=== PATIENT | female | born 1995 | race Caucasian/White ===

== ENCOUNTER 2022-09-12 09:53 | Outpatient (OUT) | payer OTHER, SELFPAY ==
--- NOTE | 2022-09-12 09:56 | US_ITS ---
[address] [address] Patient Name: MELITON EVANS MRN: [id number] date: 1995 Sex: F Assigned Patient Location: US Current Patient Location: US Accession/Order Number: [id number] Exam Date: 09/12/2022 09:58 Report Date: 09/14/2022 15:27 At the request of: EUGENIA VASQUEZ Procedure: US OB anatomy EXAMINATION: US OB anatomy, US OB cervical length HISTORY: Z34.92 SECOND TRIMESTER COMPARISON: No relevant comparison available. TECHNIQUE: Transabdominal sonographic examination was performed for obstetrical and evaluation. FINDINGS: Number: 1 Heart Rate: 133.0 bpm H.B. /min Amniotic Fluid Volume: Subjectively normal Placental Location: ANTERIOR Cervix Length: 5 cm , closed ANATOMY: Normal Structures -cerebellum, choroid plexus, cisterna magna, lateral cerebral ventricles, orbits, midline falx, hard palate, four-chamber heart, RVOT, LVOT, stomach, kidneys, bladder, umbilical cord insertion into abdomen, three-vessel cord, cervical spine, thoracic spine, lumbar spine, sacral spine, right upper extremity, left upper extremity, right lower extremity, left lower extremity. SUBOPTIMALLY SEEN: None ABNORMALITIES: None BIOMETRY: BPD: 4.8 cm 20 weeks 4 days ; 56% HC: 18.9 cm 21 weeks 2 days; 77% AC: 17.6 cm 22 weeks 4 days; 95% FL: 3.5 cm 21 weeks 0 days; 62% EFW:445.4 grams; >97% FL/AC: 19.8 FL/BPD: 72.3 HC/AC: 1.1 GESTATIONAL AGE: Age by EDC: 20 weeks 3 days LISBET by EDC: 01/27/2023 Age by current US: 21 weeks 3 days LISBET by current US: 01/20/2023 IMPRESSION: 1. Single live intrauterine with growth detailed above. 2. Estimated weight is greater than 97th percentile. Electronically authenticated by: NEHA CANO Date: 09/14/2022 15:27
== END 2022-09-12 09:54 ==
LOC: US 09:53
PROVIDERS: PCP Obstetrics & Gynecology; Visit Provider Obstetrics & Gynecology
DX: Z34.92 Encounter for supervision of normal pregnancy, unspecified, second trimester (principal); Z3A.20 20 weeks gestation of pregnancy
CPT/HCPCS: 76805; 76817

== ENCOUNTER 2022-11-02 08:38 | Outpatient (OUT) | payer OTHER, SELFPAY ==
[2022-11-02 09:51] LABS: Basophils Percent Auto 0.1 % (0.2-2.0); Eosinophils Absolute Auto 0.1 10^3/uL (0.0-0.7); Eosinophils Percent Auto 1.2 % (0.9-7.0); Hematocrit 35.2 % (36.0-48.0); Hemoglobin 11.3 g/dL (12.0-16.0); Immature Granulocytes Abs Auto 0.03 10^3/uL (0.00-0.03); Immature Granulocytes Pct Auto 0.4 % (0.0-0.5); Lymphocytes Absolute Auto 2.6 10^3/uL (1.2-3.8); Lymphocytes Percent Auto 33.9 % (20.5-60.0); Mean Corpuscular HGB Conc 32.1 g/dL (29.9-35.2); Mean Corpuscular Hemoglobin 30.1 pg (26.7-34.0); Mean Corpuscular Volume 93.6 fL (81.0-99.0); Mean Platelet Volume 9.3 fL (9.5-13.5); Monocytes Absolute Auto 0.2 10^3/uL (0.3-0.8); Monocytes Percent Auto 3.2 % (1.7-12.0); Neutrophils Absolute Auto 4.6 10^3/uL (1.4-6.5); Neutrophils Percent Auto 61.2 % (43.0-75.0); Platelet Count 307 10^3/uL (150-450); Red Blood Count 3.76 10^6/uL (4.20-5.40); Red Cell Distribution Width 13.3 % (11.0-15.0); White Blood Count 7.6 10^3/uL (4.0-11.0)
[2022-11-02 10:22] LABS: Glucose 1 Hour 151 mg/dL
== END 2022-11-02 08:39 | disposition home or self-care (01) ==
LOC: LAB 08:40
PROVIDERS: PCP Obstetrics & Gynecology; Visit Provider Obstetrics & Gynecology
DX: Z34.92 Encounter for supervision of normal pregnancy, unspecified, second trimester (principal); Z3A.00 Weeks of gestation of pregnancy not specified
CPT/HCPCS: 36415; 82950; 85025

== ENCOUNTER 2022-11-11 08:04 | Outpatient (OUT) | payer OTHER, SELFPAY ==
[2022-11-11 08:28] LABS: Glucose Fasting 87 mg/dL (74-106)
[2022-11-11 10:13] LABS: Glucose 1 Hour 114 mg/dL
[2022-11-11 10:52] LABS: Glucose 2 Hour 132 mg/dL
[2022-11-11 12:51] LABS: Glucose 3 Hour 123 mg/dL
== END 2022-11-11 08:05 | disposition home or self-care (01) ==
LOC: LAB 08:04
PROVIDERS: PCP Obstetrics & Gynecology; Visit Provider Obstetrics & Gynecology
DX: E74.39 Other disorders of intestinal carbohydrate absorption (principal)
CPT/HCPCS: 36415; 82951; 82952

== ENCOUNTER 2022-11-19 09:30 | Outpatient (OUT) | payer OTHER, SELFPAY ==
[2022-11-19 10:03] VITALS: BP 110/66; PULSE 87
[2022-11-19 11:17] LABS: Bilirubin Urine NEGATIVE (NEGATIVE); Blood Urine TRACE-I (NEGATIVE); Clarity Urine CLEAR (CLEAR); Color Urine YELLOW (YELLOW); Glucose Urine UA NEGATIVE (NEGATIVE); Ketones Urine NEGATIVE (NEGATIVE); Leukocyte Esterase Urine SMALL (NEGATIVE); Nitrite Urine NEGATIVE (NEGATIVE); Protein Urine NEGATIVE (NEG/TRACE); Specific Gravity Urine >=1.030 (1.005-1.025); pH Urine 5.5 (5.0-9.0)
[2022-11-19 11:23] LABS: Urine Microscopic Indicated YES
[2022-11-19 12:09] LABS: Bacteria Urine LARGE #/HPF (NONE SEEN)
[2022-11-19 12:13] LABS: Calcium Oxalate Crystals Urine RARE; Crystals Seen? Seen #/HPF (None Seen); Mucus Urine MODERATE (NONE SEEN); Squamous Epithelial Cell Urine MODERATE #/LPF (NONE/RARE)
[2022-11-19 12:15] LABS: Urine Culture Indicated YES
== END 2022-11-19 11:35 | disposition home or self-care (01) ==
LOC: FBCO 09:37 → FBC 09:37
PROVIDERS: Visit Provider Obstetrics & Gynecology
DX: O26.893 Other specified pregnancy related conditions, third trimester (principal); R10.2 Pelvic and perineal pain; Z3A.30 30 weeks gestation of pregnancy
CPT/HCPCS: 59025; 81001; 87086

== ENCOUNTER 2022-11-26 09:26 | Outpatient (OUT) | payer OTHER, SELFPAY ==
--- NOTE | 2022-11-26 09:29 | US_ITS ---
The [address] [address] Patient Name: MELITON EVANS MRN: [id number] date: 1995 Sex: F Assigned Patient Location: US Current Patient Location: US Accession/Order Number: [id number] Exam Date: 11/26/2022 09:29 Report Date: 11/26/2022 15:23 At the request of: EUGENIA TAYLOR Procedure: US OB growth EXAMINATION: US OB growth HISTORY: LGA COMPARISON: Ultrasound OB anatomy 09/12/2022 FINDINGS: Heart Rate: 131.0 bpm Number: 1.0 Position: CEPHALIC Amniotic Fluid Volume: 20.8 cm Maximum Vertical Pocket: 7.5 cm BIOMETRY: BPD: 8.5 cm cm; 34 weeks 0 days; >97% HC: 30.0 cmcm; 33 weeks 2 days; 73% AC: 30.0 cm cm; 34 weeks 0 days; >97% FL: 6.5 cm cm; 33 weeks 4 days; 91% % EFW: 2269.0 grams; >97% FL/AC: 21.7 FL/BPD: 76.9 HC/AC: 1.0 GESTATIONAL AGE: Age by EDC: 31 weeks 1 days LISBET by EDC: 01/27/2023 Age by US: 33 weeks 5 days LISBET by US: 01/09/2023 US/US OB growth IMPRESSION: 1. Single live intrauterine with growth detailed above. 2. Estimated weight is greater than 97th percentile. Dr. Taylor was notified of these findings by the tack welder at time of imaging. Electronically authenticated by: NEHA CANO Date: 11/26/2022 15:23
== END 2022-11-26 09:27 | disposition home or self-care (01) ==
LOC: US 09:27
PROVIDERS: Visit Provider Obstetrics & Gynecology
DX: O36.63X0 Maternal care for excessive fetal growth, third trimester, not applicable or unspecified (principal); Z3A.31 31 weeks gestation of pregnancy
CPT/HCPCS: 76816

== ENCOUNTER 2022-12-03 13:52 | Observation (INO) | payer OTHER, SELFPAY ==
[2022-12-03 14:23] VITALS: BP 111/56; PULSE 86
== END 2022-12-03 15:00 | disposition home or self-care (01) ==
LOC: FBC 13:54
PROVIDERS: Admitting Provider Obstetrics & Gynecology; Visit Provider Obstetrics & Gynecology
DX: O26.899 Other specified pregnancy related conditions, unspecified trimester (principal); R10.2 Pelvic and perineal pain; Z3A.00 Weeks of gestation of pregnancy not specified
CPT/HCPCS: G0378; G0379

== ENCOUNTER 2022-12-23 15:28 | Observation (INO) | payer OTHER, SELFPAY ==
--- NOTE | 2022-12-23 15:31 | US_ITS ---
[place] [id number] Patient Name: MELITON EVANS MRN: [id number] date: 1995 Sex: F Assigned Patient Location: [facility] Current Patient Location: Accession/Order Number: [id number] Exam Date: 12/23/2022 15:32 Report Date: 12/23/2022 16:16 At the request of: EUGENIA VASQUEZ Procedure: US OB growth PROCEDURE: US OB growth, 12/23/2022 3:32 PM EDT. INDICATIONS: Encounter for third trimester , large for gestational age fetus 4 para 3 COMPARISON: 11/26/2022 FINDINGS: EVALUATION Number of Fetuses : 1 Presentation: Cephalic Heart Rate: 118 bpm. Placenta: Anterior, no previa Placenta cord insertion not evaluated COLLEEN: 21.5 cm, maximum vertical pocket 9 cm GESTATIONAL AGE: Provided gestational age: 35 weeks 0 days Provided LISBET: 01/27/2023 Sonographic gestational age: 37 weeks 3 days +/- 2 weeks 4 days Sonographic LISBET: 01/30/2023 BIOMETRY: BPD: 9.0 cm, 36 weeks 3 days, 87 percentile. HC: 33.8 cm, 30 weeks 5 days, 94 percentile. AC: 34.4 cm, 30 weeks 2 days, greater than 97 percentile. FL: 7.0 cm, 36 weeks 0 days, 68 percentile. Estimated weight 3253 g +/- 488 g. Greater than 97 percentile Growth ratios: CI: 74.9 FL/BPD: 78.0 HC/AC: 0.98 FL/AC: 20.4 FL/HC: 20.7, normal range 20.84-22.64 ANATOMY: Not evaluated MATERNAL FINDINGS: No maternal adnexal abnormality. US/US OB growth IMPRESSION: 1. Living intrauterine , cephalic presentation. 2. Composite sonographic age 37 weeks 3 days +/- 2 weeks 4 days. 3. Estimated weight 3253 g, greater than 97 percentile. 4. Normal amniotic fluid index, 21.5 cm, maximum vertical pocket 9.0 cm. Electronically authenticated by: DAVID DURAN Date: 12/23/2022 16:16
--- NOTE | 2022-12-23 15:31 | US_ITS ---
[address] [address] Patient Name: MELITON EVANS MRN: [id number] date: 1995 Sex: F Assigned Patient Location: [facility] Current Patient Location: [facility] Accession/Order Number: [id number] Exam Date: 12/23/2022 15:32 Report Date: 12/23/2022 17:19 At the request of: EUGENIA VASQUEZ Procedure: US OB BPP w non-stress Ultrasound biophysical profile CLINICAL: Evaluate well-being. Ultrasound age of 37 weeks 3 days and clinical gestational age of 35 weeks 0 days. TECHNIQUE: Dedicated ultrasound imaging of the fetus was performed to include the waiter/waitress cafeteria's evaluation of biophysical profile. FINDINGS: Comparison: None. FETUS: There is a single living intrauterine fetus in vertex presentation. heart rate of 118 beats per minute. AMNIOTIC FLUID: Amniotic fluid index is 21.48 cm, with maximum vertical pocket of 8.98 cm. BIOPHYSICAL PROFILE: motion: 2 out of 2. tone: 2 out of 2. breathin out of 2. Amniotic fluid volume: 2 out of 2. Total score: 8 out of 8. OTHER FINDINGS: None. US/US OB BPP w non-stress IMPRESSION: 1. Single viable fetus in vertex presentation with heart rate of 118 beats per minute. 2. Total biophysical profile score of 8 out of 8. 3. Amniotic fluid index of 21.48 cm, with maximum vertical pocket of 8.9 cm. Electronically authenticated by: JEN ESTRADA Date: 12/23/2022 17:19
[2022-12-23 15:55] VITALS: BP 120/69; PULSE 82
== END 2022-12-23 16:15 | disposition home or self-care (01) ==
LOC: FBC 15:30
PROVIDERS: Admitting Provider Obstetrics & Gynecology; Visit Provider Obstetrics & Gynecology
DX: O26.843 Uterine size-date discrepancy, third trimester (principal); Z3A.35 35 weeks gestation of pregnancy
CPT/HCPCS: 76816; 76818; G0378

== ENCOUNTER 2022-12-25 10:06 | Outpatient (OUT) | payer OTHER, SELFPAY ==
[2022-12-25 10:16] VITALS: BP 117/69; PULSE 88
== END 2022-12-25 10:50 | disposition home or self-care (01) ==
LOC: FBCO 10:07 → FBC 10:07
PROVIDERS: Visit Provider Obstetrics & Gynecology
DX: O36.60X0 Maternal care for excessive fetal growth, unspecified trimester, not applicable or unspecified (principal); Z3A.00 Weeks of gestation of pregnancy not specified
CPT/HCPCS: 59025

== ENCOUNTER 2022-12-29 09:48 | Outpatient (OUT) | payer OTHER, SELFPAY ==
--- NOTE | 2022-12-29 10:04 | US_ITS ---
[address] [address] Patient Name: MELITON EVANS MRN: [id number] date: 1995 Sex: F Assigned Patient Location: US Current Patient Location: Accession/Order Number: [id number] Exam Date: 12/29/2022 10:05 Report Date: 12/29/2022 16:50 At the request of: EUGENIA VASQUEZ Procedure: US OB BPP w non-stress EXAMINATION: US OB BPP w non-stress HISTORY: Excessive growth affecting management of COMPARISON: No relevant comparison available. TECHNIQUE: Ultrasound biophysical profile was performed in the radiology department. FINDINGS: BREATHING MOVEMENTS: 2.0 GROSS BODY MOVEMENTS: 2.0 TONE: 2.0 QUALITATIVE AMNIOTIC FLUID VOLUME: 2.0 PRESENTATION: CEPHALIC HEART RATE: 131.7 bpm H.B./min AMNIOTIC FLUID VOLUME: 14.5 cm cm GESTATIONAL AGE: 35 weeks 6 days CONCLUSION: Total biophysical profile score: 8.0 Electronically authenticated by: BRYAN DE SOUZA Date: 12/29/2022 16:50
[2022-12-29 10:22] VITALS: BP 109/59; PULSE 80
== END 2022-12-29 10:57 | disposition home or self-care (01) ==
LOC: US 09:55 → FBC 10:09
PROVIDERS: Visit Provider Obstetrics & Gynecology
DX: O36.63X0 Maternal care for excessive fetal growth, third trimester, not applicable or unspecified (principal); Z3A.35 35 weeks gestation of pregnancy
CPT/HCPCS: 76818

== ENCOUNTER 2022-12-30 19:42 | Outpatient (REF) | payer OTHER, SELFPAY | END 2022-12-30 19:43 | disposition home or self-care (01) | LOC: LAB 19:42 | PROVIDERS: Visit Provider Obstetrics & Gynecology | DX: Z34.93 Encounter for supervision of normal pregnancy, unspecified, third trimester (principal) | CPT/HCPCS: 87081 ==

== ENCOUNTER 2023-01-01 09:54 | Outpatient (OUT) | payer OTHER, SELFPAY ==
[2023-01-01 10:05] VITALS: BP 102/56; PULSE 72
== END 2023-01-01 10:36 | disposition home or self-care (01) ==
LOC: FBCO 09:56 → FBC 09:57
PROVIDERS: Visit Provider Obstetrics & Gynecology
DX: O36.63X0 Maternal care for excessive fetal growth, third trimester, not applicable or unspecified (principal); Z3A.00 Weeks of gestation of pregnancy not specified
CPT/HCPCS: 59025

== ENCOUNTER 2023-01-04 14:44 | Observation (INO) | payer OTHER, SELFPAY ==
[2023-01-04 15:11] VITALS: BP 108/67; PULSE 90
== END 2023-01-04 16:15 | disposition home or self-care (01) ==
LOC: FBC 14:46
PROVIDERS: Admitting Provider Obstetrics & Gynecology; Visit Provider Obstetrics & Gynecology
DX: O26.893 Other specified pregnancy related conditions, third trimester (principal); O36.63X0 Maternal care for excessive fetal growth, third trimester, not applicable or unspecified; Z3A.36 36 weeks gestation of pregnancy; M79.89 Other specified soft tissue disorders
CPT/HCPCS: 59025; G0378; G0379

== ENCOUNTER 2023-01-05 07:12 | Outpatient (OUT) | payer OTHER, SELFPAY ==
--- NOTE | 2023-01-05 09:59 | US_ITS ---
[address] [address] Patient Name: MELITON EVANS MRN: [id number] date: 1995 Sex: F Assigned Patient Location: US Current Patient Location: LAB Accession/Order Number: [id number] Exam Date: 01/05/2023 10:00 Report Date: 01/05/2023 19:09 At the request of: EUGENIA VASQUEZ Procedure: US OB BPP w non-stress EXAMINATION: US OB BPP w non-stress HISTORY: Excessive growth in third trimester O36.63X0 COMPARISON: No relevant comparison available. TECHNIQUE: Ultrasound biophysical profile was performed in the radiology department. FINDINGS: BREATHING MOVEMENTS: 2.0 GROSS BODY MOVEMENTS: 2.0 TONE: 2.0 QUALITATIVE AMNIOTIC FLUID VOLUME: 2.0 PRESENTATION: CEPHALIC HEART RATE: 139.9 bpm H.B./min AMNIOTIC FLUID VOLUME: 18.8 cm cm GESTATIONAL AGE: 36 weeks 6 days CONCLUSION: Total biophysical profile score: 8.0 Electronically authenticated by: BRYAN DE SOUZA Date: 01/05/2023 19:09
[2023-01-05 10:25] VITALS: BP 123/70; PULSE 83
== END 2023-01-05 11:21 | disposition home or self-care (01) ==
LOC: US 07:12 → FBC 10:01
PROVIDERS: Visit Provider Obstetrics & Gynecology
DX: O36.63X0 Maternal care for excessive fetal growth, third trimester, not applicable or unspecified (principal); Z3A.36 36 weeks gestation of pregnancy
CPT/HCPCS: 76818

== ENCOUNTER 2023-01-06 14:00 | Inpatient (IN) | payer OTHER, SELFPAY ==
[2023-01-06] VITALS (33 sets, daily range): BP systolic 87–126; BP diastolic 44–72; PULSE 58–139; RESP 16; TEMP 36.4
[2023-01-06 15:09] LABS: Hematocrit 30.2 % (36.0-48.0); Hemoglobin 9.7 g/dL (12.0-16.0); Mean Corpuscular HGB Conc 32.1 g/dL (29.9-35.2); Mean Corpuscular Hemoglobin 27.8 pg (26.7-34.0); Mean Corpuscular Volume 86.5 fL (81.0-99.0); Mean Platelet Volume 10.8 fL (9.5-13.5); Platelet Count 243 10^3/uL (150-450); Red Blood Count 3.49 10^6/uL (4.20-5.40); Red Cell Distribution Width 14.4 % (11.0-15.0); White Blood Count 8.7 10^3/uL (4.0-11.0)
[2023-01-06 15:20] LABS: Amphetamine Screen Urine NEGATIVE (NEGATIVE); Barbiturates Screen Urine NEGATIVE (NEGATIVE); Benzodiazepines Screen Urine NEGATIVE (NEGATIVE); Buprenorphine Screen Urine NEGATIVE (NEGATIVE); Cannabinoid Screen Urine NEGATIVE (NEGATIVE); Cocaine Screen Urine NEGATIVE (NEGATIVE); Methadone Screen Urine NEGATIVE (NEGATIVE); Methamphetamines Screen Urine NEGATIVE (NEGATIVE); Opiate Screen Urine NEGATIVE (NEGATIVE); Oxycodone Screen Urine NEGATIVE (NEGATIVE); Phencyclidine Screen Urine NEGATIVE (NEGATIVE); Tricyclic Antidepressant Urine NEGATIVE (NEGATIVE)
[2023-01-06] MEDS: 0.9 % SODIUM CHLORIDE 1,000 ML 125 ML IV ×2 (16:00)
[2023-01-06] MEDS: AMPICILLIN SODIUM 2,000 MG in 0.9 % SODIUM CHLORIDE 100 ML 200 MG IV (16:00)
[2023-01-06] MEDS: OXYTOCIN/0.9 % SODIUM CHLORIDE 10 UNITS/500 ML PLAST..BAG 6 UNIT IV (16:00)
[2023-01-06] MEDS: 0.9 % SODIUM CHLORIDE 1,000 ML 999 ML IV (19:07)
[2023-01-06] MEDS: ROPIVACAINE HCL/PF 400 MG/200 ML PREMIX 6 MG EPIDURAL (19:28)
[2023-01-06] MEDS: FENTANYL CITRATE/PF 100 MCG/2 ML VIAL EPIDURAL ×2 (19:28)
--- NOTE | 2023-01-06 19:42 | W.PC.ACHO ---
Registration Status: ADM IN Primary Language: British Preferred Language: British Active Medications Generic Name Dose Route Start Last Admin Trade Name Freq PRN Reason Stop Dose Admin Carboprost Tromethamine 250 mcg 01/06/23 14:04 Carboprost Tromethamine 250 Mcg/Ml 1 Ml Vial IM 01/08/23 14:05 Q15M PRN Bleeding Diphenhydramine HCl 25 mg 01/06/23 16:38 Diphenhydramine Hcl 50 Mg/Ml (1ml) Vial IV 01/07/23 16:38 Q6H PRN Itching Ephedrine Sulfate 5 mg 01/06/23 16:38 Ephedrine Sulfate 50 Mg/Ml Vial IV 01/07/23 16:38 Q5M PRN Blood Pressure - Low Sodium Chloride 1,000 mls @ 125 mls/hr 01/06/23 14:30 01/06/23 19:07 Sodium Chloride 0.9% 1,000 Ml IV 999 mls/hr .Q8H FRANCI Administration Oxytocin/Sodium Chloride 10 units in 500 mls @ 6 mls/hr 01/06/23 14:15 01/06/23 16:00 Pitocin 10 Unit/500 Ml-Ns IV 2 milliunit/min CONT FRANCI 6 mls/hr Administration Protocol 2 MILLIUNIT/MIN Oxytocin/Sodium Chloride 20 units in 1,000 mls @ 125 mls/hr 01/06/23 14:15 Pitocin 20 Unit/1,000 Ml-Ns IV 01/06/23 22:14 Q8H FRANCI Ampicillin 1,000 mg/ Sodium 50 mls @ 100 mls/hr 01/06/23 20:00 Chloride IV Q4H FRANCI Ropivacaine/Sodium Chloride 400 mg in 200 mls @ 6 mls/hr 01/06/23 16:45 01/06/23 19:28 Naropin 0.2% 400 Mg/200 Ml Bag EPIDURAL 01/07/23 16:38 6 mls/hr Q24H FRANCI Administration Lidocaine 5 ml 01/06/23 14:10 Lidocaine Viscous 2% 15 Ml Solution TOPICAL ONCE PRN Pain Lidocaine 1 ml 01/06/23 14:10 Lidocaine Hcl 1% 200 Mg/20 Ml Mdv INJ ONCE PRN Pain Lidocaine 5 ml 01/06/23 16:38 Lidocaine Hcl 2% Pf 100 Mg/5 Ml Vial INJ 01/07/23 16:38 Q1H PRN Epidural Methylergonovine Maleate 0.2 mg 01/06/23 14:04 Methylergonovine Maleate 0.2 Mg/Ml Ampule IM 01/08/23 14:05 ONCE PRN Uterine Contractility/Contract Methylergonovine Maleate 0.2 mg 01/06/23 14:04 Methylergonovine Maleate 0.2 Mg Tablet PO 01/08/23 14:05 Q4H PRN Uterine Contractility/Contract Misoprostol 600 mcg 01/06/23 14:04 Misoprostol 100 Mcg Tablet PO 01/08/23 14:05 ONCE PRN Uterine Bleeding Misoprostol 800 mcg 01/06/23 14:04 Misoprostol 100 Mcg Tablet SL 01/08/23 14:05 ONCE PRN Uterine Bleeding Misoprostol 1,000 mcg 01/06/23 14:04 Misoprostol 100 Mcg Tablet NH 01/08/23 14:05 ONCE PRN Uterine Bleeding Naloxone HCl 0.4 mg 01/06/23 16:38 Naloxone Hcl 0.4 Mg/Ml Vial IV 01/07/23 16:38 ONCE PRN Epidural Ondansetron HCl 4 mg 01/06/23 14:10 Ondansetron Pf 4 Mg/2 Ml Vial IV Q6H PRN Nausea And Vomiting Ondansetron HCl 4 mg 01/06/23 14:10 Ondansetron 4 Mg Rapdis Tablet SL Q6H PRN Nausea And Vomiting Oxytocin 10 unit 01/06/23 14:04 Oxytocin 10 Unit/Ml Vial IM 01/08/23 14:05 ONCE PRN Hemorrhage Diet Category Date Time Status Regular Consistency Diet Diet 01/06/23 Dinner Active IV Insertion/Site Date of IV Line Insertion [20g 01/06/23 left Forearm] IV Insertion Time [20g left 14:55 Forearm] Neurology Patient orientation (short person,place,time,situation list) Respiratory Oxygen Delivery Method Room Air
[2023-01-06] MEDS: AMPICILLIN SODIUM 1,000 MG in 0.9 % SODIUM CHLORIDE 50 ML 100 MG IV (20:07)
--- NOTE | 2023-01-06 21:16 | PM.OBPRCVD ---
Procedure Intrapartal events: None Induction method: none Delivery augmentation: rupture of membranes and pitocin Delivery monitor: external FHT and external uterine Route of delivery: Episiotomy Description: none Laceration description: periurethral - 1st degree Delivery repair: Vicryl Estimated blood loss (mL): 300 Anesthesia type: Epidural Disposition: PACU Infant Delivery date: 01/06/23 Gender: male presentation: vertex Placental delivery description: Spontaneous cord description: 3 Vessels
[2023-01-06] MEDS: IBUPROFEN 600 MG TABLET PO (21:42)
[2023-01-06] MEDS: LIDOCAINE HCL 1% 200 MG/20 ML MDV INJ (21:44)
[2023-01-06] MEDS: OXYTOCIN/0.9 % SODIUM CHLORIDE 20 UNITS/1,000 ML PLAST..BAG 125 UNIT IV (21:45)
[2023-01-06] MEDS: GLYCERIN/WITCH HAZEL PADS 1 PAD TOPICAL (23:07)
[2023-01-06] MEDS: BENZOCAINE/MENTHOL 85 GRAM SPRAY BOTTLE 1 APPLIC TOPICAL (23:07)
[2023-01-07 04:15] VITALS: RESP 14
[2023-01-07] MEDS: IBUPROFEN 600 MG TABLET PO ×3 (04:18→18:08)
[2023-01-07 04:28] VITALS: TEMP 36.3
[2023-01-07 04:35] VITALS: BP 116/68; PULSE 77
[2023-01-07 05:51] LABS: Basophils Percent Auto 0.2 % (0.2-2.0); Eosinophils Percent Auto 0.3 % (0.9-7.0); Hematocrit 26.1 % (36.0-48.0); Hemoglobin 8.2 g/dL (12.0-16.0); Immature Granulocytes Abs Auto 0.04 10^3/uL (0.00-0.03); Immature Granulocytes Pct Auto 0.3 % (0.0-0.5); Lymphocytes Absolute Auto 3.8 10^3/uL (1.2-3.8); Lymphocytes Percent Auto 31.2 % (20.5-60.0); Mean Corpuscular HGB Conc 31.4 g/dL (29.9-35.2); Mean Corpuscular Hemoglobin 27.7 pg (26.7-34.0); Mean Corpuscular Volume 88.2 fL (81.0-99.0); Mean Platelet Volume 10.5 fL (9.5-13.5); Monocytes Absolute Auto 0.5 10^3/uL (0.3-0.8); Monocytes Percent Auto 4.1 % (1.7-12.0); Neutrophils Absolute Auto 7.8 10^3/uL (1.4-6.5); Neutrophils Percent Auto 63.9 % (43.0-75.0); Platelet Count 209 10^3/uL (150-450); Red Blood Count 2.96 10^6/uL (4.20-5.40); Red Cell Distribution Width 14.6 % (11.0-15.0); White Blood Count 12.2 10^3/uL (4.0-11.0)
--- NOTE | 2023-01-07 07:19 | W.PC.ACHO ---
Registration Status: ADM IN Primary Language: Montserratian Preferred Language: Montserratian report given lloyd MARTINO. Active Medications Generic Name Dose Route Start Last Admin Trade Name Freq PRN Reason Stop Dose Admin Acetaminophen 650 mg 01/06/23 21:18 Acetaminophen 325 Mg Tablet PO Q6H PRN Mild Pain Al Hydroxide/Mg Hydroxide 2,400 mg 01/06/23 21:18 Magnesium Hydroxide 2,400 Mg/10 Ml Oral.Susp PO Q6H PRN Dyspepsia Benzocaine/Menthol 1 applic 01/06/23 21:18 01/06/23 23:07 Benzocaine/Menthol 85 Gram [place] Bottle TOPICAL 1 applic Q2H PRN Administration Pain Carboprost Tromethamine 250 mcg 01/06/23 14:04 Carboprost Tromethamine 250 Mcg/Ml 1 Ml Vial IM 01/08/23 14:05 Q15M PRN Bleeding Diphenhydramine HCl 25 mg 01/06/23 16:38 Diphenhydramine Hcl 50 Mg/Ml (1ml) Vial IV 01/07/23 16:38 Q6H PRN Itching Diphtheria/Pertussis/Tetanus Vacc 0.5 ml 01/08/23 09:00 Adacel Diph,Pertuss(Acell),Tet Vac/Pf 0.5 Ml Adult Syringe IM 01/08/23 09:01 .ONCE ONE Docusate Sodium 100 mg 01/07/23 09:00 Docusate Sodium 100 Mg Capsule PO BID FRANCI Ephedrine Sulfate 5 mg 01/06/23 16:38 Ephedrine Sulfate 50 Mg/Ml Vial IV 01/07/23 16:38 Q5M PRN Blood Pressure - Low Sodium Chloride 1,000 mls @ 125 mls/hr 01/06/23 14:30 01/06/23 19:07 Sodium Chloride 0.9% 1,000 Ml IV 999 mls/hr .Q8H FRANCI Administration Oxytocin/Sodium Chloride 10 units in 500 mls @ 6 mls/hr 01/06/23 14:15 01/06/23 16:00 Pitocin 10 Unit/500 Ml-Ns IV 2 milliunit/min CONT FRANCI 6 mls/hr Administration Protocol 2 MILLIUNIT/MIN Ampicillin 1,000 mg/ Sodium 50 mls @ 100 mls/hr 01/06/23 20:00 01/06/23 20:07 Chloride IV 100 mls/hr Q4H FRANCI Administration Ropivacaine/Sodium Chloride 400 mg in 200 mls @ 6 mls/hr 01/06/23 16:45 01/06/23 19:28 Naropin 0.2% 400 Mg/200 Ml Bag EPIDURAL 01/07/23 16:38 6 mls/hr Q24H FRANCI Administration Ibuprofen 600 mg 01/06/23 21:18 01/07/23 04:18 Ibuprofen 600 Mg Tablet PO 600 mg Q6H PRN Administration Moderate Pain Lidocaine 5 ml 01/06/23 14:10 Lidocaine Viscous 2% 15 Ml Solution TOPICAL ONCE PRN Pain Lidocaine 1 ml 01/06/23 14:10 01/06/23 21:44 Lidocaine Hcl 1% 200 Mg/20 Ml Mdv INJ 1 ml ONCE PRN Administration Pain Lidocaine 5 ml 01/06/23 16:38 Lidocaine Hcl 2% Pf 100 Mg/5 Ml Vial INJ 01/07/23 16:38 Q1H PRN Epidural Measles/Mumps/Rubella Vaccine Live 0.5 ml 01/08/23 09:00 Measles,Mumps,Rubella Vacc/Pf 0.5 Ml Vial SQ 01/08/23 09:01 .ONCE ONE Methylergonovine Maleate 0.2 mg 01/06/23 14:04 Methylergonovine Maleate 0.2 Mg/Ml Ampule IM 01/08/23 14:05 ONCE PRN Uterine Contractility/Contract Methylergonovine Maleate 0.2 mg 01/06/23 14:04 Methylergonovine Maleate 0.2 Mg Tablet PO 01/08/23 14:05 Q4H PRN Uterine Contractility/Contract Misoprostol 600 mcg 01/06/23 14:04 Misoprostol 100 Mcg Tablet PO 01/08/23 14:05 ONCE PRN Uterine Bleeding Misoprostol 800 mcg 01/06/23 14:04 Misoprostol 100 Mcg Tablet SL 01/08/23 14:05 ONCE PRN Uterine Bleeding Misoprostol 1,000 mcg 01/06/23 14:04 Misoprostol 100 Mcg Tablet NC 01/08/23 14:05 ONCE PRN Uterine Bleeding Naloxone HCl 0.4 mg 01/06/23 16:38 Naloxone Hcl 0.4 Mg/Ml Vial IV 01/07/23 16:38 ONCE PRN Epidural Ondansetron HCl 4 mg 01/06/23 14:10 Ondansetron Pf 4 Mg/2 Ml Vial IV Q6H PRN Nausea And Vomiting Ondansetron HCl 4 mg 01/06/23 14:10 Ondansetron 4 Mg Rapdis Tablet SL Q6H PRN Nausea And Vomiting Oxytocin 10 unit 01/06/23 14:04 Oxytocin 10 Unit/Ml Vial IM 01/08/23 14:05 ONCE PRN Hemorrhage Senna 17.2 mg 01/06/23 20:00 Sennosides 8.6 Mg Tablet PO QHS PRN Constipation Simethicone 80 mg 01/06/23 21:18 Simethicone 80 Mg Tab.Chew PO QID PRN Abdominal Distention Temazepam 15 mg 01/06/23 21:18 Temazepam 15 Mg Capsule PO QHS PRN Sleep Witch Agustina/Glycerin 1 pad 01/06/23 21:18 01/06/23 23:07 Glycerin/Witch Agustina Pads TOPICAL 1 pad Q2H PRN Administration Pain Diet Category Date Time Status Regular Consistency Diet Diet 01/06/23 Dinner Active Regular Consistency Diet Diet 01/07/23 Breakfast Active IV Insertion/Site Date of IV Line Insertion [20g 01/06/23 left Forearm] IV Insertion Time [20g left 14:55 Forearm] Neurology Patient orientation (short person,place,time,situation list) Respiratory Oxygen Delivery Method Room Air Oxygen Delivery Method Room Air Oxygen Delivery Method Room Air Bowels Date of Last Bowel Movement 01/07/23 Date of Last Bowel Movement 01/06/23 Renal Bladder Pattern Continent
[2023-01-07 08:03] VITALS: BP 109/72; PULSE 67; TEMP 36.2
[2023-01-07] MEDS: DOCUSATE SODIUM 100 MG CAPSULE PO (10:12)
--- NOTE | 2023-01-07 13:49 | PM.OBPN ---
OB - PN: Subj Subjective Patient comments: no complaints Exam Constitutional Vital Signs, click to edit/add: Last Vital Signs Temp 97.3 F L 01/07/23 04:28 Pulse 67 01/07/23 08:03 Resp 14 01/07/23 04:15 BP 109/72 01/07/23 08:03 O2 Del Method Room Air 01/07/23 04:15 Documenting provider has reviewed patient's vital signs: yes HENMT Common normals: normocephalic and head/scalp atraumatic Eye Pupil: PERRL and accommodation reflex normal Neck & C-Spine Common normals: full ROM and supple Respiratory Common normals: normal respiratory effort Cardio Common normals: regular rate and regular rhythm GI Common normals: Normal to inspection, nondistended, normoactive bowel sounds present Common normals: no CVA tenderness Extremity Common normals: normal to inspection, full ROM and no calf tenderness Neuro Common normals: oriented x3, CN's II-XII intact bilaterally, moves all extremities, no focal motor deficits and no sensory deficits noted Psych Common normals: mental status grossly normal, thought process normal, cooperative and affect normal Results Labs Labs: Short CBC 01/06/23 01/07/23 Range/Units 14:55 05:43 WBC 8.7 12.2 H (4.0-11.0) 10^3/uL Hgb 9.7 L 8.2 L (12.0-16.0) g/dL Hct 30.2 L 26.1 L (36.0-48.0) % Plt Count 243 209 (150-450) 10^3/uL OB - PN: A/P Plan - Vaginal Delivery day: 1 Plan: routine care Time Spent with Patient Time: Total time spent is greater than 50% in coordination of care (as documented) at patient's floor/unit and/or counseling patient: Total time spent with greater than 50% in coordination of care (as documented) at patient's floor/unit and/or counseling patient: less than 15 minutes
[2023-01-07 16:42] VITALS: RESP 16
[2023-01-07 16:46] VITALS: BP 121/76; PULSE 64; TEMP 36.4
--- NOTE | 2023-01-07 19:12 | W.PC.ACHO ---
Registration Status: ADM IN Primary Language: Singaporean Preferred Language: Singaporean Active Medications Generic Name Dose Route Start Last Admin Trade Name Freq PRN Reason Stop Dose Admin Acetaminophen 650 mg 01/06/23 21:18 Acetaminophen 325 Mg Tablet PO Q6H PRN Mild Pain Al Hydroxide/Mg Hydroxide 2,400 mg 01/06/23 21:18 Magnesium Hydroxide 2,400 Mg/10 Ml Oral.Susp PO Q6H PRN Dyspepsia Benzocaine/Menthol 1 applic 01/06/23 21:18 01/06/23 23:07 Benzocaine/Menthol 85 Gram [place] Bottle TOPICAL 1 applic Q2H PRN Administration Pain Carboprost Tromethamine 250 mcg 01/06/23 14:04 Carboprost Tromethamine 250 Mcg/Ml 1 Ml Vial IM 01/07/23 21:00 Q15M PRN Bleeding Diphtheria/Pertussis/Tetanus Vacc 0.5 ml 01/08/23 09:00 Adacel Diph,Pertuss(Acell),Tet Vac/Pf 0.5 Ml Adult Syringe IM 01/08/23 09:01 .ONCE ONE Docusate Sodium 100 mg 01/07/23 09:00 01/07/23 10:12 Docusate Sodium 100 Mg Capsule PO 100 mg BID FRANCI Administration Sodium Chloride 1,000 mls @ 125 mls/hr 01/06/23 14:30 01/06/23 19:07 Sodium Chloride 0.9% 1,000 Ml IV 999 mls/hr .Q8H FRANCI Administration Ibuprofen 600 mg 01/06/23 21:18 01/07/23 18:08 Ibuprofen 600 Mg Tablet PO 600 mg Q6H PRN Administration Moderate Pain Measles/Mumps/Rubella Vaccine Live 0.5 ml 01/08/23 09:00 Measles,Mumps,Rubella Vacc/Pf 0.5 Ml Vial SQ 01/08/23 09:01 .ONCE ONE Methylergonovine Maleate 0.2 mg 01/06/23 14:04 Methylergonovine Maleate 0.2 Mg/Ml Ampule IM 01/07/23 21:00 ONCE PRN Uterine Contractility/Contract Methylergonovine Maleate 0.2 mg 01/06/23 14:04 Methylergonovine Maleate 0.2 Mg Tablet PO 01/07/23 21:00 Q4H PRN Uterine Contractility/Contract Misoprostol 600 mcg 01/06/23 14:04 Misoprostol 100 Mcg Tablet PO 01/07/23 21:00 ONCE PRN Uterine Bleeding Misoprostol 800 mcg 01/06/23 14:04 Misoprostol 100 Mcg Tablet SL 01/07/23 21:00 ONCE PRN Uterine Bleeding Misoprostol 1,000 mcg 01/06/23 14:04 Misoprostol 100 Mcg Tablet MA 01/07/23 21:00 ONCE PRN Uterine Bleeding Ondansetron HCl 4 mg 01/06/23 14:10 Ondansetron Pf 4 Mg/2 Ml Vial IV Q6H PRN Nausea And Vomiting Ondansetron HCl 4 mg 01/06/23 14:10 Ondansetron 4 Mg Rapdis Tablet SL Q6H PRN Nausea And Vomiting Senna 17.2 mg 01/06/23 20:00 Sennosides 8.6 Mg Tablet PO QHS PRN Constipation Simethicone 80 mg 01/06/23 21:18 Simethicone 80 Mg Tab.Chew PO QID PRN Abdominal Distention Temazepam 15 mg 01/06/23 21:18 Temazepam 15 Mg Capsule PO QHS PRN Sleep Witch Agustina/Glycerin 1 pad 01/06/23 21:18 01/06/23 23:07 Glycerin/Witch Agustina Pads TOPICAL 1 pad Q2H PRN Administration Pain Diet Category Date Time Status Regular Consistency Diet Diet 01/07/23 Breakfast Active Respiratory Oxygen Delivery Method Room Air Oxygen Delivery Method Room Air Bowels Date of Last Bowel Movement 01/07/23 Date of Last Bowel Movement 01/06/23 Renal Bladder Pattern Continent Bladder Pattern Continent
--- NOTE | 2023-01-07 19:57 | W.PC.ACHO ---
Registration Status: ADM IN Primary Language: Chilean Preferred Language: Chilean Report received from Karthik MARTINO. Active Medications Generic Name Dose Route Start Last Admin Trade Name Freq PRN Reason Stop Dose Admin Acetaminophen 650 mg 01/06/23 21:18 Acetaminophen 325 Mg Tablet PO Q6H PRN Mild Pain Al Hydroxide/Mg Hydroxide 2,400 mg 01/06/23 21:18 Magnesium Hydroxide 2,400 Mg/10 Ml Oral.Susp PO Q6H PRN Dyspepsia Benzocaine/Menthol 1 applic 01/06/23 21:18 01/06/23 23:07 Benzocaine/Menthol 85 Gram [place] Bottle TOPICAL 1 applic Q2H PRN Administration Pain Carboprost Tromethamine 250 mcg 01/06/23 14:04 Carboprost Tromethamine 250 Mcg/Ml 1 Ml Vial IM 01/07/23 21:00 Q15M PRN Bleeding Diphtheria/Pertussis/Tetanus Vacc 0.5 ml 01/08/23 09:00 Adacel Diph,Pertuss(Acell),Tet Vac/Pf 0.5 Ml Adult Syringe IM 01/08/23 09:01 .ONCE ONE Docusate Sodium 100 mg 01/07/23 09:00 01/07/23 10:12 Docusate Sodium 100 Mg Capsule PO 100 mg BID FRANCI Administration Sodium Chloride 1,000 mls @ 125 mls/hr 01/06/23 14:30 01/06/23 19:07 Sodium Chloride 0.9% 1,000 Ml IV 999 mls/hr .Q8H FRANCI Administration Ibuprofen 600 mg 01/06/23 21:18 01/07/23 18:08 Ibuprofen 600 Mg Tablet PO 600 mg Q6H PRN Administration Moderate Pain Measles/Mumps/Rubella Vaccine Live 0.5 ml 01/08/23 09:00 Measles,Mumps,Rubella Vacc/Pf 0.5 Ml Vial SQ 01/08/23 09:01 .ONCE ONE Methylergonovine Maleate 0.2 mg 01/06/23 14:04 Methylergonovine Maleate 0.2 Mg/Ml Ampule IM 01/07/23 21:00 ONCE PRN Uterine Contractility/Contract Methylergonovine Maleate 0.2 mg 01/06/23 14:04 Methylergonovine Maleate 0.2 Mg Tablet PO 01/07/23 21:00 Q4H PRN Uterine Contractility/Contract Misoprostol 600 mcg 01/06/23 14:04 Misoprostol 100 Mcg Tablet PO 01/07/23 21:00 ONCE PRN Uterine Bleeding Misoprostol 800 mcg 01/06/23 14:04 Misoprostol 100 Mcg Tablet SL 01/07/23 21:00 ONCE PRN Uterine Bleeding Misoprostol 1,000 mcg 01/06/23 14:04 [address] 01/07/23 21:00 ONCE PRN Uterine Bleeding Ondansetron HCl 4 mg 01/06/23 14:10 Ondansetron Pf 4 Mg/2 Ml Vial IV Q6H PRN Nausea And Vomiting Ondansetron HCl 4 mg 01/06/23 14:10 Ondansetron 4 Mg Rapdis Tablet SL Q6H PRN Nausea And Vomiting Senna 17.2 mg 01/06/23 20:00 Sennosides 8.6 Mg Tablet PO QHS PRN Constipation Simethicone 80 mg 01/06/23 21:18 Simethicone 80 Mg Tab.Chew PO QID PRN Abdominal Distention Temazepam 15 mg 01/06/23 21:18 Temazepam 15 Mg Capsule PO QHS PRN Sleep Witch Agustina/Glycerin 1 pad 01/06/23 21:18 01/06/23 23:07 Glycerin/Witch Agustina Pads TOPICAL 1 pad Q2H PRN Administration Pain Diet Category Date Time Status Regular Consistency Diet Diet 01/07/23 Breakfast Active Respiratory Oxygen Delivery Method Room Air Oxygen Delivery Method Room Air Bowels Date of Last Bowel Movement 01/07/23 Date of Last Bowel Movement 01/06/23 Renal Bladder Pattern Continent Bladder Pattern Continent
[2023-01-08 01:15] VITALS: RESP 14
[2023-01-08] MEDS: IBUPROFEN 600 MG TABLET PO ×2 (01:19→08:24)
[2023-01-08 01:22] VITALS: BP 109/62; PULSE 72; TEMP 36
[2023-01-08 08:19] VITALS: BP 109/51; PULSE 67
[2023-01-08 08:28] VITALS: BP 109/51; PULSE 67; RESP 16; TEMP 36.7
--- NOTE | 2023-01-08 12:46 | PM.OBDS ---
DS: Providers Provider Date of admission: 01/06/23 14:00 Primary care physician: Non-Staff Physician, Admitting clinician: Pipo Taylor Discharging clinician: Cecilia Ardon Anticipated date of discharge: 01/08/23 DS: Diagnosis Discharge Diagnosis (1) Vaginal delivery: Assessment and plan: INSTRUCTIONS GIVEN. FOLLOW UP IN SIX WEEKS FOR POST EXAM. SPORTS BRA ON 26/10 TO PREVENT MILK FROM COMING IN. Plan MEDICAL EXAM NON FOCAL. BOTTLE FEEDING. INSTRUCTIONS GIVEN: NO SEX FOR SIX WEEKS, SPORTS BRA ON 26/10 TO PREVENT MILK FROM COMING IN. WALKING ONLY EXERCISE FOR SIX WEEKS. MAY SHOWER. NO BATHTUB FOR 4 WEEKS. GENERAL RSV AND COVID PRECAUTIONS GIVEN OB - DS: Summary Hospital Course Hospital Course: UNCOMPLICATED Time spent discussing smoking cessation with patient: 3 to 10 minutes Peripartum Data - Vaginal Delivery Laceration description: periurethral - 1st degree Episiotomy Description: midline Complications complications: none Delivery method: spontaneous vaginal delivery Gender: male Discharge plan: home Status at Discharge Functional status at discharge: independent ambulation Overall status at discharge: patient is back to baseline Time Spent with Patient Time attestation: Total time spent providing and/or coordinating discharge services: Time spent: less than 30 minutes Specific discharge activities: STATED ABOVE Exam Constitutional Vital Signs, click to edit/add: Last Vital Signs Temp 98.1 F 01/08/23 08:28 Pulse 67 01/08/23 08:28 Resp 16 01/08/23 08:28 BP 109/51 01/08/23 08:28 O2 Del Method Room Air 01/08/23 08:28 Documenting provider has reviewed patient's vital signs: yes Common normals: no apparent distress HENMT Common normals: normocephalic and head/scalp atraumatic Eye Pupil: PERRL and accommodation reflex normal Neck & C-Spine Common normals: full ROM Respiratory Common normals: normal respiratory effort Cardio Common normals: regular rate and regular rhythm GI Common normals: Normal to inspection, nondistended, normoactive bowel sounds present Common normals: no CVA tenderness Extremity Common normals: normal to inspection, full ROM and no calf tenderness Neuro Common normals: CN's II-XII intact bilaterally, moves all extremities, no focal motor deficits and no sensory deficits noted Psych Common normals: mental status grossly normal, thought process normal, cooperative and affect normal Discharge Plan Discharge Disposition: Home, Self-Care Condition: Good Assessment: CONDITION GOOD S/P VAGINAL DELIVERY WITHOUT COMPLICATION. REQUESTING DISCHARGE. Health Concerns: NONE Plan of Treatment: DISCHARGE HOME Forms: Portal Instructions Discharge location: HOME
== END 2023-01-08 13:45 | disposition home or self-care (01) | DRG 560 ==
PROVIDERS: Admitting Provider Obstetrics & Gynecology; Visit Provider Obstetrics & Gynecology
DX: O36.63X0 Maternal care for excessive fetal growth, third trimester, not applicable or unspecified (principal); O99.344 Other mental disorders complicating childbirth; F32.A Depression, unspecified; F41.9 Anxiety disorder, unspecified; O71.82 Other specified trauma to perineum and vulva; Z37.0 Single live birth; Z3A.37 37 weeks gestation of pregnancy; Z83.3 Family history of diabetes mellitus; Z82.0 Family history of epilepsy and other diseases of the nervous system
CPT/HCPCS: 36415; 59025; 59050; 59410; 76818; 80307; 85025; 85027; 86850; 86900; 86901; 96365; 96375; 96376; G0378; G0379

== ENCOUNTER 2023-04-14 20:33 | Outpatient (REF) | payer OTHER, SELFPAY ==
[2023-04-19 12:11] LABS: Age Gdln ACOG Testing Note (.); IGP, rfx Aptima HPV ASCU Note (.)
== END 2023-04-14 20:34 | disposition home or self-care (01) ==
LOC: LAB 20:33
PROVIDERS: Visit Provider Obstetrics & Gynecology
DX: Z01.419 Encounter for gynecological examination (general) (routine) without abnormal findings (principal)
CPT/HCPCS: G0145

== ENCOUNTER 2023-04-30 10:01 | Outpatient (OUT) | payer OTHER, SELFPAY ==
--- OUTSIDE RECORDS SUMMARY | 2023-04-30 10:05 | XMS_ITS | CCD ---
Author Name Unknown Address [address] [place] [address] Organization [facility] Care Team Providers Care Stuffer Name Role Phone NO FAMILY, PHYSICIAN Primary Care Provider Unava ilable BAKARI Mortensen Emergency Provider [phone] Eugenia Taylor Attending Provider MD Odilon Daniels Attending Provider Linda Mortensen Admitting Unavailable Linda Mortensen Attending Unavailable NO FAMILY, PHYSICIAN Primary Care Unavailable Eugenia Taylor Attending Unavailable NO FAMILY, PHYSICIAN Primary Care Unavailable Eugenia Taylor Admitting Unavailable NO FAMILY, PHYSICIAN Primary Care Unavailable Odilon Daniels Admitting Unavailable Odilon Daniels Attending Unavailable PEDRO ., DR BELLO Attending Unavailable MISC, DR LAWS Primary Care Unavailable [place], DR BRYAN Hutton Consulting Unavailable PEDRO ., DR BELLO Admitting Unavailable PEDRO ., DR BELLO Consulting Unavailable PEDRO ., DR BELLO Attending Unavailable PEDRO ., DR BELLO Admitting Unavailable MISC, DR LAWS Primary Care Unavailable PEDRO ., DR BELLO Consulting Unavailable PEDRO ., DR BELLO Attending Unavailable PEDRO ., DR BELLO Admitting Unavailable MISC, DR LAWS Primary Care Unavailable PEDRO ., DR BELLO Consulting Unavailable Provider, None Primary Care Unavailable Geovanny Mac Admitting Unavaila Geovanny Travis Attending Unavaila ble EUGENIA TAYLOR Attending Unavailable EUGENIA TAYLOR Attending Unavailable Allergies Allergy Classification Reported Allergen(s) Allergy Type Date of Onset Reaction(s) Facility (1 source) No Known Medication Allergies; Translations: [No Known Medication Allergies] Propensity to adverse reactions to drug (disorder) [facility] Repository Medications Current Medications Medication Drug Class(es) Dates Sig (Normalized) Sig (Original) nitrofurantoin, macrocrystals 25 mg / nitrofurantoin, monohydrate 75 mg oral capsule (3 sources) Nitrofuran Antibacterial Start: 06-26-2022 take 1 capsule by mouth twice daily at mealtime Nitrofurantoin Monohyd/M-Cryst (Macrobid) 100 mg capsule Active 100 MG PO Twice daily 14 7 June 26, 2022 12:00am must administer with a meal/food ondansetron 4 mg oral tablet (3 sources) Serotonin-3 Receptor Antagonist Start: 06-26-2022 take 4 mg by mouth once daily Ondansetron Hcl Active 4 MG PO Daily June 26, 2022 12:00am Problems Active Problems Problem Classification Problem Date Documented Da te Episodic/Chronic Conditions associated with dizziness or vertigo (1 source) Dizziness and giddiness; Translations: [Dizziness and giddiness] Onset: 06-26-2022 Episodic Menstrual disorders (5 sources) Irregular menstruation, unspecified; Translations: [Irregular menstruation, unspecified] Onset: 06-04-2022 Chronic Other complications of (3 sources) Vomiting of ; Translations: [Vomiting of , unspecified] 06-26-2022 Episodic Other complications of (3 sources) Urinary tract infection in ; Translations: [Unspecified infection of urinary tract in , unspecified trimester] 06-26-2022 Episodic Other and delivery including normal (5 sources) Encounter for supervision of other normal , first trimester; Translations: [Encounter for supervision of normal , unspecified, first trimester] Onset: 06-09-2022 Episodic Syncope (3 sources) Vasovagal symptom; Translations: [Syncope and collapse] 06-26-2022 Episodic Unclassified (1 source) Contact with and (suspected) exposure to COVID-19; Translations: [Contact with and (suspected) exposure to COVID-19] Onset: 07-03-2022 Past or Other Problems Problem Classification Problem Date Documented Da te Episodic/Chronic Residual codes; unclassified (1 source) Less than 8 weeks gestation of ; Translations: [< 8 WEEKS GESTATION ] Onset: 06-09-2022 Episodic Results Test Name Value Interpretation Reference Range Facility Coding Summaryon 03-05-2023 Coding Summary HTMLBase 64 KwxkpjgaXYk9gBp+PGhl YWQ+KV0LTKDnF79qgTCx eA5yJ4GKOTyDIokqXVXD XIkAMbShngPpMN0uiHYo ZXJu IC8+KH0tVQMqPworqTOj d6G0dYO4L14pdm1wBHqh xXW5OVLbTtWydfusa9qa wWo3SBflYhkeJyGu TMJhyA84DUK1qT69Ff88 qEEibNEkg3uzlEj0FzZv QLOgNRA4hEqmMMtxf6Jq DRSrP42muCAta6H7 IGNvbGxhcHNlOyBlbXB0 aV0bHMcrhnwbx9zcldsj Pqh6bx42zURvm2T3nVJ6 W7GiwtX9FBUlySUc AuexiYXXxE6vxbhuu8mk spdgQyHlZDHuIMl7BSp0 AFXmxFrpEaBiKA69MXE4 XVKprkViO0NdHXZv mTzuKnV8v5H7Hd5QW0CD QplxM9OPJJEKHHtvwHN+ YQ97sf06P7UqCrmeZek5 XBPcISR1mCA8gQ2n QJEiHXwwu6A9jBI7P2Rn pqLprv7zg8qyNWTsWRrn N65egAGmx4H7VBRmnGO6 KOOawEdkQbUdtS74 Oyc+OWEqlYlzw1BlJvqk f6hoe9pwjAj1MwdkKFKt jnPkvRgnGUU3f8DiXy7i YQUdjCP9rXM0oB6f CuZcBlO8TTfkS135KeKp lZQzNfguO89iD6ErjUM+ VVVnFfl8VHJqcWllMD8q R5CnJRTyallfjISw wKckMF2iUSOfcebtBMHi zS6wYEDeP6d1TmNyOzP6 UUliH1LsQMBxtwsxCu83 zM0nEpIbMlW8UXcn O7PbkuT5PZOuhJBfKCfo JGO9R17tp5S7VMNtSOBx IGX2sOW0zW1uuBmgmhlz bGVmdDsgdmVydGlj UExtWRbsW737NGCynSfg PkNvZGluZyBEYXRlOiAg MTIvMDEvMjAyMzwvdGQ+ DNVnZQJ5rMweDVNp lKQcCVtsNp8gyOcgzBrv RH8zDTRzasvvTCLfqY2g UMKrhUGkgZqdTK4zNRVt ywgmf698NbZwENL5 RZGwjNPgB1AbkX1aCfCi SCZnZZUrD5YqiALwMLdz D791MVplNxC8ULInueWm S9BfPAFvrMkhAyM5 a4K9Bt2Ie6JtxlupJ6Sx fXEcRwHkTwbaJYr3U2Ud PjwvdHI+ZC17NBPtOB14 NOd4REA3wHzmLAfu BITeR9GijM0cPcBfOKDd ZGRkOyc+PHRhYmxlIHdp ZHRoPScxMDAlJyBzdHls XI3sZs0cOEGfHFHp pKvsnDEfAbUsh4rsNOIv WTyzKD1myUqbC1HdqAT1 SRWtp6h6Jn94G71qQ4Vl dXA+RKZgyUS4iOF4 mM4lVwOrYnO3YTbkC218 OuAjrJDkMupqf3xsw7fx iKb1WsR4ZMMyckRprGzo MCU3s4IqWn55L90e IHdpZHRoPSIxNSUiIHZh nKhdbo6zcI4fOj0+PGNv fUM7cML1dN2rBhMzZfW3 FSwfY488XiLrgJWk Erhsn7bka3opnIv3RfXz ROCdhtYfyVwmUIV3j5Sx Qy57C3UyzTmme3DkGaf8 gy68zKVxp4N7wUS1 I5MoUMCqhptxvOSdrStu IX1jVMTqpvzsOBZcaU0l FAZzS6w1OjLfHmA8ZNij O5KjutM8NHDssWZv ZGIdaNPHnN3ydyslu8ms raopOlNeOORkWJe8XPa7 FEOexHeiSeFiXIG4WqV5 QNX7lKVfvI4tkYhf iqrsoA0cDat+ALZ4tUOu tXGNHP4dRowvwGQ+PHRk GOS9uBcjRGzqYRLyiI2e IDXkP6m8TnJpDgB6 FGreS8VnuhR9BAQyxKMj NXOzpHSHtO8ttkxab7mr ioknJwNnOQFjUBb5IWi7 LWFsaWduOiBsZWZ0 UpX3BYU5eJWibB6pcHxj srfzqP2tPja+QmlydGgg WLN7VXc0S9UgBls9OCQn tLicTA1uuYCiEPhw Iw9srOrqvVfgKJ6fFISn bshuk578OfFsf5wnEMCm rOHdETyaEPA4X40ez4J0 VJOtHCOiNYP5eZX3 nU0zlFlwzjqsiERxpYpe iwNlcMreAUfoOMmqE108 FMPukOayVwZrMAp7J3Tt Qmu1GNZylBagPO5n eELtOAurAp6wxMohdZxo RZ7mCWIjrlffp364RtGd x4heOSEkvDQtUYzgUDO0 O65ck7W8QDEyRZJb ITQ0oKV7sR5pvQnnwazf bGVmdDsgdmVydGljYWwt HPuhX004IGQygTucCqIf tJs0M7IoKop8VOWg oIllKD7qwWSdILwdBj0z wSvhjIgqDT8bAVHcgjhv m870FlTkv0tjEAQxqXOw VDjfCBT7A00pu8T3 DWOcWPGsLHW9lSM6tY2t bGlnbjogbGVmdDsgdmVy xPdfZGxdHLauP149QOFs cDsnPlBhdGllbnQg CTitMDk8F7TcYkfvrJJ+ AC04JMWkXE02oLBjrBUm d3qwqOh9RoLfHKDrYOR4 cJqvBQyos9UxYOAy P16ajJSlp2I2JHZamBhn rOVvZlLqeCW5kP7dBXne cgnac6alobnlLvdrk6yo zw54zS80U20cHLxx ZHRoPSIzMCUiIHZhbGln af6bnW1hFu9+PGNvbCB3 uSX1lL9dNMRbBiG1OJhr R516NdSgcJAkZkvj x0myv5vqyRw2DgN2YDMu kjWyqMdkINV6k4UeCf11 E92wIOezNWHjSUIxVQFc QFTgzTicql2ldE2g Ii8+INQldXC6iDD4cG5c NoPiZtF1LIqjD416BdRr jIXhSrcgB19yZ6EveMR+ VEArRoy0MJIwyLqr CU5cePRzYLjzQu6dXKB7 TpDvFeRfQWsuO9BsXSQq cubgfmpaeBC2ITQzPCJv dJ14Zz3mjGzsGXTq pTSDhW1yvmwsn9iakgzr BsAkQNOrJJp2XLr3UMLd nVphSaZrPFG1YoB9WWI4 gDJmcV9ygOkgmkuk lE1aN4JgAPMdbfboVt27 uO9eCfQjBoG3BIreYbu+ LNBPFN7SKJJIAO8AJdHG FOFGSF4TMJ03NA40 tOUpo0F9ySB3R5RtLOVo vviordmajJT9JPKnNXKl lS37oQQkMVjwFx6aj4F2 h051XTGgYEUmvS51 Gs5fbYwwYKFzjNNLmF6i gzpkz4jxkkbjHzTnZKBg XBx7OBn5DKNdtDjnAlAz VDF1OzE5ZVV4vRWo dF5hkQfpnwtfoV8pUvj+ PZZqURTqFYv8WkwuhCA+ WEJlZUA7yRjjOMntFNFx bP3yECOfR4x0IbDg IrF1LXzvN2GgXYZxgbfz Kj99fJ2bYvCnRkZ0KDlp Z8LqywN9LDBfpBSbGHlt BPH2X54zk0H9WBJn DJZtVNG3rYT7mW4zuZal bjogbGVmdDsgdmVydGlj YSuaTTwsL295RGZhsJaf WjH7VEpxMJReKQ18 JJ66qUQdf4S4fOK0D2Bj PQGfolsccmkvoRC5KIPo MKRyuG72yZLwDTfcBs5h u5R9h585YISrVQJv dQ67Uo7dtItvBIAlgTWI yP0hmluqq4dgodywCfQg PSWzCBm1ZKp7NINbvRep KqOlLUZ5OrE3HJT7 jHUfhS1pzVftswwcoA6j Oyc+ZtMWGBfDFA82JE75 wTEze2G9uOG2D4YgKIAo qsgpvdhopIO2XIWe WXMklC95cIKfVCoyBs7s r2O5r317XKIfXHIenD12 Wt0xuJhvYBDcnJULlJ5k ebwou0rnytgpOiCs THKdKNa0NBk7TRUwqQho PrGgHCY3LhK3NKV7aTEk zA0osFeybjaerP7xPjt+ C8P2M5LuPzvqnRW+ EG03TNCsXQ50mQIohNKh j6hvwLg9BuAsDIWwCSF2 vPynKNrzu0XiOBCtV43i hZHax8Z3KKSjbYax oAGdCtDtjYZ0wG5oFFji byhnn6mialqgHzsrs0du rx18iN39Z13lSEwnVHZo PSIzMCUiIHZhbGln yj7ehD9hYa5+PGNvbCB3 lNS6rN7gJmAmEaM6BUgf F659IbOheCSkJzfpd8gx o6anaLl8UvLeLOWg vxAmlAwrHCX1f1TtOq10 Y16fXVdyLJNwEZIcNDFj FZOxcQenuf3qvA8eCx6+ QS7qn2ihtg51aB70 dHI+PHMcVXQ5gRqpKLum YLExoZ6sECcvDgS3KRAj ZtBjjS52vKZnARekZj6h pYxyfPkbSN9tWUPl hkwxd000KrTdn4gaSAGg eXFgEVlmOJT3M08bp7M5 DGMoLSCpZXX3gVD5qK4o bGlnbjogbGVmdDsg hvOfzJccTJlzJFbeV439 JSJshMlrYoTzyNRjA1yw ejOZCR2uOjvatER+PHRk VGC2oVmyTExpVDFj nY5xTXNyK9i9PmBvLdH0 FAkmL8QwoyN3IIRdwOEa JVYojQSLdW7yoaiic6lu cjogIzAwMDAwMDt0 PWh1OMUovDuzFuOeOHL1 TqH6JFF0tLYzvC6cmHoc lnuevG6jBtk+RklOOjwv dGQ+YMCtYDT4yJss GZleIGArxW0zBUJaB3r0 UeFxZqE2PQykR1TlmvU4 QDOzgCZbDQSmaYKLoO1w gwctd8ojztfuZzCa JYQiLBn9PXj7DXJibXol FjByAKP9DqW8CVU5yGRl sM1akXreihbbnY4rQww+ TVJOOjwvdGQ+PHRk AUB4gTbsTDdaIVIkbX6v IPFtI0k7OaQqEiP5ZNgb F0LozlF5NNKwgDEnXGTt mRXLyK1snbqnm4xf lfztRnCaSEEhCDd5WDc5 SSQnyEdmSySjPZJ0LrN6 YNS8hWSfyO5yzOorcxws iY4wBjf+FBT5UYJ0 TU25IP06W1OvEjqfeUWt bGU+PHRhYmxlIHdpZHRo UFlkQHDfCmEsxGduRE4t Rw1sYOZyNNPcjNaa cHN (more content not included)... Normal [facility] ED Clinical Summaryon 2022 ED Clinical Summary [facility] ? Urgent Care [address] [id number] Clinical Summary PERSON INFORMATION Name: MELITON CABRERA Age: 27 Years Sex: FEMALE : 1995 MRN: Acct#: Visit Reason: UC - Eye Pain; RIGHT EYE IRRITATION Arrival: 03/01/2023 13:29:41 Discharge: 03/01/2023 13:51:00 LOS: 000 00:22 Check In: 03/01/2023 13:29:41 Checkout: 03/01/2023 13:51:00 Address: [address] [place] [id number] PCP: Provider, None PROVIDER INFORMATION Provider Role Assigned Unassigned Harpreet Gray DOUGH BRAKER Nurse 03/01/2023 13:32:52 Geovanny Mac ED PA 03/01/2023 13:33:08 VITALS INFORMATION Vital Sign Triage Latest Temperature Tympanic Temperature Temporal Artery Pulse Rate O2 Sat 98 % 98 % Respiratory Rate Blood Pressure /85 mmHg /85 mmHg MEDICAL INFORMATION Medications Given: Allergy Information: No Known Medication Allergies PHYSICIAN DOCUMENTATION DISCHARGE INFORMATION: Discharge Disposition: Home Discharge Location: Home PATIENT EDUCATION INFORMATION Instructions: Bacterial Conjunctivitis, Adult Follow-Up: With: Address: When: Follow up with specialist Within 3 to 5 days Comments: Diagnosis is right eye conjunctivitis, this is an eye infection that can be either viral or bacterial cause. We are starting you on antibiotic eyedrops. As discussed it is imperative to have good hand hygiene. Make sure you wash your hands often, wash them before and after using eyedrops, as it can be contagious as we discussed. Treat both eyes. Do not wear your contact lenses until after the infection has resolved. As discussed I would discard current contact lens case and current lenses. Follow-up with your own primary care provider in the next 3 to 5 days for reevaluation, return to the emergency department or urgent care for worsening symptoms or concerns, eye pain, blurry vision, loss of vision, any questions may return anytime. DIAGNOSIS: 1:Conjunctivitis of right eye Patient Understands: Yes - Patient/family/careg silvinoer verbalizes understanding of instructions given Comment: Normal [facility] ED Patient Summaryon 023 ED Patient Summary [facility] ? Urgent Care [address] [id number] PATIENT DISCHARGE INSTRUCTIONS Patient Information Name: MELITON CABRERA Age: 27 Years Date of : 1995 Reason For Visit: UC - Eye Pain; RIGHT EYE IRRITATION Arrival Time: 03/01/2023 13:29:41 Primary Care Physician: Provider, None Attending Physician: Geovanny Mac Comment: Patient Education With: Address: When: Follow up with specialist Within 3 to 5 days Comments: Diagnosis is right eye conjunctivitis, this is an eye infection that can be either viral or bacterial cause. We are starting you on antibiotic eyedrops. As discussed it is imperative to have good hand hygiene. Make sure you wash your hands often, wash them before and after using eyedrops, as it can be contagious as we discussed. Treat both eyes. Do not wear your contact lenses until after the infection has resolved. As discussed I would discard current contact lens case and current lenses. Follow-up with your own primary care provider in the next 3 to 5 days for reevaluation, return to the emergency department or urgent care for worsening symptoms or concerns, eye pain, blurry vision, loss of vision, any questions may return anytime. Bacterial Conjunctivitis, Adult Bacterial conjunctivitis is an infection of the clear membrane that covers the white part of the eye and the inner surface of the eyelid (conjunctiva). When the blood vessels in the conjunctiva become inflamed, the eye becomes red or pink. The eye often feels irritated or itchy. Bacterial conjunctivitis spreads easily from person to person (is contagious). It also spreads easily from one eye to the other eye. What are the causes? This condition is caused by bacteria. You may get the infection if you come into close contact with: ? A person who is infected with the bacteria. ? Items that are contaminated with the bacteria, such as a face towel, contact lens solution, or eye makeup. What increases the risk? You are more likely to develop this condition if: ? You are exposed to other people who have the infection. ? You wear contact lenses. ? You have a sinus infection. ? You have had a recent eye injury or surgery. ? You have a weak body defense system (immune system). ? You have a medical condition that causes dry eyes. What are the signs or symptoms? Symptoms of this condition include: ? Thick, yellowish discharge from the eye. This may turn into a crust on the eyelid overnight and cause your eyelids to stick together. ? Tearing or watery eyes. ? Itchy eyes. ? Burning feeling in your eyes. ? Eye redness. ? Swollen eyelids. ? Blurred vision. How is this diagnosed? This condition is diagnosed based on your symptoms and medical history. Your health care provider may also take a sample of discharge from your eye to find the cause of your infection. How is this treated? This condition may be treated with: ? Antibiotic eye drops or ointment to clear the infection more quickly and prevent the spread of infection to others. ? Antibiotic medicines taken by mouth (orally) to treat infections that do not respond to drops or ointments or that last longer than 10 days. ? Cool, wet cloths (cool compresses) placed on the eyes. ? Artificial tears applied 2?6 times a day. Follow these instructions at home: Medicines ? Take or apply your antibiotic medicine as told by your health care provider. Do not stop using the antibiotic, even if your condition improves, unless directed by your health care provider. ? Take or apply iwyd-pil-flkyyqm and prescription medicines only as told by your health care provider. ? Be very careful to avoid touching the edge of your eyelid with the eye-drop bottle or the ointment tube when you apply medicines to the affected eye. This will keep you from spreading the infection to your other eye or to other people. Managing discomfort ? Gently wipe away any drainage from your eye with a warm, wet washcloth or a cotton ball. ? Apply a clean, cool compress to your eye for 10?20 minutes, 3?4 times a day. General instructions ? Do not wear contact lenses until the inflammation is gone and your health care provider says it is safe to wear them again. Ask your health care provider how to sterilize or replace your contact lenses before you use them again. Wear glasses until you can resume wearing contact lenses. ? Avoid wearing eye makeup until the inflammation is gone. Throw away any old eye cosmetics that may be contaminated. ? Change or wash your pillowcase every day. ? Do not share towels or washcloths. This may spread the infection. ? Wash your hands often with soap and water for at least 20 seconds and especially before touching your face or eyes. Use paper towels to dry your hands. ? Avoid touching or rubbing your eyes. (more content not included)... Normal [facility] Urgent Care [address] 023 Urgent Care Record [facility] ? Urgent Care [address] [place] [address] PATIENT DISCHARGE INSTRUCTIONS Patient Information Name: MELITON CABRERA Age: 27 Years Date of : 1995 Reason For Visit: UC - Eye Pain; RIGHT EYE IRRITATION Arrival Time: 03/01/2023 13:29:41 Primary Care Physician: Provider, None Attending Physician: Geovanny Mac Comment: Visit Diagnosis: Diagnoses This Visit Conjunctivitis of right eye (H10.9) UC - Eye Pain ([id number]) If you received any narcotics, sedation, or any other medication that causes drowsiness for the next 24 hours, unless otherwise directed: ? Do not drive a car. ? Do not operate machinery such as power tools, lawn mowers, drills, sewing machines, or stoves ? Avoid alcoholic beverages and drugs for allergies, nerves, or sleep ? Do not make important personal or business decisions or sign any legal documents With: Address: When: Follow up with specialist Within 3 to 5 days Comments: Diagnosis is right eye conjunctivitis, this is an eye infection that can be either viral or bacterial cause. We are starting you on antibiotic eyedrops. As discussed it is imperative to have good hand hygiene. Make sure you wash your hands often, wash them before and after using eyedrops, as it can be contagious as we discussed. Treat both eyes. Do not wear your contact lenses until after the infection has resolved. As discussed I would discard current contact lens case and current lenses. Follow-up with your own primary care provider in the next 3 to 5 days for reevaluation, return to the emergency department or urgent care for worsening symptoms or concerns, eye pain, blurry vision, loss of vision, any questions may return anytime. Medication Information: The exam and treatment you received today in the [facility] were for an urgent problem and are not intended as complete care. It is important for you to follow up with a doctor, nurse practitioner, or physician?s assistant research scientist for ongoing care. If your symptoms become worse or you do not improve as expected and you are unable to reach your usual health care provider, you should return to the Emergency Department, we are available 24 hours a day. For those patients who have received Radiology results, the interpretation of your X-ray as given to you by our Urgent Care physician is only a preliminary report. The Radiologist will review your films and if there is a change in the diagnosis you will be notified by phone. Please make sure you have provided a working phone number so we can reach you if necessary. In the event that you had a lab culture while you were a patient in the Urgent Care, you will be notified by phone if there is a need to change your antibiotic. Please make sure you have provided a working phone number so we can reach you if necessary. [facility] Urgent [facility] [place] has provided you with a complete list of medications post discharge. Please inform your primary products inspectors/provider of your visit and for further instruction on these medications. Any specific questions regarding your chronic medications and dosages should be discussed with your primary care physician(s) and/or pharmacist. New Medications [id number], [address] [place], [place] [id number], [phone] ofloxacin ophthalmic (ofloxacin 0.3% ophthalmic solution) 2 Drops Ophthalmic (the eye) 4 times a day for 7 Days. Refills: 0. Visit Information Allergies: Substance Reaction Symptoms Type Comments No Known Medication Allergies Drug Vital Signs: Vitals and Measurements this Visit (last charted value for your 03/01/2023 visit) Vital Signs This Visit Peripheral Pulse Rate: 74 bpm Respiratory Rate: 18 br/min Systolic Blood Pressure: 132 mmHg Diastolic Blood Pressure: 85 mmHg SpO2: 98 % Oxygen Therapy: Room air Measurements This Visit Height/Length Measured: 160.02 cm Weight Measured: 91.17 kg Weight Dosin.170 kg Body Mass Index: 35.6 kg/m2 Problems List: Problem Onset Comments No Problems found Patient Education Bacterial Conjunctivitis, Adult Bacterial conjunctivitis is an infection of the clear membrane that covers the white part of the eye and the inner surface of the eyelid (conjunctiva). When the blood vessels in the conjunctiva become inflamed, the eye becomes red or pink. The eye often feels irritated or itchy. Bacterial conjunctivitis spreads easily from person to person (is contagious). It also spreads easily from one eye to the other eye. What are the causes? This condition is caused by bacteria. You may get the infection if you come into close contact with: ? A person who is infected with the bacteria. ? Items that are contaminated with the bacteria, such as a face towel, contact lens solution, or eye makeup. What increases the risk? You are more likely to develop this condition if: ? You (more content not included)... Normal [facility] BOX TEST SENT OUTon 07-05-19 23 SENT TO REF LAB 07/04/2022 Normal [facility] Comment on above: Performed By: #### B OX #### [facility] [address] [place] [address] Dr. Reyes Chamorro COVID-19 Antigenon 3 COVID-19 Antigen Healthcare Worker?: N Reference Range: Negative Negative results, from patients with symptom onset beyond five days, should be treated as presumptive and confirmation with a molecular assay, if necessary, for patient management, may be performed. Negative results do not rule out COVID-19 and should not be used as the sole basis for treatment or patient management decisions, including infection control decisions. Negative results should be considered in the context of a patient's recent exposures, history and the presence of clinical signs and symptoms consistent with COVID-19. The Ronny SARS Antigen RONALD does not differentiate between SARS-CoV and SARS-CoV-2. This test was developed and its performance characteristic determined by [facility] and validated at [facility]. This test has not been FDA cleared or approved. This test has been authorized by FDA under an Emergency Use Authorization (EUA). This test has been validated in accordance with the FDA's Guidance Document (Policy for Diagnostics Testing in Laboratories Certified to Perform High Complexity Testing under CLIA prior to Emergency Use Authorization for Coronavirus Disease-2019 during the Public Health Emergency) issued on July 06, 2019. This test is only authorized for the duration of time the declaration that circumstances exist justifying the authorization of the emergency use of in vitro diagnostic tests for detection of SARS-CoV-2 virus and/or diagnosis of COVID-19 infection under section 564(b)(1) of the Act, 21 U.S.C. 360bbb-3(b)(1), unless the authorization is terminated or revoked sooner. SARS-CoV+SARS-CoV-2 (COVID-19) Ag [Presence] in Respiratory specimen by Rapid immunoassay Negative for SARS Antigen by RONALD PERFORMED BY: [place] [address] PATHOLOGIST SPICE MILLER ANGIE RILEY M.D. Normal [facility] Comment on above: Performed By: #### S SCHUYLER, COVID-19 RONNY #### [address] COVID-19 SOFIAOrdered By: David Daniels on 07-03-2022 SARS-CoV+SARS-CoV-2 (COVID-19) Ag IA.rapid Ql (Resp) Negative Negative [facility] Comment on above: This is a duplicate Ronny SARS Antigen (RONALD) result to be used for statistical tracking purpose only. No Panel InformationOrdered By: Odilon Daniels on 07-03-2022 SARS Antigen (LFIA) [facility] Ronny Ag Negativeon 07-04-19 23 Ronny Ag Negative Negative Normal Negative [facility] Comment on above: Result Comment: This is a duplicate Ronny SARS Antigen (RONALD) result to be used for statistical tracking purpose only. PERFORMED BY: [place] [address] PATHOLOGIST SPICE MILLER ANGIE RILEY M.D. Performed By: #### S OFIANEG, COVID-19 RONNY #### [facility] [address] [place] [address] A1C with Estimated Average G cheyennen 07-02-2022 Glucose [Mass/Vol] 111 mg/dL Normal [facility] Comment on above: Result Comment: PERF ORMED BY: [place] [address] PATHOLOGIST SPICE MILLER ANGIE RILEY M.D. Performed By: #### R UBELLA IGG, HBSAG, HCV RX PCR, RPR W RFX #### [facility] , #### TSH3, CBC, A1C WTH eA #### [address] HbA1c (Bld) [Mass fraction] 5.5 % Normal 4.3-5.6 [facility] Comment on above: Result Comment: Incr eased risk for diabetes: 5.7 - 6.4 diabetes: >6.4 glycemic control for adults with diabetes: <7.0 Performed By: #### R UBELLA IGG, HBSAG, HCV RX PCR, RPR W RFX #### [facility] , #### TSH3, CBC, A1C WTH eA #### [address] ABO/RH Typeon 07-02-2022 ABO and Rh group Nom (Bld) Blood group O Rh(D) positive Normal [facility] Comment on above: Result Comment: PERF ORMED BY: [place] [address] PATHOLOGIST SPICE MILLER ANGIE RILEY M.D. Basophils Auto (Bld) [#/Vol] Ordered By: Eugenia Taylor on 07-02-2022 Basophils (Bld) [#/Vol] 0.0 10*3/uL 0.0-0.2 [facility] Basophils/100 WBC Auto (Bld) Ordered By: Eugenia Taylor on 07-02-2022 Basophils/100 WBC (Bld) 0.4 % . [facility] Complete Blood Count Auto Di ffon 07-02-2022 Basophils (Bld) [#/Vol] 0.0 10*3/uL Normal 0.0-0.2 [facility] Comment on above: Result Comment: PERF ORMED BY: [place] [address] PATHOLOGIST SPICE MILLER ANGIE RILEY M.D. Performed By: #### R UBELLA IGG, HBSAG, HCV RX PCR, RPR W RFX #### [facility] , #### TSH3, CBC, A1C WT eA #### [facility] [address] [place] [address] Basophils/100 WBC (Bld) 0.4 % Normal . [facility] Comment on above: Performed By: #### R UBELLA IGG, HBSAG, HCV RX PCR, RPR W RFX #### [facility] , #### TSH3, CBC, A1C WTH eA #### [facility] [address] [place] [address] [place] Eosinophils (Bld) [#/Vol] 0.2 10*3/uL Normal 0.0-0.45 [facility] Comment on above: Performed By: #### R UBELLA IGG, HBSAG, HCV RX PCR, RPR W RFX #### [facility] , #### TSH3, CBC, A1C WTH eA #### [facility] [address] [place] [address] [place] Eosinophils/100 WBC (Bld) 2.6 % Normal . [facility] Comment on above: Performed By: #### R UBELLA IGG, HBSAG, HCV RX PCR, RPR W RFX #### [facility] , #### TSH3, CBC, A1C WTH eA #### [address] Erythrocyte distribution width (RBC) [Ratio] 14.6 % Normal 11.9-15.3 [facility] Comment on above: Performed By: #### R UBELLA IGG, HBSAG, HCV RX PCR, RPR W RFX #### [facility] , #### TSH3, CBC, A1C WTH eA #### [facility] [address] Hematocrit (Bld) [Volume fraction] 38.0 % Normal 34.0-46.4 [facility] Comment on above: Performed By: #### R UBELLA IGG, HBSAG, HCV RX PCR, RPR W RFX #### [facility] , #### TSH3, CBC, A1C WTH eA #### [address] Hemoglobin (Bld) [Mass/Vol] 12.4 g/dL Normal 11.8-15.4 [facility] Comment on above: Performed By: #### R UBELLA IGG, HBSAG, HCV RX PCR, RPR W RFX #### [facility] , #### TSH3, CBC, A1C WTH eA #### [place] [address] [place] Lymphocytes (Bld) [#/Vol] 2.8 10*3/uL Normal 1.00-4.8 [facility] Comment on above: Performed By: #### R UBELLA IGG, HBSAG, HCV RX PCR, RPR W RFX #### [facility] , #### TSH3, CBC, A1C WTH eA #### [place] [address] [place] Lymphocytes/100 WBC (Bld) 30.7 % Normal . [facility] Comment on above: Performed By: #### R UBELLA IGG, HBSAG, HCV RX PCR, RPR W RFX #### [facility] , #### TSH3, CBC, A1C WTH eA #### [place] [address] [place] MCH (RBC) [Entitic mass] 30.0 pg Normal 24.7-34.3 [facility] Comment on above: Performed By: #### R UBELLA IGG, HBSAG, HCV RX PCR, RPR W RFX #### [facility] , #### TSH3, CBC, A1C WTH eA #### [address] MCV (RBC) [Entitic vol] 91.9 fL Normal 80-100 [facility] Comment on above: Performed By: #### R UBELLA IGG, HBSAG, HCV RX PCR, RPR W RFX #### [facility] , #### TSH3, CBC, A1C WTH eA #### [facility] [address] [place] [address] Mean Corpuscular HGB Conc 32.7 g/dL Normal 32.0-35.0 [facility] Comment on above: Performed By: #### R UBELLA IGG, HBSAG, HCV RX PCR, RPR W RFX #### [facility] , #### TSH3, CBC, A1C WTH eA #### [address] Monocytes (Bld) [#/Vol] 0.5 10*3/uL Normal 0.0-0.8 [facility] Comment on above: Performed By: #### R UBELLA IGG, HBSAG, HCV RX PCR, RPR W RFX #### [facility] , #### TSH3, CBC, A1C WTH eA #### [facility] [address] [place] [address] [place] Monocytes/100 WBC (Bld) 5.2 % Normal . [facility] Comment on above: Performed By: #### R UBELLA IGG, HBSAG, HCV RX PCR, RPR W RFX #### [facility] , #### TSH3, CBC, A1C WTH eA #### [place] [address] [place] Neutrophils (Bld) [#/Vol] 5.6 10*3/uL Normal 1.8-7.7 [facility] Comment on above: Performed By: #### R UBELLA IGG, HBSAG, HCV RX PCR, RPR W RFX #### [facility] , #### TSH3, CBC, A1C WTH eA #### [address] Neutrophils/100 WBC (Bld) 61.1 % Normal . [facility] Comment on above: Performed By: #### R UBELLA IGG, HBSAG, HCV RX PCR, RPR W RFX #### [facility] , #### TSH3, CBC, A1C WTH eA #### [facility] [address] [place] [address] [place] NRBC% 0.2 /100{WBC} Normal 0-0.5 [facility] Comment on above: Performed By: #### R UBELLA IGG, HBSAG, HCV RX PCR, RPR W RFX #### [facility] , #### TSH3, CBC, A1C WTH eA #### [address] Platelet mean volume (Bld) [Entitic vol] 7.5 fL Normal 6.3-10.7 [facility] Comment on above: Performed By: #### R UBELLA IGG, HBSAG, HCV RX PCR, RPR W RFX #### [facility] , #### TSH3, CBC, A1C WTH eA #### [place] [address] [place] Platelets (Bld) [#/Vol] 322 10*3/uL Normal 150-450 [facility] Comment on above: Performed By: #### R UBELLA IGG, HBSAG, HCV RX PCR, RPR W RFX #### [facility] , #### TSH3, CBC, A1C WTH eA #### [place] [address] [place] RBC (Bld) [#/Vol] 4.13 10*6/uL Normal 3.60-5.00 [facility] Comment on above: Performed By: #### R UBELLA IGG, HBSAG, HCV RX PCR, RPR W RFX #### [facility] , #### TSH3, CBC, A1C WTH eA #### [facility] [address] WBC (Bld) [#/Vol] 9.1 10*3/uL Normal 3.8-11.[address] [facility] Comment on above: Performed By: #### R UBELLA IGG, HBSAG, HCV RX PCR, RPR W RFX #### [facility] , #### TSH3, CBC, A1C WTH eA #### [facility] [address] Eosinophils Auto (Bld) [#/Vo l]Ordered By: Eugenia Taylor on 07-02-2022 Eosinophils (Bld) [#/Vol] 0.2 10*3/uL 0.0-0.45 [facility] Eosinophils/100 WBC Auto (Bl d)Ordered By: Eugenia Taylor on 07-02-2022 Eosinophils/100 WBC (Bld) 2.6 % . [facility] Erythrocyte distribution wid th Auto (RBC) [Ratio]Ordered By: Eugenia Taylor on 07-02-2022 Erythrocyte distribution width (RBC) [Ratio] 14.6 % 11.9-15.3 [facility] Glucose mean value [Mass/vol ume] in Blood Estimated from glycated hemoglobinOrdered By: Eugenia Taylor on 07-02-2022 Average glucose Estimated from glycated hemoglobin (Bld) [Mass/Vol] 111 mg/dL [facility] Hematocrit Auto (Bld) [Volum e fraction]Ordered By: Eugenia Taylor on 07-02-2022 Hematocrit (Bld) [Volume fraction] 38.0 % 34.0-46.4 [facility] Hemoglobin A1c percentageOrd ered By: Eugenia Taylor on 07-02-2022 HbA1c (Bld) [Mass fraction] 5.5 % 4.3-5.6 [facility] Comment on above: Increased risk for d iabetes: 5.7 - 6.4diabetes: >6.4glycemic control for adults with diabetes: <7.0 Hemoglobin [Mass/volume] in BloodOrdered By: Eugenia Taylor on 07-02-2022 Hemoglobin (Bld) [Mass/Vol] 12.4 g/dL 11.8-15.4 [facility] Hep C Ab wRfx to Qnt PCRon 0 07-02-2022 Hepatitis C Virus Antibody Non-Reactive Normal Non Reactive [facility] Comment on above: Performed By: #### R UBELLA IGG, HBSAG, HCV RX PCR, RPR W RFX #### [facility] , #### TSH3, CBC, A1C WTH eA #### [address] Interpretation Hepatitis C Normal . [facility] Comment on above: Result Comment: Not infected with HCV unless early or acute infection is suspected (which may be delayed in an immunocompromised individual), or other evidence exists to indicate HCV infection. Performed By: #### R UBELLA IGG, HBSAG, HCV RX PCR, RPR W RFX #### [facility] , #### TSH3, CBC, A1C WTH eA #### [facility] [address] [place] [address] Hepatitis B Surface Antigeno n 07-02-2022 HBsAg Screen Negative Normal Negative [facility] Comment on above: Result Comment: Perf ormed at: - [facility] [address] [id number] Administrative Coordinator: Devan Otoole PhD, Phone: [phone] PERFORMED BY: [place] [address] PATHOLOGIST SPICE MILLER ANGIE RILEY M.D. Performed By: #### R UBELLA IGG, HBSAG, HCV RX PCR, RPR W RFX #### [facility] , #### TSH3, CBC, A1C WTH eA #### [address] Hepatitis B virus surface Ag [Presence] in Serum or Plasma by ImmunoassayOrdered By: Eugenia Taylor on 07-02-2022 HBV surface Ag IA Ql Negative Negative [facility] Comment on above: Performed at: - [address] [id number] Director: Devan Otoole PhD, Phone: [phone] Hepatitis C virus IgG Ab [Pr esence] in Serum or Plasma by ImmunoassayOrdered By: Eugenia Taylor on 07-02-2022 HCV IgG IA Ql Non-Reactive Non Reactive [facility] Leukocytes [#/volume] correc jessica for nucleated erythrocytes in Blood by Automated counOrdered By: Eugenia Taylor on 07-02-2022 WBC corrected for nucl RBC Auto (Bld) [#/Vol] 9.1 10*3/uL 3.8-11.6 [facility] Lymphocytes Auto (Bld) [#/Vo l]Ordered By: Eugenia Taylor on 07-02-2022 Lymphocytes (Bld) [#/Vol] 2.8 10*3/uL 1.00-4.8 [facility] Lymphocytes/100 WBC Auto (Bl d)Ordered By: Eugenia Taylor on 07-02-2022 Lymphocytes/100 WBC (Bld) 30.7 % . [facility] MCH Auto (RBC) [Entitic mass ]Ordered By: Eugenia Taylor on 07-02-2022 MCH (RBC) [Entitic mass] 30.0 pg 24.7-34.3 [facility] MCHC Auto (RBC) [Mass/Vol]Or dered By: Eugenia Taylor on 07-02-2022 MCHC (RBC) [Mass/Vol] 32.7 g/dL 32.0-35.0 [facility] MCV Auto (RBC) [Entitic vol] Ordered By: Eugenia Taylor on 07-02-2022 MCV (RBC) [Entitic vol] 91.9 fL 80-100 [facility] Monocytes Auto (Bld) [#/Vol] Ordered By: Eugenia Taylor on 07-02-2022 Monocytes (Bld) [#/Vol] 0.5 10*3/uL 0.0-0.8 [facility] Monocytes/100 WBC Auto (Bld) Ordered By: Eugenia Taylor on 07-02-2022 Monocytes/100 WBC (Bld) 5.2 % . [facility] Neutrophils Auto (Bld) [#/Vo l]Ordered By: Eugenia Taylor on 07-02-2022 Neutrophils (Bld) [#/Vol] 5.6 10*3/uL 1.8-7.7 [facility] Neutrophils/100 WBC Auto (Bl d)Ordered By: Eugenia Taylor on 07-02-2022 Neutrophils/100 WBC (Bld) 61.1 % . [facility] No Panel InformationOrdered By: Eugenia Taylor on 07-02-2022 Hepatitis C Interpretation See comment . [facility] Comment on above: Not infected with HC V unless early or acute infection issuspected (which may be delayed in an immunocompromisedindividual), or other evidence exists to indicate HCVinfection. Hepatitis C RNA Quantitative N/A [facility] Rubella IgG Antibody 1.57 index Immune >0.99 [facility] Comment on above: Non-immune <0.90 Equ ivocal 0.90 - 0.99 Immune >0.99Performed at: [facility] [address] [id number] Director: Devan Otoole PhD, Phone: [phone] Nucleated erythrocytes [Pres ence] in Blood by Automated countOrdered By: Eugenia Taylor on 07-02-2022 Nucleated RBC Auto Ql (Bld) 0.2 /100{WBC} 0-0.5 [facility] Platelet mean volume Auto (B ld) [Entitic vol]Ordered By: Eugenia Taylor on 07-02-2022 Platelet mean volume (Bld) [Entitic vol] 7.5 fL 6.3-10.7 [facility] Platelets Auto (Bld) [#/Vol] Ordered By: Eugenia Taylor on 07-02-2022 Platelets (Bld) [#/Vol] 322 10*3/uL 150-450 [facility] RBC Auto (Bld) [#/Vol]Ordere d By: Eugeina Taylor on 07-02-2022 RBC (Bld) [#/Vol] 4.13 10*6/uL 3.60-5.00 [facility] RPR w/rfx to Quant TP Abson 07-02-2022 RPR, Rfx Quant RPR Non-Reactive Normal Non Reactive [facility] Comment on above: Result Comment: Perf ormed at: - [facility] [address] [id number] Administrative Coordinator: Devan Otoole PhD, Phone: [phone] PERFORMED BY: [place] [address] PATHOLOGIST SPICE MILLER ANGIE RILEY M.D. Performed By: #### R UBELLA IGG, HBSAG, HCV RX PCR, RPR W RFX #### [facility] , #### TSH3, CBC, A1C WTH eA #### [facility] [address] [place] [address] Reagin Ab [Presence] in Seru m by RPROrdered By: Eugenia Taylor on 07-02-2022 Reagin Ab RPR Ql (S) Non-Reactive Non Reactive [facility] Comment on above: Performed at: - [facility] [address] [id number] Director: Devan Otoole PhD, Phone: [phone] Rubella IgG Antibodyon 07-02 Rubella IgG Antibody 1.57 Normal Immune >0.99 [facility] Comment on above: Result Comment: Non- immune <0.90 Equivocal 0.90 - 0.99 Immune >0.99 Performed at: [facility] [address] [id number] Administrative Coordinator: Devan Otoole PhD, Phone: [phone] Performed By: #### R UBELLA IGG, HBSAG, HCV RX PCR, RPR W RFX #### [facility] , #### TSH3, CBC, A1C WTH eA #### [facility] [address] [place] [address] [place] Thyroid Stimulating Hormoneo n 07-02-2022 TSH Qn 2.98 m[IU]/L Normal 0.45-5.33 [facility] Comment on above: Result Comment: PERF ORMED BY: [place] [address] PATHOLOGIST SPICE MILLER ANGIE RILEY M.D. Performed By: #### R UBELLA IGG, HBSAG, HCV RX PCR, RPR W RFX #### [facility] , #### TSH3, CBC, A1C WTH eA #### [facility] [address] [place] [address] Thyrotropin [Units/volume] i n Serum or PlasmaOrdered By: Eugenia Taylor on 07-02-2022 TSH Qn 2.98 m[IU]/L 0.45-5.33 [facility] Urine Cultureon 07-02-2022 Bacteria identified Cx Nom (U) No Growth 2 Days PERFORMED BY: [place] [address] PATHOLOGIST SPICE MILLER ANGIE RILEY M.D. Normal [facility] Comment on above: Performed By: #### R UBELLA IGG, HBSAG, HCV RX PCR, RPR W RFX #### [facility] , #### TSH3, CBC, A1C WTH eA #### [facility] [address] [place] [address] WBC Auto (Bld) [#/Vol]Ordere d By: Eugenia Taylor on 07-02-2022 WBC (Bld) [#/Vol] 9.1 10*3/uL 3.8-11.[address] [facility] Alanine aminotransferase [En zymatic activity/volume] in Serum or PlasmaOrdered By: Linda Mortensen on 06-26-2022 ALT [Catalytic activity/Vol] 31 U/L 7-52 [facility] Albumin [Mass/volume] in Ser um or Plasma by Bromocresol green (BCG) dye binding methoOrdered By: Linda Mortensen on 06-26-2022 Albumin BCG dye [Mass/Vol] 3.8 g/dL 3.5-5.7 [facility] Alkaline phosphatase [Enzyma tic activity/volume] in Serum or PlasmaOrdered By: Linda Mortensen on 06-26-2022 ALP [Catalytic activity/Vol] 83 U/L 34-104 [facility] Aspartate aminotransferase [ Enzymatic activity/volume] in Serum or PlasmaOrdered By: Linda Mortensen on 06-26-2022 AST [Catalytic activity/Vol] 15 U/L 13-39 [facility] Automated erythrocytes count in urine sediment (number/area)Ordered By: Linda Mortensen on 06-26-2022 RBC Auto (Urine sed) [#/Area] 1-2 [HPF] 0-4 [facility] Automated leukocytes count i n urine sediment (number/area)Ordered By: Linda Mortensen on 06-26-2022 WBC Auto (Urine sed) [#/Area] 10-19 [HPF] 0-4 [facility] Basophils Auto (Bld) [#/Vol] Ordered By: Linda Mortensen on 06-26-2022 Basophils (Bld) [#/Vol] 0.0 10*3/uL 0.0-0.2 [facility] Basophils/100 WBC Auto (Bld) Ordered By: Linda Mortensen on 06-26-2022 Basophils/100 WBC (Bld) 0.4 % . [facility] Bilirubin Test strip Ql (U)O rdered By: Linda Mortensen on 06-26-2022 Bilirubin Ql (U) Negative Negative [facility] Bilirubin.total [Mass/volume ] in Serum or PlasmaOrdered By: Linda Mortensen on 06-26-2022 Bilirubin [Mass/Vol] 0.4 mg/dL 0.3-1.0 [facility] Calcium [Mass/volume] in Ser um or PlasmaOrdered By: Linda Mortensen on 06-26-2022 Calcium [Mass/Vol] 9.1 mg/dL 8.6-10.[address] [facility] Carbon dioxide, total [Moles /volume] in Serum or PlasmaOrdered By: Linda Mortensen on 06-26-2022 CO2 [Moles/Vol] 25.6 mmol/L 21.0-31.0 [facility] Chloride [Moles/volume] in S roma or PlasmaOrdered By: Linda Mortensen on 06-26-2022 Chloride [Moles/Vol] 104 mmol/L 98-107 [facility] Color Auto (U)Ordered By: Pedro Mortensen on 06-26-2022 Color (U) Yellow Yellow [facility] Complete Blood Count Auto Di ffon 06-26-2022 Basophils (Bld) [#/Vol] 0.0 10*3/uL Normal 0.0-0.2 [facility] Comment on above: Result Comment: PERF ORMED BY: [place] [address] PATHOLOGIST SPICE MILLER ANGIE RILEY M.D. Performed By: #### R UBELLA IGG, HBSAG, HCV RX PCR, RPR W RFX #### [facility] , #### TSH3, CBC, A1C [facility] eA #### [facility] [address] [place] [address] [place] Basophils/100 WBC (Bld) 0.4 % Normal . [facility] Comment on above: Performed By: #### R UBELLA IGG, HBSAG, HCV RX PCR, RPR W RFX #### [facility] , #### TSH3, CBC, A1C WTH eA #### [facility] [address] [place] [address] [place] Eosinophils (Bld) [#/Vol] 0.1 10*3/uL Normal 0.0-0.45 [facility] Comment on above: Performed By: #### R UBELLA IGG, HBSAG, HCV RX PCR, RPR W RFX #### [facility] , #### TSH3, CBC, A1C WTH eA #### [facility] [address] [place] [address] [place] Eosinophils/100 WBC (Bld) 1.2 % Normal . [facility] Comment on above: Performed By: #### R UBELLA IGG, HBSAG, HCV RX PCR, RPR W RFX #### [facility] , #### TSH3, CBC, A1C WTH eA #### [address] Erythrocyte distribution width (RBC) [Ratio] 14.9 % Normal 11.9-15.3 [facility] Comment on above: Performed By: #### R UBELLA IGG, HBSAG, HCV RX PCR, RPR W RFX #### [facility] , #### TSH3, CBC, A1C WTH eA #### [address] Hematocrit (Bld) [Volume fraction] 38.3 % Normal 34.0-46.4 [facility] Comment on above: Performed By: #### R UBELLA IGG, HBSAG, HCV RX PCR, RPR W RFX #### [facility] , #### TSH3, CBC, A1C WTH eA #### [address] Hemoglobin (Bld) [Mass/Vol] 12.6 g/dL Normal 11.8-15.4 [facility] Comment on above: Performed By: #### R UBELLA IGG, HBSAG, HCV RX PCR, RPR W RFX #### [facility] , #### TSH3, CBC, A1C WTH eA #### [address] Lymphocytes (Bld) [#/Vol] 3.0 10*3/uL Normal 1.00-4.8 [facility] Comment on above: Performed By: #### R UBELLA IGG, HBSAG, HCV RX PCR, RPR W RFX #### [facility] , #### TSH3, CBC, A1C WTH eA #### [address] Lymphocytes/100 WBC (Bld) 34.2 % Normal . [facility] Comment on above: Performed By: #### R UBELLA IGG, HBSAG, HCV RX PCR, RPR W RFX #### [facility] , #### TSH3, CBC, A1C WTH eA #### [facility] [address] [place] [address] MCH (RBC) [Entitic mass] 30.1 pg Normal 24.7-34.3 [facility] Comment on above: Performed By: #### R UBELLA IGG, HBSAG, HCV RX PCR, RPR W RFX #### [facility] , #### TSH3, CBC, A1C WTH eA #### [address] MCV (RBC) [Entitic vol] 91.5 fL Normal 80-100 [facility] Comment on above: Performed By: #### R UBELLA IGG, HBSAG, HCV RX PCR, RPR W RFX #### [facility] , #### TSH3, CBC, A1C WTH eA #### [address] Mean Corpuscular HGB Conc 32.9 g/dL Normal 32.0-35.0 [facility] Comment on above: Performed By: #### R UBELLA IGG, HBSAG, HCV RX PCR, RPR W RFX #### [facility] , #### TSH3, CBC, A1C WTH eA #### [address] Monocytes (Bld) [#/Vol] 0.5 10*3/uL Normal 0.0-0.8 [facility] Comment on above: Performed By: #### R UBELLA IGG, HBSAG, HCV RX PCR, RPR W RFX #### [facility] , #### TSH3, CBC, A1C WTH eA #### [address] Monocytes/100 WBC (Bld) 19.04 % Normal 0.00-20.00 [facility] Comment on above: Performed By: #### R UBELLA IGG, HBSAG, HCV RX PCR, RPR W RFX #### [facility] , #### TSH3, CBC, A1C WTH eA #### [facility] [address] [place] [address] [place] Monocytes/100 WBC (Bld) 5.7 % Normal . [facility] Comment on above: Performed By: #### R UBELLA IGG, HBSAG, HCV RX PCR, RPR W RFX #### [facility] , #### TSH3, CBC, A1C WTH eA #### [facility] [address] [place] [address] Neutrophils (Bld) [#/Vol] 5.1 10*3/uL Normal 1.8-7.7 [facility] Comment on above: Performed By: #### R UBELLA IGG, HBSAG, HCV RX PCR, RPR W RFX #### [facility] , #### TSH3, CBC, A1C WTH eA #### [facility] [address] [place] [address] [place] Neutrophils/100 WBC (Bld) 58.5 % Normal . [facility] Comment on above: Performed By: #### R UBELLA IGG, HBSAG, HCV RX PCR, RPR W RFX #### [facility] , #### TSH3, CBC, A1C WTH eA #### [facility] [address] [place] [address] [place] NRBC% 0.1 /100{WBC} Normal 0-0.5 [facility] Comment on above: Performed By: #### R UBELLA IGG, HBSAG, HCV RX PCR, RPR W RFX #### [facility] , #### TSH3, CBC, A1C WTH eA #### [facility] [address] [place] [address] Platelet mean volume (Bld) [Entitic vol] 7.6 fL Normal 6.3-10.7 [facility] Comment on above: Performed By: #### R UBELLA IGG, HBSAG, HCV RX PCR, RPR W RFX #### [facility] , #### TSH3, CBC, A1C WTH eA #### [facility] [address] [place] [address] Platelets (Bld) [#/Vol] 332 10*3/uL Normal 150-450 [facility] Comment on above: Performed By: #### R UBELLA IGG, HBSAG, HCV RX PCR, RPR W RFX #### [facility] , #### TSH3, CBC, A1C WTH eA #### [address] RBC (Bld) [#/Vol] 4.19 10*6/uL Normal 3.60-5.00 [facility] Comment on above: Performed By: #### R UBELLA IGG, HBSAG, HCV RX PCR, RPR W RFX #### [facility] , #### TSH3, CBC, A1C WTH eA #### [address] WBC (Bld) [#/Vol] 8.8 10*3/uL Normal 3.8-11.[address] [facility] Comment on above: Performed By: #### R UBELLA IGG, HBSAG, HCV RX PCR, RPR W RFX #### [facility] , #### TSH3, CBC, A1C WTH eA #### [address] Comprehensive Metabolic Pane vivien 06-26-2022 Albumin [Mass/Vol] 3.8 g/dL Normal 3.5-5.[address] [facility] Comment on above: Performed By: #### R UBELLA IGG, HBSAG, HCV RX PCR, RPR W RFX #### [facility] , #### TSH3, CBC, A1C WTH eA #### [address] Albumin/Globulin [Mass ratio] 1.1 {ratio} Normal [facility] Comment on above: Performed By: #### R UBELLA IGG, HBSAG, HCV RX PCR, RPR W RFX #### [facility] , #### TSH3, CBC, A1C WTH eA #### [facility] [address] [place] [address] ALP [Catalytic activity/Vol] 83 U/L Normal 34-104 [facility] Comment on above: Performed By: #### R UBELLA IGG, HBSAG, HCV RX PCR, RPR W RFX #### [facility] , #### TSH3, CBC, A1C WT eA #### [facility] [address] [place] [address] ALT [Catalytic activity/Vol] 31 U/L Normal 7-52 [facility] Comment on above: Performed By: #### R UBELLA IGG, HBSAG, HCV RX PCR, RPR W RFX #### [facility] , #### TSH3, CBC, A1C WT eA #### [address] Anion gap [Moles/Vol] 10.4 mmol/L Normal 6.0-15.0 [facility] Comment on above: Performed By: #### R UBELLA IGG, HBSAG, HCV RX PCR, RPR W RFX #### [facility] , #### TSH3, CBC, A1C WT eA #### [place] [address] [place] AST [Catalytic activity/Vol] 15 U/L Normal 13-39 [facility] Comment on above: Performed By: #### R UBELLA IGG, HBSAG, HCV RX PCR, RPR W RFX #### [facility] , #### TSH3, CBC, A1C WTH eA #### [place] [address] [place] Bilirubin [Mass/Vol] 0.4 mg/dL Normal 0.3-1.0 [facility] Comment on above: Performed By: #### R UBELLA IGG, HBSAG, HCV RX PCR, RPR W RFX #### [facility] , #### TSH3, CBC, A1C WTH eA #### [facility] [address] Calcium [Mass/Vol] 9.1 mg/dL Normal 8.6-10.[address] [facility] Comment on above: Performed By: #### R UBELLA IGG, HBSAG, HCV RX PCR, RPR W RFX #### [facility] , #### TSH3, CBC, A1C [facility] eA #### [facility] [address] [place] [address] Chloride [Moles/Vol] 104 mmol/L Normal 98-107 [facility] Comment on above: Performed By: #### R UBELLA IGG, HBSAG, HCV RX PCR, RPR W RFX #### [facility] , #### TSH3, CBC, A1C WT eA #### [facility] [address] [place] [address] CO2 [Moles/Vol] 25.6 mmol/L Normal 21.0-31.0 [facility] Comment on above: Performed By: #### R UBELLA IGG, HBSAG, HCV RX PCR, RPR W RFX #### [facility] , #### TSH3, CBC, A1C [facility] eA #### [facility] [address] Creatinine [Mass/Vol] 0.61 mg/dL Normal 0.60-1.20 [facility] Comment on above: Performed By: #### R UBELLA IGG, HBSAG, HCV RX PCR, RPR W RFX #### [facility] , #### TSH3, CBC, A1C WT eA #### [facility] [address] [place] [address] [place] Creatinine Clr Calc Pharmacy 160.48 Normal [facility] Comment on above: Result Comment: PERF ORMED BY: [place] [address] PATHOLOGIST SPICE MILLER ANGIE RILEY M.D. Performed By: #### R UBELLA IGG, HBSAG, HCV RX PCR, RPR W RFX #### [facility] , #### TSH3, CBC, A1C WTH eA #### [place] [address] [place] GFR/1.73 sq M.predicted MDRD (S/P/Bld) [Vol rate/Area] mL/min/{1.73_m2} Normal [facility] Comment on above: Performed By: #### R UBELLA IGG, HBSAG, HCV RX PCR, RPR W RFX #### [facility] , #### TSH3, CBC, A1C WTH eA #### [place] [address] [place] Globulin (S) [Mass/Vol] 3.5 g/dL Normal [facility] Comment on above: Performed By: #### R UBELLA IGG, HBSAG, HCV RX PCR, RPR W RFX #### [facility] , #### TSH3, CBC, A1C WTH eA #### [address] Glucose [Mass/Vol] 81 mg/dL Normal 74-[address] [facility] Comment on above: Result Comment: [facility] Glucose Reference Range is dependent on time and content of last meal. Glucose of more than 200 mg/dL in a nonstressed, ambulatory subject supports the diagnosis of Diabetes Mellitus. ADA recommended reference range Performed By: #### R UBELLA IGG, HBSAG, HCV RX PCR, RPR W RFX #### [facility] , #### TSH3, CBC, A1C WTH eA #### [address] Potassium [Moles/Vol] 4.0 mmol/L Normal 3.5-5.1 [facility] Comment on above: Performed By: #### R UBELLA IGG, HBSAG, HCV RX PCR, RPR W RFX #### [facility] , #### TSH3, CBC, A1C WTH eA #### [facility] [address] Protein [Mass/Vol] 7.3 g/dL Normal 6.4-8.[address] [facility] Comment on above: Performed By: #### R UBELLA IGG, HBSAG, HCV RX PCR, RPR W RFX #### [facility] , #### TSH3, CBC, A1C WT eA #### [facility] [address] [place] [address] Sodium [Moles/Vol] 136 mmol/L Normal 136-[address] [facility] Comment on above: Performed By: #### R UBELLA IGG, HBSAG, HCV RX PCR, RPR W RFX #### [facility] , #### TSH3, CBC, A1C WTH eA #### [facility] [address] [place] [address] [place] Urea nitrogen [Mass/Vol] 6 mg/dL Low 7-25 [facility] Comment on above: Performed By: #### R UBELLA IGG, HBSAG, HCV RX PCR, RPR W RFX #### [facility] , #### TSH3, CBC, A1C [facility] eA #### [facility] [address] [place] [address] Creatinine [Mass/volume] in Serum or PlasmaOrdered By: Linda Mortensen on 06-26-2022 Creatinine [Mass/Vol] 0.61 mg/dL 0.60-1.20 [facility] Dipstick and Microscopicon 0 06-26-2022 Appearance (U) Clear Normal Clear [facility] Comment on above: Order Comment: Name Collection Type:: Clean-Voided Midstream Performed By: #### A DDONUAPLUS, CUU, UHCG #### [address] Bacteria,Urine Rare High None Seen [facility] Comment on above: Order Comment: Name Collection Type:: Clean-Voided Midstream Performed By: #### A DDONUAPLUS, CUU, UHCG #### [facility] [address] [place] [address] [place] Bilirubin,Urine Negative Normal Negative [facility] Comment on above: Order Comment: Name Collection Type:: Clean-Voided Midstream Performed By: #### A DDONUAPLUS, CUU, UHCG #### [facility] [address] [place] [address] [place] Color (U) Yellow Normal Yellow [facility] Comment on above: Order Comment: Name Collection Type:: Clean-Voided Midstream Performed By: #### A DDONUAPLUS, CUU, UHCG #### [facility] [address] [place] [address] Glucose Ql (U) Normal Normal Normal [facility] Comment on above: Order Comment: Name Collection Type:: Clean-Voided Midstream Performed By: #### A DDONUAPLUS, CUU, UHCG #### [facility] [address] [place] [address] [place] Hyaline Casts,Urine 0-8 Normal 0-8 [facility] Comment on above: Order Comment: Name Collection Type:: Clean-Voided Midstream Performed By: #### A DDONUAPLUS, CUU, UHCG #### [facility] [address] [place] [address] [place] Ketones Ql (U) Trace High Negative [facility] Comment on above: Order Comment: Name Collection Type:: Clean-Voided Midstream Performed By: #### A DDONUAPLUS, CUU, UHCG #### [facility] [address] [place] [address] [place] Leukocyte esterase Test strip Ql (U) 3+ High Negative [facility] Comment on above: Order Comment: Name Collection Type:: Clean-Voided Midstream Performed By: #### A DDONUAPLUS, CUU, UHCG #### [facility] [address] [place] [address] [place] Nitrite,Urine Negative Normal Negative [facility] Comment on above: Order Comment: Name Collection Type:: Clean-Voided Midstream Performed By: #### A DDONUAPLUS, CUU, UHCG #### [address] Occult Blood,Urine Negative Normal Negative [facility] Comment on above: Order Comment: Name Collection Type:: Clean-Voided Midstream Performed By: #### A DDONUAPLUS, CUU, UHCG #### [address] pH (U) 6.0 [pH] Normal 5.0-9.0 [facility] Comment on above: Order Comment: Name Collection Type:: Clean-Voided Midstream Performed By: #### A DDONUAPLUS, CUU, UHCG #### [address] Protein,Urine Negative Normal Negative [facility] Comment on above: Order Comment: Name Collection Type:: Clean-Voided Midstream Performed By: #### A DDONUAPLUS, CUU, UHCG #### [address] RBC,Urine 1-2 Normal 0-4 [facility] Comment on above: Order Comment: Name Collection Type:: Clean-Voided Midstream Performed By: #### A DDONUAPLUS, CUU, UHCG #### [address] Specificy Telephone,Urine 1.025 Normal 1.001-1.030 [facility] Comment on above: Order Comment: Name Collection Type:: Clean-Voided Midstream Performed By: #### A DDONUAPLUS, CUU, UHCG #### [address] Squamous Epithelial Cell,Urine 5-9 High 0-2 [facility] Comment on above: Order Comment: Name Collection Type:: Clean-Voided Midstream Performed By: #### A DDONUAPLUS, CUU, UHCG #### [facility] [address] Urobilinogen,Urine Normal Normal Normal [facility] Comment on above: Order Comment: Name Collection Type:: Clean-Voided Midstream Performed By: #### A DDONUAPLUS, CUU, UHCG #### [facility] [address] WBC,Urine 10-19 High 0-4 [facility] Comment on above: Order Comment: Name Collection Type:: Clean-Voided Midstream Performed By: #### A DDONUAPLUS, CUU, UHCG #### [facility] [address] Yeast,Urine Rare Critically abnormal None Seen [facility] Comment on above: Order Comment: Name Collection Type:: Clean-Voided Midstream Performed By: #### A DDONUAPLUS, CUU, UHCG #### [facility] [address] [place] [address] ECG 12 lead ECGon 06-26-2022 ECG 12 lead ECG [facility] [place] [address] Electrocardiograph Report Signed Patient: Meliton Cabrera MR#: [id number] : 1995 Acct:[id number] Age/Sex: 27 / F ADM Date: 06/26/22 Loc: ER Room: Type: [facility] ER Attending Dr: Ordering Provider: Linda Mortensen APRN Date of Service: 06/26/22 ECG/ECG 12 lead ECG: Dizziness Copies to: Test Reason : Blood Pressure : 116/072 mmHG Vent. Rate : 090 BPM Atrial Rate : 090 BPM P-R Int : 154 ms QRS Dur : 090 ms QT Int : 376 ms P-R-T Axes : 063 066 037 degrees QTc Int : 459 ms Normal sinus rhythm Confirmed by Eugene Boggs DO ([id number]) on 06/26/2022 5:16:19 PM Referred By: Electronically Signed By:Eugene Boggs DO Transcribed By: MUS Signed By Eugene Boggs DO [id number] Normal [facility] Eosinophils Auto (Bld) [#/Vo l]Ordered By: Linda Mortensen on 06-26-2022 Eosinophils (Bld) [#/Vol] 0.1 10*3/uL 0.0-0.45 [facility] Eosinophils/100 WBC Auto (Bl d)Ordered By: Linda Mortensen on 06-26-2022 Eosinophils/100 WBC (Bld) 1.2 % . [facility] Erythrocyte distribution wid th Auto (RBC) [Ratio]Ordered By: Linda [facility] Erythrocyte distribution width (RBC) [Ratio] 14.9 % 11.9-15.3 [facility] Globulin Calc (S) [Mass/Vol] Ordered By: Linda [facility] on 06-26-2022 Globulin (S) [Mass/Vol] 3.5 g/dL [facility] Glucose [Mass/volume] in Ser um or PlasmaOrdered By: Linda Mortensen on 06-26-2022 Glucose [Mass/Vol] 81 mg/dL 74-[address] [facility] Comment on above: ADA recommended refe rence rangeRandom Glucose Reference Range is dependent on time and content of last meal. Glucose of more than 200 mg/dL in a nonstressed, ambulatory subject supports the diagnosis of Diabetes Mellitus. HCG ( test) IA.rapi d Ql (U)Ordered By: Linda Mortensne on 06-26-2022 HCG ( test) Ql (U) Positive [facility] HCG,Urineon 06-26-2022 Beta HCG ( test) Ql (U) Positive High [facility] Comment on above: Order Comment: Name Collection Type:: Clean-Voided Midstream Result Comment: PERF ORMED BY: [facility] [address] [facility] [place] [address] PATHOLOGIST SPICE MILLER ANGIE RILEY M.D. Performed By: #### R UBELLA IGG, HBSAG, HCV RX PCR, RPR W RFX #### [facility] , #### TSH3, CBC, A1C WTH eA #### [facility] [address] [place] [id number] [facility] Hematocrit Auto (Bld) [Volum e fraction]Ordered By: Linda Mortensen on 06-26-2022 Hematocrit (Bld) [Volume fraction] 38.3 % 34.0-46.4 [facility] Hemoglobin [Mass/volume] in BloodOrdered By: Linda Mortensen on 06-26-2022 Hemoglobin (Bld) [Mass/Vol] 12.6 g/dL 11.8-15.4 [facility] Ketones Auto test strip (U) [Mass/Vol]Ordered By: Linda Mortensen on 06-26-2022 Ketones (U) [Mass/Vol] Trace Negative Fi [facility] - Chemistry and C hemistry - challengeOrdered By: Linda Mortensen on 06-26-2022 GFR/1.73 sq M.predicted MDRD (S/P/Bld) [Vol rate/Area] mL/min/{1.73_m2} [facility] Laboratory - UrinalysisOrder ed By: Linda Mortensne on 06-26-2022 Hyaline casts LM Ql (Urine sed) 0-8 [LPF] 0-8 [facility] Leukocytes [#/volume] correc jessica for nucleated erythrocytes in Blood by Automated counOrdered By: Linda Mortensen on 06-26-2022 WBC corrected for nucl RBC Auto (Bld) [#/Vol] 8.8 10*3/uL 3.8-11.6 [facility] Lymphocytes Auto (Bld) [#/Vo l]Ordered By: Linda Mortensen on 06-26-2022 Lymphocytes (Bld) [#/Vol] 3.0 10*3/uL 1.00-4.8 [facility] Lymphocytes/100 WBC Auto (Bl d)Ordered By: Linda Mortensen on 06-26-2022 Lymphocytes/100 WBC (Bld) 34.2 % . [facility] MCH Auto (RBC) [Entitic mass ]Ordered By: Linda Mortensen on 06-26-2022 MCH (RBC) [Entitic mass] 30.1 pg 24.7-34.3 [facility] MCHC Auto (RBC) [Mass/Vol]Or dered By: Linda Mortensen on 06-26-2022 MCHC (RBC) [Mass/Vol] 32.9 g/dL 32.0-35.0 [facility] MCV Auto (RBC) [Entitic vol] Ordered By: Linda Mortensen on 06-26-2022 MCV (RBC) [Entitic vol] 91.5 fL 80-100 [facility] Monocyte distribution width [Entitic volume] in Blood by AutomatedOrdered By: Lnida Mortensen on 06-26-2022 Monocyte distribution width Auto (Bld) [Entitic vol] 19.04 % 0.00-20.00 [facility] Monocytes Auto (Bld) [#/Vol] Ordered By: Linda Mortensen on 06-26-2022 Monocytes (Bld) [#/Vol] 0.5 10*3/uL 0.0-0.8 [facility] Monocytes/100 WBC Auto (Bld) Ordered By: Linda Mortensen on 06-26-2022 Monocytes/100 WBC (Bld) 5.7 % . [facility] Neutrophils Auto (Bld) [#/Vo l]Ordered By: Linda Mortensen on 06-26-2022 Neutrophils (Bld) [#/Vol] 5.1 10*3/uL 1.8-7.7 [facility] Neutrophils/100 WBC Auto (Bl d)Ordered By: Linda Mortensen on 06-26-2022 Neutrophils/100 WBC (Bld) 58.5 % . [facility] Nitrite Test strip Ql (U)Ord ered By: Linda Mortensen on 06-26-2022 Nitrite Ql (U) Negative Negative [facility] No Panel InformationOrdered By: Linda Mortensen on 06-26-2022 Pharmacy Creatinine Clearance (Chem 160.48 [facility] Nucleated erythrocytes [Pres ence] in Blood by Automated countOrdered By: Linda Mortensen on 06-26-2022 Nucleated RBC Auto Ql (Bld) 0.1 /100{WBC} 0-0.5 [facility] Platelet mean volume Auto (B ld) [Entitic vol]Ordered By: Linda Mortensen on 06-26-2022 Platelet mean volume (Bld) [Entitic vol] 7.6 fL 6.3-10.7 [facility] Platelets Auto (Bld) [#/Vol] Ordered By: Linda Mortensen on 06-26-2022 Platelets (Bld) [#/Vol] 332 10*3/uL 150-450 [facility] Potassium [Moles/volume] in Serum or PlasmaOrdered By: Linda Mortensen on 06-26-2022 Potassium [Moles/Vol] 4.0 mmol/L 3.5-5.1 [facility] Protein Auto test strip (U) [Mass/Vol]Ordered By: Linda Mortensen on 06-26-2022 Protein (U) [Mass/Vol] Negative Negative Fi [facility] Protein [Mass/volume] in Ser um or PlasmaOrdered By: Linda Mortensen on 06-26-2022 Protein [Mass/Vol] 7.3 g/dL 6.4-8.[address] [facility] RBC Auto (Bld) [#/Vol]Ordere d By: Linda Mortensen on 06-26-2022 RBC (Bld) [#/Vol] 4.19 10*6/uL 3.60-5.00 [facility] Serum or plasma albumin/glob ulin mass ratioOrdered By: Linda Mortensen on 06-26-2022 Albumin/Globulin [Mass ratio] 1.1 {ratio} [facility] Serum or plasma anion gap de terminationOrdered By: Linda Mortensen on 06-26-2022 Anion gap [Moles/Vol] 10.4 mmol/L 6.0-15.0 [facility] Sodium [Moles/volume] in Ser um or PlasmaOrdered By: Linda Mortensen on 06-26-2022 Sodium [Moles/Vol] 136 mmol/L 136-[address] [facility] Specific gravity Auto test s trip (U) [Rel density]Ordered By: Linda Mortensen on 06-26-2022 Specific gravity (U) [Rel density] 1.025 1.001-1.030 [facility] Squamous epithelial cells de tection in urine sediment by light microscopyOrdered By: Linda Mortensen on 06-26-2022 Epithelial cells.squamous LM Ql (Urine sed) 5-9 [HPF] 0-2 [facility] Troponin I High Sensitivityo n 06-26-2022 Troponin I High Sensitivity < 2.3 Normal 0.0-15.0 [facility] Comment on above: Result Comment: PERF ORMED BY: [place] [address] PATHOLOGIST SPICE MILLER ANGIE RILEY M.D. Performed By: #### R UBELLA IGG, HBSAG, HCV RX PCR, RPR W RFX #### [facility] , #### TSH3, CBC, A1C WT eA #### [facility] [address] [place] [address] Troponin I.cardiac [Mass/vol ume] in Serum or Plasma by Detection limit <= 0.01 ng/Ordered By: Linda Mortensen on 06-26-2022 Troponin I.cardiac DL <= 0.01 ng/mL [Mass/Vol] < 2.3 pg/mL 0.0-15.0 [facility] Urea nitrogen [Mass/volume] in Serum or PlasmaOrdered By: Linda Mortensen on 06-26-2022 Urea nitrogen [Mass/Vol] 6 mg/dL 7-25 [facility] Urine Cultureon 06-26-2022 Bacteria identified Cx Nom (U) 50,000 colonies/ml mixed bacterial skin contaminants 2 Days PERFORMED BY: [place] [address] PATHOLOGIST SPICE MILLER ANGIE RILEY M.D. Normal [facility] Comment on above: Performed By: #### R UBELLA IGG, HBSAG, HCV RX PCR, RPR W RFX #### [facility] , #### TSH3, CBC, A1C WTH eA #### [facility] [address] [place] [address] Urine bacteria detection by automated methodOrdered By: Linda Mortensen on 06-26-2022 Bacteria Auto Ql (U) Rare None Seen [facility] Urine clarity by refractomet ry automatedOrdered By: Linda Mortensen on 06-26-2022 Clarity Refractometry automated (U) Clear Clear [facility] Urine culture routineOrdered By: Linda Mortensen on 06-26-2022 Bacteria identified Cx Nom (U) 2 Days [facility] Urine glucose measurement by automated test strip (mass/volume)Ordered By: Linda Mortensen on 06-26-2022 Glucose Auto test strip (U) [Mass/Vol] Normal mg/dL Normal [facility] Urine hemoglobin detection b y automated test stripOrdered By: Linda Mortensen on 06-26-2022 Hemoglobin Auto test strip Ql (U) Negative Negative [facility] Urine leukocyte esterase det ection by automated test stripOrdered By: Linda Mortensen on 06-26-2022 Leukocyte esterase Auto test strip Ql (U) 3+ Negative [facility] Urobilinogen Auto test strip (U) [Mass/Vol]Ordered By: Linda Mortensen on 06-26-2022 Urobilinogen (U) [Mass/Vol] Normal mg/dL Normal [facility] WBC Auto (Bld) [#/Vol]Ordere d By: Linda Mortensen on 06-26-2022 WBC (Bld) [#/Vol] 8.8 10*3/uL 3.8-11.[address] [facility] Yeast detection in urine sed iment by light microscopyOrdered By: Linda Mortensen on 06-26-2022 Yeast LM Ql (Urine sed) Rare [HPF] None Seen [facility] pH Auto test strip (U)Ordere d By: Linda Mortensen on 06-26-2022 pH (U) 6.0 [pH] 5.0-9.0 [facility] US PREG TVon 06-08-2022 US PREG TV EXAMINATION: US PREG TV HISTORY: Missed period COMPARISON: No relevant comparison available. FINDINGS: Transvaginal images Ornelas intrauterine gestation Gestational sac: 1.57 cm, 5 weeks 6 days CRL: 0.47 cm, 6 weeks 1 day Yolk sac: 0.15 cm Heart rate: 160 bpm The ovaries are normal in appearance Cervix: Closed, 3.6 cm Clinical age: 8 weeks 1 day Clinical LISBET: 01/13/2023 Ultrasound age: 6 weeks 1 day Ultrasound LISBET: 01/27/2023 IMPRESSION: Viable ornelas intrauterine gestation measuring 6 weeks 1 day Electronically authenticated by: BRYAN DE SOUZA Date: 2022-06-08 15:07 Normal [facility] Vital Signs Date Time Vital Sign Value Performing Clinician Chase carmona 06-26-2022 13:30-0400 Diastolic blood pressure 71 mm[Hg] PHYSICIAN NO [facility] 06-26-2022 13:30-0400 Heart rate 80 /min PHYSICIAN NO [facility] 06-26-2022 13:30-0400 Respiratory rate 18 /min PHYSICIAN NO [facility] 06-26-2022 13:30-0400 SaO2% (BldA) [Mass fraction] 99 % PHYSICIAN NO [facility] 06-26-2022 13:30-0400 Systolic blood pressure 112 mm[Hg] PHYSICIAN NO [facility] 06-26-2022 11:13-0400 Body height 162.56 cm PHYSICIAN NO [facility] 06-26-2022 11:13-0400 Body temperature 98.7 [degF] PHYSICIAN NO [facility] 06-26-2022 11:13-0400 Body weight 99.79 kg PHYSICIAN NO [facility] Encounters Encounter Date Encounter Type Care Provider Facility Start: 04-14-2023 End: 04-14-2023 ambulatory EUGENIA TAYLOR Not Available Start: 03-08-2023 End: 03-08-2023 ambulatory EUGENIA TAYLOR Not Available Start: 03-01-2023 End: 03-01-2023 ambulatory None Provider Facility:[facility] Start: 09-02-2022 End: 09-02-[address] EUGENIA TAYLOR . Facility: Start: 07-04-2022 End: 07-05-[address] EUGENIA TAYLOR . Facility: Start: 07-03-2022 End: 07-03-2022 ambulatory PHYSICIAN NO [facility] Facility:[facility] Start: 07-03-2022 End: 07-03-2022 ambulatory PHYSICIAN NO [facility] Work Phone: Start: 07-03-2022 End: 07-03-2022 Patient encounter procedure PHYSICIAN NO [facility] Start: 07-02-2022 End: 07-02-2022 ambulatory Eugenia Taylor Facility:[facility] Start: 07-02-2022 End: 07-02-2022 ambulatory PHYSICIAN NO [facility] Work Phone: Start: 07-02-2022 End: 07-02-2022 Patient encounter procedure PHYSICIAN NO [facility] [place] Work Phone: Start: 06-26-2022 End: 06-26-2022 Emergency department patient visit Linda Mortensen Facility:[facility] Start: 06-26-2022 End: 06-26-2022 Emergency department patient visit PHYSICIAN NO [facility] Work Phone: Start: 06-04-2022 End: 06-05-[address] EUGENIA TAYLOR . Facility: Procedures Date Procedure Procedure Detail Performing Clinician Start: 07-03-2022 SARS Antigen (LFIA) RAMAKRISHNA BONILLA NO FAMILY Start: 07-02-2022 Antibody screen Jessica Mortensen Comment on above: Result Comment: PERF ORMED BY: [facility] [address] [place] [address] PATHOLOGIST SPICE MILLER ANGIE RILEY M.D. Start: 06-26-2022 Urine culture PHYSICIAN NO FAMILY Plan of Treatment Date Care Activity Detail Author Start: 07-02-2022 Bacteria identified in Urine by Culture Urine Culture [facility] Start: 07-02-2022 Urine culture Urine Culture [facility] Start: 07-02-2022 Rubella IgG measurement [facility] Start: 07-02-2022 [facility] Start: 06-26-2022 Bacteria identified in Urine by Culture [facility] Patient Education Urinary Tract Infections in [facility] Work Phone: Patient referral [facility] Work Phone: Payers Date Payer Category Payer Self-pay 1995 Unknown [id number] 2.16.84 [id number] 1995 Unknown [id number] 2.16.84 [id number] 1996 Unknown [id number] 2.16.84 [id number] 1996 Unknown [id number] 2.16.8 [id number] 1996 Unknown [id number] 2.16.84 [id number] 1996 Unknown [id number] 1958 Medicaid [id number] Medicaid [place] [employer] [id number] Unknown [id number] 2.16.8 [id number] Unknown [id number] 2.16.8 [id number] Unknown [id number] Social History Date Type Detail Facility Start: 06-26-2022 Tobacco smoking stat [facility] Never smoked tobacco (finding) [facility] Start: 1995 Sex Assigned At Female F [facility] Clinical Note 03-01-2023 Note Date & Type Note Facility 03-01-2023 Note Patient Education Ma terials Follows:Disease Bacterial Conjunctivitis, Adult Bacterial conjunctivitis is an infection of the clear membrane that covers the white part of the eye and the inner surface of the eyelid (conjunctiva). When the blood vessels in the conjunctiva become inflamed, the eye becomes red or pink. The eye often feels irritated or itchy. Bacterial conjunctivitis spreads easily from person to person (is contagious). It also spreads easily from one eye to the other eye. What are the causes? This condition is caused by bacteria. You may get the infection if you come into close contact with: ? A person who is infected with the bacteria. ? Items that are contaminated with the bacteria, such as a face towel, contact lens solution, or eye makeup. What increases the risk? You are more likely to develop this condition if: ? You are exposed to other people who have the infection. ? You wear contact lenses. ? You have a sinus infection. ? You have had a recent eye injury or surgery. ? You have a weak body defense system (immune system). ? You have a medical condition that causes dry eyes. What are the signs or symptoms? Symptoms of this condition include: ? Thick, yellowish discharge from the eye. This may turn into a crust on the eyelid overnight and cause your eyelids to stick together. ? Tearing or watery eyes. ? Itchy eyes. ? Burning feeling in your eyes. ? Eye redness. ? Swollen eyelids. ? Blurred vision. How is this diagnosed? This condition is diagnosed based on your symptoms and medical history. Your health care provider may also take a sample of discharge from your eye to find the cause of your infection. How is this treated? This condition may be treated with: ? Antibiotic eye drops or ointment to clear the infection more quickly and prevent the spread of infection to others. ? Antibiotic medicines taken by mouth (orally) to treat infections that do not respond to drops or ointments or that last longer than 10 days. ? Cool, wet cloths (cool compresses) placed on the eyes. ? Artificial tears applied 2?6 times a day. Follow these instructions at home: Medicines ? Take or apply your antibiotic medicine as told by your health care provider. Do not stop using the antibiotic, even if your condition improves, unless directed by your health care provider. ? Take or apply [id number] and prescription medicines only as told by your health care provider. ? Be very careful to avoid touching the edge of your eyelid with the eye-drop bottle or the ointment tube when you apply medicines to the affected eye. This will keep you from spreading the infection to your other eye or to other people. Managing discomfort ? Gently wipe away any drainage from your eye with a warm, wet washcloth or a cotton ball. ? Apply a clean, cool compress to your eye for 10?20 minutes, 3?4 times a day. General instructions ? Do not wear contact lenses until the inflammation is gone and your health care provider says it is safe to wear them again. Ask your health care provider how to sterilize or replace your contact lenses before you use them again. Wear glasses until you can resume wearing contact lenses. ? Avoid wearing eye makeup until the inflammation is gone. Throw away any old eye cosmetics that may be contaminated. ? Change or wash your pillowcase every day. ? Do not share towels or washcloths. This may spread the infection. ? Wash your hands often with soap and water for at least 20 seconds and especially before touching your face or eyes. Use paper towels to dry your hands. ? Avoid touching or rubbing your eyes. ? Do not drive or use heavy machinery if your vision is blurred. Contact a health care provider if: ? You have a fever. ? Your symptoms do not get better after 10 days. Get help right away if: ? You have a fever and your symptoms suddenly get worse. ? You have severe pain when you move your eye. ? You have facial pain, redness, or swelling. ? You have a sudden loss of vision. Summary ? Bacterial conjunctivitis is an infection of the clear membrane that covers the white part of the eye and the inner surface of the eyelid (conjunctiva). ? Bacterial conjunctivitis spreads easily from eye to eye and from person to person (is contagious). ? Wash your hands often with soap and water for at least 20 seconds and especially before touching your face or eyes. Use paper towels to dry your hands. ? Take or apply your antibiotic medicine as told by your health care provider. Do not stop using the antibiotic even if your condition improves. ? Contact a health care provider if you have a fever or if your symptoms do not get better after 10 days. Get help right away if you have a sudden loss of vision. This information is not intended to replace advice given to you by your health care provider. Make sure you discuss any questions (more content not included)... [facility] Evaluation note Note Date & Type Note Facility Evaluation note No assessment information availa [facility] Work Phone: Hospital Discharge instructions Note Date & Type Note Facility Hospital Discharge instructions Additional Instructions Take your Zofran at home for nausea for nausea vomiting Push fluids Follow-up with your HR PAYROLL COORDINATOR call today for appointment Return here if you develop any abdominal pain, vaginal bleeding, chest pain, shortness of breath, dizziness or any other concerns [facility] Work Phone: Chief Complaint and Reason for Visit Chief Complaint Lightheaded,dizzy Chief Complaint Lightheaded,dizzy n92.6 Chief Complaint Lightheaded,dizzy n92.6 z115.9 symptoms Advance Directives No Advanced Directives Records Found Advance Directive Response Recorded Date/ Time Advance Directives No June 09 5:57pm Summary Purpose Family History No Family History Records FoundNo Family History Records FoundNo Family History Records FoundNo Family History Records Found Additional Source Comments Care Teams (unrecognized sec tion and content) Team Status: Active Member Role Status Dates PHYSICIAN NO FAMILY Primary Care Provider Active Team Status: Inactive Member Role Status Dates PHYSICIAN NO FAMILY Primary Care Provider Active Linda Mortensen APRN Emergency Provider Active Team Status: Inactive Member Role Status Dates PHYSICIAN NO FAMILY Primary Care Provider Active Eugenia Taylor Attending Provider Active Team Status: Inactive Member Role Status Dates PHYSICIAN NO FAMILY Primary Care Provider Active Odilon Daniels MD Attending Provider Active Goals (unrecognized section and content) Goals may be documented in a n alternate sectionGoals may be documented in an alternate sectionGoals may be documented in an alternate section INFORMATION SOURCE (unrecogn ized section and content) DATE CREATED AUTHOR 07/14/2022 [facility] DATE CREATED AUTHOR AUTHOR'S ORGANIZ ATION 09/11/2022 [facility] DATE CREATED AUTHOR AUTHOR'S ORGANIZ ATION 03/08/2023 [facility] DATE CREATED AUTHOR AUTHOR'S ORGANIZ ATION 04/16/2023 [facility] EPIC FOR RECORDS PERTAINING TO PATIENTS WHO ARE OR HAVE BEEN ENROLLED IN A CHEMICAL DEPENDENCY/SUBSTANCEABUSE PROGRAM, SOME INFORMATION MAY BE OMITTED. This clinical summary was aggregated from multiple sources. Caution should be exercised in using it in the provision of clinical care. This summary normalizes information from multiple sources, and as a consequence, information in this document may materially change the coding, format and clinical context of patient data. In addition, data may be omitted in some cases. CLINICAL DECISIONS SHOULD BE BASED ON THE PRIMARY CLINICAL RECORDS. [facility] [employer] [facility]. provides no warranty or guarantee of the accuracy or completeness of information in this document.
== END 2023-04-30 10:02 | disposition home or self-care (01) ==
LOC: PST 10:02
PROVIDERS: Visit Provider Obstetrics & Gynecology
DX: Z01.818 Encounter for other preprocedural examination (principal); Z30.2 Encounter for sterilization

== ENCOUNTER 2023-05-14 06:19 | Day surgery (SDC) | payer OTHER, SELFPAY ==
[2023-04-30 10:16] VITALS: BP 117/67; PULSE 75; RESP 20; TEMP 36.3; O2SAT 98; BMI 36.3
[2023-05-14] VITALS (8 sets, daily range): BP systolic 95–124; BP diastolic 56–75; PULSE 55–89; RESP 12–16; TEMP 36–36.3; O2SAT 96–99; BMI 36.7
--- OUTSIDE RECORDS SUMMARY | 2023-05-14 06:25 | XMS_ITS | CCD ---
Author Name Unknown Address [address] [place] [address] Organization [facility] Care Team Providers Care Mcat Tutor Name Role Phone NO FAMILY, PHYSICIAN Primary Care Provider Unava ilable BAKARI Mortensen Emergency Provider Eugenia Taylor Attending Provider [phone] MD Odilon Daniels Attending Provider [phone] Linda Mortensen Admitting Unavailable Linda Mortensen Attending Unavailable NO FAMILY, PHYSICIAN Primary Care Unavailable Eugenia Taylor Attending Unavailable NO FAMILY, PHYSICIAN Primary Care Unavailable Eugenia Taylor Admitting Unavailable NO FAMILY, PHYSICIAN Primary Care Unavailable Odilon Daniels Admitting Unavailable Odilon Daniels Attending Unavailable PEDRO ., DR BELLO Attending Unavailable MISC, DR LAWS Primary Care Unavailable [place], DR BRYAN [employer] Unavailable PEDOR ., DR BELLO Admitting Unavailable PEDRO ., [...] Propensity to adverse reactions to drug (disorder) [facility] Repository Medications Current Medications Medication Drug [...] Coding Summaryon 03-05-2023 Coding Summary HTMLBase 64 XrrqwubaTHz4dMn+PGhl YWQ+GG9QJJOwY46jqAHu rW8rA1DYVIbSEfpwSJXX WAfUFhYtnjGxIH3shSYf ZXJu IC8+PV4wKSAyEczkpQEp l2U0gDV2D37ugo4sMCdn sIT0ZBOxFsYnffaca2sa gNz8UAehNdupTuLx MFSiwO76CFW6qS57Ib01 vEFafUWwc7pjrBe3KuBc YWSoLII8iTgcXEatn2Wi SIKyV77ifNMjx4B5 IGNvbGxhcHNlOyBlbXB0 qD2hCQbhtbcoe9qhmlql Ffa9lj38gRAut3Z1aFH1 G6FnpyL9KGZqbTXo CpmpzWBWgC3ihjmea5tx vehaCfOoCKWqDRp8LRv9 FQBuyHjeCvMuPZ27FBN4 CXYcbqNwG2PmAIDi qRfqJmH3h7E7Ch0ZD2TZ XpehW6SSOYUTGFpddOX+ EO54ei70B9JaLkpmEgi5 DFRhTHA8gQW3kZ7h IIHiYTczk1R5gVF6Q9Ps bsYosm9mr7gsIRSpNFnt U37dwSUwc4U0LRBnqRS8 SCImvSjhJtLkoI65 Oyc+CIVdvScxc4FsZkyj j5tcf1ylaXz6EvroCPGc hnOokOktLEE9c5UyOk1z XSYcsYT0wNZ1dE3n ChCiCsR2ICijC888BdCb sLWeKcqrW89xX7RprWM+ YVUuNfb9LZRwdGlzIV4t I6AzBWRmuasuiKEu kUhoUS7dRHErsxwqKXKt hP4jEBExF8r9NtHqGzN9 JDvnR8KcYWSucineOn19 tG4wAgPcSuT0ZKzq R7PfxhU6UBKojEZhURez HZY9A21fu2I8DQIuTATk GJO0rNN8dH1meFsbscbn bGVmdDsgdmVydGlj ZNlwBHfxU036GDJocVrr PkNvZGluZyBEYXRlOiAg MTIvMDEvMjAyMzwvdGQ+ FAOaVDG0nOmfTUXe oTJzRLyfTo2grWundCfu BF2lZQJoiolwTWAfsZ4o MXWeuLRhiMgnHZ6aJJRw wyazy914FyYqWPM4 VCUejKWlO2PfhS3zIvRg GOAkMDSvS9XbtUFnBEfq U469PFrjNvX6FXCidaQv P8YpELApnXsvZdS3 m1X6Bz4Dp9CgxutdC7Ex eJBwGjCoBlqgIJa3U1Lc PjwvdHI+BE90YWKoVV69 BJl4INM1tPnwARzf YGIsY9XuzJ9qBjUdQJLw ZGRkOyc+PHRhYmxlIHdp ZHRoPScxMDAlJyBzdHls PO2yWg2zIIQlDTVw pBohbITbYjPku7mbGWSi YLwtYX1blVbuN8HktRI5 XURnk3u0Ji68M24pY0Id dXA+FPRvdFM4yUE1 fI5kIeOtIkT4TBudQ109 LpKviJRoYvnoi0dlt8jl nFw9IqT7PYUrkmQitKxa PRI2g8RaGm10H15c IHdpZHRoPSIxNSUiIHZh uJmzxo7qkM7bSv7+PGNv tHA4dYU8dL2hYwOvDzJ0 WWlnJ283TuYxzWQy Zgstm5wqh1daiGr1GnCv UMTmbmKmyMvkBSA0w0Mg Ur90J0RwiYesu1VtDlm0 tf57pUWmh8F7rIS0 N6DtXQJloufpaTQpcYgm KL0uWQFiedbdBRPuoK2b NDEvL6h3IbAiRaZ1SPwz V8PjseE1NICrmNNn QLMunFWPcF6oksguz9fn omkuEfOqFXXvDRn4OWw3 NFRxaYatPdAfWFP8FmE7 YHH7pFTyxR9toXsk erwesJ3fBju+SHX3dSXz mVCNMS7kAvpmmGX+PHRk MSG8zFhtWQukZWVaxK0k OCTsF7y8JdDvUwR2 SDhiD8RuvgX2PWUxzRRl WJGwqMAGnE3ljrmhu4go scowCkBdSZPeHFy8LUd3 LWFsaWduOiBsZWZ0 AjF7DFM5iAExqU2uuBeg ltzdoM9iSbu+QmlydGgg LUG7JWj4F5EdEvb1IJCm uEeaEB8ypJLsKDao Zk0kgTkeuSbaMS0fOHOg glxcl141XrYiy3mkOJPr kVJcAEaaKTL3S91hv5F1 ICGuTBUbVXU1wMM6 iS0hmLhrpplflGCiiZmk hvAhlLiuHEaaQEzfM956 QXOdhEwlYhTpZNp0O8Nz Tvs4NZSbmKojWZ3v fREnRSqvYf3ziDetzYhz TG6kXTQswvdgl369UrQe q0jrHWHxyEYnPZpxBNG2 C70bs3G7IYWyUQIf JMS2gMN9jR3waKtfytvk bGVmdDsgdmVydGljYWwt IHoyT680QKDboMtdOcFc jLc2Q2ZpYze8HGGk aAooBV6sfRJoZJpdRw9x gHchtKwaPW8cQBNkajcm g825RtRlo2kmBISvxVTi TZmyVJY9H61or1T3 YPAlFBBtNJZ1uSQ2fA5k bGlnbjogbGVmdDsgdmVy iCftFSifIQzhG984KVGz cDsnPlBhdGllbnQg EDebPJv6B7FiPeygmNC+ VP74CIOtFY85iTLtcTCu w7mllVk8FuJcLRVjNQY9 bWihIJwij8YvTZHv F79lzSAih9Q3EVJusUqd kFFtOjKwiBF2bN5sIPmr sdavv3uyzyqiMtffa9iq yn08gH11Z48dBBjs ZHRoPSIzMCUiIHZhbGln xa4cjD9kXi1+PGNvbCB3 kHU9yU3vEHVtMlE6GNen W028JmEjnRSuIpoz y9cpc8nsxLj2IaS4XDUk imSblRwnEGM1c4NbIi16 V05cFNfkEGJaWXCeBDNp QKDwfHkrno2ajX2z Ii8+WAQvsVM9hDA5bC1j ZvKmOhC9EHqbV473QwVp yURnQqwcP82lE9EyjQY+ TCYlIwz2LTOyyArg OD8iaKAzZKqqDp3fQLF6 IqMrOtKlSYkqI5GfLKFw kseswcypyGF9GXGyTNJb rA36Kz8pgSdgHYCo iQPHhG5iwyame4crrtha YiVmESQzHLv7APx2AIZl iGgiZrXnSVA4OqT9TWO2 kBTgrU9dwNtjoggj iR7gG1OuWQSsbsnmNo05 rL6jGnIxWmS8QUfyXfj+ VRIQNY7XLCTOGD0SHxXG EZVPGP1PYO83LN57 wPEky0D9qID0N0KfTKJx bepfppcxkAI2BMKfNKZr eM05xERwFEaxSj8yv7X2 t099JVYcWUKfpH37 Vv2trPteLSGrfLWGlO7v vytdt1btisfwKjRsSOYe QWx5WMd8YWBfxThmSaPa PLV8HuF1DIS0tIQr oG8auCmbzwjgaO9mLgh+ AELtKNVbCKq8YhvbgCN+ VUJiUNB8mKjyEJymAPSk eZ1pHTCeF6s8HpIw LmN8CYrbT0ZxPBCdrjpc Fn30kC4yVkQcXhW7SVxi Q5DequC2JBAmuUJoOYwh IED1N34xd9X2OQRs DRHiBEA1tQE6oE8hqZqy bjogbGVmdDsgdmVydGlj JRswWZtdF519YOPdnOjs GhN7DBzcGLHwIM02 KC27fYRhk6B5rUL2P4Tl HVPdafsogfxjlHR9IKBc NPZqhI58uAQhVUgoKa8j g2A0h892KHIkIKZf pO30Zj2svFcdTDPjsSPU eB5hpkoqs4lspdztZgNr KLQhSLk3FFr5BWQnlKkp HrOeECN2PlG6GMM9 wQNxdK3hpScnarqwzS6n Oyc+UkRODAzYQJ92NA35 cUSeo7V7rRR1D0IlZOJx voitfmqjtCY8FGNh ISPyuZ20gGZqFPukSn9p a8S7e194BRGsXELdfH84 Ea0rhIfcTEXmzPEKpK9m uadth7zmobqgYsGq TSVsNGi0UHn0KZNvyAjg IvDpZKN3KsY6FGV8yTCi fC6ozVoecdnaxP7vZma+ Y8J0P9FiIqjcqGT+ MH81PPRrWN74zGXdbKHw g6ebmBt6NbWaOLKhXZE1 lMwvBDwef3KyITXyM52c gBWrz3A4YYKqqRuw yZDmYlAxhPW5yA3iROby opgpj4zvdqutRwkms6sc bu87jF79I97aQAueREZi PSIzMCUiIHZhbGln jz8ztJ4rDf7+PGNvbCB3 qLW7sX4fZkCqIrP7APts A647HpOoyEJaDqmut0pv h0zuqNl6JeTzCWRc oeXjtHcjOOY0h1OaNf38 E22nSDqfIQHlNWMsIQQg JUHgdVemdr7pyJ7aSe2+ DS8cx6qpse84kO66 dHI+LGKuJTP8uBntSFmi ZZJiaW8oRPxhKoU8GEPd WoLqcG58uUGnXLbdLx3w fYgmsKmtVI7hJBEr cfjvd743TjApk1ddVZPl aNBkHQuwDVH6N22gi6A6 RVJrNBPvCPG4pKW8mK2h bGlnbjogbGVmdDsg vnLftLlnXNqmVTedA742 RQCxvQfmPyEfdXXzN1dh dqCYBV3mSqjlkCM+PHRk JUR1uXwhXVjwRIPn nD2iSBKhE4a2DhPnEyW9 AQigC8XzauF4JOPjcLKh XDKazVAPfF4mpsbpr0tf cjogIzAwMDAwMDt0 QLy3KGUalOdfRuHlCQI7 VaM3OZU5gKRqoO3dtIue ecrjtL9bKjs+RklOOjwv dGQ+JSZxPDC9fRpf JDkoSFCuvK9wAONmT2o6 QoEvYsS2MJvwL3CondK9 SPJypCHsDWYsbFUEmH3v enjzg0uotnrvRyXv AUWbRQb7LAr1ZQAtzCjg ZiNhOSP2DhH4NBG1iALk fM3pkEhtgzpqnM4vVzd+ TVJOOjwvdGQ+PHRk OUX9yZesZDmsONNfgL6n WAXqA5t1JoOsFiX6ICwj Q7IxnvT7VAEpfVXxGXLn jAMXcF2ezepvc5ul grfpBnDyCRRnDPh6OMa3 ANUtkCnlFcSeONJ6DvT4 PCH9yTGfdI8xjWzpbcww bA5jBrk+ZOZ1OZM3 LT99KA86B6YeSlgpfWGc bGU+PHRhYmxlIHdpZHRo PQysPWFnTmFnfPamPS1e Id8fONXdFPHwnSac cHN (more content not included)... Normal [facility] ED Clinical Summaryon 2022 ED Clinical Summary [facility] ? Urgent Care [address] [id number] Clinical Summary PERSON INFORMATION Name: MELITON CABRERA Age: 27 Years Sex: FEMALE : 1995 MRN: Acct#: Visit Reason: UC - Eye Pain; RIGHT EYE IRRITATION Arrival: 03/01/2023 13:29:41 Discharge: 03/01/2023 13:51:00 LOS: 000 00:22 Check In: 03/01/2023 13:29:41 Checkout: 03/01/2023 13:51:00 Address: [address] [place] [id number] PCP: Provider, None PROVIDER INFORMATION Provider Role Assigned Unassigned Harpreet Gray MARKETING REPRESENTATIVE Nurse 03/01/2023 13:32:52 Geovanny Mac ED PA [...] verbalizes understanding of instructions given Comment: Normal [facility] ED Patient Summaryon 023 ED Patient Summary [facility] ? Urgent Care [address] [id number] PATIENT DISCHARGE INSTRUCTIONS Patient Information Name: MELITON [...] health care provider. ? Take or apply pnbg-utg-htbfgfg and prescription medicines only as told by [...] your eyes. (more content not included)... Normal [facility] Urgent Care [address] 023 Urgent Care Record [facility] ? Urgent Care [address] [place] [address] PATIENT DISCHARGE INSTRUCTIONS Patient Information Name: MELITON CABRERA Age: 27 Years Date of : 1995 Reason For Visit: UC - Eye Pain; RIGHT EYE IRRITATION Arrival Time: 03/01/2023 13:29:41 Primary Care Physician: Provider, None Attending Physician: Geovanny Mac Comment: Visit Diagnosis: Diagnoses This Visit Conjunctivitis of right eye (H10.9) UC - Eye Pain ([id number]) If you received any narcotics, sedation, or [...] and treatment you received today in the [facility] were for an urgent problem and are not intended as complete care. It is important for you to follow up with a doctor, nurse practitioner, or physician?s academic assistant for ongoing care. If your symptoms become [...] so we can reach you if necessary. [facility] Urgent [facility] has provided you with a complete list of medications post discharge. Please inform your team primary care physician/provider of your visit and for further instruction on these medications. Any specific questions regarding your chronic medications and dosages should be discussed with your primary care physician(s) and/or pharmacist. New Medications [id number], [address], [place] [id number], [phone] ofloxacin ophthalmic (ofloxacin 0.3% ophthalmic solution) 2 [...] ? You (more content not included)... Normal [facility] BOX TEST SENT OUTon 07-05-19 23 SENT TO REF LAB 07/04/2022 Normal [facility] Comment on above: Performed By: #### B OX #### [facility] [address] [place] [address] Dr. Reyes Chamorro COVID-19 Antigenon 3 COVID-19 [...] developed and its performance characteristic determined by [employer] and validated at [facility]. This test has not been FDA [...] for SARS Antigen by RONALD PERFORMED BY: [place] [address] PATHOLOGIST [employer] ANGIE RILEY M.D. Normal [facility] Comment on above: Performed By: #### S SCHUYLER, COVID-19 RONNY #### [address] COVID-19 SOFIAOrdered By: David Daniels on 07-03-2022 SARS-CoV+SARS-CoV-2 (COVID-19) Ag IA.rapid Ql (Resp) Negative Negative [facility] Comment on above: This is a duplicate Ronny SARS Antigen (RONALD) result to be used for statistical tracking purpose only. No Panel InformationOrdered By: Odilon Daniels on 07-03-2022 SARS Antigen (LFIA) [facility] Ronny Ag Negativeon 07-04-19 23 Ronny Ag Negative Negative Normal Negative [facility] Comment on above: Result Comment: This is a duplicate Ronny SARS Antigen (RONALD) result to be used for statistical tracking purpose only. PERFORMED BY: [place] [address] PATHOLOGIST [employer] ANGIE RILEY M.D. Performed By: #### S OFIANEG, COVID-19 RONNY #### [facility] [address] [place] [address] A1C with Estimated Average G cheyennen 07-02-2022 Glucose [Mass/Vol] 111 mg/dL Normal [facility] Comment on above: Result Comment: PERF ORMED BY: [place] [address] PATHOLOGIST [employer] ANGIE RILEY M.D. Performed By: #### R UBELLA IGG, HBSAG, HCV RX PCR, RPR W RFX #### [facility] , #### TSH3, CBC, A1C WTH eA #### [address] HbA1c (Bld) [Mass fraction] 5.5 % Normal 4.3-5.6 [facility] Comment on above: Result Comment: Incr eased risk for diabetes: 5.7 - 6.4 diabetes: >6.4 glycemic control for adults with diabetes: <7.0 Performed By: #### R UBELLA IGG, HBSAG, HCV RX PCR, RPR W RFX #### [facility] , #### TSH3, CBC, A1C WTH eA #### [address] ABO/RH Typeon 07-02-2022 ABO and Rh group Nom (Bld) Blood group O Rh(D) positive Normal [facility] Comment on above: Result Comment: PERF ORMED BY: [place] [address] PATHOLOGIST [employer] ANGIE RILEY M.D. Basophils Auto (Bld) [#/Vol] Ordered By: Eugenia Taylor on 07-02-2022 Basophils (Bld) [#/Vol] 0.0 10*3/uL 0.0-0.2 [facility] Basophils/100 WBC Auto (Bld) Ordered By: Eugenia Taylor on 07-02-2022 Basophils/100 WBC (Bld) 0.4 % . [facility] Complete Blood Count Auto Di ffon 07-02-2022 Basophils (Bld) [#/Vol] 0.0 10*3/uL Normal 0.0-0.2 [facility] Comment on above: Result Comment: PERF ORMED BY: [place] [address] PATHOLOGIST [employer] ANGIE RILEY M.D. Performed By: #### R UBELLA IGG, HBSAG, HCV RX PCR, RPR W RFX #### [facility] , #### TSH3, CBC, A1C WT eA #### [facility] [address] [place] [address] Basophils/100 WBC (Bld) 0.4 % Normal . [facility] Comment on above: Performed By: #### R UBELLA IGG, HBSAG, HCV RX PCR, RPR W RFX #### [facility] , #### TSH3, CBC, A1C WTH eA #### [facility] [address] [place] [address] [place] Eosinophils (Bld) [#/Vol] 0.2 10*3/uL Normal 0.0-0.45 [facility] Comment on above: Performed By: #### R UBELLA IGG, HBSAG, HCV RX PCR, RPR W RFX #### [facility] , #### TSH3, CBC, A1C WTH eA #### [facility] [address] [place] [address] [place] Eosinophils/100 WBC (Bld) 2.6 % Normal . [facility] Comment on above: Performed By: #### R UBELLA IGG, HBSAG, HCV RX PCR, RPR W RFX #### [facility] , #### TSH3, CBC, A1C WTH eA #### [address] Erythrocyte distribution width (RBC) [Ratio] 14.6 % Normal 11.9-15.3 [facility] Comment on above: Performed By: #### R UBELLA IGG, HBSAG, HCV RX PCR, RPR W RFX #### [facility] , #### TSH3, CBC, A1C WTH eA #### [facility] [address] Hematocrit (Bld) [Volume fraction] 38.0 % Normal 34.0-46.4 [facility] Comment on above: Performed By: #### R UBELLA IGG, HBSAG, HCV RX PCR, RPR W RFX #### [facility] , #### TSH3, CBC, A1C WTH eA #### [address] Hemoglobin (Bld) [Mass/Vol] 12.4 g/dL Normal 11.8-15.4 [facility] Comment on above: Performed By: #### R UBELLA IGG, HBSAG, HCV RX PCR, RPR W RFX #### [facility] , #### TSH3, CBC, A1C WTH eA #### [place] [address] [place] Lymphocytes (Bld) [#/Vol] 2.8 10*3/uL Normal 1.00-4.8 [facility] Comment on above: Performed By: #### R UBELLA IGG, HBSAG, HCV RX PCR, RPR W RFX #### [facility] , #### TSH3, CBC, A1C WTH eA #### [place] [address] [place] Lymphocytes/100 WBC (Bld) 30.7 % Normal . [facility] Comment on above: Performed By: #### R UBELLA IGG, HBSAG, HCV RX PCR, RPR W RFX #### [facility] , #### TSH3, CBC, A1C WTH eA #### [place] [address] [place] MCH (RBC) [Entitic mass] 30.0 pg Normal 24.7-34.3 [facility] Comment on above: Performed By: #### R UBELLA IGG, HBSAG, HCV RX PCR, RPR W RFX #### [facility] , #### TSH3, CBC, A1C WTH eA #### [address] MCV (RBC) [Entitic vol] 91.9 fL Normal 80-100 F [facility] Comment on above: Performed By: #### R UBELLA IGG, HBSAG, HCV RX PCR, RPR W RFX #### [facility] , #### TSH3, CBC, A1C WTH eA #### [facility] [address] [place] [address] Mean Corpuscular HGB Conc 32.7 g/dL Normal 32.0-35.0 [facility] Comment on above: Performed By: #### R UBELLA IGG, HBSAG, HCV RX PCR, RPR W RFX #### [facility] , #### TSH3, CBC, A1C WTH eA #### [address] Monocytes (Bld) [#/Vol] 0.5 10*3/uL Normal 0.0-0.8 [facility] Comment on above: Performed By: #### R UBELLA IGG, HBSAG, HCV RX PCR, RPR W RFX #### [facility] , #### TSH3, CBC, A1C WTH eA #### [facility] [address] [place] [address] [place] Monocytes/100 WBC (Bld) 5.2 % Normal . [facility] Comment on above: Performed By: #### R UBELLA IGG, HBSAG, HCV RX PCR, RPR W RFX #### [facility] , #### TSH3, CBC, A1C WTH eA #### [place] [address] [place] Neutrophils (Bld) [#/Vol] 5.6 10*3/uL Normal 1.8-7.7 [facility] Comment on above: Performed By: #### R UBELLA IGG, HBSAG, HCV RX PCR, RPR W RFX #### [facility] , #### TSH3, CBC, A1C WTH eA #### [address] Neutrophils/100 WBC (Bld) 61.1 % Normal . [facility] Comment on above: Performed By: #### R UBELLA IGG, HBSAG, HCV RX PCR, RPR W RFX #### [facility] , #### TSH3, CBC, A1C WTH eA #### [facility] [address] [place] [address] [place] NRBC% 0.2 /100{WBC} Normal 0-0.5 [facility] Comment on above: Performed By: #### R UBELLA IGG, HBSAG, HCV RX PCR, RPR W RFX #### [facility] , #### TSH3, CBC, A1C WTH eA #### [address] Platelet mean volume (Bld) [Entitic vol] 7.5 fL Normal 6.3-10.7 [facility] Comment on above: Performed By: #### R UBELLA IGG, HBSAG, HCV RX PCR, RPR W RFX #### [facility] , #### TSH3, CBC, A1C WTH eA #### [place] [address] [place] Platelets (Bld) [#/Vol] 322 10*3/uL Normal 150-450 [facility] Comment on above: Performed By: #### R UBELLA IGG, HBSAG, HCV RX PCR, RPR W RFX #### [facility] , #### TSH3, CBC, A1C WTH eA #### [place] [address] [place] RBC (Bld) [#/Vol] 4.13 10*6/uL Normal 3.60-5.00 [facility] Comment on above: Performed By: #### R UBELLA IGG, HBSAG, HCV RX PCR, RPR W RFX #### [facility] , #### TSH3, CBC, A1C WTH eA #### [facility] [address] WBC (Bld) [#/Vol] 9.1 10*3/uL Normal 3.8-11.6 [facility] Comment on above: Performed By: #### R UBELLA IGG, HBSAG, HCV RX PCR, RPR W RFX #### [facility] , #### TSH3, CBC, A1C WTH eA #### [facility] [address] Eosinophils Auto (Bld) [#/Vo l]Ordered By: Eugenia Taylor on 07-02-2022 Eosinophils (Bld) [#/Vol] 0.2 10*3/uL 0.0-0.45 [facility] Eosinophils/100 WBC Auto (Bl d)Ordered By: Eugenia Taylor on 07-02-2022 Eosinophils/100 WBC (Bld) 2.6 % . [facility] Erythrocyte distribution wid th Auto (RBC) [Ratio]Ordered By: Eugenia Taylor on 07-02-2022 Erythrocyte distribution width (RBC) [Ratio] 14.6 % 11.9-15.3 [facility] Glucose mean value [Mass/vol ume] in Blood Estimated from glycated hemoglobinOrdered By: Eugenia Taylor on 07-02-2022 Average glucose Estimated from glycated hemoglobin (Bld) [Mass/Vol] 111 mg/dL [facility] Hematocrit Auto (Bld) [Volum e fraction]Ordered By: Eugenia Taylor on 07-02-2022 Hematocrit (Bld) [Volume fraction] 38.0 % 34.0-46.4 [facility] Hemoglobin A1c percentageOrd ered By: Eugenia Taylor on 07-02-2022 HbA1c (Bld) [Mass fraction] 5.5 % 4.3-5.6 [facility] Comment on above: Increased risk for d iabetes: 5.7 - 6.4diabetes: >6.4glycemic control for adults with diabetes: <7.0 Hemoglobin [Mass/volume] in BloodOrdered By: Eugenia Taylor on 07-02-2022 Hemoglobin (Bld) [Mass/Vol] 12.4 g/dL 11.8-15.4 [facility] Hep C Ab wRfx to Qnt PCRon 0 07-02-2022 Hepatitis C Virus Antibody Non-Reactive Normal Non Reactive [facility] Comment on above: Performed By: #### R UBELLA IGG, HBSAG, HCV RX PCR, RPR W RFX #### [facility] , #### TSH3, CBC, A1C WTH eA #### [address] Interpretation Hepatitis C Normal . [facility] Comment on above: Result Comment: Not infected with HCV unless early or acute infection is suspected (which may be delayed in an immunocompromised individual), or other evidence exists to indicate HCV infection. Performed By: #### R UBELLA IGG, HBSAG, HCV RX PCR, RPR W RFX #### [facility] , #### TSH3, CBC, A1C WTH eA #### [facility] [address] [place] [address] Hepatitis B Surface Antigeno n 07-02-2022 HBsAg Screen Negative Normal Negative [facility] Comment on above: Result Comment: Perf ormed at: - [facility] [address] [id number] Professor Of Rhetoric: Devan Otoole PhD, Phone: [phone] PERFORMED BY: [place] [address] PATHOLOGIST [employer] D[employer] ANIGE RILEY M.D. Performed By: #### R UBELLA IGG, HBSAG, HCV RX PCR, RPR W RFX #### [facility] , #### TSH3, CBC, A1C WTH eA #### [address] Hepatitis B virus surface Ag [Presence] in Serum or Plasma by ImmunoassayOrdered By: Eugenia Taylor on 07-02-2022 HBV surface Ag IA Ql Negative Negative [facility] Comment on above: Performed at: - [address] [id number] Director: Devan Otoole PhD, Phone: [phone] Hepatitis C virus IgG Ab [Pr esence] in Serum or Plasma by ImmunoassayOrdered By: Eugenia Taylor on 07-02-2022 HCV IgG IA Ql Non-Reactive Non Reactive [facility] Leukocytes [#/volume] correc jessica for nucleated erythrocytes in Blood by Automated counOrdered By: Eugenia Taylor on 07-02-2022 WBC corrected for nucl RBC Auto (Bld) [#/Vol] 9.1 10*3/uL 3.8-11.6 [facility] Lymphocytes Auto (Bld) [#/Vo l]Ordered By: Eugenia Taylor on 07-02-2022 Lymphocytes (Bld) [#/Vol] 2.8 10*3/uL 1.00-4.8 [facility] Lymphocytes/100 WBC Auto (Bl d)Ordered By: Eugenia Taylor on 07-02-2022 Lymphocytes/100 WBC (Bld) 30.7 % . [facility] MCH Auto (RBC) [Entitic mass ]Ordered By: Eugenia Taylor on 07-02-2022 MCH (RBC) [Entitic mass] 30.0 pg 24.7-34.3 [facility] MCHC Auto (RBC) [Mass/Vol]Or dered By: Eugenia Taylor on 07-02-2022 MCHC (RBC) [Mass/Vol] 32.7 g/dL 32.0-35.0 [facility] MCV Auto (RBC) [Entitic vol] Ordered By: Eugenia Taylor on 07-02-2022 MCV (RBC) [Entitic vol] 91.9 fL 80-100 F [facility] Monocytes Auto (Bld) [#/Vol] Ordered By: Eugenia Taylor on 07-02-2022 Monocytes (Bld) [#/Vol] 0.5 10*3/uL 0.0-0.8 [facility] Monocytes/100 WBC Auto (Bld) Ordered By: Eugenia Taylor on 07-02-2022 Monocytes/100 WBC (Bld) 5.2 % . [facility] Neutrophils Auto (Bld) [#/Vo l]Ordered By: Eugenia Taylor on 07-02-2022 Neutrophils (Bld) [#/Vol] 5.6 10*3/uL 1.8-7.7 [facility] Neutrophils/100 WBC Auto (Bl d)Ordered By: Eugenia Taylor on 07-02-2022 Neutrophils/100 WBC (Bld) 61.1 % . [facility] No Panel InformationOrdered By: Eugenia Taylor on 07-02-2022 Hepatitis C Interpretation See comment . [facility] Comment on above: Not infected with HC V unless early or acute infection issuspected (which may be delayed in an immunocompromisedindividual), or other evidence exists to indicate HCVinfection. Hepatitis C RNA Quantitative N/A [facility] Rubella IgG Antibody 1.57 index Immune >0.99 [facility] Comment on above: Non-immune <0.90 Equ ivocal 0.90 - 0.99 Immune >0.99Performed at: [employer] [address] [id number] Director: Devan Otoole PhD, Phone: [phone] Nucleated erythrocytes [Pres ence] in Blood by Automated countOrdered By: Eugenia Taylor on 07-02-2022 Nucleated RBC Auto Ql (Bld) 0.2 /100{WBC} 0-0.5 [facility] Platelet mean volume Auto (B ld) [Entitic vol]Ordered By: Eugenia Taylor on 07-02-2022 Platelet mean volume (Bld) [Entitic vol] 7.5 fL 6.3-10.7 [facility] Platelets Auto (Bld) [#/Vol] Ordered By: Eugenia Taylor on 07-02-2022 Platelets (Bld) [#/Vol] 322 10*3/uL 150-450 [facility] RBC Auto (Bld) [#/Vol]Ordere d By: Eugenia Taylor on 07-02-2022 RBC (Bld) [#/Vol] 4.13 10*6/uL 3.60-5.00 [facility] RPR w/rfx to Quant TP Abson 07-02-2022 RPR, Rfx Quant RPR Non-Reactive Normal Non Reactive [facility] Comment on above: Result Comment: Perf ormed at: - [facility] [address] [id number] Professor Of Rhetoric: Devan Otoole PhD, Phone: [phone] PERFORMED BY: [place] [address] PATHOLOGIST [employer] AGNIE RILEY M.D. Performed By: #### R UBELLA IGG, HBSAG, HCV RX PCR, RPR W RFX #### [facility] , #### TSH3, CBC, A1C WTH eA #### [facility] [address] [place] [address] Reagin Ab [Presence] in Seru m by RPROrdered By: Eugenia Taylor on 07-02-2022 Reagin Ab RPR Ql (S) Non-Reactive Non Reactive [facility] Comment on above: Performed at: - [facility] [address] [id number] Director: Devan Otoole PhD, Phone: [phone] Rubella IgG Antibodyon 07-02 Rubella IgG Antibody 1.57 Normal Immune >0.99 [facility] Comment on above: Result Comment: Non- immune <0.90 Equivocal 0.90 - 0.99 Immune >0.99 Performed at: [employer] - [facility] [address] [id number] Professor Of Rhetoric: Devan Otoole PhD, Phone: [phone] Performed By: #### R UBELLA IGG, HBSAG, HCV RX PCR, RPR W RFX #### [facility] , #### TSH3, CBC, A1C WTH eA #### [facility] [address] [place] [address] [place] Thyroid Stimulating Hormoneo n 07-02-2022 TSH Qn 2.98 m[IU]/L Normal 0.45-5.33 [facility] Comment on above: Result Comment: PERF ORMED BY: [place] [address] PATHOLOGIST ARTIFICIAL FLOWERS DYER ANGIE RILEY M.D. Performed By: #### R UBELLA IGG, HBSAG, HCV RX PCR, RPR W RFX #### [facility] , #### TSH3, CBC, A1C WTH eA #### [facility] [address] [place] [address] Thyrotropin [Units/volume] i n Serum or PlasmaOrdered By: Eugenia Taylor on 07-02-2022 TSH Qn 2.98 m[IU]/L 0.45-5.33 [facility] Urine Cultureon 07-02-2022 Bacteria identified Cx Nom (U) No Growth 2 Days PERFORMED BY: [place] [address] PATHOLOGIST ARTIFICIAL FLOWERS DYER ANGIE RILEY M.D. Normal [facility] Comment on above: Performed By: #### R UBELLA IGG, HBSAG, HCV RX PCR, RPR W RFX #### [facility] , #### TSH3, CBC, A1C WTH eA #### [facility] [address] [place] [address] WBC Auto (Bld) [#/Vol]Ordere d By: Eugenia Taylor on 07-02-2022 WBC (Bld) [#/Vol] 9.1 10*3/uL 3.8-11.6 [facility] Alanine aminotransferase [En zymatic activity/volume] in Serum or PlasmaOrdered By: Linda Mortensen on 06-26-2022 ALT [Catalytic activity/Vol] 31 U/L 7-52 [facility] Albumin [Mass/volume] in Ser um or Plasma by Bromocresol green (BCG) dye binding methoOrdered By: Linda Mortensen on 06-26-2022 Albumin BCG dye [Mass/Vol] 3.8 g/dL 3.5-5.7 [facility] Alkaline phosphatase [Enzyma tic activity/volume] in Serum or PlasmaOrdered By: Linda Mortensen on 06-26-2022 ALP [Catalytic activity/Vol] 83 U/L 34-104 [facility] Aspartate aminotransferase [ Enzymatic activity/volume] in Serum or PlasmaOrdered By: Linda Mortensen on 06-26-2022 AST [Catalytic activity/Vol] 15 U/L 13-39 [facility] Automated erythrocytes count in urine sediment (number/area)Ordered By: Linda Mortensen on 06-26-2022 RBC Auto (Urine sed) [#/Area] 1-2 [HPF] 0-4 [facility] Automated leukocytes count i n urine sediment (number/area)Ordered By: Linda Mortensen on 06-26-2022 WBC Auto (Urine sed) [#/Area] 10-19 [HPF] 0-4 [facility] Basophils Auto (Bld) [#/Vol] Ordered By: Linda Mortensen on 06-26-2022 Basophils (Bld) [#/Vol] 0.0 10*3/uL 0.0-0.2 [facility] Basophils/100 WBC Auto (Bld) Ordered By: Linda Mortensen on 06-26-2022 Basophils/100 WBC (Bld) 0.4 % . [facility] Bilirubin Test strip Ql (U)O rdered By: Linda Mortensen on 06-26-2022 Bilirubin Ql (U) Negative Negative [facility] Bilirubin.total [Mass/volume ] in Serum or PlasmaOrdered By: Linda Mortensen on 06-26-2022 Bilirubin [Mass/Vol] 0.4 mg/dL 0.3-1.0 [facility] Calcium [Mass/volume] in Ser um or PlasmaOrdered By: Linda Mortensen on 06-26-2022 Calcium [Mass/Vol] 9.1 mg/dL 8.6-10.3 [facility] Carbon dioxide, total [Moles /volume] in Serum or PlasmaOrdered By: Linda Mortensen on 06-26-2022 CO2 [Moles/Vol] 25.6 mmol/L 21.0-31.0 [facility] Chloride [Moles/volume] in S roma or PlasmaOrdered By: Linda Mortensen on 06-26-2022 Chloride [Moles/Vol] 104 mmol/L 98-107 [facility] Color Auto (U)Ordered By: Pedro Mortensen on 06-26-2022 Color (U) Yellow Yellow [facility] Complete Blood Count Auto Di ffon 06-26-2022 Basophils (Bld) [#/Vol] 0.0 10*3/uL Normal 0.0-0.2 [facility] Comment on above: Result Comment: PERF ORMED BY: [place] [address] PATHOLOGIST ARTIFICIAL FLOWERS DYER ANGIE RILEY M.D. Performed By: #### R UBELLA IGG, HBSAG, HCV RX PCR, RPR W RFX #### [facility] , #### TSH3, CBC, A1C [facility] eA #### [facility] [address] [place] [address] [place] Basophils/100 WBC (Bld) 0.4 % Normal . [facility] Comment on above: Performed By: #### R UBELLA IGG, HBSAG, HCV RX PCR, RPR W RFX #### [facility] , #### TSH3, CBC, A1C WTH eA #### [facility] [address] [place] [address] [place] Eosinophils (Bld) [#/Vol] 0.1 10*3/uL Normal 0.0-0.45 [facility] Comment on above: Performed By: #### R UBELLA IGG, HBSAG, HCV RX PCR, RPR W RFX #### [facility] , #### TSH3, CBC, A1C WTH eA #### [facility] [address] [place] [address] [place] Eosinophils/100 WBC (Bld) 1.2 % Normal . [facility] Comment on above: Performed By: #### R UBELLA IGG, HBSAG, HCV RX PCR, RPR W RFX #### [facility] , #### TSH3, CBC, A1C WTH eA #### [address] Erythrocyte distribution width (RBC) [Ratio] 14.9 % Normal 11.9-15.3 [facility] Comment on above: Performed By: #### R UBELLA IGG, HBSAG, HCV RX PCR, RPR W RFX #### [facility] , #### TSH3, CBC, A1C WTH eA #### [address] Hematocrit (Bld) [Volume fraction] 38.3 % Normal 34.0-46.4 [facility] Comment on above: Performed By: #### R UBELLA IGG, HBSAG, HCV RX PCR, RPR W RFX #### [facility] , #### TSH3, CBC, A1C WTH eA #### [address] Hemoglobin (Bld) [Mass/Vol] 12.6 g/dL Normal 11.8-15.4 [facility] Comment on above: Performed By: #### R UBELLA IGG, HBSAG, HCV RX PCR, RPR W RFX #### [facility] , #### TSH3, CBC, A1C WTH eA #### [address] Lymphocytes (Bld) [#/Vol] 3.0 10*3/uL Normal 1.00-4.8 [facility] Comment on above: Performed By: #### R UBELLA IGG, HBSAG, HCV RX PCR, RPR W RFX #### [facility] , #### TSH3, CBC, A1C WTH eA #### [address] Lymphocytes/100 WBC (Bld) 34.2 % Normal . [facility] Comment on above: Performed By: #### R UBELLA IGG, HBSAG, HCV RX PCR, RPR W RFX #### [facility] , #### TSH3, CBC, A1C WTH eA #### [facility] [address] [place] [address] MCH (RBC) [Entitic mass] 30.1 pg Normal 24.7-34.3 [facility] Comment on above: Performed By: #### R UBELLA IGG, HBSAG, HCV RX PCR, RPR W RFX #### [facility] , #### TSH3, CBC, A1C WTH eA #### [address] MCV (RBC) [Entitic vol] 91.5 fL Normal 80-100 [facility] Comment on above: Performed By: #### R UBELLA IGG, HBSAG, HCV RX PCR, RPR W RFX #### [facility] , #### TSH3, CBC, A1C WTH eA #### [address] Mean Corpuscular HGB Conc 32.9 g/dL Normal 32.0-35.0 [facility] Comment on above: Performed By: #### R UBELLA IGG, HBSAG, HCV RX PCR, RPR W RFX #### [facility] , #### TSH3, CBC, A1C WTH eA #### [address] Monocytes (Bld) [#/Vol] 0.5 10*3/uL Normal 0.0-0.8 [facility] Comment on above: Performed By: #### R UBELLA IGG, HBSAG, HCV RX PCR, RPR W RFX #### [facility] , #### TSH3, CBC, A1C WTH eA #### [address] Monocytes/100 WBC (Bld) 19.04 % Normal 0.00-20.00 [facility] Comment on above: Performed By: #### R UBELLA IGG, HBSAG, HCV RX PCR, RPR W RFX #### [facility] , #### TSH3, CBC, A1C WTH eA #### [facility] [address] [place] [address] [place] Monocytes/100 WBC (Bld) 5.7 % Normal . [facility] Comment on above: Performed By: #### R UBELLA IGG, HBSAG, HCV RX PCR, RPR W RFX #### [facility] , #### TSH3, CBC, A1C WTH eA #### [facility] [address] [place] [address] Neutrophils (Bld) [#/Vol] 5.1 10*3/uL Normal 1.8-7.7 [facility] Comment on above: Performed By: #### R UBELLA IGG, HBSAG, HCV RX PCR, RPR W RFX #### [facility] , #### TSH3, CBC, A1C WTH eA #### [facility] [address] [place] [address] [place] Neutrophils/100 WBC (Bld) 58.5 % Normal . [facility] Comment on above: Performed By: #### R UBELLA IGG, HBSAG, HCV RX PCR, RPR W RFX #### [facility] , #### TSH3, CBC, A1C WTH eA #### [facility] [address] [place] [address] [place] NRBC% 0.1 /100{WBC} Normal 0-0.5 [facility] Comment on above: Performed By: #### R UBELLA IGG, HBSAG, HCV RX PCR, RPR W RFX #### [facility] , #### TSH3, CBC, A1C WTH eA #### [facility] [address] [place] [address] Platelet mean volume (Bld) [Entitic vol] 7.6 fL Normal 6.3-10.7 [facility] Comment on above: Performed By: #### R UBELLA IGG, HBSAG, HCV RX PCR, RPR W RFX #### [facility] , #### TSH3, CBC, A1C WTH eA #### [facility] [address] [place] [address] Platelets (Bld) [#/Vol] 332 10*3/uL Normal 150-450 [facility] Comment on above: Performed By: #### R UBELLA IGG, HBSAG, HCV RX PCR, RPR W RFX #### [facility] , #### TSH3, CBC, A1C WTH eA #### [address] RBC (Bld) [#/Vol] 4.19 10*6/uL Normal 3.60-5.00 [facility] Comment on above: Performed By: #### R UBELLA IGG, HBSAG, HCV RX PCR, RPR W RFX #### [facility] , #### TSH3, CBC, A1C WTH eA #### [address] WBC (Bld) [#/Vol] 8.8 10*3/uL Normal 3.8-11.6 [facility] Comment on above: Performed By: #### R UBELLA IGG, HBSAG, HCV RX PCR, RPR W RFX #### [facility] , #### TSH3, CBC, A1C WTH eA #### [address] Comprehensive Metabolic Pane vivien 06-26-2022 Albumin [Mass/Vol] 3.8 g/dL Normal 3.5-5.7 [facility] Comment on above: Performed By: #### R UBELLA IGG, HBSAG, HCV RX PCR, RPR W RFX #### [facility] , #### TSH3, CBC, A1C WTH eA #### [address] Albumin/Globulin [Mass ratio] 1.1 {ratio} Normal [facility] Comment on above: Performed By: #### R UBELLA IGG, HBSAG, HCV RX PCR, RPR W RFX #### [facility] , #### TSH3, CBC, A1C WTH eA #### [facility] [address] [place] [address] ALP [Catalytic activity/Vol] 83 U/L Normal 34-104 [facility] Comment on above: Performed By: #### R UBELLA IGG, HBSAG, HCV RX PCR, RPR W RFX #### [facility] , #### TSH3, CBC, A1C WT eA #### [facility] [address] [place] [address] ALT [Catalytic activity/Vol] 31 U/L Normal 7-52 [facility] Comment on above: Performed By: #### R UBELLA IGG, HBSAG, HCV RX PCR, RPR W RFX #### [facility] , #### TSH3, CBC, A1C WT eA #### [address] Anion gap [Moles/Vol] 10.4 mmol/L Normal 6.0-15.0 [facility] Comment on above: Performed By: #### R UBELLA IGG, HBSAG, HCV RX PCR, RPR W RFX #### [facility] , #### TSH3, CBC, A1C WT eA #### [place] [address] [place] AST [Catalytic activity/Vol] 15 U/L Normal 13-39 [facility] Comment on above: Performed By: #### R UBELLA IGG, HBSAG, HCV RX PCR, RPR W RFX #### [facility] , #### TSH3, CBC, A1C WTH eA #### [place] [address] [place] Bilirubin [Mass/Vol] 0.4 mg/dL Normal 0.3-1.0 [facility] Comment on above: Performed By: #### R UBELLA IGG, HBSAG, HCV RX PCR, RPR W RFX #### [facility] , #### TSH3, CBC, A1C WTH eA #### [facility] [address] Calcium [Mass/Vol] 9.1 mg/dL Normal 8.6-10.3 [facility] Comment on above: Performed By: #### R UBELLA IGG, HBSAG, HCV RX PCR, RPR W RFX #### [facility] , #### TSH3, CBC, A1C [facility] eA #### [facility] [address] [place] [address] Chloride [Moles/Vol] 104 mmol/L Normal 98-107 [facility] Comment on above: Performed By: #### R UBELLA IGG, HBSAG, HCV RX PCR, RPR W RFX #### [facility] , #### TSH3, CBC, A1C WT eA #### [facility] [address] [place] [address] CO2 [Moles/Vol] 25.6 mmol/L Normal 21.0-31.0 [facility] Comment on above: Performed By: #### R UBELLA IGG, HBSAG, HCV RX PCR, RPR W RFX #### [facility] , #### TSH3, CBC, A1C [facility] eA #### [facility] [address] Creatinine [Mass/Vol] 0.61 mg/dL Normal 0.60-1.20 [facility] Comment on above: Performed By: #### R UBELLA IGG, HBSAG, HCV RX PCR, RPR W RFX #### [facility] , #### TSH3, CBC, A1C WT eA #### [facility] [address] [place] [address] [place] Creatinine Clr Calc Pharmacy 160.48 Normal [facility] Comment on above: Result Comment: PERF ORMED BY: [place] [address] PATHOLOGIST ARTIFICIAL FLOWERS DYER ANGIE RILEY M.D. Performed By: #### R UBELLA IGG, HBSAG, HCV RX PCR, RPR W RFX #### [facility] , #### TSH3, CBC, A1C WTH eA #### [place] [address] [place] GFR/1.73 sq M.predicted MDRD (S/P/Bld) [Vol rate/Area] mL/min/{1.73_m2} Normal [facility] Comment on above: Performed By: #### R UBELLA IGG, HBSAG, HCV RX PCR, RPR W RFX #### [facility] , #### TSH3, CBC, A1C WTH eA #### [place] [address] [place] Globulin (S) [Mass/Vol] 3.5 g/dL Normal [facility] Comment on above: Performed By: #### R UBELLA IGG, HBSAG, HCV RX PCR, RPR W RFX #### [facility] , #### TSH3, CBC, A1C WTH eA #### [address] Glucose [Mass/Vol] 81 mg/dL Normal 74-109 [facility] Comment on above: Result Comment: [facility] Glucose Reference Range is dependent on time and content of last meal. Glucose of more than 200 mg/dL in a nonstressed, ambulatory subject supports the diagnosis of Diabetes Mellitus. ADA recommended reference range Performed By: #### R UBELLA IGG, HBSAG, HCV RX PCR, RPR W RFX #### [facility] , #### TSH3, CBC, A1C WTH eA #### [address] Potassium [Moles/Vol] 4.0 mmol/L Normal 3.5-5.1 [facility] Comment on above: Performed By: #### R UBELLA IGG, HBSAG, HCV RX PCR, RPR W RFX #### [facility] , #### TSH3, CBC, A1C WTH eA #### [facility] [address] Protein [Mass/Vol] 7.3 g/dL Normal 6.4-8.9 [facility] Comment on above: Performed By: #### R UBELLA IGG, HBSAG, HCV RX PCR, RPR W RFX #### [facility] , #### TSH3, CBC, A1C WT eA #### [facility] [address] [place] [address] Sodium [Moles/Vol] 136 mmol/L Normal 136-145 [facility] Comment on above: Performed By: #### R UBELLA IGG, HBSAG, HCV RX PCR, RPR W RFX #### [facility] , #### TSH3, CBC, A1C WTH eA #### [facility] [address] [place] [address] [place] Urea nitrogen [Mass/Vol] 6 mg/dL Low 7-25 [facility] Comment on above: Performed By: #### R UBELLA IGG, HBSAG, HCV RX PCR, RPR W RFX #### [facility] , #### TSH3, CBC, A1C [facility] eA #### [facility] [address] [place] [address] Creatinine [Mass/volume] in Serum or PlasmaOrdered By: Linda Mortensen on 06-26-2022 Creatinine [Mass/Vol] 0.61 mg/dL 0.60-1.20 [facility] Dipstick and Microscopicon 0 06-26-2022 Appearance (U) Clear Normal Clear [facility] Comment on above: Order Comment: Name Collection Type:: Clean-Voided Midstream Performed By: #### A DDONUAPLUS, CUU, UHCG #### [address] Bacteria,Urine Rare High None Seen [facility] Comment on above: Order Comment: Name Collection Type:: Clean-Voided Midstream Performed By: #### A DDONUAPLUS, CUU, UHCG #### [facility] [address] [place] [address] [place] Bilirubin,Urine Negative Normal Negative [facility] Comment on above: Order Comment: Name Collection Type:: Clean-Voided Midstream Performed By: #### A DDONUAPLUS, CUU, UHCG #### [facility] [address] [place] [address] [place] Color (U) Yellow Normal Yellow [facility] Comment on above: Order Comment: Name Collection Type:: Clean-Voided Midstream Performed By: #### A DDONUAPLUS, CUU, UHCG #### [facility] [address] [place] [address] Glucose Ql (U) Normal Normal Normal [facility] Comment on above: Order Comment: Name Collection Type:: Clean-Voided Midstream Performed By: #### A DDONUAPLUS, CUU, UHCG #### [facility] [address] [place] [address] [place] Hyaline Casts,Urine 0-8 Normal 0-8 [facility] Comment on above: Order Comment: Name Collection Type:: Clean-Voided Midstream Performed By: #### A DDONUAPLUS, CUU, UHCG #### [facility] [address] [place] [address] [place] Ketones Ql (U) Trace High Negative [facility] Comment on above: Order Comment: Name Collection Type:: Clean-Voided Midstream Performed By: #### A DDONUAPLUS, CUU, UHCG #### [facility] [address] [place] [address] [place] Leukocyte esterase Test strip Ql (U) 3+ High Negative [facility] Comment on above: Order Comment: Name Collection Type:: Clean-Voided Midstream Performed By: #### A DDONUAPLUS, CUU, UHCG #### [facility] [address] [place] [address] [place] Nitrite,Urine Negative Normal Negative [facility] Comment on above: Order Comment: Name Collection Type:: Clean-Voided Midstream Performed By: #### A DDONUAPLUS, CUU, UHCG #### [address] Occult Blood,Urine Negative Normal Negative [facility] Comment on above: Order Comment: Name Collection Type:: Clean-Voided Midstream Performed By: #### A DDONUAPLUS, CUU, UHCG #### [address] pH (U) 6.0 [pH] Normal 5.0-9.0 [facility] Comment on above: Order Comment: Name Collection Type:: Clean-Voided Midstream Performed By: #### A DDONUAPLUS, CUU, UHCG #### [address] Protein,Urine Negative Normal Negative [facility] Comment on above: Order Comment: Name Collection Type:: Clean-Voided Midstream Performed By: #### A DDONUAPLUS, CUU, UHCG #### [address] RBC,Urine 1-2 Normal 0-4 [facility] Comment on above: Order Comment: Name Collection Type:: Clean-Voided Midstream Performed By: #### A DDONUAPLUS, CUU, UHCG #### [address] Specificy [place],Urine 1.025 Normal 1.001-1.030 [facility] Comment on above: Order Comment: Name Collection Type:: Clean-Voided Midstream Performed By: #### A DDONUAPLUS, CUU, UHCG #### [address] Squamous Epithelial Cell,Urine 5-9 High 0-2 [facility] Comment on above: Order Comment: Name Collection Type:: Clean-Voided Midstream Performed By: #### A DDONUAPLUS, CUU, UHCG #### [facility] [address] Urobilinogen,Urine Normal Normal Normal [facility] Comment on above: Order Comment: Name Collection Type:: Clean-Voided Midstream Performed By: #### A DDONUAPLUS, CUU, UHCG #### [facility] [address] WBC,Urine 10-19 High 0-4 [facility] Comment on above: Order Comment: Name Collection Type:: Clean-Voided Midstream Performed By: #### A DDONUAPLUS, CUU, UHCG #### [facility] [address] Yeast,Urine Rare Critically abnormal None Seen [facility] Comment on above: Order Comment: Name Collection Type:: Clean-Voided Midstream Performed By: #### A DDONUAPLUS, CUU, UHCG #### [facility] [address] [place] [address] ECG 12 lead ECGon 06-26-2022 ECG 12 lead ECG [facility] [place] [place] [address] Electrocardiograph Report Signed Patient: Meliton Cabrera MR#: [id number] : 1995 Acct:[id number] Age/Sex: 27 / F ADM Date: 06/26/22 Loc: ER Room: Type: [facility] ER Attending Dr: Ordering Provider: Linda Mortensen [...] sinus rhythm Confirmed by Eugene Boggs DO ([id number]) on 06/26/2022 5:16:19 PM Referred By: Electronically Signed By:Eugene Boggs DO Transcribed By: MUS Signed By Eugene Boggs DO [id number] Normal [facility] Eosinophils Auto (Bld) [#/Vo l]Ordered By: Linda Mortensen on 06-26-2022 Eosinophils (Bld) [#/Vol] 0.1 10*3/uL 0.0-0.45 [facility] Eosinophils/100 WBC Auto (Bl d)Ordered By: Linda Mortensen on 06-26-2022 Eosinophils/100 WBC (Bld) 1.2 % . [facility] Erythrocyte distribution wid th Auto (RBC) [Ratio]Ordered By: Linda [facility] on 06-26-2022 Erythrocyte distribution width (RBC) [Ratio] 14.9 % 11.9-15.3 [facility] Globulin Calc (S) [Mass/Vol] Ordered By: [facility] Globulin (S) [Mass/Vol] 3.5 g/dL F [facility] Glucose [Mass/volume] in Ser um or PlasmaOrdered By: Linda Mortensen on 06-26-2022 Glucose [Mass/Vol] 81 mg/dL 74-109 [facility] Comment on above: ADA recommended refe rence rangeRandom Glucose Reference Range is dependent on time and content of last meal. Glucose of more than 200 mg/dL in a nonstressed, ambulatory subject supports the diagnosis of Diabetes Mellitus. HCG ( test) IA.rapi d Ql (U)Ordered By: Linda Mortensen on 06-26-2022 HCG ( test) Ql (U) Positive [facility] HCG,Urineon 06-26-2022 Beta HCG ( test) Ql (U) Positive High [facility] Comment on above: Order Comment: Name Collection Type:: Clean-Voided Midstream Result Comment: PERF ORMED BY: [facility] [address] [facility] [place] [address] PATHOLOGIST ARTIFICIAL FLOWERS DYER ANGIE RILEY M.D. Performed By: #### R UBELLA IGG, HBSAG, HCV RX PCR, RPR W RFX #### [facility] , #### TSH3, CBC, A1C WTH eA #### [facility] [address] [place] [id number] [facility] Hematocrit Auto (Bld) [Volum e fraction]Ordered By: Linda Mortensen on 06-26-2022 Hematocrit (Bld) [Volume fraction] 38.3 % 34.0-46.4 [facility] Hemoglobin [Mass/volume] in BloodOrdered By: Linda Mortensen on 06-26-2022 Hemoglobin (Bld) [Mass/Vol] 12.6 g/dL 11.8-15.4 [facility] Ketones Auto test strip (U) [Mass/Vol]Ordered By: Linda Mortensen on 06-26-2022 Ketones (U) [Mass/Vol] Trace Negative Fi [facility] Laboratory - Chemistry and C hemistry - challengeOrdered By: Linda Mortensen on 06-26-2022 GFR/1.73 sq M.predicted MDRD (S/P/Bld) [Vol rate/Area] mL/min/{1.73_m2} [facility] Laboratory - UrinalysisOrder ed By: Linda Mortensen on 06-26-2022 Hyaline casts LM Ql (Urine sed) 0-8 [LPF] 0-8 [facility] Leukocytes [#/volume] correc jessica for nucleated erythrocytes in Blood by Automated counOrdered By: Linda Mortensen on 06-26-2022 WBC corrected for nucl RBC Auto (Bld) [#/Vol] 8.8 10*3/uL 3.8-11.6 [facility] Lymphocytes Auto (Bld) [#/Vo l]Ordered By: Linda Mortensen on 06-26-2022 Lymphocytes (Bld) [#/Vol] 3.0 10*3/uL 1.00-4.8 [facility] Lymphocytes/100 WBC Auto (Bl d)Ordered By: Linda Mortensen on 06-26-2022 Lymphocytes/100 WBC (Bld) 34.2 % . [facility] MCH Auto (RBC) [Entitic mass ]Ordered By: Linda Mortensen on 06-26-2022 MCH (RBC) [Entitic mass] 30.1 pg 24.7-34.3 [facility] MCHC Auto (RBC) [Mass/Vol]Or dered By: Linda Mortensen on 06-26-2022 MCHC (RBC) [Mass/Vol] 32.9 g/dL 32.0-35.0 [facility] MCV Auto (RBC) [Entitic vol] Ordered By: Linda Mortensen on 06-26-2022 MCV (RBC) [Entitic vol] 91.5 fL 80-100 F [facility] Monocyte distribution width [Entitic volume] in Blood by AutomatedOrdered By: Linda Mortensne on 06-26-2022 Monocyte distribution width Auto (Bld) [Entitic vol] 19.04 % 0.00-20.00 [facility] Monocytes Auto (Bld) [#/Vol] Ordered By: Linda Mortensen on 06-26-2022 Monocytes (Bld) [#/Vol] 0.5 10*3/uL 0.0-0.8 [facility] Monocytes/100 WBC Auto (Bld) Ordered By: Linda Mortensen on 06-26-2022 Monocytes/100 WBC (Bld) 5.7 % . [facility] Neutrophils Auto (Bld) [#/Vo l]Ordered By: Linda Mortensen on 06-26-2022 Neutrophils (Bld) [#/Vol] 5.1 10*3/uL 1.8-7.7 [facility] Neutrophils/100 WBC Auto (Bl d)Ordered By: Linda Mortensen on 06-26-2022 Neutrophils/100 WBC (Bld) 58.5 % . [facility] Nitrite Test strip Ql (U)Ord ered By: Linda Mortensen on 06-26-2022 Nitrite Ql (U) Negative Negative [facility] No Panel InformationOrdered By: Linda Mortensen on 06-26-2022 Pharmacy Creatinine Clearance (Chem 160.48 [facility] Nucleated erythrocytes [Pres ence] in Blood by Automated countOrdered By: Linda Mortensen on 06-26-2022 Nucleated RBC Auto Ql (Bld) 0.1 /100{WBC} 0-0.5 [facility] Platelet mean volume Auto (B ld) [Entitic vol]Ordered By: Linda Mortensen on 06-26-2022 Platelet mean volume (Bld) [Entitic vol] 7.6 fL 6.3-10.7 [facility] Platelets Auto (Bld) [#/Vol] Ordered By: Linda Mortensen on 06-26-2022 Platelets (Bld) [#/Vol] 332 10*3/uL 150-450 [facility] Potassium [Moles/volume] in Serum or PlasmaOrdered By: Linda Mortensen on 06-26-2022 Potassium [Moles/Vol] 4.0 mmol/L 3.5-5.1 [facility] Protein Auto test strip (U) [Mass/Vol]Ordered By: Linda Mortensen on 06-26-2022 Protein (U) [Mass/Vol] Negative Negative Fi [facility] Protein [Mass/volume] in Ser um or PlasmaOrdered By: Linda Mortensen on 06-26-2022 Protein [Mass/Vol] 7.3 g/dL 6.4-8.9 [facility] RBC Auto (Bld) [#/Vol]Ordere d By: Linda Mortensen on 06-26-2022 RBC (Bld) [#/Vol] 4.19 10*6/uL 3.60-5.00 [facility] Serum or plasma albumin/glob ulin mass ratioOrdered By: Linda Mortensen on 06-26-2022 Albumin/Globulin [Mass ratio] 1.1 {ratio} [facility] Serum or plasma anion gap de terminationOrdered By: Linda Mortensen on 06-26-2022 Anion gap [Moles/Vol] 10.4 mmol/L 6.0-15.0 [facility] Sodium [Moles/volume] in Ser um or PlasmaOrdered By: Linda Mortensen on 06-26-2022 Sodium [Moles/Vol] 136 mmol/L 136-145 [facility] Specific gravity Auto test s trip (U) [Rel density]Ordered By: Linda Mortensen on 06-26-2022 Specific gravity (U) [Rel density] 1.025 1.001-1.030 [facility] Squamous epithelial cells de tection in urine sediment by light microscopyOrdered By: Linda Mortensen on 06-26-2022 Epithelial cells.squamous LM Ql (Urine sed) 5-9 [HPF] 0-2 [facility] Troponin I High Sensitivityo n 06-26-2022 Troponin I High Sensitivity < 2.3 Normal 0.0-15.0 [facility] Comment on above: Result Comment: PERF ORMED BY: [place] [address] PATHOLOGIST [employer] DYER ANGIE RILEY M.D. Performed By: #### R UBELLA IGG, HBSAG, HCV RX PCR, RPR W RFX #### [facility] , #### TSH3, CBC, A1C WT eA #### [facility] [address] [place] [address] Troponin I.cardiac [Mass/vol ume] in Serum or Plasma by Detection limit <= 0.01 ng/Ordered By: Linda Mortensen on 06-26-2022 Troponin I.cardiac DL <= 0.01 ng/mL [Mass/Vol] < 2.3 pg/mL 0.0-15.0 [facility] Urea nitrogen [Mass/volume] in Serum or PlasmaOrdered By: iLnda Mortensen on 06-26-2022 Urea nitrogen [Mass/Vol] 6 mg/dL 7-25 [facility] Urine Cultureon 06-26-2022 Bacteria identified Cx Nom (U) 50,000 colonies/ml mixed bacterial skin contaminants 2 Days PERFORMED BY: [place] [address] PATHOLOGIST [employer] D[employer] ANIGE RILEY M.D. Normal [facility] Comment on above: Performed By: #### R UBELLA IGG, HBSAG, HCV RX PCR, RPR W RFX #### [facility] , #### TSH3, CBC, A1C WTH eA #### [facility] [address] [place] [address] Urine bacteria detection by automated methodOrdered By: Linda Mortensen on 06-26-2022 Bacteria Auto Ql (U) Rare None Seen [facility] Urine clarity by refractomet ry automatedOrdered By: Linda Mortensen on 06-26-2022 Clarity Refractometry automated (U) Clear Clear [facility] Urine culture routineOrdered By: Linda Mortensen on 06-26-2022 Bacteria identified Cx Nom (U) 2 Days [facility] Urine glucose measurement by automated test strip (mass/volume)Ordered By: Linda Mortensen on 06-26-2022 Glucose Auto test strip (U) [Mass/Vol] Normal mg/dL Normal [facility] Urine hemoglobin detection b y automated test stripOrdered By: Linda Mortensen on 06-26-2022 Hemoglobin Auto test strip Ql (U) Negative Negative [facility] Urine leukocyte esterase det ection by automated test stripOrdered By: Linda Mortensen on 06-26-2022 Leukocyte esterase Auto test strip Ql (U) 3+ Negative [facility] Urobilinogen Auto test strip (U) [Mass/Vol]Ordered By: Linda Mortensen on 06-26-2022 Urobilinogen (U) [Mass/Vol] Normal mg/dL Normal [facility] WBC Auto (Bld) [#/Vol]Ordere d By: Linda Mortensen on 06-26-2022 WBC (Bld) [#/Vol] 8.8 10*3/uL 3.8-11.6 [facility] Yeast detection in urine sed iment by light microscopyOrdered By: Linda Mortensen on 06-26-2022 Yeast LM Ql (Urine sed) Rare [HPF] None Seen F [facility] pH Auto test strip (U)Ordere d By: Linda Mortensen on 06-26-2022 pH (U) 6.0 [pH] 5.0-9.0 [facility] US PREG TVon 06-08-2022 US PREG [...] BRYAN DE SOUZA Date: 2022-06-08 15:07 Normal [facility] Vital Signs Date Time Vital Sign Value Performing Clinician Chase carmona 06-26-2022 13:30-0400 Diastolic blood pressure 71 mm[Hg] PHYSICIAN NO [facility] 06-26-2022 13:30-0400 Heart rate 80 /min PHYSICIAN NO [facility] 06-26-2022 13:30-0400 Respiratory rate 18 /min PHYSICIAN NO [facility] 06-26-2022 13:30-0400 SaO2% (BldA) [Mass fraction] 99 % PHYSICIAN NO [facility] 06-26-2022 13:30-0400 Systolic blood pressure 112 mm[Hg] PHYSICIAN NO [facility] 06-26-2022 11:13-0400 Body height 162.56 cm PHYSICIAN NO [facility] 06-26-2022 11:13-0400 Body temperature 98.7 [degF] PHYSICIAN NO [facility] 06-26-2022 11:13-0400 Body weight 99.79 kg PHYSICIAN NO [facility] Encounters Encounter Date Encounter Type Care Provider Facility Start: 04-14-2023 End: 04-14-2023 ambulatory EUGENIA TAYLOR Not Available Start: 03-08-2023 End: 03-08-2023 ambulatory EUGENIA TAYLOR Not Available Start: 03-01-2023 End: 03-01-2023 ambulatory None Provider Facility:[facility] Start: 09-02-2022 End: 09-02-[address] EUGENIA TAYLOR . Facility: Start: 07-04-2022 End: 07-05-[address] EUGENIA TAYLOR . Facility: Start: 07-03-2022 End: 07-03-2022 ambulatory PHYSICIAN NO [facility] Facility:[facility] Start: 07-03-2022 End: 07-03-2022 ambulatory PHYSICIAN NO [facility] Work Phone: Start: 07-03-2022 End: 07-03-2022 Patient encounter procedure PHYSICIAN NO [facility] Start: 07-02-2022 End: 07-02-2022 ambulatory Eugenia Taylor Facility:[facility] Start: 07-02-2022 End: 07-02-2022 ambulatory PHYSICIAN NO [facility] Work Phone: Start: 07-02-2022 End: 07-02-2022 Patient encounter procedure PHYSICIAN NO [facility] [place] Work Phone: Start: 06-26-2022 End: 06-26-2022 Emergency department patient visit Linda Mortensen Facility:[facility] Start: 06-26-2022 End: 06-26-2022 Emergency department patient visit PHYSICIAN NO [facility] Work Phone: Start: 06-04-2022 End: 06-05-[address] EUGENIA TAYLOR . Facility: Procedures Date Procedure Procedure Detail Performing Clinician Start: 07-03-2022 SARS Antigen (LFIA) RAMAKRISHNA BONILLA NO FAMILY Start: 07-02-2022 Antibody screen Jessica Mortensen Comment on above: Result Comment: PERF ORMED BY: [facility] [address] [place] [address] PATHOLOGIST [employer] ANGIE RILEY M.D. Start: 06-26-2022 Urine culture PHYSICIAN NO FAMILY Plan of Treatment Date Care Activity Detail Author Start: 07-02-2022 Bacteria identified in Urine by Culture Urine Culture [facility] Start: 07-02-2022 Urine culture Urine Culture [facility] Start: 07-02-2022 Rubella IgG measurement [facility] Start: 07-02-2022 [facility] Start: 06-26-2022 Bacteria identified in Urine by Culture [facility] Patient Education Urinary Tract Infections in [facility] Work Phone: Patient referral [facility] Work Phone: Payers Date Payer Category Payer Self-pay 1996 Unknown [id number] [id number] [id number] 1996 Unknown [id number] 2.16.84 [id number] 1996 Unknown [id number] 2.16.84 [id number] 1996 Unknown [id number] 2.16.8 [id number] 1996 Unknown [id number] 2.16.84 [id number] 1996 Unknown [id number] 1959 Medicaid [id number] Medicaid [place] Ad[employer] [id number] Unknown [id number] 2.16.8 [id number] Unknown [id number] 2.16.8 [id number] Unknown [id number] 2.16.8 [id number] Social History Date Type Detail Facility Start: 06-26-2022 Tobacco smoking stat [facility] Never smoked tobacco (finding) [facility] Start: 1995 Sex Assigned At Female F [facility] Clinical Note 03-01-2023 Note Date & Type [...] health care provider. ? Take or apply [id number] and prescription medicines only as told by [...] discuss any questions (more content not included)... [facility] Evaluation note Note Date & Type Note Facility Evaluation note No assessment information availa [facility] Work Phone: Hospital Discharge instructions Note Date & Type Note Facility Hospital Discharge instructions Additional Instructions Take your Zofran at home for nausea for nausea vomiting Push fluids Follow-up with your OPEN SHANK COVERER call today for appointment Return here if you develop any abdominal pain, vaginal bleeding, chest pain, shortness of breath, dizziness or any other concerns [facility] Work Phone: Chief Complaint and [...] section and content) DATE CREATED AUTHOR 07/14/2022 [facility] DATE CREATED AUTHOR AUTHOR'S ORGANIZ ATION 09/11/2022 [facility] DATE CREATED AUTHOR AUTHOR'S ORGANIZ ATION 03/08/2023 [facility] DATE CREATED AUTHOR AUTHOR'S ORGANIZ ATION 04/16/2023 [facility] EPIC FOR RECORDS PERTAINING [...] BE BASED ON THE PRIMARY CLINICAL RECORDS. [facility]. provides no warranty or guarantee of the accuracy or completeness of information in this document.
[2023-05-14 06:28] LABS: Basophils Absolute Auto 0.1 10^3/uL (0.0-0.1); Basophils Percent Auto 0.5 % (0.2-2.0); Eosinophils Absolute Auto 0.2 10^3/uL (0.0-0.7); Eosinophils Percent Auto 2.4 % (0.9-7.0); Hematocrit 36.7 % (36.0-48.0); Hemoglobin 11.2 g/dL (12.0-16.0); Immature Granulocytes Abs Auto 0.02 10^3/uL (0.00-0.03); Immature Granulocytes Pct Auto 0.2 % (0.0-0.5); Lymphocytes Absolute Auto 4.4 10^3/uL (1.2-3.8); Lymphocytes Percent Auto 43.9 % (20.5-60.0); Mean Corpuscular HGB Conc 30.5 g/dL (29.9-35.2); Mean Corpuscular Hemoglobin 26.1 pg (26.7-34.0); Mean Corpuscular Volume 85.5 fL (81.0-99.0); Monocytes Absolute Auto 0.5 10^3/uL (0.3-0.8); Monocytes Percent Auto 4.5 % (1.7-12.0); Neutrophils Absolute Auto 4.9 10^3/uL (1.4-6.5); Neutrophils Percent Auto 48.5 % (43.0-75.0); Platelet Count 359 10^3/uL (150-450); Red Blood Count 4.29 10^6/uL (4.20-5.40); Red Cell Distribution Width 14.1 % (11.0-15.0); White Blood Count 10.1 10^3/uL (4.0-11.0)
[2023-05-14] MEDS: LACTATED RINGER'S SOLUTION 1,000 ML 50 ML IV (06:50)
[2023-05-14 07:12] LABS: HCG Quantitative <1 mIU/mL
--- NOTE | 2023-05-14 08:53 | PM.ONB ---
Brief Operative Note Date of procedure: 05/14/23 Pre-op diagnosis: multiparity, desires permanent sterilization, lt ovarian cyst Post-op diagnosis: same as pre-op Procedure: NAME OF PROCEDURE: robotic assisted bilateral laparoscopic salpingectomy, lt ovarian cystectomy PROCEDURE: The patient was taken back to the Operating Room where she was given general anesthesia without difficulty. She was then prepped and draped in the normal sterile fashion after being placed in a dorsal lithotomy position. A wet sponge stick was placed into the patient's vagina. Attention was then turned to the patient's abdomen, where a scalpel was used to make a small infraumbilical incision. The S retractors were then used to dissect the underlying layers until the fascia could be seen. The fascia was then grasped with Conner clamps and tented up. A knife was then used to make a small incision to the fascia. The muscle was identified, at that time two sutures of #0 Vicryl on a GI needle was then used and placed through the fascia. the peritoneum was then identified and entered bluntly. The 10-4 Ana was then placed into the patient's abdomen. This was confirmed with direct visualization of the bowel, using the laparoscope. The patient's abdomen was then insufflated using approximately 4 liters of CO2 gas. Survey of the patient's abdomen demonstrated ovaries were normal in appearance as well as both tubes and uterus. A second and third rt and lt lateral robotic ports which were 8 mm in size, was then placed after the skin incision was made under direct visualization . the robotic arms were engaged. The patient's tube on the patient's right side was identified and tented up using a grasper, the ligasure apparatus was then used to come across the mesosalpingx from the fimbriated end to the insertion site at the uterus, the tube was then amputated and removed in its entirety. This was done on the contralateral side. The tubes were the removed from the patients abdomen. Excellent hemostasis was noted. The lateral ports were then moved under direct visualization with excellent hemostasis. All instruments were removed from the patient's abdomen. The fascia was closed using the #0 Vicryl on GI needle. The skin was closed using 4-0 Vicryl subcuticularly. All instruments were removed from the patient's vagina as well. The patient was taken out of the dorsal lithotomy position and placed in the supine position and taken to recovery in stable condition. Sponge, lap and needle counts were correct x2. please note lt ovarian cystectomy performed using ligasure Anesthesia: DIGNA Surgeon: Pipo Taylor Logging Operations Inspector: Jessica Lux Estimated blood loss (mL): 5 Pathology: other (tubes, lt cyst wall) Condition: stable Disposition: PACU Urinary Catheter Management Urinary Catheter Management Urethral: Cath placed during this visit: no
--- NOTE | 2023-05-14 09:40 | PC.NURSE ---
Peripad applied; heat pack applied to abdomen over clothing
[2023-05-14] MEDS: LACTATED RINGER'S SOLUTION 1,000 ML 150 ML IV (10:02)
[2023-05-14] MEDS: PROMETHAZINE HCL 25 MG TABLET PO (10:28)
== END 2023-05-14 10:40 | disposition home or self-care (01) ==
PROVIDERS: Visit Provider Obstetrics & Gynecology
PROC: (CPT 840; principal; 2023-05-14 07:30)
DX: Z30.2 Encounter for sterilization (principal); N83.292 Other ovarian cyst, left side; Z90.49 Acquired absence of other specified parts of digestive tract; F32.A Depression, unspecified; F41.9 Anxiety disorder, unspecified; Z79.899 Other long term (current) drug therapy
CPT/HCPCS: 58661; 58662; 36415; 84702; 85025; 88302; 88305; J1094; J1170; J2704

== ENCOUNTER 2025-01-22 20:16 | Outpatient (REF) | payer OTHER, SELFPAY ==
--- OUTSIDE RECORDS SUMMARY | 2025-01-22 20:19 | XMS_ITS | CCD ---
Author Organization [facility] Care Team Providers Care Healthcare Representative Name Role Phone NO FAMILY, PHYSICIAN Primary Care Provider Unava ilable BAKARI Mortensen Emergency Provider Pipo Taylor Attending Provider MD Odilon Daniels Attending Provider CLAUDIA ., DR BELLO Attending Unavailable MISC, DR LAWS Primary Care Unavailable DEMING, DR BRYAN Hutton Consulting Unavailable CLAUDIA ., DR BELLO Admitting Unavailable CLAUDIA ., DR BLELO Consulting Unavailable CLAUDIA ., DR BELLO Attending Unavailable CLAUDIA ., DR BELLO Admitting Unavailable MISC, DR LAWS Primary Care Unavailable CLAUDIA ., DR BELLO Consulting Unavailable CLAUDIA ., DR BELLO Attending Unavailable CLAUDIA ., DR BELLO Admitting Unavailable MISC, DR LAWS Primary Care Unavailable CLAUDIA ., DR BELLO Consulting Unavailable Provider, None Primary Care Unavailable Geovanny Mac Admitting Unavaila ble Geovanny Mac Attending Unavaila ble Unavailable Primary Care Provider Unavailabl e Pipo Taylor Attending Unavailable Pipo Taylor Admitting Unavailable NO FAMILY, PHYSICIAN Primary Care Unavailable Odilon Daniels Admitting Unavailable Odilon Daniels Attending Unavailable NO FAMILY, PHYSICIAN Primary Care Unavailable Pipo Taylor Admitting Unavailable Pipo Taylor Attending Unavailable Linda Mortensen Admitting Unavailable Linda Mortensen Attending Unavailable NO FAMILY, PHYSICIAN Primary Care Unavailable PIPO TAYLOR Attending Unavailable JOHNNY BETANCOURT Attending Unavailable PIPO TAYLOR Attending Unavailable PIPO TAYLOR Attending Unavailable NO PCP, NO PCP Primary Care Unavailable NO PCP, NO PCP Primary Care Unavailable CHERELLE MILLAN Attending Unavailable Elzbieta Bronson Primary Care Provider ELZBIETA VANESSA Attending Unavailable ELZBIETA VANESSA Primary Care Unavailable ELZBIETA VANESSA Attending Unavailable ELZBIETA VANESSA Referring Unavailable ELZBIETA VANESSA Primary Care Unavailable Karrie DENNY Attending Unavailable NONE, XXXX Primary Care Physician Unavailab Cathy Romero Attending Unavailable Allergies Allergy Classification Reported Allergen(s) Allergy Type Date of Onset Reaction(s) Facility (2 sources) No Known Medication Allergies; Translations: [No Known Medication Allergies] Propensity to adverse reactions to drug (disorder) [facility] Repository Medications Current Medications Medication Drug Class(es) Dates Sig (Normalized) Sig (Original) amoxicillin 875 mg / clavulanate 125 mg oral tablet (1 source) Penicillin-class Antibacterial Start: 09-14-2024 End: 09-21-2024 Augmentin 875 mg-125 mg Tab 1 tab(s), Oral, q12hr for 7 day(s), 14 tab(s), Refill(s) 0, [id number], 161, cm, 09/14/24 12:15:00 EDT, Height/Length Dosing, 101.3, kg, 09/14/24 12:15:00 EDT, Weight Dosing Start Date: 09/14/24 Stop Date: 09/21/24 Status: Ordered Quantity: 14.0 Unit: tab(s) Repeat number: 1 benzocaine 15 mg / menthol 2.6 mg oral lozenge (1 source) Standardized Chemical Allergen Start: 05-10-2024 benzocaine-mentho L (CEPACOL SORE THROAT, CARMINE-MEN,) 15-2.6 mg lozenge Dissolve 1 lozenge in the mouth every 2 (two) hours as needed (sore throat). 16 lozenge 1 05/10/2024 Active Start: 05-10-2024 benzocaine-men thoL (CEPACOL SORE THROAT, CARMINE-MEN,) 15-2.6 mg lozenge Dissolve 1 lozenge in the mouth every 2 (two) hours as needed (sore throat). 16 lozenge 1 05/10/2024 Active citalopram 20 mg oral tablet (1 source) Serotonin Reuptake Inhibitor Start: 03-15-2023 End: 06-13-2023 take 1 tablet by mouth in the morning citalopram (CeleXA) 20 MG tablet Indications: Anxiety, generalized (CMS/HCC) Take 1 tablet (20 mg) by mouth in the morning. 90 tablet 0 03/15/2023 06/13/2023 Active FLUoxetine 40 mg oral capsule (1 source) Serotonin Reuptake Inhibitor Start: 05-01-2022 take 1 capsule by mouth in the morning FLUoxetine (PROzac) 40 MG capsule Take 40 mg by mouth in the morning. 0 05/01/2022 Active fluticasone propionate 0.05 mg/actuat metered dose nasal spray (1 source) Corticosteroid Start: 05-10-2024 take 1 spray(s) nasal route in the morning fluticasone propionate (FLONASE) 50 mcg/actuation nasal spray Administer 1 spray into each nostril in the morning. 16 mL 2 05/10/2024 Active Start: 05-10-2024 take 1 spray(s) nasa l route in the morning fluticasone propionate (FLONASE) 50 mcg/actuation nasal spray Administer 1 spray into each nostril in the morning. 16 mL 2 05/10/2024 Active hydrOXYzine hydrochloride 25 mg oral tablet (1 source) Antihistamine take 1 tablet by mouth every twenty-four hours as needed for anxiety hydrOXYzine HCl (Atarax) 25 MG tablet Take 25 mg by mouth Daily as needed for anxiety 0 Active ibuprofen 800 mg oral tablet (2 sources) Nonsteroidal Anti-inflammatory Drug Start: take 1 tablet by mouth every six hours as needed for pain ibuprofen (MOTRIN) 800 mg tablet Take 1 tablet (800 mg total) by mouth every 6 (six) hours as needed for pain. 30 tablet 08/30/2023 Active magnesium oxide 400 mg oral tablet (2 sources) Start: take 1 tablet by mouth in the morning magnesium oxide (MAGOX) 400 mg tablet Take 1 tablet (400 mg total) by mouth in the morning. 30 tablet 2 01/31/2024 Active nitrofurantoin, macrocrystals 25 mg / nitrofurantoin, monohydrate 75 mg oral capsule (3 sources) Nitrofuran Antibacterial Start: take 1 capsule by mouth twice daily at mealtime Nitrofurantoin Monohyd/M-Cryst (Macrobid) 100 mg capsule Active 100 MG PO Twice daily 14 7 June 26, 2022 12:00am must administer with a meal/food ondansetron 4 mg oral tablet (5 sources) Serotonin-3 Receptor Antagonist Start: 023 take 4 mg by mouth once daily Ondansetron Hcl Active 4 MG PO Daily June 26, 2022 12:00am take 1 tablet by trace every eight hours as needed for nausea and vomiting ondansetron ODT (ZOFRAN ODT) 4 mg disintegrating tablet Dissolve 1 tablet (4 mg total) on tongue every 8 (eight) hours as needed for nausea or vomiting. Active oseltamivir 75 mg oral capsule (1 source) Neuraminidase Inhibitor Start: 05-10-2024 take 1 capsule by mouth in the morning, then take 1 capsule by mouth at bedtime oseltamivir (TAMIFLU) 75 mg capsule Take 1 capsule (75 mg total) by mouth in the morning and 1 capsule (75 mg total) before bedtime. 10 capsule 05/10/2024 Active Start: 05-10-2024 take 1 capsule by mo [facility] in the morning, then take 1 capsule by mouth at bedtime oseltamivir (TAMIFLU) 75 mg capsule Take 1 capsule (75 mg total) by mouth in the morning and 1 capsule (75 mg total) before bedtime. 10 capsule 05/10/2024 Active PNV no.153/FA/om3/dha/epa/fi sh ( GUMMIES ORAL) (2 sources) PNV no.153/FA/om3/dha/epa/fish ( GUMMIES ORAL) Take by mouth. Active prazosin 1 mg oral capsule (1 source) alpha-Adrener gic Cami Sta rt: 3 take 1 capsule by mouth at bedtime prazosin (Minipress) 1 MG capsule Take 1 mg by mouth at bedtime. 0 05/02/2022 Active sertraline 25 mg oral tablet (2 sources) Serotonin Reuptake Inhibitor Sta rt: 4 take 1 tablet by mouth in the morning sertraline (ZOLOFT) 25 mg tablet Take 1 tablet (25 mg total) by mouth in the morning. 30 tablet 2 01/31/2024 Active Problems Active Problems Problem Classification Problem Date Documented Da te Episodic/Chronic Acute bronchitis (1 source) Acute bronchitis, unspecified; Translations: [Acute bronchitis, unspecified] Onset: 10-04-2023 Episodic Anxiety disorders (3 sources) Mixed anxiety and depressive disorder; Translations: [Other specified anxiety disorders] Onset: 11-04-2022 11-04-2022 Chronic Bacterial infection; unspecified site (1 source) Bacterial infectious disease; Translations: [Other specified bacterial agents as the cause of diseases classified elsewhere] Onset: 09-14-2024 Episodic Disorders of teeth and jaw (4 sources) Other specified disorders of teeth and supporting structures; Translations: [Dental caries, unspecified] Onset: 08-30-2023 Episodic Fever of unknown origin (3 sources) Fever; Translations: [Fever, unspecified] Onset: 10-04-2023 05-10-2024 Episodic Headache; including migraine (5 sources) Migraine; Translations: [Migraine, unspecified, not intractable, without status migrainosus] Onset: 11-04-2022 11-04-2022 Chronic Menstrual disorders (5 sources) Irregular menstruation, unspecified; Translations: [IRREGULAR MENSTRUATION UNSPECIFIED] Onset: 06-04-2022 Chronic Other complications of (3 [...] , unspecified, first trimester] Onset: 06-09-2022 Episodic Other upper respiratory infections (2 sources) Chronic sinusitis; Translations: [Chronic sinusitis, unspecified] Onset: 09-14-2024 Chronic Syncope (3 sources) Vasovagal symptom; Translations: [Syncope and collapse] 06-26-2022 Episodic Unclassified (2 sources) OB Reminders Onset: 10-14-2022 10-14-2022 Unclassified (1 source) Contact with and (suspected) exposure to COVID-19; Translations: [Contact with and (suspected) exposure to COVID-19] Onset: 07-03-2022 Unclassified (1 source) Generalized Body Aches Onset: 10-04-2023 Unclassified (1 source) Wellness Onset: 05-10-2024 Unclassified (1 source) Establish Care Onset: 01-31-2024 Past or Other Problems Problem Classification Problem Date Documented Da te Episodic/Chronic Administrative/social admission (1 source) First encounter by subject; Translations: [Persons encountering health services in other specified circumstances] 02-01-2024 Episodic Conditions associated with dizziness or vertigo (1 source) Dizziness and giddiness; Translations: [Dizziness and giddiness] Onset: 06-26-2022 Episodic Mood disorders (2 sources) Mood disorders Onset: 01-31-2024 Resolved: 05-10-2024 05-10-2024 Residual codes; unclassified (1 source) Less than 8 weeks gestation of ; Translations: [< 8 WEEKS GESTATION ] Onset: 06-09-2022 Episodic Results Test Name Value Interpretation Reference Range Facility Ambulatory Visit Summaryon 0 09-14-2024 Ambulatory Visit Summary Ambulatory Visit Summary KYLIE CABRERA :1995 Visit Date:09/14/2024 Ambulatory Visit Instructions Your Diagnosis Bacterial sinusitis Other specified bacterial agents as the cause of diseases classified elsewhere Your Care Team Attending Physician - Fernando JO, Cathy Valdez Primary Care Physician - NONE, XXXX This Is Your Medications List amoxicillin-clavulan ate (Augmentin 875 mg-125 mg Tab) Discharge Vitals Temperature (Oral) 36.5 ???C Heart Rate (Peripheral) 81 Respiratory Rate 18 Blood Pressure 128/80 Height 161 cm Height 63 in Weight 101.3 kg Weight 223.328 lb BMI 39.08 What to do next You Need to Schedule the Following Appointments Follow Up with Darshana Jaramillo When: Where: Follow Up with NONE, XXXX When: Medications What How Much When Instructions New amoxicillin-clavulan ate (Augmentin 875 mg-125 mg Tab) 1 Tablets By Mouth Every 12 hours Duration: 7 Days Pickup at [id number] [address], [place] [id number] [phone] Allergies No Known Medication Allergies Problems Ongoing - Any problem that you are currently receiving treatment for. Bacterial sinusitis Patient Survey You may receive a survey via text or e-mail asking about your office visit. Please share your experience with us by completing your survey. We appreciate your feedback and thank you for choosing us for your care. Education Materials Sinus Infection, Adult A sinus infection, also called sinusitis, is inflammation of your sinuses. Sinuses are hollow spaces in the bones around your face. Your sinuses are located: ??? Around your eyes. ??? In the middle of your forehead. ??? Behind your nose. ??? In your cheekbones. Mucus normally drains out of your sinuses. When your nasal tissues become inflamed or swollen, mucus can become trapped or blocked. This allows bacteria, viruses, and fungi to grow, which leads to infection. Most infections of the sinuses are caused by a virus. A sinus infection can develop quickly. It can last for up to 4 weeks (acute) or for more than 12 weeks (chronic). A sinus infection often develops after a cold. What are the causes? This condition is caused by anything that creates swelling in the sinuses or stops mucus from draining. This includes: ??? Allergies. ??? Asthma. ??? Infection from bacteria or viruses. ??? Deformities or blockages in your nose or sinuses. ??? Abnormal growths in the nose (nasal polyps). ??? Pollutants, such as chemicals or irritants in the air. ??? Infection from fungi. This is rare. What increases the risk? You are more likely to develop this condition if you: ??? Have a weak body defense system (immune system). ??? Do a lot of swimming or diving. ??? Overuse nasal sprays. ??? Smoke. What are the signs or symptoms? The main symptoms of this condition are pain and a feeling of pressure around the affected sinuses. Other symptoms include: ??? Stuffy nose or congestion that makes it difficult to breathe through your nose. ??? Thick yellow or greenish drainage from your nose. ??? Tenderness, swelling, and warmth over the affected sinuses. ??? A cough that may get worse at night. ??? Decreased sense of smell and taste. ??? Extra mucus that collects in the throat or the back of the nose (postnasal drip) causing a sore throat or bad breath. ??? Tiredness (fatigue). ??? Fever. How is this diagnosed? This condition is diagnosed based on: ??? Your symptoms. ??? Your medical history. ??? A physical exam. ??? Tests to find out if your condition is acute or chronic. This may include: ? Checking your nose for nasal polyps. ? Viewing your sinuses using a device that has a light (endoscope). ? Testing for allergies or bacteria. ? Imaging tests, such as an MRI or CT scan. In rare cases, a bone biopsy may be done to rule out more serious types of fungal sinus disease. How is this treated? Treatment for a sinus infection depends on the cause and whether your condition is chronic or acute. ??? If caused by a virus, your symptoms should go away on their own within 10 days. You may be given medicines to relieve symptoms. They include: ? Medicines that shrink swollen nasal passages (decongestants). ? A spray that eases inflammation of the nostrils (topical intranasal corticosteroids). ? Rinses that help get rid of thick mucus in your nose (nasal saline washes). ? Medicines that treat allergies (antihistamines). ? Ibdg-qri-dapizfz pain relievers. ??? If caused by bacteria, your health care provider may recommend waiting to see if your symptoms improve. Most bacterial infections will get better without antibiotic medicine. You may be given antibiotics if you have: ? A severe infection. ? (more content not included)... Normal [facility] Office/[facility]ini [facility] Noteon 09-14-2024 Family Medicine Office/Clinic Note Family Medicine Office/Clinic Note Chief Complaint Sinus pressure s/s HPI Staff 29 year old female presents with yellow/green mucous, sore throat and a cough that started about a month ago. Pt denies any fevers. History of Present Illness -I have reviewed and discussed the HPI (staff) with the patient today. -Information was verified and is correct. -Additional information provided if needed. 29 year old with no major past medical history is here today with about 1 month hx of sinus pressure and nasal congestion. She started out taking some mild OTC allergy medication, then the past week she has noticed worsening facial pressure and increased green nasal drainage. denies fevers. denies SOB or cough. Review of Systems PHQ Score Initial Depression Screen Score: 0 SCORE Physical Exam Vitals & Measurements T: 36.5 ???C(Oral) HR: 81(Peripheral) RR: 18 BP: 128/80 SpO2: 97% HT: 63 in HT: 161 cm WT: 223.328 lb WT: 101.3 kg BMI: 39.08 General: alert, no acute distress, well appearing, _pleasant, young female in room 1 Skin: warm, dry, intact Head: no trauma, normocephalic Neck: Trachea midline, no adenopathy, no tenderness Eye: normal conjunctiva, sclera clear, _PERRLA ENMT: TM's clear on the left with some bulging on the right with slight opacity , no erythema, oral mucosa moist, no pharyngeal erythema or exudate, normal dentition, + maxilla sinus pressure to palpation with mild erythema of the nasal septum and edema Cardiovascular: regular rate and rhythm, normal peripheral perfusion, no edema Respiratory: Lungs CTA, respirations non labored Chest wall: no deformity, non tender Neurological: oriented x 4, LOC appropriate for age, CN II-XII intact, motor strength equal & normal bilaterally, sensation equal & normal bilaterally, speech normal Psychiatric: cooperative? , affect appropriate for age? , normal? judgement, normal? psychiatric thoughts. Assessment/Plan Due to continued and worsening sinus symptoms over 1 month will treat with Augmentin 875 mg BID x 7 days, encouraged nasal saline irrigation and OTC Sudafed. Patient was on her lunch break from work, she did not require a note for work. OTC Tylenol or Motrin for fever or pain 1. Bacterial sinusitis (J32.9: Chronic sinusitis, unspecified) Other specified bacterial agents as the cause of diseases classified elsewhere (B96.89: Other specified bacterial agents as the cause of diseases classified elsewhere) Orders: amoxicillin-clavulan ate, 1 tab(s), Oral, q12hr for 7 day(s), 14 tab(s), Refill(s) 0, [id number], 161, cm, 09/14/24 12:15:00 EDT, Height/Length Dosing, 101.3, kg, 09/14/24 12:15:00 EDT, Weight Dosing Total time spent preparing the chart, conducting of the encounter with the patient and family and time spent documenting, reviewing, and ordering tests was 20 minutes. Portions of this record may have been created with voice recognition artificial intelligence software, specifically [employer], [employer] and or [employer]. Substitutions may have occurred due to the inherent limitations of voice recognition and artificial intelligence software. Follow-up With When Contact Information Zeus STERN, Darshana Simons Additional Instructions: NONE, XXXX Additional Instructions: Patient Education Sinus Infection, Adult How to Perform a Sinus Rinse Problem List/Past Medical History Ongoing Bacterial sinusitis Historical No qualifying data Medications Augmentin 875 mg-125 mg Tab, 1 tab(s), Oral, q12hr Allergies No Known Medication Allergies Social History Tobacco Never (less than 100 in lifetime) Tobacco Use:. Never Smokeless Tobacco Use:., 09/14/2024 Immunizations Vaccine Date Status varicella virus vaccine 01/31/2024 Recorded influenza virus vaccine, inactivated 01/31/2024 Recorded influenza virus vaccine, inactivated 05/27/2022 Recorded SARSCoV2 mRNA(tozinamer-heriberto- sucros) vac 06/30/2021 Recorded SARSCoV2 mRNA(tozinamer-heriberto- sucros) vac 06/10/2021 Recorded diphtheria/pertussis , acel/tetanus adult 05/16/2019 Recorded measles/mumps/rubell a virus vaccine 11/16/2001 Recorded poliovirus vaccine, inactivated 05/25/2001 Recorded DTaP, unspecified formulation 05/25/2001 Recorded Hib, unspecified formulation 06/20/1997 Recorded DTaP, unspecified formulation 06/20/1997 Recorded varicella virus vaccine 05/16/1997 Recorded measles/mumps/rubell a virus vaccine 05/16/1997 Recorded hepatitis B pediatric vaccine 1996 Recorded Hib, unspecified formulation 1996 Recorded DTaP, unspecified formulation 1996 Recorded hepatitis B pediatric vaccine 1996 Recorded Hib, unspecified formulation 1996 Recorded DTaP, unspecified formulation 1996 Recorded Hib, unspecified formulation 1996 Recorded DTaP, unspecified formulation 1996 Recorded hepatitis B pediatric vaccine 1996 Recorded Hib, unspecified formulation 1996 Recorded DTaP, (more content not included)... Normal [facility] Comment on above: Result Comment: Elec tronically Signed By: Fernando JO, Cathy Valdez\.br\Date and Time Signed: 09/14/24 12:46 EDT Quantiferon-TB Plus (Client Incubated)on 08-29-2024 Gamma interferon background IA Qn (Bld) 0.12 International_Unit/m L Invalid Interpretation Code [facility] Comment on above: Performed By: #### 1 [id number] #### [facility] [address] [place] [address] M. tuberculosis stim IFN-g by CD4+ CD8+ T-cells corrected for background Qn (Bld) 0.13 International_Unit/m L Invalid Interpretation Code [facility] Comment on above: Performed By: #### 1 [id number] #### [facility] [address] [place] [address] M. tuberculosis stim IFN-g by CD4+ T-cells corrected for background Qn (Bld) 0.12 International_Unit/m L Invalid Interpretation Code [facility] Comment on above: Performed By: #### 1 [id number] #### [facility] [address] [place] [address] M. tuberculosis stim IFN-g Ql (Bld) [Interp] Negative Invalid Interpretation Code Negative [facility] Comment on above: Result Comment: No r esponse to M tuberculosis antigens detected. Infection with M tuberculosis is unlikely, but high risk individuals should be considered for additional testing (ATS/IDSA/CDC Clinical Practice Guidelines, 2017). The reference range is an Antigen minus Nil result of <0.35 IU/mL. The specimen received for QuantiFERON testing was incubated by the ordering institution. Specific procedures outlined in our Directory of Services and in the package insert for the QuantiFERON Gold (In Tube) test must be followed to enable for proper stimulation of cells for the production of interferon gamma. Chemiluminescence immunoassay methodology Performed at: [facility] [id number] PhD Sydnie Hartman Performed By: #### 1 [id number] #### [facility] [address] [place] [address] Mitogen stimulated gamma interferon corrected for background Qn (Bld) >10.00 Invalid Interpretation Code [facility] Comment on above: Performed By: #### 1 [id number] #### [facility] [address] [place] [address] Service comment (Unsp spec) [Interp] Comment Invalid Interpretation Code [facility] Comment on above: Result Comment: Henry tiFERON-TB Gold Plus is a qualitative indirect test for M tuberculosis infection (including disease) and is intended for use in conjunction with risk assessment, radiography, and other medical and diagnostic evaluations. The QuantiFERON-TB Gold Plus result is determined by subtracting the Nil value from either TB antigen (Ag) value. The Mitogen tube serves as a control for the test. Performed By: #### 1 [id number] #### [facility] [address] [place] [address] Hep Bs Abon 08-26-2024 HBV surface Ab Ql (S) Non-Reactive Invalid Interpretation Code [facility] Comment on above: Result Comment: Non Reactive: Not immune to HBV infection. Equivocal: Unable to determine if anti-HBs is present at levels consistent with immunity. Reactive: Anti-HBs concentration detected at greater than 10 mIU/mL. Individual is considered to be immune to infection with HBV. Performed at: [facility] [id number] PhD Sydnie Hartman Performed By: #### 2 [id number] #### [facility] [address] [place] [address] Measles/Mumps/Rubella Immuni tyon 08-26-2024 MeV IgG IA Qn (S) 58.2 A unit/mL Invalid Interpretation Code Immune >16.4 [facility] Comment on above: Result Comment: Nega tive <13.5 Equivocal 13.5 - 16.4 Positive >16.4 Presence of antibodies to Rubeola is presumptive evidence of immunity except when acute infection is suspected. Performed By: #### 3 [id number] #### [facility] [address] [place] [address] MuV IgG IA Qn (S) <9.0 Low Immune >10.9 [facility] Comment on above: Result Comment: Nega tive <9.0 Equivocal 9.0 - 10.9 Positive >10.9 A positive result generally indicates past exposure to Mumps virus or previous vaccination. Performed at: [facility] [address] [place] [address] [id number] PhD Sydnie Hartman Performed By: #### 3 [id number] #### [facility] [address] [place] [address] Rubella virus IgG Qn (S) 1.64 [IU]/mL Invalid Interpretation Code Immune >0.99 [facility] Comment on above: Result Comment: Non- immune <0.90 Equivocal 0.90 - 0.99 Immune >0.99 Performed By: #### 3 [id number] #### [facility] [address] [place] [address] Varic IgGon 08-26-2024 VZV IgG IA Ql (S) Reactive Invalid Interpretation Code Non Reactive [facility] Comment on above: Result Comment: Pl ease note reference interval change A Reactive result is considered evidence of immunity to VZV. Reactive indicates that VZV IgG was detected consistent with previous infection and/or vaccination. A Non Reactive result indicates that VZV IgG was not detected suggesting that immunity has not been acquired. Performed at: [facility] [address] [place] [address] [id number] [phone] PhD Sydnie Hartman Performed By: #### 1 [id number] #### [facility] [address] [place] [address] POCT Xpert, Xpress CoV-2, FL U, RSV Plus (Cepheid)on 05-10-2024 External Poct Influenza A Cepheid Positive Abnormal Negative [facility] External Poct Influenza B Cepheid Negative Negative [facility] External Poct Rsv Cepheid Negative Negative [facility] Interpretation and review of laboratory results Abnormal [facility] SARS-CoV-2 (COVID-19) RNA DONNA+probe Ql (Unsp spec) Negative Negative [facility] HCG ( test) Ql (U)o n 10-04-2023 Beta HCG ( test) Ql (U) Negative Normal NEG [facility] Comment on above: Performed By: #### 2 [id number] #### [facility] ([id number]) [address] [place] [address] RAPID STREP SCR NURSINGon S. pyogenes Ag EIA Ql (Throat) Negative Normal NEG [facility] Comment on above: Performed By: #### 6 [id number] #### [facility] ([id number]) [address] [place] [address] SARS/FLU A+B/RSV by NAAT/Mol ecularon 10-04-2023 SARS/FLU A+B/RSV by NAAT/Molecular FLU A PCR Negative (qualifier value) FLU B PCR Negative (qualifier value) RSV by PCR Negative (qualifier value) SARS CoV 2 Not detected (qualifier value) NOTE The Xpert Xpress SARS-CoV-2/Flu/RSV Plus test is a rapid, multiplexed real-time RT-PCR test intended for the simultaneous qualitative detection and differentiation of SARS-CoV-2, influenza A, influenza B and respiratory syncytial virus (RSV) viral RNA from individuals suspected of respiratory viral infection consistent with COVID-19 by their healthcare provider. This test has not been validated in asymptomatic patients. The Xpert Xpress SARS-CoV-2 test is intended for use by qualified and trained operators who are performing tests using either [employer] DX or [employer] Infinity systems and is limited to laboratories that meet the CLIA requirements to perform high and moderate complexity tests. The Xpert Xpress SARS-CoV-2/Flu/RSV Plus is only for use under the Food and Drug Administration's Emergency Use Authorization. Results are for the simultaneous detection and differentiation of SARS-CoV-2, influenza A, influenza B and RSV nucleic acids in clinical specimens. SARS-CoV-2, influenza A, influenza B and RSV RNA identified by this test are generally detectable in upper respiratory samples during the acute phase of infection. Positive results are indicative of the presence of the identified virus, but do not rule out bacterial infection or co-infection with other pathogens not detected by this test. Clinical correlation with patient history and other diagnostic information is necessary to determine patient infection status. The agent detected may not be the definite cause of disease. Negative results do not preclude SARS-CoV-2, influenza A, influenza B and RSV infection and should not be used as the sole basis for treatment or other patient management decisions. Negative results must be combined with clinical observations, patient history and epidemiological information. An Invalid result may occur with specimen-associated inhibition unable to be resolved with specimen repeat. Fact Sheet for Healthcare Providers: https://www.fda.gov/ media/324226/downloa d Fact Sheet for Patients: https://www.fda.gov/ media/363520/downloa d Normal [facility] Comment on above: Performed By: #### C OVFLR #### [facility] ([id number]) [address] [place] [address] URN MACROSCOPIC NURon 2023 BILIRUBIN NAE Small Abnormal NEG [facility] Comment on above: Performed By: #### N UM #### [facility] ([id number]) [address] [place] [address] BLOOD/HGB NAE Trace Abnormal NEG [facility] Comment on above: Performed By: #### N UM #### [facility] ([id number]) [address] [place] [address] GLUCOSE NAE Negative Normal NEG [facility] Comment on above: Performed By: #### N UM #### [facility] ([id number]) [address] [place] [address] KETONES NAE Negative Normal NEG [facility] Comment on above: Performed By: #### N UM #### [facility] ([id number]) [address] [place] [address] LEUKOCYTE ESTERASE NAE Trace Abnormal NEG Pr [facility] Comment on above: Performed By: #### N UM #### [facility] ([id number]) [address] [place] [address] NITRITE NAE Negative Normal NEG [facility] Comment on above: Performed By: #### N UM #### [facility] ([id number]) [address] [place] [address] PH NAE 5.5 Normal 5.0-8.5 [facility] Comment on above: Performed By: #### N UM #### [facility] ([id number]) [address] [place] [address] PROTEIN NAE 30 mg/dL Abnormal NEG [facility] Comment on above: Performed By: #### N UM #### [facility] ([id number]) [address] [place] [address] SPECIFIC GRAVITY NAE >=1.030 Normal 1.003-1.035 [facility] Comment on above: Performed By: #### N UM #### [facility] ([id number]) [address] [place] [address]774 UROBILINOGEN NAE 0.2 eu/dL Normal <1.1 [facility] Comment on above: Performed By: #### N UM #### [facility] ([id number]) [address] [place] [address] ALL CBC WITH AUTO DIFFon BASOPHILS ABSOLUTE AUTO 0.1 N [facility] Basophils/100 WBC (Bld) 0.5 % 0.2 - 2.0 % [facility] Eosinophils/100 WBC (Bld) 2.4 % 0.9 - 7.0 % [facility] Erythrocyte distribution width (RBC) [Ratio] 14.1 % 11.0 - 15.0 % [facility] Hematocrit (Bld) [Volume fraction] 36.7 % 36.0 - 48.0 % [facility] Hemoglobin (Bld) [Mass/Vol] 11.2 g/dL Low 12.0 - 16.0 g/dL [facility] IMMATURE GRANULOCYTES ABS AUTO 0.02 [facility] Immature granulocytes/100 WBC (Bld) 0.2 % 0.0 - 0.5 % [facility] Interpretation and review of laboratory results Abnormal [facility] LYMPHOCYTES ABSOLUTE AUTO 4.4 High [facility] Lymphocytes/100 WBC (Bld) 43.9 % 20.5 - 60.0 % [facility] MCH (RBC) [Entitic mass] 26.1 pg Low 26.7 - 34.0 pg [facility] MCHC (RBC) [Mass/Vol] 30.5 g/dL 29.9 - 35.2 g/dL [facility] MCV (RBC) [Entitic vol] 85.5 fL 81.0 - 99.0 fL [facility] MONOCYTES ABSOLUTE AUTO 0.[address] [facility] Monocytes/100 WBC (Bld) 4.5 % 1.7 - 12.0 % [facility] NEUTROPHILS ABSOLUTE AUTO 4.9 [facility] Neutrophils/100 WBC (Bld) 48.5 % 43.0 - 75.0 % [facility] Platelet mean volume (Bld) [Entitic vol] 9.0 fL Low 9.5 - 13.5 fL [facility] TBH EO # 0.2 [facility]H PLT 359 [facility] TB RBC 4.29 [facility] TB WBC 10.1 [facility] CLINISYNC [facility] Segundo 05-14-2023 L Specimen: [id number] Received: 05/14/23 Status: SOU Re Num: [id number] Spec Type: Surgical Subm Dr: Pipo Taylor Tissues: A Fallopian Tube - Sterilization (KIMBERLEY FT) B Soft Tissue/Surgical Margin-Other than Tumor,Mass,Lip or Latasha (LT OVARIAN CYS Procedures: HE/3, Gross/Micro L4, Gross/Micro L2 Age/ Patient Sex Location Account Attending Physician Kylie Cabrera 28/F LABELL [id number] Pipo Taylor SPEC NUM: [id number] RECD: 05/14/23 STATUS: [facility] NUM: [id number] SHERLY: 05/14/[address]: Pipo Taylor ENTERED: 05/14/23 [facility] DR: Rosa,Lab SPEC TYPE: Surgical DEPT: JOANNA ACEVEDO ORDERED: HE/3, Gross/Micro L4, Gross/Micro L2 ORDERED: HE/3, Gross/Micro L4, Gross/Micro L2 Pathological Diagnosis A. Bilateral Fallopian Tubes, Resection: No Significant Pathologic Abnormality. B. Left ovarian cyst, resection: Fragments of Luteal cyst. Clinical Information Request for sterilization Gross Description A. Received in formalin labeled with the patient's name, date of and bilateral fallopian tubes are two amezquita-pink fimbriated fallopian tubes measuring 7.5 x 0.8 x 0.7 cm (inked blue) and 8.5 x 0.7 x 0.7 cm. Each has a patent lumen on cut section. Research Study Assistant sections are submitted in two cassettes labeled A1-A2. B. Received in formalin labeled with the patient's name, date of and left ovarian cyst wall are two amezquita-guerrero membranous tissues measuring 1.0 x 0.5 x 0.4 cm and 1.5 x 0.5 x 0.5 cm. Entirely submitted in one cassette labeled B1. Specimen: [id number] Received: 05/14/23 Status: REJI Prado Num: [id number] Spec Type: Surgical Subm Dr: Pipo Taylor Tissues: A Fallopian Tube - Sterilization (KIMBERLEY FT) B Soft Tissue/Surgical Margin-Other than Tumor,Mass,Lip or Latasha (LT OVARIAN CYS Procedures: HE/3, Gross/Micro L4, Gross/Micro L2 Patient: Sheng Cabreracontreras Valdez [id number] (Continued) Specimen: [id number] Received: 05/14/23 (Continued) Signed (signature on file) Shannon Mahajan MD 05/17/23 2307 Specimen: [id number] Received: 05/14/23 Status: REJI Prado Num: [id number] Spec Type: Surgical Subm Dr: Pipo Taylor Tissues: A Fallopian Tube - Sterilization (KIMBERLEY FT) B Soft Tissue/Surgical Margin-Other than Tumor,Mass,Lip or Latasha (LT OVARIAN CYS Procedures: HE/3, Gross/Micro L4, Gross/Micro L2 Patient: Kylie Cabrera [id number] (Continued) Specimen: [id number] Received: 05/14/23 (Continued) CPT Codes 18599, 42165 Specimen: [id number] Received: 05/14/23 Status: REJI Prado Num: [id number] Spec Type: Surgical Subm Dr: Pipo Taylor Tissues: A Fallopian Tube - Sterilization (KIMBERLEY FT) B Soft Tissue/Surgical Margin-Other than Tumor,Mass,Lip or Latasha (LT OVARIAN CYS Procedures: HE/3, Gross/Micro L4, Gross/Micro L2 Patient: Kylie Cabrera [id number] (Continued) Signed (signature on file) Shannon Mahajan MD 05/17/23 [id number] [facility] Coding Summaryon 03-05-2023 Coding Summary HTMLBase 64 SopjqxdyURi4xOo+PGhl YWQ+OB7JTNWfZ60ncOLi wM4dH3BHPHsWUkmcPAYF HDwWWrIzneAiLK3bqXJl ZXJu IC8+XW1iOHIlNnvnpLGs u8B4mVZ2G56ata4xORql vIA6BITwOfIqnvrhq2ey mPj8XRjcPshiNaTm GHAcsD77WII7vE86Gr33 lJVvjASzf1dvhHv8YeFl APKnDDK1xArsACden5Ps OGQsY53yjXGoo9W6 IGNvbGxhcHNlOyBlbXB0 yX0jVLtpcxkfe1zaypxf Xmv3ya57mKApc4B8dFK8 W7BozhP9MJTntLKi VjvagNOEoD6edekga3tv wjilJiHfUIKrHWe0KEx2 SLNpmPzfUjZlTR73IGD3 OVChoeCgG4XsBRBm lNioXvG2o1H1Gs0TQ0RG TcboB9TTFKECGCsqlOH+ WR18nn26N2EaTexpFde6 GPGuQAB3sWP6xI6s WHPsYDiki3G9fFN1W7Md ysPray6ve0mgCBBcFZcl C30peVAlv0X9OYWkkTX6 OLJmhJiuUbUrpG03 Oyc+FWDmnPaco2PoDvok n9vio9mquLm1KxevMAVu fwAupRimKOZ1r4LdUn8z UNFntQS8tJF7iI9d QgDnDqV7DQuiY172LxUs nWSrRjnxS03mM0WlwRU+ YMIkXzr5CFAloYnvAR7l F0TmIRBwunqztFSd mTiuUH4aRATvkoqgONCn aN6mGPPxU9v3WfJdPxS9 ZInqO0UxVXBcbuwwIj19 rW3uYtDaRhB9INvp W2GndkM3KFHinUDsXGck VMV6L04kt9D5ZMJwKQPb KRF8sFS9mV9kuLepqwau bGVmdDsgdmVydGlj GAcbBVvfT163VMXvrGcv PkNvZGluZyBEYXRlOiAg MTIvMDEvMjAyMzwvdGQ+ XESyQNI9sDdhPBDw aQLfAHycLr9njHllwKxs SU5xQBBooebyQVLliY1h RPVcyOWpwQgmAX3kUHBi zuzsd886BsOxYJF0 JEEugEGsS7IkrN4hHvYz GGWyJQZjG7DdyWTdYInc V318LAboLiO6PUHvbpWu I1MoDDRywFmjEbD6 t4V7Kz3Pj1TdnbdlG2Qt xOUjJfHyWqzaCKx8C6Ii PjwvdHI+XV86OYWfNV59 VXs7DZJ0aPavNJhx XLClK4PamN8dQeIpVHJf ZGRkOyc+PHRhYmxlIHdp ZHRoPScxMDAlJyBzdHls BJ6zRj1nLTCcZFQi pYgdmYSaNkTio4hoUKQt NNqcTX2auSviW3SreTU3 XSQbx1v2Mk35S66iB8Tw dXA+MHPxsPO4wTH5 wN0cTaDnQsV5TBqjS039 ZiYjwWPjRalup7wgp5qf lWx0VeK4RIMxqkWbhDfz LUW6p2FxFs64D24f IHdpZHRoPSIxNSUiIHZh tUipsz9pgD2aCz6+PGNv eVU3aSW5xX4bWxEkJwR9 ZBsxQ452RuEauQFs Wnpfs8jhp6obyYh7FyHg GLSgxfVpmGprVVG3v0Kd Qj17P4RxhAgcw2QkQca0 yo87nXTbr3H2eEP8 T7AlCDLcuacaoNFyhGwp WS1uPFJqqcacSBOotB6a NLLwE3p8JoJsRdE2FZbz Z1DljyP6PGQcvKCs KWTixUNAjV6hguzwy7qg rszpLwEwDJTuFFt0HDq5 HQVfdJtyMpUmIWN7DsF1 CLS0bQMrdY8mdCvc mndjeA0vXsx+XAH8jFFa kACSKU6qVbonkVQ+PHRk KBV5uEasKKytNZRuaS1m AWAfP2m1AgAoObM3 KUaoK9DeisD2TFBhyVXy MGYznTTTlP2vtgwfr8hf flkxFvBxIBQdGLq5EVc1 LWFsaWduOiBsZWZ0 BvZ2SOR0yJAdaH1ixLse pdhcjU0aUiv+QmlydGgg UOL5ROj1A0WeTjf8WAIi rQwbZE1viMZqHYwm Hp4pgPfgqKckCG9hQKLk mksic782WhXgi7fdQADi gKAlVBypWNU4B28fy6G6 SWDkWWIhFEQ4uYV4 vY2zoXelfcishFMipPkd smLnvYuaDTumGOeqE238 KZLozJrdQiItVQl0E7Ls All6UOGvcUbjQA5x dOFpRHelAb3ubGjqyPwi QP9eKWLeozfla022DnZd g6nnXNPhnKLoAXnrDBM8 W20ts1J9EYZlKKEn ZFT6vNQ4qF5yuRuqdxev bGVmdDsgdmVydGljYWwt NThaC682XPMhbKrxQrFg tPf7Q6LcQxf5VTDv gLaxNV4jdCWrYCebJe7l aHattWqtWB5eLXYgugwu d670ChMjn8oiXMZbaWIh VSljGOJ2B49hx6R6 VLBqIHWlMVC5qNI4dO7d bGlnbjogbGVmdDsgdmVy bNehZRwnMYwnE968FYXy cDsnPlBhdGllbnQg AIosHTc4J9FvThthgOB+ QW18TRVwKH61dIRmwINf z4vgyXs3RdZrSGYwBRX8 cPbbVUjzx8GwTRHb E81uzSFcw6U3CRUafZuf gBPiDfPcqZU6sW2zQFkm cvzyr1fisctqIyavv0qf vm94oC14E06rJTxl ZHRoPSIzMCUiIHZhbGln dw9pdB0nJm7+PGNvbCB3 yOP4tH3xSPYcZbJ9OZbz R914XvSshNPpRnyw e8kpz0rkmDx4UvY7ANCa glNnmVltFGO0q5MmLq54 A76oOPpjDDTeWBYeMITl BTZkvUmaos8gpA6v Ii8+HKFgqTT3wIV3eW8d AdVeAeZ3AJeaB840RhEb qIQvFhfbJ46wS8YlwIU+ KJLgShr4NBXzjDsu WV2oxXSjEYtvUq0rTGV9 EhDgPeAiKZixV7DxHQNy lianznuvfQJ3SEJtIFDk tV49Qh4nyYvoPCEp sHMWfI9lhzpfc3zvzbsj QwLmTZGmNGj8KZm8WKYk hRboFyHgJHQ7JnB9KFL5 mFGemY5jrMctvhzv rD6tW0YdWEBvzyccUm97 hQ8uTxEaNbW0KYorIkw+ SRWLOZ4DTRPABR8GSlRW OWJXDE5IKM00JA71 jNHbp1X6fOW3Q4CsKUKo qqyiycperTY8EIKuWWAq dD46gXFgCIcmTr8zx6C1 s033BPQcPMSrsA69 Rh8aoMhlSWRimBIDzB7s sfafu8ckpqzlCqDfEXXl VDk1FKd1CVVrvTkaRrZh QOF1QbJ0BHH1iJJz sQ9ngQibvxandE8rXep+ KQXoFKNlLZx7AnpatYE+ PLFcSJM4rRgoLZkzFIUn fH6lINUkA4o7CrZs PtE1RLgrH4JrCSSfzpab Zi36lH7qDyGtXlJ4QPwz A6AnlyW5GOUdoVWuQAjn HKS1X44un2E4JTGw PKSsCZI7dEW7lX6dcMeu bjogbGVmdDsgdmVydGlj CYgfLCjdH788TQLjwHbh OoW5NVniTDPpER94 FW30eXZbp5K1pXX2Y7Fi TTXqnvjcfhlmzOD3JADu HHRrgH98mLQzLRdqIz7n f6R7f812ORVlJCTy hT45Aw6toUdnMMHibZIG jC6kjvojj9ywualeAeZm KXLvGIj0DSz7KAHwoKbt FqKfOCG9YwK5MVT0 yBTvmO2gpDahnrdsbA3k Oyc+YsZEDYkXVA76TZ74 qJHxh5K4mOY7P2InBBYr pursfvsjwDM6KJQf KSDxeO49lXYgEKbuEl0g t7K0c766YVDhZFRvzF46 Rz1ngAjlMUCffXOYsC0o msxre9guarhlPcRa UGOqSXv5QZv0FBZztAgj OiQeBHW6RvD4LKL4bZGh kG2stTohspjwuR5fRac+ L5I6D1StOngebPR+ AC49UOJiKY90iIXchYWp y7qpzJo5TbYgHLJcKLT4 lRgoUCxuy3MpFOHgC29x eDFvx6K3JWLyuRqj bMOeTpUmqYA3cW2hTOsn hrmco3ujnjnrQsdkq6tb fw98jX85H61bUXsdJEQf PSIzMCUiIHZhbGln om9yxU6hTv4+PGNvbCB3 sTN3uF7lCxEbDcK7JHcr P700OfHbwSMnVvedg8er c4vuwBv2ToXuTWQh wnZnpCmpXNP3d5JrKw01 W90wDQejCNAiFJDnPENq GIUdrDntct5aoN8uPh4+ HV0ib4iuwl66yC93 dHI+QKUxDXT8iVexUWxd QPFvyE6zQGsgHhZ0OBAf ViVhaO47qVSvSCecNl4z rLzsyRasXD5iKYSt wvepf059ApWis0hhEYWu qKImYMvvYXR8V47hq6X6 QATcIZFnLKY5gBV0lZ0i bGlnbjogbGVmdDsg urJgfLubNXpuYYelR779 KWDmvExcPrWogBVoH9ak psYFQM1kNspsxGS+PHRk TEG6oMbtIDiaGNBm dH8cVEPjT1o6SmThJsJ8 GKryK7WjnwH6OOLgiDQm WDTsuYFLtX2kxqdcb1bo cjogIzAwMDAwMDt0 BUy8EHSsoTrbUlIsGKT8 OsI1NXA3mLGwnH2qxVbk jkrqhD0jFdj+RklOOjwv dGQ+MVXsXJY0zWpg QQbkPNZmeZ3jHVKeG8r9 WkRtRsL4NEvbM3QoemK8 GUQbhGVtRXWgyPDIhO4h nsrsh1husdsrFrDm WESrLXz9JVn0JBKusMcw QzDyNWL1MyM1VBC3jGDj sA7sdSddmoitsT4eKew+ TVJOOjwvdGQ+PHRk YTR4mAleTFfwNGJxpC0k KONkH9a4BiEoCbW3LRaz K0BnnwC4RKOsvWGeAZUc gNJDdK7omssvj1dh bcdhAiIzJXEmZWo2ABj1 SXVpyRpmBdDfIRV9FmI3 HET8kRSujG3iwWrukuwh dS3uIlw+LHP9KXW1 QC32UL70Y4RbTriuhJFp bGU+PHRhYmxlIHdpZHRo YXkeAPDkQjZlxUtgCQ4g Hs9nFGCsBRLabEnc cHN (more content not included)... Normal [facility] ED Clinical Summaryon 2022 ED Clinical Summary [facility] ? Urgent Care [address] [place] [address] Clinical Summary PERSON INFORMATION Name: KYLIE CABRERA Age: 27 Years Sex: FEMALE : 1995 MRN: Acct#: Visit Reason: UC - Eye Pain; RIGHT EYE IRRITATION Arrival: 03/01/2023 13:29:41 Discharge: 03/01/2023 13:51:00 LOS: 000 00:22 Check In: 03/01/2023 13:29:41 Checkout: 03/01/2023 13:51:00 Address: [address] [place] [address] PCP: Provider, None PROVIDER INFORMATION Provider Role Assigned Unassigned Harpreet Gray TIRE INSTALLER Nurse 03/01/2023 13:32:52 Geovanny Mac ED 03/01/2023 13:33:08 VITALS INFORMATION Vital Sign Triage [...] right eye Patient Understands: Yes - Patient/family/careg iver verbalizes understanding of instructions given Comment: Normal [facility] ED Patient Summaryon 023 ED Patient Summary [facility] ? Urgent Care [address] [place] [address] PATIENT DISCHARGE INSTRUCTIONS Patient Information Name: KYLIE CABRERA Age: 27 Years Date of : [...] health care provider. ? Take or apply fyjl-ofn-ztkakwa and prescription medicines only as told by [...] your eyes. (more content not included)... Normal [facility] Urgent Care [place] 023 Urgent Care Record [facility] ? Urgent Care [address] [place] [address] PATIENT DISCHARGE INSTRUCTIONS Patient Information Name: KYLIE CABRERA Age: 27 Years Date of : 1995 Reason For Visit: UC - Eye Pain; RIGHT EYE IRRITATION Arrival Time: 03/01/2023 13:29:41 Primary Care Physician: Provider, None Attending Physician: Geovanny Mac Comment: Visit Diagnosis: Diagnoses This Visit Conjunctivitis of right eye (H10.9) UC - Eye Pain ([id number]) If you received any narcotics, sedation, or [...] and treatment you received today in the [facility] were for an urgent problem and are not intended as complete care. It is important for you to follow up with a doctor, nurse practitioner, or physician?s registered dental assistant rda for ongoing care. If your symptoms become [...] so we can reach you if necessary. [facility] Urgent [facility] has provided you with a complete list of medications post discharge. Please inform your primary education professor/provider of your visit and for further instruction on these medications. Any specific questions regarding your chronic medications and dosages should be discussed with your primary care physician(s) and/or pharmacist. New Medications [id number], [address], [place] [id number], [phone] ofloxacin ophthalmic (ofloxacin 0.3% ophthalmic solution) 2 [...] ? You (more content not included)... Normal [facility] BOX TEST SENT OUTon 07-05-19 23 SENT TO REF LAB 07/04/2022 Normal [facility] Comment on above: Performed By: #### B OX #### [facility] [address] [place] [address] Dr. Reyes Chamorro COVID-19 Antigenon 3 COVID-19 [...] developed and its performance characteristic determined by [employer] and validated at [facility]. This test has not been FDA [...] for SARS Antigen by RONALD PERFORMED BY: [place] [address] PATHOLOGIST MAIL SORTER AND DELIVERY ANGIE RILEY M.D. Normal [facility] Comment on above: Performed By: #### S OFSUNDEEP, COVID-19 RONNY #### [address] COVID-19 SOFIAOrdered By: David Daniels on 07-03-2022 SARS-CoV+SARS-CoV-2 (COVID-19) Ag IA.rapid Ql (Resp) Negative Negative [facility] Comment on above: This is a duplicate Ronny SARS Antigen (RONALD) result to be used for statistical tracking purpose only. No Panel InformationOrdered By: Odilon Daniels on 07-03-2022 SARS Antigen (LFIA) [facility] Ronny Ag Negativeon 07-04-19 23 Ronny Ag Negative Negative Normal Negative [facility] Comment on above: Result Comment: This is a duplicate Ronny SARS Antigen (RONALD) result to be used for statistical tracking purpose only. PERFORMED BY: [place] [address] PATHOLOGIST MAIL SORTER AND DELIVERY ANGIE RILEY M.D. Performed By: #### S SCHUYLER COVID-19 RONNY #### [facility] [address] [place] [address] A1C with Estimated Average G luon 07-02-2022 Glucose [Mass/Vol] 111 mg/dL Normal [facility] Comment on above: Result Comment: PERF ORMED BY: [place] [address] PATHOLOGIST MAIL [employer]TER [employer] DELIVERY ANGIE RILEY M.D. Performed By: #### S SCHUYLER COVID- RONNY #### [address] HbA1c (Bld) [Mass fraction] 5.5 % Normal 4.3-5.6 [facility] Comment on above: Result Comment: Incr eased risk for diabetes: 5.7 - 6.4 diabetes: >6.4 glycemic control for adults with diabetes: <7.0 Performed By: #### S SCHUYLER COVID-19 RONNY #### [facility] [address] [place] [address] ABO/RH Typeon 07-02-2022 ABO and Rh group Nom (Bld) Blood group O Rh(D) positive Normal [facility] Comment on above: Result Comment: PERF ORMED BY: [place] [address] PATHOLOGIST [employer]IV[employer] ANGIE RILEY M.D. Basophils Auto (Bld) [#/Vol] Ordered By: Pipo Taylor on 07-02-2022 Basophils (Bld) [#/Vol] 0.0 10*3/uL 0.0-0.2 [facility] Basophils/100 WBC Auto (Bld) Ordered By: Pipo Taylor on 07-02-2022 Basophils/100 WBC (Bld) 0.4 % . F [facility] Complete Blood Count Auto Di ffon 07-02-2022 Basophils (Bld) [#/Vol] 0.0 10*3/uL Normal 0.0-0.2 [facility] Comment on above: Result Comment: PERF ORMED BY: [place] [address] PATHOLOGIST [employer] ANGIE RILEY M.D. Performed By: #### S OFSUNDEEP COVID-19 RONNY #### [facility] [address] [place] [address] Basophils/100 WBC (Bld) 0.4 % Normal . [facility] Comment on above: Performed By: #### S OFSUNDEEP COVID-19 RONNY #### [facility] [address] [place] [address] Eosinophils (Bld) [#/Vol] 0.2 10*3/uL Normal 0.0-0.45 [facility] Comment on above: Performed By: #### S OFSUNDEEP COVID-19 RONNY #### [facility] [address] [place] [address] Eosinophils/100 WBC (Bld) 2.6 % Normal . [facility] Comment on above: Performed By: #### S OFSUNDEEP COVID-19 RONNY #### [facility] [address] [place] [address] Erythrocyte distribution width (RBC) [Ratio] 14.6 % Normal 11.9-15.3 [facility] Comment on above: Performed By: #### S OFSUNDEEP COVID-19 RONNY #### [facility] [address] [place] [address] Hematocrit (Bld) [Volume fraction] 38.0 % Normal 34.0-46.4 [facility] Comment on above: Performed By: #### S OFDINESH URBANOID-19 RONNY #### [facility] [address] [place] [address] Hemoglobin (Bld) [Mass/Vol] 12.4 g/dL Normal 11.8-15.4 [facility] Comment on above: Performed By: #### S OFIANEG, COVID-19 RONNY #### [address] Lymphocytes (Bld) [#/Vol] 2.8 10*3/uL Normal 1.00-4.8 [facility] Comment on above: Performed By: #### S OFSUNDEEP COVID-19 RONNY #### [address] Lymphocytes/100 WBC (Bld) 30.7 % Normal . [facility] Comment on above: Performed By: #### S OFSUNDEEP COVID-19 RONNY #### [address] MCH (RBC) [Entitic mass] 30.0 pg Normal 24.7-34.3 [facility] Comment on above: Performed By: #### S OFSUNDEEP COVID-19 RONNY #### [address] MCV (RBC) [Entitic vol] 91.9 fL Normal 80-100 F [facility] Comment on above: Performed By: #### S OFSUNDEEP COVID-19 RONNY #### [address] Mean Corpuscular HGB Conc 32.7 g/dL Normal 32.0-35.0 [facility] Comment on above: Performed By: #### S OFSUNDEEP COVID-19 RONNY #### [address] Monocytes (Bld) [#/Vol] 0.5 10*3/uL Normal 0.0-0.8 [facility] Comment on above: Performed By: #### S OFSUNDEEP COVID-19 RONNY #### [address] Monocytes/100 WBC (Bld) 5.2 % Normal . [facility] Comment on above: Performed By: #### S OFSUNDEEP COVID-19 RONNY #### [address] [address] [place] Neutrophils (Bld) [#/Vol] 5.6 10*3/uL Normal 1.8-7.7 [facility] Comment on above: Performed By: #### S SCHUYLER COVID-19 RONNY #### [facility] [address] Neutrophils/100 WBC (Bld) 61.1 % Normal . [facility] Comment on above: Performed By: #### S SCHUYLER COVID-19 RONNY #### [facility] [address] [place] [address] NRBC% 0.2 /100{WBC} Normal 0-0.5 [facility] Comment on above: Performed By: #### S SCHUYLER COVID-19 RONNY #### [address] Platelet mean volume (Bld) [Entitic vol] 7.5 fL Normal 6.3-10.7 [facility] Comment on above: Performed By: #### S SCHUYLER COVID-19 RONNY #### [facility] [address] [place] [address] [place] Platelets (Bld) [#/Vol] 322 10*3/uL Normal 150-450 [facility] Comment on above: Performed By: #### S SCHUYLER COVID-19 RONNY #### [facility] [address] [place] [address] [place] RBC (Bld) [#/Vol] 4.13 10*6/uL Normal 3.60-5.00 [facility] Comment on above: Performed By: #### S OFSUNDEEP COVID-19 RONNY #### [facility] [address] [place] [address] [place] WBC (Bld) [#/Vol] 9.1 10*3/uL Normal 3.8-11.6 [facility] Comment on above: Performed By: #### S OFSUNDEEP COVID-19 RONNY #### [facility] [address] [place] [address] [place] Eosinophils Auto (Bld) [#/Vo l]Ordered By: Pipo Taylor on 07-02-2022 Eosinophils (Bld) [#/Vol] 0.2 10*3/uL 0.0-0.45 [facility] Eosinophils/100 WBC Auto (Bl d)Ordered By: Pipo Taylor on 07-02-2022 Eosinophils/100 WBC (Bld) 2.6 % . [facility] Erythrocyte distribution wid th Auto (RBC) [Ratio]Ordered By: Pipo Taylor on 07-02-2022 Erythrocyte distribution width (RBC) [Ratio] 14.6 % 11.9-15.3 [facility] Glucose mean value [Mass/vol ume] in Blood Estimated from glycated hemoglobinOrdered By: Pipo Taylor on 07-02-2022 Average glucose Estimated from glycated hemoglobin (Bld) [Mass/Vol] 111 mg/dL [facility] Hematocrit Auto (Bld) [Volum e fraction]Ordered By: Pipo Taylor on 07-02-2022 Hematocrit (Bld) [Volume fraction] 38.0 % 34.0-46.4 [facility] Hemoglobin A1c percentageOrd ered By: Pipo Taylor on 07-02-2022 HbA1c (Bld) [Mass fraction] 5.5 % 4.3-5.6 [facility] Comment on above: Increased risk for d iabetes: 5.7 - 6.4diabetes: >6.4glycemic control for adults with diabetes: <7.0 Hemoglobin [Mass/volume] in BloodOrdered By: Pipo Taylor on 07-02-2022 Hemoglobin (Bld) [Mass/Vol] 12.4 g/dL 11.8-15.4 [facility] Hep C Ab wRfx to Qnt PCRon 0 07-02-2022 Hepatitis C Virus Antibody Non-Reactive Normal Non Reactive [facility] Comment on above: Performed By: #### S CLAIR PAYAN-19 RONNY #### [facility] [address] Interpretation Hepatitis C Normal . [facility] Comment on above: Result Comment: Not infected with HCV unless early or acute infection is suspected (which may be delayed in an immunocompromised individual), or other evidence exists to indicate HCV infection. Performed By: #### S SCHUYLER COVID-19 RONNY #### [facility] [address] [place] [address] Hepatitis B Surface Antigeno n 07-02-2022 HBsAg Screen Negative Normal Negative [facility] Comment on above: Result Comment: Perf ormed at: CB - [facility] [place] [address] Hearing Screen Coordinator: Devan Otoole PhD, Phone: [phone] PERFORMED BY: [place] [address] PATHOLOGIST [employer]IL [employer] DELIVERY ANGIE RILEY M.D. Performed By: #### S SCHUYLER COVID-19 RONNY #### [facility] [address] [place] [address] Hepatitis B virus surface Ag [Presence] in Serum or Plasma by ImmunoassayOrdered By: Pipo Taylor on 07-02-2022 HBV surface Ag IA Ql Negative Negative [facility] Comment on above: Performed at: CB - [facility] [place] [id number] Director: Devan Otoole PhD, Phone: [phone] Hepatitis C virus IgG Ab [Pr esence] in Serum or Plasma by ImmunoassayOrdered By: Pipo Taylor on 07-02-2022 HCV IgG IA Ql Non-Reactive Non Reactive [facility] Leukocytes [#/volume] correc jessica for nucleated erythrocytes in Blood by Automated counOrdered By: Pipo Taylor on 07-02-2022 WBC corrected for nucl RBC Auto (Bld) [#/Vol] 9.1 10*3/uL 3.8-11.6 [facility] Lymphocytes Auto (Bld) [#/Vo l]Ordered By: Pipo Taylor on 07-02-2022 Lymphocytes (Bld) [#/Vol] 2.8 10*3/uL 1.00-4.8 [facility] Lymphocytes/100 WBC Auto (Bl d)Ordered By: Pipo Taylor on 07-02-2022 Lymphocytes/100 WBC (Bld) 30.7 % . [facility] MCH Auto (RBC) [Entitic mass ]Ordered By: Pipo Taylor on 07-02-2022 MCH (RBC) [Entitic mass] 30.0 pg 24.7-34.3 [facility] MCHC Auto (RBC) [Mass/Vol]Or dered By: Pipo Taylor on 07-02-2022 MCHC (RBC) [Mass/Vol] 32.7 g/dL 32.0-35.0 [facility] MCV Auto (RBC) [Entitic vol] Ordered By: Pipo Taylor on 07-02-2022 MCV (RBC) [Entitic vol] 91.9 fL 80-100 [facility] Monocytes Auto (Bld) [#/Vol] Ordered By: Pipo Taylor on 07-02-2022 Monocytes (Bld) [#/Vol] 0.5 10*3/uL 0.0-0.8 [facility] Monocytes/100 WBC Auto (Bld) Ordered By: Pipo Taylor on 07-02-2022 Monocytes/100 WBC (Bld) 5.2 % . [facility] Neutrophils Auto (Bld) [#/Vo l]Ordered By: Pipo Taylor on 07-02-2022 Neutrophils (Bld) [#/Vol] 5.6 10*3/uL 1.8-7.7 [facility] Neutrophils/100 WBC Auto (Bl d)Ordered By: Pipo Taylor on 07-02-2022 Neutrophils/100 WBC (Bld) 61.1 % . [facility] No Panel InformationOrdered By: Pipo Taylor on 07-02-2022 Hepatitis C Interpretation See comment . [facility] Comment on above: Not infected with HC V unless early or acute infection issuspected (which may be delayed in an immunocompromisedindividual), or other evidence exists to indicate HCVinfection. Hepatitis C RNA Quantitative N/A [facility] Rubella IgG Antibody 1.57 index Immune >0.99 [facility] Comment on above: Non-immune <0.90 Equ ivocal 0.90 - 0.99 Immune >0.99Performed at: [facility] [address] [id number] Director: Devan Otoole PhD, Phone: [phone] Nucleated erythrocytes [Pres ence] in Blood by Automated countOrdered By: Pipo Taylor on 07-02-2022 Nucleated RBC Auto Ql (Bld) 0.2 /100{WBC} 0-0.5 [facility] Platelet mean volume Auto (B ld) [Entitic vol]Ordered By: Pipo Taylor on 07-02-2022 Platelet mean volume (Bld) [Entitic vol] 7.5 fL 6.3-10.7 [facility] Platelets Auto (Bld) [#/Vol] Ordered By: Pipo Taylor on 07-02-2022 Platelets (Bld) [#/Vol] 322 10*3/uL 150-450 [facility] RBC Auto (Bld) [#/Vol]Ordere d By: Pipo Taylor on 07-02-2022 RBC (Bld) [#/Vol] 4.13 10*6/uL 3.60-5.00 [facility] RPR w/rfx to Quant TP Abson 07-02-2022 RPR, Rfx Quant RPR Non-Reactive Normal Non Reactive [facility] Comment on above: Result Comment: Perf ormed at: CB - [facility] [place] [id number] Hearing Screen Coordinator: Devan Otoole PhD, Phone: [phone] PERFORMED BY: [place] [address] PATHOLOGIST [employer] DELIVERY ANGIE RILEY M.D. Performed By: #### S OFSUNDEEP, COVID-19 RONNY #### [address] Reagin Ab [Presence] in Seru m by RPROrdered By: Pipo Taylor on 07-02-2022 Reagin Ab RPR Ql (S) Non-Reactive Non Reactive [facility] Comment on above: Performed at: CB - [facility] [address] [id number] Director: Devan Otoole PhD, Phone: [phone] Rubella IgG Antibodyon 07-02 Rubella IgG Antibody 1.57 Normal Immune >0.99 [facility] Comment on above: Result Comment: Non- immune <0.90 Equivocal 0.90 - 0.99 Immune >0.99 Performed at: [facility] [id number] Hearing Screen Coordinator: Devan Otoole PhD, Phone: [phone] Performed By: #### S SCHUYLER COVID- RONNY #### [address] Thyroid Stimulating Hormoneo n 07-02-2022 TSH Qn 2.98 m[IU]/L Normal 0.45-5.33 [facility] Comment on above: Result Comment: PERF ORMED BY: [place] [address] PATHOLOGIST [employer] DELIVERY ANGIE RILEY M.D. Performed By: #### S SCHUYLER COVID- RONNY #### [address] Thyrotropin [Units/volume] i n Serum or PlasmaOrdered By: Pipo Taylor on 07-02-2022 TSH Qn 2.98 m[IU]/L 0.45-5.33 [facility] Urine Cultureon 07-02-2022 Bacteria identified Cx Nom (U) No Growth 2 Days PERFORMED BY: [place] [address] PATHOLOGIST [employer] DELIVERY ANGIE RILEY M.D. Normal [facility] Comment on above: Performed By: #### S SCHUYLER COVID-19 RONNY #### [facility] [address] [place] [address] [place] WBC Auto (Bld) [#/Vol]Ordere d By: Pipo Taylor on 07-02-2022 WBC (Bld) [#/Vol] 9.1 10*3/uL 3.8-11.6 [facility] Alanine aminotransferase [En zymatic activity/volume] in Serum or PlasmaOrdered By: Linda Mortensen on 06-26-2022 ALT [Catalytic activity/Vol] 31 U/L 7-52 [facility] Albumin [Mass/volume] in Ser um or Plasma by Bromocresol green (BCG) dye binding methoOrdered By: Linda Mortensen on 06-26-2022 Albumin BCG dye [Mass/Vol] 3.8 g/dL 3.5-5.7 [facility] Alkaline phosphatase [Enzyma tic activity/volume] in Serum or PlasmaOrdered By: Linda Mortensen on 06-26-2022 ALP [Catalytic activity/Vol] 83 U/L 34-104 [facility] Aspartate aminotransferase [ Enzymatic activity/volume] in Serum or PlasmaOrdered By: Linda Mortensen on 06-26-2022 AST [Catalytic activity/Vol] 15 U/L 13-39 [facility] Automated erythrocytes count in urine sediment (number/area)Ordered By: Linda Mortensen on 06-26-2022 RBC Auto (Urine sed) [#/Area] 1-2 [HPF] 0-4 [facility] Automated leukocytes count i n urine sediment (number/area)Ordered By: Linda Mortensen on 06-26-2022 WBC Auto (Urine sed) [#/Area] 10-19 [HPF] 0-4 [facility] Basophils Auto (Bld) [#/Vol] Ordered By: Linda Mortensen on 06-26-2022 Basophils (Bld) [#/Vol] 0.0 10*3/uL 0.0-0.2 [facility] Basophils/100 WBC Auto (Bld) Ordered By: Linda Mortensen on 06-26-2022 Basophils/100 WBC (Bld) 0.4 % . [facility] Bilirubin Test strip Ql (U)O rdered By: Linda Mortensen on 06-26-2022 Bilirubin Ql (U) Negative Negative [facility] Bilirubin.total [Mass/volume ] in Serum or PlasmaOrdered By: Linda Mortensen on 06-26-2022 Bilirubin [Mass/Vol] 0.4 mg/dL 0.3-1.0 [facility] Calcium [Mass/volume] in Ser um or PlasmaOrdered By: Linda Mortensen on 06-26-2022 Calcium [Mass/Vol] 9.1 mg/dL 8.6-10.3 [facility] Carbon dioxide, total [Moles /volume] in Serum or PlasmaOrdered By: Linda Mortensen on 06-26-2022 CO2 [Moles/Vol] 25.6 mmol/L 21.0-31.0 [facility] Chloride [Moles/volume] in S roma or PlasmaOrdered By: Linda Mortensen on 06-26-2022 Chloride [Moles/Vol] 104 mmol/L 98-107 [facility] Color Auto (U)Ordered By: Pedro Mortensen on 06-26-2022 Color (U) Yellow Yellow [facility] Complete Blood Count Auto Di ffon 06-26-2022 Basophils (Bld) [#/Vol] 0.0 10*3/uL Normal 0.0-0.2 [facility] Comment on above: Result Comment: PERF ORMED BY: [place] [address] PATHOLOGIST [employer] DELIV[employer] ANGIE RILEY M.D. Performed By: #### C MP, CBC, HS TROP #### [facility] [address] [place] [address] Basophils/100 WBC (Bld) 0.4 % Normal . [facility] Comment on above: Performed By: #### C MP, CBC, HS TROP #### [facility] [address] [place] [address] [place] Eosinophils (Bld) [#/Vol] 0.1 10*3/uL Normal 0.0-0.45 [facility] Comment on above: Performed By: #### C MP, CBC, HS TROP #### [facility] [address] [place] [address] [place] Eosinophils/100 WBC (Bld) 1.2 % Normal . [facility] Comment on above: Performed By: #### C MP, CBC, HS TROP #### [facility] [address] [place] [address] [place] Erythrocyte distribution width (RBC) [Ratio] 14.9 % Normal 11.9-15.3 [facility] Comment on above: Performed By: #### C MP, CBC, HS TROP #### [address] Hematocrit (Bld) [Volume fraction] 38.3 % Normal 34.0-46.4 [facility] Comment on above: Performed By: #### C MP, CBC, HS TROP #### [address] Hemoglobin (Bld) [Mass/Vol] 12.6 g/dL Normal 11.8-15.4 [facility] Comment on above: Performed By: #### C MP, CBC, HS TROP #### [address] Lymphocytes (Bld) [#/Vol] 3.0 10*3/uL Normal 1.00-4.8 [facility] Comment on above: Performed By: #### C MP, CBC, HS TROP #### [address] Lymphocytes/100 WBC (Bld) 34.2 % Normal . [facility] Comment on above: Performed By: #### C MP, CBC, HS TROP #### [address] MCH (RBC) [Entitic mass] 30.1 pg Normal 24.7-34.3 [facility] Comment on above: Performed By: #### C MP, CBC, HS TROP #### [address] MCV (RBC) [Entitic vol] 91.5 fL Normal 80-100 F [facility] Comment on above: Performed By: #### C MP, CBC, HS TROP #### [address] Mean Corpuscular HGB Conc 32.9 g/dL Normal 32.0-35.0 [facility] Comment on above: Performed By: #### C MP, CBC, HS TROP #### [address] [place] [address] [place] Monocytes (Bld) [#/Vol] 0.5 10*3/uL Normal 0.0-0.8 [facility] Comment on above: Performed By: #### C MP, CBC, HS TROP #### [facility] [address] [place] [address] [place] Monocytes/100 WBC (Bld) 19.04 % Normal 0.00-20.00 [facility] Comment on above: Performed By: #### C MP, CBC, HS TROP #### [facility] [address] [place] [address] [place] Monocytes/100 WBC (Bld) 5.7 % Normal . [facility] Comment on above: Performed By: #### C MP, CBC, HS TROP #### [facility] [address] [place] [address] [place] Neutrophils (Bld) [#/Vol] 5.1 10*3/uL Normal 1.8-7.7 [facility] Comment on above: Performed By: #### C MP, CBC, HS TROP #### [facility] [address] [place] [address] [place] Neutrophils/100 WBC (Bld) 58.5 % Normal . [facility] Comment on above: Performed By: #### C MP, CBC, HS TROP #### [facility] [address] [place] [address] [place] NRBC% 0.1 /100{WBC} Normal 0-0.5 [facility] Comment on above: Performed By: #### C MP, CBC, HS TROP #### [facility] [address] [place] [address] [place] Platelet mean volume (Bld) [Entitic vol] 7.6 fL Normal 6.3-10.7 [facility] Comment on above: Performed By: #### C MP, CBC, HS TROP #### [facility] [address] [place] [address] [place] Platelets (Bld) [#/Vol] 332 10*3/uL Normal 150-450 [facility] Comment on above: Performed By: #### C MP, CBC, HS TROP #### [facility] [address] RBC (Bld) [#/Vol] 4.19 10*6/uL Normal 3.60-5.00 [facility] Comment on above: Performed By: #### C MP, CBC, HS TROP #### [facility] [address] WBC (Bld) [#/Vol] 8.8 10*3/uL Normal 3.8-11.6 [facility] Comment on above: Performed By: #### C MP, CBC, HS TROP #### [facility] [address] [place] [address] Comprehensive Metabolic Pane segundo 06-26-2022 Albumin [Mass/Vol] 3.8 g/dL Normal 3.5-5.7 [facility] Comment on above: Performed By: #### C MP, CBC, HS TROP #### [address] Albumin/Globulin [Mass ratio] 1.1 {ratio} Normal [facility] Comment on above: Performed By: #### C MP, CBC, HS TROP #### [facility] [address] [place] [address] ALP [Catalytic activity/Vol] 83 U/L Normal 34-104 [facility] Comment on above: Performed By: #### C MP, CBC, HS TROP #### [facility] [address] [place] [address] ALT [Catalytic activity/Vol] 31 U/L Normal 7-52 [facility] Comment on above: Performed By: #### C MP, CBC, HS TROP #### [facility] [address] [place] [address] Anion gap [Moles/Vol] 10.4 mmol/L Normal 6.0-15.0 [facility] Comment on above: Performed By: #### C MP, CBC, HS TROP #### [facility] [address] [place] [address] AST [Catalytic activity/Vol] 15 U/L Normal 13-39 [facility] Comment on above: Performed By: #### C MP, CBC, HS TROP #### [facility] [address] Bilirubin [Mass/Vol] 0.4 mg/dL Normal 0.3-1.0 [facility] Comment on above: Performed By: #### C MP, CBC, HS TROP #### [facility] [address] Calcium [Mass/Vol] 9.1 mg/dL Normal 8.6-10.3 [facility] Comment on above: Performed By: #### C MP, CBC, HS TROP #### [facility] [address] Chloride [Moles/Vol] 104 mmol/L Normal 98-107 [facility] Comment on above: Performed By: #### C MP, CBC, HS TROP #### [facility] [address] CO2 [Moles/Vol] 25.6 mmol/L Normal 21.0-31.0 [facility] Comment on above: Performed By: #### C MP, CBC, HS TROP #### [facility] [address] Creatinine [Mass/Vol] 0.61 mg/dL Normal 0.60-1.20 [facility] Comment on above: Performed By: #### C MP, CBC, HS TROP #### [facility] [address] [place] [address] [place] Creatinine Clr Calc Pharmacy 160.48 Normal [facility] Comment on above: Result Comment: PERF ORMED BY: [place] [address] PATHOLOGIST [employer]IL [employer] DELIVERY ANGIE RILEY M.D. Performed By: #### C MP, CBC, HS TROP #### [address] GFR/1.73 sq M.predicted MDRD (S/P/Bld) [Vol rate/Area] mL/min/{1.73_m2} Normal [facility] Comment on above: Performed By: #### C MP, CBC, HS TROP #### [facility] [address] Globulin (S) [Mass/Vol] 3.5 g/dL Normal [facility] Comment on above: Performed By: #### C MP, CBC, HS TROP #### [facility] [address] Glucose [Mass/Vol] 81 mg/dL Normal 74-109 [facility] Comment on above: Result Comment: [facility] Glucose Reference Range is dependent on time and content of last meal. Glucose of more than 200 mg/dL in a nonstressed, ambulatory subject supports the diagnosis of Diabetes Mellitus. ADA recommended reference range Performed By: #### C MP, CBC, HS TROP #### [facility] [address] Potassium [Moles/Vol] 4.0 mmol/L Normal 3.5-5.1 [facility] Comment on above: Performed By: #### C MP, CBC, HS TROP #### [facility] [address] [place] [address] [place] Protein [Mass/Vol] 7.3 g/dL Normal 6.4-8.9 [facility] Comment on above: Performed By: #### C MP, CBC, HS TROP #### [facility] [address] [place] [address] [place] Sodium [Moles/Vol] 136 mmol/L Normal 136-145 [facility] Comment on above: Performed By: #### C MP, CBC, HS TROP #### [facility] [address] [place] [id number] [place] Urea nitrogen [Mass/Vol] 6 mg/dL Low 7-25 [facility] Comment on above: Performed By: #### C MP, CBC, HS TROP #### [facility] [address] [place] [id number] [place] Creatinine [Mass/volume] in Serum or PlasmaOrdered By: Linda Mortensen on 06-26-2022 Creatinine [Mass/Vol] 0.61 mg/dL 0.60-1.20 [facility] Dipstick and Microscopicon 0 06-26-2022 Appearance (U) Clear Normal Clear [facility] Comment on above: Order Comment: Name Collection Type:: Clean-Voided Midstream Performed By: #### A DDONUAPLUS, CUU, UHCG #### [facility] [address] [place] [address] Bacteria,Urine Rare High None Seen [facility] Comment on above: Order Comment: Name Collection Type:: Clean-Voided Midstream Performed By: #### A DDONUAPLUS, CUU, UHCG #### [facility] [address] [place] [address] [place] Bilirubin,Urine Negative Normal Negative [facility] Comment on above: Order Comment: Name Collection Type:: Clean-Voided Midstream Performed By: #### A DDONUAPLUS, CUU, UHCG #### [facility] [address] [place] [address] [place] Color (U) Yellow Normal Yellow [facility] Comment on above: Order Comment: Name Collection Type:: Clean-Voided Midstream Performed By: #### A DDONUAPLUS, CUU, UHCG #### [facility] [address] [place] [address] Glucose Ql (U) Normal Normal Normal [facility] Comment on above: Order Comment: Name Collection Type:: Clean-Voided Midstream Performed By: #### A DDONUAPLUS, CUU, UHCG #### [facility] [address] [place] [address] [place] Hyaline Casts,Urine 0-8 Normal 0-8 [facility] Comment on above: Order Comment: Name Collection Type:: Clean-Voided Midstream Performed By: #### A DDONUAPLUS, CUU, UHCG #### [facility] [address] [place] [address] [place] Ketones Ql (U) Trace High Negative [facility] Comment on above: Order Comment: Name Collection Type:: Clean-Voided Midstream Performed By: #### A DDONUAPLUS, CUU, UHCG #### [facility] [address] [place] [address] Leukocyte esterase Test strip Ql (U) 3+ High Negative [facility] Comment on above: Order Comment: Name Collection Type:: Clean-Voided Midstream Performed By: #### A DDONUAPLUS, CUU, UHCG #### [facility] [address] [place] [address] Nitrite,Urine Negative Normal Negative [facility] Comment on above: Order Comment: Name Collection Type:: Clean-Voided Midstream Performed By: #### A DDONUAPLUS, CUU, UHCG #### [address] Occult Blood,Urine Negative Normal Negative [facility] Comment on above: Order Comment: Name Collection Type:: Clean-Voided Midstream Performed By: #### A DDONUAPLUS, CUU, UHCG #### [address] pH (U) 6.0 [pH] Normal 5.0-9.0 [facility] Comment on above: Order Comment: Name Collection Type:: Clean-Voided Midstream Performed By: #### A DDONUAPLUS, CUU, UHCG #### [address] Protein,Urine Negative Normal Negative [facility] Comment on above: Order Comment: Name Collection Type:: Clean-Voided Midstream Performed By: #### A DDONUAPLUS, CUU, UHCG #### [facility] [address] [place] [address] [place] RBC,Urine 1-2 Normal 0-4 [facility] Comment on above: Order Comment: Name Collection Type:: Clean-Voided Midstream Performed By: #### A DDONUAPLUS, CUU, UHCG #### [facility] [address] [place] [address] Specificy [place],Urine 1.025 Normal 1.001-1.030 [facility] Comment on above: Order Comment: Name Collection Type:: Clean-Voided Midstream Performed By: #### A DDONUAPLUS, CUU, UHCG #### [facility] [address] [place] [address] Squamous Epithelial Cell,Urine 5-9 High 0-2 [facility] Comment on above: Order Comment: Name Collection Type:: Clean-Voided Midstream Performed By: #### A DDONUAPLUS, CUU, UHCG #### [address] Urobilinogen,Urine Normal Normal Normal [facility] Comment on above: Order Comment: Name Collection Type:: Clean-Voided Midstream Performed By: #### A DDONUAPLUS, CUU, UHCG #### [address] WBC,Urine 10-19 High 0-4 [facility] Comment on above: Order Comment: Name Collection Type:: Clean-Voided Midstream Performed By: #### A DDONUAPLUS, CUU, UHCG #### [address] Yeast,Urine Rare Critically abnormal None Seen [facility] Comment on above: Order Comment: Name Collection Type:: Clean-Voided Midstream Performed By: #### A DDONUAPLUS, CUU, UHCG #### [facility] [address] [place] [address] ECG 12 lead ECGon 06-26-2022 ECG 12 lead ECG [facility] [place] [address] [place] [address] Electrocardiograph Report Signed Patient: Kylie Cabrera MR#: [id number] : 1995 Acct:[id number] Age/Sex: 27 / F ADM Date: 06/26/22 Loc: ER Room: Type: BROADWAY [facility] Att[facility]: Ordering Provider: Linda [...] sinus rhythm Confirmed by Eugene Boggs DO ([id number]) on 06/26/2022 5:16:19 PM Referred By: Electronically Signed By:Eugene Boggs DO Transcribed By: MUS Signed By Eugene Boggs DO [id number] Normal [facility] Eosinophils Auto (Bld) [#/Vo l]Ordered By: Linda Mortensen on 06-26-2022 Eosinophils (Bld) [#/Vol] 0.1 10*3/uL 0.0-0.45 [facility] Eosinophils/100 WBC Auto (Bl d)Ordered By: Linda Mortensen on 06-26-2022 Eosinophils/100 WBC (Bld) 1.2 % . [facility] Erythrocyte distribution wid th Auto (RBC) [Ratio]Ordered By: Linda Mortensen on 06-26-2022 Erythrocyte distribution width (RBC) [Ratio] 14.9 % 11.9-15.3 [facility] Globulin Calc (S) [Mass/Vol] Ordered By: Linda Mortensen on 06-26-2022 Globulin (S) [Mass/Vol] 3.5 g/dL [facility] Glucose [Mass/volume] in Ser um or PlasmaOrdered By: Linda Mortensen on 06-26-2022 Glucose [Mass/Vol] 81 mg/dL 74-109 [facility] Comment on above: ADA recommended refe rence rangeRandom Glucose Reference Range is dependent on time and content of last meal. Glucose of more than 200 mg/dL in a nonstressed, ambulatory subject supports the diagnosis of Diabetes Mellitus. HCG ( test) Arjun lai Ql (U)Ordered By: Linda Mortensen on 06-26-2022 HCG ( test) Ql (U) Positive [facility] HCG,Urineon 06-26-2022 Beta HCG ( test) Ql (U) Positive High [facility] Comment on above: Order Comment: Name Collection Type:: Clean-Voided Midstream Result Comment: PERF ORMED BY: [facility] [address] [place] [address] PATHOLOGIST [employer] ANGIE RILEY M.D. Performed By: #### A AMIRA DIAZ [facility] [place] #### [address] Hematocrit Auto (Bld) [Volum e fraction]Ordered By: Linda Mortensen on 06-26-2022 Hematocrit (Bld) [Volume fraction] 38.3 % 34.0-46.4 [facility] Hemoglobin [Mass/volume] in BloodOrdered By: Linda Mortensen on 06-26-2022 Hemoglobin (Bld) [Mass/Vol] 12.6 g/dL 11.8-15.4 [facility] Ketones Auto test strip (U) [Mass/Vol]Ordered By: Linda Mortensen on 06-26-2022 Ketones (U) [Mass/Vol] Trace Negative [facility] Laboratory - Chemistry and C hemistry - challengeOrdered By: Linda Mortensen on 06-26-2022 GFR/1.73 sq M.predicted MDRD (S/P/Bld) [Vol rate/Area] mL/min/{1.73_m2} [facility] - UrinalysisOrder ed By: Linda Mortensen on 06-26-2022 Hyaline casts LM Ql (Urine sed) 0-8 [LPF] 0-8 [facility] Leukocytes [#/volume] correc jessica for nucleated erythrocytes in Blood by Automated counOrdered By: Linda Mortensen on 06-26-2022 WBC corrected for nucl RBC Auto (Bld) [#/Vol] 8.8 10*3/uL 3.8-11.6 [facility] Lymphocytes Auto (Bld) [#/Vo l]Ordered By: Linda Mortensen on 06-26-2022 Lymphocytes (Bld) [#/Vol] 3.0 10*3/uL 1.00-4.8 [facility] Lymphocytes/100 WBC Auto (Bl d)Ordered By: Linda Mortensen on 06-26-2022 Lymphocytes/100 WBC (Bld) 34.2 % . [facility] MCH Auto (RBC) [Entitic mass ]Ordered By: Linda Mortensen on 06-26-2022 MCH (RBC) [Entitic mass] 30.1 pg 24.7-34.3 [facility] MCHC Auto (RBC) [Mass/Vol]Or dered By: Linda Mortensen on 06-26-2022 MCHC (RBC) [Mass/Vol] 32.9 g/dL 32.0-35.0 [facility] MCV Auto (RBC) [Entitic vol] Ordered By: Linda Mortensen on 06-26-2022 MCV (RBC) [Entitic vol] 91.5 fL 80-100 F [facility] Monocyte distribution width [Entitic volume] in Blood by AutomatedOrdered By: Linda Mortensen on 06-26-2022 Monocyte distribution width Auto (Bld) [Entitic vol] 19.04 % 0.00-20.00 [facility] Monocytes Auto (Bld) [#/Vol] Ordered By: Linda Mortensen on 06-26-2022 Monocytes (Bld) [#/Vol] 0.5 10*3/uL 0.0-0.8 [facility] Monocytes/100 WBC Auto (Bld) Ordered By: Linda Mortensen on 06-26-2022 Monocytes/100 WBC (Bld) 5.7 % . F [facility] Neutrophils Auto (Bld) [#/Vo l]Ordered By: Linda Mortensen on 06-26-2022 Neutrophils (Bld) [#/Vol] 5.1 10*3/uL 1.8-7.7 [facility] Neutrophils/100 WBC Auto (Bl d)Ordered By: Linda Mortensen on 06-26-2022 Neutrophils/100 WBC (Bld) 58.5 % . [facility] Nitrite Test strip Ql (U)Ord ered By: Linda Mortensen on 06-26-2022 Nitrite Ql (U) Negative Negative [facility] No Panel InformationOrdered By: Linda Mortensen on 06-26-2022 Pharmacy Creatinine Clearance (Chem 160.48 [facility] Nucleated erythrocytes [Pres ence] in Blood by Automated countOrdered By: Linda Mortensen on 06-26-2022 Nucleated RBC Auto Ql (Bld) 0.1 /100{WBC} 0-0.5 [facility] Platelet mean volume Auto (B ld) [Entitic vol]Ordered By: Linda Mortensen on 06-26-2022 Platelet mean volume (Bld) [Entitic vol] 7.6 fL 6.3-10.7 [facility] Platelets Auto (Bld) [#/Vol] Ordered By: Linda Mortensen on 06-26-2022 Platelets (Bld) [#/Vol] 332 10*3/uL 150-450 [facility] Potassium [Moles/volume] in Serum or PlasmaOrdered By: Linda Mortensen on 06-26-2022 Potassium [Moles/Vol] 4.0 mmol/L 3.5-5.1 [facility] Protein Auto test strip (U) [Mass/Vol]Ordered By: Linda Mortensen on 06-26-2022 Protein (U) [Mass/Vol] Negative Negative [facility] Protein [Mass/volume] in Ser um or PlasmaOrdered By: Linda Mortensen on 06-26-2022 Protein [Mass/Vol] 7.3 g/dL 6.4-8.9 [facility] RBC Auto (Bld) [#/Vol]Ordere d By: Linda Mortensen on 06-26-2022 RBC (Bld) [#/Vol] 4.19 10*6/uL 3.60-5.00 [facility] Serum or plasma albumin/glob ulin mass ratioOrdered By: Linda Mortensen on 06-26-2022 Albumin/Globulin [Mass ratio] 1.1 {ratio} [facility] Serum or plasma anion gap de terminationOrdered By: Linda Mortensen on 06-26-2022 Anion gap [Moles/Vol] 10.4 mmol/L 6.0-15.0 [facility] Sodium [Moles/volume] in Ser um or PlasmaOrdered By: Linda Mortensen on 06-26-2022 Sodium [Moles/Vol] 136 mmol/L 136-145 [facility] Specific gravity Auto test s trip (U) [Rel density]Ordered By: Linda Mortensen on 06-26-2022 Specific gravity (U) [Rel density] 1.025 1.001-1.030 [facility] Squamous epithelial cells de tection in urine sediment by light microscopyOrdered By: Linda Mortensen on 06-26-2022 Epithelial cells.squamous LM Ql (Urine sed) 5-9 [HPF] 0-2 [facility] Troponin I High Sensitivityo n 06-26-2022 Troponin I High Sensitivity < 2.3 Normal 0.0-15.0 [facility] Comment on above: Result Comment: PERF ORMED BY: [place] [address] PATHOLOGIST [employer] DELIVERY ANGIE RILEY M.D. Performed By: #### C MP, CBC, HS TROP #### [facility] [address] [place], [place] [id number] [facility] Troponin I.cardiac [Mass/vol ume] in Serum or Plasma by Detection limit <= 0.01 ng/Ordered By: Linda Mortensen on 06-26-2022 Troponin I.cardiac DL <= 0.01 ng/mL [Mass/Vol] < 2.3 pg/mL 0.0-15.0 [facility] Urea nitrogen [Mass/volume] in Serum or PlasmaOrdered By: Linda Mortensen on 06-26-2022 Urea nitrogen [Mass/Vol] 6 mg/dL 7-25 [facility] Urine Cultureon 06-26-2022 Bacteria identified Cx Nom (U) 50,000 colonies/ml mixed bacterial skin contaminants 2 Days PERFORMED BY: [place] [address] PATHOLOGIST [employer] DELIVERY ANGIE RILEY M.D. Normal [facility] Comment on above: Performed By: #### A ZAIN DIAZU, LINNG #### [facility] [address] [place], [place] [id number] [facility] Urine bacteria detection by automated methodOrdered By: Linda Mortensen on 06-26-2022 Bacteria Auto Ql (U) Rare None Seen [facility] Urine clarity by refractomet ry automatedOrdered By: Linda Mortensen on 06-26-2022 Clarity Refractometry automated (U) Clear Clear [facility] Urine culture routineOrdered By: Linda Mortensen on 06-26-2022 Bacteria identified Cx Nom (U) 2 Days [facility] Urine glucose measurement by automated test strip (mass/volume)Ordered By: Linda Mortensen on 06-26-2022 Glucose Auto test strip (U) [Mass/Vol] Normal mg/dL Normal [facility] Urine hemoglobin detection b y automated test stripOrdered By: Linda Mortensen on 06-26-2022 Hemoglobin Auto test strip Ql (U) Negative Negative [facility] Urine leukocyte esterase det ection by automated test stripOrdered By: Linda Mortensen on 06-26-2022 Leukocyte esterase Auto test strip Ql (U) 3+ Negative [facility] Urobilinogen Auto test strip (U) [Mass/Vol]Ordered By: Linda Mortensen on 06-26-2022 Urobilinogen (U) [Mass/Vol] Normal mg/dL Normal [facility] WBC Auto (Bld) [#/Vol]Ordere d By: Linda Mortensen on 06-26-2022 WBC (Bld) [#/Vol] 8.8 10*3/uL 3.8-11.6 [facility] Yeast detection in urine sed iment by light microscopyOrdered By: Linda Mortensen on 06-26-2022 Yeast LM Ql (Urine sed) Rare [HPF] None Seen F [facility] pH Auto test strip (U)Ordere d By: Linda Mortensen on 06-26-2022 pH (U) 6.0 [pH] 5.0-9.0 [facility] US PREG TVon 06-08-2022 US PREG [...] BRYAN DE SOUZA Date: 2022-06-08 15:07 Normal [facility] Vital Signs Date Time Vital Sign Value Performing Clinician Chase cramona 05-10-2024 08:58-0500 Body height 162.6 cm Elzbieta Forbesjas [employer] Work Phone: [facility] 05-10-2024 08:58-0500 Body mass index (BMI) [Ratio] 35.5 kg/m2 Elzbieta Vanessa [employer] Work Phone: [facility] 05-10-2024 08:58-0500 Body temperature 100 [degF] Elzbieta Vanessa [employer] Work Phone: [facility] 05-10-2024 08:58-0500 Body weight 93.8 kg Elzbieta Vanessa [employer] Work Phone: [facility] 05-10-2024 08:58-0500 Diastolic blood pressure 76 mm[Hg] Elzbieta Vanessa [employer] Work Phone: [facility] 05-10-2024 08:58-0500 Heart rate 116 /min Elzbieta Forbesjas [employer] Work Phone: [facility] 05-10-2024 08:58-0500 SaO2% (BldA) [Mass fraction] 97 % Elzbieta Vanessa [employer] Work Phone: [facility] 05-10-2024 08:58-0500 Systolic blood pressure 120 mm[Hg] Elzbieta Vanessa [employer] Work Phone: [facility] 01-31-2024 10:07-0400 Body mass index (BMI) [Ratio] 36.01 kg/m2 Elzbieta Vanessa [employer] Work Phone: [facility] 01-31-2024 10:07-0400 Body temperature 97 [degF] Elzbieta Vanessa [employer] Work Phone: [facility] 01-31-2024 10:07-0400 Body weight 95.17 kg Elzbieta Vanessa [employer] Work Phone: [facility] 01-31-2024 10:07-0400 Diastolic blood pressure 64 mm[Hg] Elzbieta Vanessa [employer] Work Phone: [facility] 01-31-2024 10:07-0400 Heart rate 64 /min Elzbieta Vanessa [employer] Work Phone: [facility] 01-31-2024 10:07-0400 SaO2% (BldA) [Mass fraction] 99 % Elzbietagino Vanessa [employer] Work Phone: [facility] 01-31-2024 10:07-0400 Systolic blood pressure 116 mm[Hg] Elzbieta Vanessa [employer] Work Phone: [facility] 06-26-2022 13:30-0400 Diastolic blood pressure 71 mm[Hg] PHYSICIAN NO [facility] 06-26-2022 13:30-0400 Heart rate 80 /min PHYSICIAN NO [facility] 06-26-2022 13:30-0400 Respiratory rate 18 /min PHYSICIAN NO [facility] 06-26-2022 13:30-0400 SaO2% (BldA) [Mass fraction] 99 % PHYSICIAN NO [facility] 06-26-2022 13:30-0400 Systolic blood pressure 112 mm[Hg] PHYSICIAN NO [facility] 06-26-2022 11:13-0400 Body height 162.56 cm PHYSICIAN NO [facility] 06-26-2022 11:13-0400 Body temperature 98.7 [degF] PHYSICIAN NO [facility] 06-26-2022 11:13-0400 Body weight 99.79 kg PHYSICIAN NO [facility] Encounters Encounter Date Encounter Type Care Provider Facility Start: 01-22-2025 End: 01-22-2025 Bamboo flowsheet Pipo Claudia DO Work Phone: [facility] Start: 01-22-2025 End: 01-22-2025 Bamboo flowsheet Pipo Claudia DO Work Phone: [facility] Start: 01-09-2025 End: 01-09-2025 ambulatory Cathy King Facility:[facility] Start: 09-14-2024 End: 09-14-2024 ambulatory Cathy King Facility:[facility] Start: 09-14-2024 End: 09-14-2024 Patient encounter procedure Cathy King [facility] Start: 08-25-2024 End: 08-25-2024 ambulatory Karrie Mock EDUIN Facility:[facility] Start: 05-10-2024 End: 05-10-2024 ambulatory [facility] Start: 05-10-2024 End: 05-10-2024 Office outpatient visit 15 minutes Elzbieta Vanessa [employer] Work Phone: [facility] Comment on above: Fever, unspecified f ever cause (Primary Dx) Start: 01-31-2024 End: 01-31-2024 Office outpatient new 45 minutes Elzbieta Vanessa [employer] Work Phone: [facility] Comment on above: Anxiety and depressi on (Primary Dx); Encounter to establish care; Tension headache Start: 01-31-2024 End: 01-31-2024 ambulatory [facility] Start: 10-04-2023 End: 10-04-2023 Emergency department patient visit NO PCP NO PCP [facility] Start: 08-30-2023 End: 08-30-2023 Emergency department patient visit NO PCP NO PCP [facility] Start: 07-21-2023 End: 07-21-2023 ambulatory PIPO CLAUDIA Not Available Start: 05-31-2023 End: 05-31-2023 ambulatory JOHNNY BETANCOURT Not Available Start: 05-14-2023 Clinisync Result Encounter Pipo Claudia DO Work Phone: [facility] External [facility] Unsolicited Start: 05-14-2023 Clinisync Result Encounter Pipo Claudia DO Work Phone: [facility] External Department Unsolicited Start: 05-14-2023 End: 05-14-2023 ambulatory Pipo Claudia Facility:[facility] Start: 04-14-2023 End: 04-14-2023 ambulatory PIPO CLAUDIA Not Available Start: 03-08-2023 End: 03-08-2023 ambulatory PIPO CLAUDIA Not Available Start: 03-01-2023 End: 03-01-2023 ambulatory None Provider Facility:[facility] Start: 09-02-2022 End: 09-02-[address] PIPO TAYLOR . Facility:[facility] Start: 07-04-2022 End: 07-05-[address] PIPO TAYLOR . Facility:[facility] Start: 07-03-2022 End: 07-03-2022 ambulatory PHYSICIAN NO FAMILY Facility:[facility] Start: 07-03-2022 End: 07-03-[address] [facility] Work Phone: Start: 07-03-2022 End: 07-03-2022 Patient encounter procedure PHYSICIAN NO [facility] Start: 07-02-2022 End: 07-02-2022 ambulatory PHYSICIAN NO FAMILY Facility:[facility] Start: 07-02-2022 End: 07-02-[address] [facility] Work Phone: Start: 07-02-2022 End: 07-02-2022 Patient encounter procedure PHYSICIAN NO [facility] [place] Work Phone: Start: 06-26-2022 End: 06-26-2022 Emergency department patient visit Linda Mortensen Facility:[facility] Start: 06-26-2022 End: 06-26-2022 Emergency department patient visit PHYSICIAN NO FAMILY [facility] Work Phone: Start: 06-04-2022 End: 06-05-[address] PIPO TAYLOR . Facility: Procedures Date Procedure Procedure Detail Performing Clinician Start: 05-10-2024 POCT XPERT, XPRESS C OV-2, FLU, RSV PLUS (CEPHEID) Elzbieta Vanessa [facility] Work Phone: Start: 05-10-2024 Adult depression scr eening assessment Elzbieta Vanessa [facility] Work Phone: Start: 01-31-2024 Adult depression scr eening assessment Elzbietagino Vanessa [facility] Work Phone: Start: 05-14-2023 ALL CBC WITH AUTO DIFF Pipo Taylor DO Work Phone: Start: 04-14-2023 Microscopic observat ion [Identifier] in Cervix by Cyto stain Elzbieta Vanessa [employer] [facility] [facility] Work Phone: Start: 07-03-2022 SARS Antigen (LFIA) RAMAKRISHNA BONILLA NO FAMILY Start: 07-02-2022 Antibody screen Pipo Norma jace Comment on above: Result Comment: PERF ORMED BY: [facility] [address] [place] [address] PATHOLOGIST [employer] DELIVERY ANGIE RILEY M.D. Start: 06-26-2022 Urine culture PHYSICIAN NO FAMILY Plan of Treatment Date Care Activity Detail Author Start: 05-16-2029 DTaP,Tdap and Td Vaccines (7 - Td or Tdap) DTaP,Tdap and Td Vaccines (7 - Td or Tdap) [facility] Start: 04-14-2026 Screening for malign ant neoplasm of cervix Pap Smear [facility] Start: 05-10-2025 Adult BMI Screening Adult BMI Screen ing [facility] Start: 05-10-2025 Depression Screening Depression Scre ening [facility] Start: 05-10-2025 Tobacco Screening Tobacco Screening [facility] Start: 01-30-2025 Adult BMI Screening Adult BMI Screen ing [facility] Start: 01-30-2025 Depression Screening Depression Scre ening [facility] Start: 01-30-2025 Tobacco Screening Tobacco Screening [facility] Start: 01-22-2025 End: 01-22-2025 Patient encounter procedure 01/22/2025 4:00 PM EDT Office Visit MELVA TONG [address] [place] [address] Pipo Taylor, DO [address] [place] [address] Arrived MELVA TONG Comment on above: Arrived Start: 12-04-2024 Influenza vaccination Influenza Vacc ine (#1) [facility] Start: 06-22-2024 End: 06-22-2024 Patient encounter procedure 06/22/2024 8:40 AM EDT Office Visit [facility] [address] [place] [address], [place] [phone] Elzbieta Vanessa [employer] [address] [place] [address] [place] [phone] [facility] [place] Start: 05-10-2024 End: 05-10-2024 Patient encounter procedure 05/10/2024 8:40 AM EST Office Visit [facility] [address] [place] [phone] Elzbieta Vanessa, [employer] [address] [place] [address] [place] [phone] [facility] Start: 04-25-2024 End: 04-25-2024 Patient encounter procedure 04/25/2024 2:00 PM EST Office Visit [facility] [address] [place] [phone] Pipo Taylor, DO [address] [place] [address] [facility] Start: 12-05-2023 COVID-19 Vaccine ( season) COVID-19 Vaccine ( season) [facility] Start: 12-05-2023 Influenza vaccination Influenza Vacc ine [facility] Start: 12-04-2022 Influenza vaccination Influenza Vacc ine (#1) [facility] Start: 07-02-2022 Bacteria identified in Urine by Culture Urine Culture [facility] Start: 07-02-2022 [address] Urine Culture [facility] Start: 07-02-2022 Rubella IgG measurement [facility] Start: 07-02-2022 [facility] Start: 06-26-2022 Bacteria identified in Urine by Culture [facility] Start: 2014 Adult BMI Follow Up Plan Adult BMI Follow Up Plan [facility] Patient Education Urinary Tract Infections in [facility] Work Phone: Patient referral [facility] Work Phone: Immunizations Immunization Date Immunization Notes Care Provider Fa cili 01-09-2025 influenza virus vaccine, unspecified formulation Pipo Taylor DO Work Phone: [facility] 01-31-2024 influenza virus vaccine, unspecified formulation Cathy King [facility] 01-31-2024 varicella virus vaccine Cathy King [facility] 05-27-2022 influenza virus vaccine, unspecified formulation Pipo Claudia DO Work Phone: [facility] 06-30-2021 SARS-CoV-2 mRNA (zbounuulriw-qvdz-jbty ose) vaccine Cathy King [facility] 06-10-2021 SARS-CoV-2 mRNA (rcuzqlxygiv-rnrd-vlok ose) vaccine Cathy King [facility] 05-16-2019 tetanus toxoid, reduced diphtheria toxoid, and acellular pertussis vaccine, adsorbed Elzbieta Vanessa [employer] Work Phone: [facility] 11-16-2001 measles, mumps and rubella virus vaccine Cathy King [facility] 05-25-2001 DTaP, unspecified formulation Cathy King [facility] 05-25-2001 poliovirus vaccine, unspecified formulation Cathy King [facility] 06-20-1997 DTaP, unspecified formulation Cathy King [facility] 06-20-1997 Hib, unspecified formulation Cathy King [facility] 05-16-1997 measles, mumps and rubella virus vaccine Cathy King [facility] 05-16-1997 varicella virus vaccine Cathy King [facility] 1996 DTaP, unspecified formulation Cathy King [facility] 1996 hepatitis B vaccine, pediatric or pediatric/adolescent dosage Cathy King [facility] 1996 Hib, unspecified formulation Cathy King [facility] 1996 DTaP, unspecified formulation Cathy King [facility] 1996 hepatitis B vaccine, pediatric or pediatric/adolescent dosage Cathy King [facility] 1996 Hib, unspecified formulation Cathy Clark [facility] 1996 DTaP, unspecified formulation Cathy Clark [facility] 1996 Hib, unspecified formulation Cathy Clark [facility] 1996 DTaP, unspecified formulation Cathy Clark [facility] 1996 hepatitis B vaccine, pediatric or pediatric/adolescent dosage Cathy Clark [facility] 1996 Hib, unspecified formulation Cathy Clark [facility] 1996 hepatitis B vaccine, pediatric or pediatric/adolescent dosage Cathy King [facility] Payers Date Payer Category Payer Medicaid [id number] 2022 Medicaid (Managed Care) [employer] [id number] 2022 Self-pay 2019 Medicaid [place] [employer] [id number] 1996 Unknown [id number] [id number]. 593 1996 Unknown [id number] 2.16.840.1.449424.3.579.2. 593 1996 Unknown [id number] 2.16.840.1.907094.3.579.2. 593 1996 Unknown [id number] 2.16.840.1.277733.3.579.2. 718 1996 Unknown [id number] 2.16.840.1.320039.3.579.2. 1259 1996 Unknown [id number] 2.16.840.1.420771.3.579.2. 1259 1996 Unknown [id number] 2.16.840.1.635945.3.579.2. 1259 1996 Unknown [id number] 2.16.840.1.854584.3.579.2. 1259 1996 Unknown [id number] 2.16.840.1.977735.3.579.2. 1286 1996 Unknown [id number] 2.16.840.1.265401.3.579.2. 1286 1996 Unknown [id number] 2.16.840.1.490929.3.579.2. 6 1996 Unknown [id number] 2.16.840.1.438583.3.579.2. 1286 1996 Unknown [id number] 2.16.840.1.692853.3.579.2. 727 1959 Medicaid [id number] Medicaid [place] [employer] [id number] Unknown [id number] Unknown [id number] Unknown [id number] Unknown [id number] Social History Date Type Detail Facility Start: 06-26-2022 End: 09-30-2022 Tobacco smoking status NEIS Never smoked tobacco (finding) [facility] Start: 1995 Sex Assigned At Female F [facility] Start: 09-22-2022 End: 09-30-2022 Tobacco use and exposure Smokeless tobacco non-user [facility] Start: 04-14-2023 End: 07-21-2023 Alcohol intake Lifetime non-drinker (finding) [facility] Start: 09-30-2022 End: 07-21-2023 History of Social function [facility] Start: 09-30-2022 End: 07-21-2023 Tobacco use panel [facility] Start: 08-26-2022 Gender identity Identifies as female gender (finding) [facility] Start: 01-31-2024 End: 05-10-2024 Alcoholic beverage intake Ex-drinker (finding) [facility] How hard is it for y ou to pay for the very basics like food, housing, medical care, and heating Not very hard [facility] Start: 06-17-2022 Adolescent depressio n screening assessment 0 [facility] Start: 05-16-2019 Alcohol Comment rarely [facility] Start: 1995 Sex assigned at Not on file [facility] Start: 11-08-2014 End: 01-10-2015 Sex Female (finding) [employer] Sexual Orientation [facility] Goals Date Patient Goal Desired Activity /State Personal health goal Clinical Notes 03-01-2023 to 09-14-2024 Elzbieta VanessaBAKARI[employer] [facility] - 05/10/2024 8:40 AM Ignacio VanessaBAKARI[employer] [facility] - 01/31/2024 10:00 AM EDT Note Date & Type Note Facility 09-14-2024 Hospital Discharg e instructions Patient Education 09/14/2024 12:46:08 Sinus Infection, Adult Sinus Infection, Adult A sinus infection, also called sinusitis, is inflammation of your sinuses. Sinuses are hollow spaces in the bones around your face. Your sinuses are located: Around your eyes. In the middle of your forehead. Behind your nose. In your cheekbones. Mucus normally drains out of your sinuses. When your nasal tissues become inflamed or swollen, mucus can become trapped or blocked. This allows bacteria, viruses, and fungi to grow, which leads to infection. Most infections of the sinuses are caused by a virus. A sinus infection can develop quickly. It can last for up to 4 weeks (acute) or for more than 12 weeks (chronic). A sinus infection often develops after a cold. What are the causes? This condition is caused by anything that creates swelling in the sinuses or stops mucus from draining. This includes: Allergies. Asthma. Infection from bacteria or viruses. Deformities or blockages in your nose or sinuses. Abnormal growths in the nose (nasal polyps). Pollutants, such as chemicals or irritants in the air. Infection from fungi. This is rare. What increases the risk? You are more likely to develop this condition if you: Have a weak body defense system (immune system). Do a lot of swimming or diving. Overuse nasal sprays. Smoke. What are the signs or symptoms? The main symptoms of this condition are pain and a feeling of pressure around the affected sinuses. Other symptoms include: Stuffy nose or congestion that makes it difficult to breathe through your nose. Thick yellow or greenish drainage from your nose. Tenderness, swelling, and warmth over the affected sinuses. A cough that may get worse at night. Decreased sense of smell and taste. Extra mucus that collects in the throat or the back of the nose (postnasal drip) causing a sore throat or bad breath. Tiredness (fatigue). Fever. How is this diagnosed? This condition is diagnosed based on: Your symptoms. Your medical history. A physical exam. Tests to find out if your condition is acute or chronic. This may include: ?Checking your nose for nasal polyps. ?Viewing your sinuses using a device that has a light (endoscope). ?Testing for allergies or bacteria. ?Imaging tests, such as an MRI or CT scan. In rare cases, a bone biopsy may be done to rule out more serious types of fungal sinus disease. How is this treated? Treatment for a sinus infection depends on the cause and whether your condition is chronic or acute. If caused by a virus, your symptoms should go away on their own within 10 days. You may be given medicines to relieve symptoms. They include: ?Medicines that shrink swollen nasal passages (decongestants). ?A spray that eases inflammation of the nostrils (topical intranasal corticosteroids). ?Rinses that help get rid of thick mucus in your nose (nasal saline washes). ?Medicines that treat allergies (antihistamines). ?Hnvk-yqo-oosrtrv pain relievers. If caused by bacteria, your health care provider may recommend waiting to see if your symptoms improve. Most bacterial infections will get better without antibiotic medicine. You may be given antibiotics if you have: ?A severe infection. ?A weak immune system. If caused by narrow nasal passages or nasal polyps, surgery may be needed. Follow these instructions at home: Medicines Take, use, or apply hvzr-ygy-veywhgv and prescription medicines only as told by your health care provider. These may include nasal sprays. If you were prescribed an antibiotic medicine, take it as told by your health care provider. Do not stop taking the antibiotic even if you start to feel better. Hydrate and humidify Drink enough fluid to keep your urine pale yellow. Staying hydrated will help to thin your mucus. Use a cool mist humidifier to keep the humidity level in your home above 50%. Inhale steam for 10 15 minutes, 3 4 times a day, or as told by your health care provider. You can do this in the bathroom while a hot shower is running. Limit your exposure to cool or dry air. Rest Rest as much as possible. Sleep with your head raised (elevated). Make sure you get enough sleep each night. General instructions Apply a warm, moist washcloth to your face 3 4 times a day or as told by your health care provider. This will help with discomfort. Use nasal saline washes as often as told by your health care provider. Wash your hands often with soap and water to reduce your exposure to germs. If soap and water are not available, use hand film processing shift supervisor. Do not smoke. Avoid being around people who are smoking (secondhand smoke). Keep all follow-up visits. This is important. Contact a health care provider if: You have a fever. Your symptoms get worse. Your symptoms do not improve within 10 days. Get help right away if: You have a severe headache. You have persistent vomiting. You have severe pain or swelling around your face or eyes. You have vision problems. You develop confusion. Your neck is stiff. You have trouble breathing. These symptoms may be an emergency. Get help right away. Call 911. Do not wait to see if the symptoms will go away. Do not drive yourself to the hospital. Summary A sinus infection is soreness and inflammation of your sinuses. Sinuses are hollow spaces in the bones around your face. This condition is caused by nasal tissues that become inflamed or swollen. The swelling traps or blocks the flow of mucus. This allows bacteria, viruses, and fungi to grow, which leads to infection. If you were prescribed an antibiotic medicine, take it as told by your health care provider. Do not stop taking the antibiotic even if you start to feel better. Keep all follow-up visits. This is important. This information is not intended to replace advice given to you by your health care provider. Make sure you discuss any questions you have with your health care provider. Document Revised: 02/24/2022 Document Reviewed: 02/24/2022 [employer] Patient Education 2023 [employer]. 09/14/2024 12:46:07 How to Perform a Sinus Rinse How to Perform a Sinus Rinse A sinus rinse is a home treatment that is used to rinse your sinuses with a germ-free (sterile) mixture of salt and water (saline solution). Sinuses are air-filled spaces in your skull that are behind the bones of your face and forehead. They open into your nasal cavity. A sinus rinse can help to clear mucus, dirt, dust, or pollen from your nasal cavity. You may do a sinus rinse when you have a cold, a virus, nasal allergy symptoms, a sinus infection, or stuffiness in your nose or sinuses. What are the risks? A sinus rinse is generally safe and effective. However, there are a few risks, which include: A burning sensation in your sinuses. This may happen if you do not make the saline solution as directed. Be sure to follow all directions when making the saline solution. Nasal irritation. Infection. This may be from unclean supplies or from contaminated water. Infection from contaminated water is rare, but possible. Do not do a sinus rinse if you have had ear or nasal surgery, ear infection, or plugged ears, unless recommended by your health care provider. Supplies needed: Saline solution or powder. Distilled or sterile water to mix with saline powder. ?You may use boiled and cooled tap water. Boil tap water for 5 minutes; cool until it is lukewarm. Use within 24 hours. ?Do not use regular tap water to mix with the saline solution. Neti pot or nasal rinse bottle. These supplies release the saline solution into your nose and through your sinuses. Neti pots and nasal rinse bottles can be purchased at your local pharmacy, a [employer] store, or online. How to perform a sinus rinse 1.Wash your hands with soap and water for at least 20 seconds. If soap and water are not available, use hand film processing shift supervisor. 2.Wash your device according to the directions that came with the product and then dry it. 3.Use the solution that comes with your product or one that is sold separately in stores. Follow the mixing directions on the package to mix with sterile or distilled water. 4.Fill the device with the amount of saline solution noted in the device instructions. 5.Stand by a sink and tilt your head sideways over the sink. 6.Place the spout of the device in your upper nostril (the one closer to the ceiling). 7.Gently pour or squeeze the saline solution into your nasal cavity. The liquid should drain out from the lower nostril if you are not too congested. 8.While rinsing, breathe through your open mouth. 9.Gently blow your nose to clear any mucus and rinse solution. Blowing too hard may cause ear pain. 10.Turn your head in the other direction and repeat in your other nostril. 11.Clean and rinse your device with clean water and then air-dry it. Talk with your health care provider or pharmacist if you have questions about how to do a sinus rinse. Summary A sinus rinse is a home treatment that is used to rinse your sinuses with a sterile mixture of salt and water (saline solution). You may do a sinus rinse when you have a cold, a virus, nasal allergy symptoms, a sinus infection, or stuffiness in your nose or sinuses. A sinus rinse is generally safe and effective. Follow all instructions carefully. This information is not intended to replace advice given to you by your health care provider. Make sure you discuss any questions you have with your health care provider. Document Revised: 09/08/2021 Document Reviewed: 09/08/2021 [employer] Patient Education 2023 [employer]. Follow Up Care 09/14/2024 12:03:16 With:Darshana Jaramillo Address: When: Unknown With:NONE, XXXX Address:Unknown When: Unknown [facility] 09-14-2024 Note Patient Education ENT How to Perform a Sinus Rinse A sinus rinse is a home treatment that is used to rinse your sinuses with a germ-free (sterile) mixture of salt and water (saline solution). Sinuses are air-filled spaces in your skull that are behind the bones of your face and forehead. They open into your nasal cavity. A sinus rinse can help to clear mucus, dirt, dust, or pollen from your nasal cavity. You may do a sinus rinse when you have a cold, a virus, nasal allergy symptoms, a sinus infection, or stuffiness in your nose or sinuses. What are the risks? A sinus rinse is generally safe and effective. However, there are a few risks, which include: ??? A burning sensation in your sinuses. This may happen if you do not make the saline solution as directed. Be sure to follow all directions when making the saline solution. ??? Nasal irritation. ??? Infection. This may be from unclean supplies or from contaminated water. Infection from contaminated water is rare, but possible. Do not do a sinus rinse if you have had ear or nasal surgery, ear infection, or plugged ears, unless recommended by your health care provider. Supplies needed: ??? Saline solution or powder. ??? Distilled or sterile water to mix with saline powder. ? You may use boiled and cooled tap water. Boil tap water for 5 minutes; cool until it is lukewarm. Use within 24 hours. ? Do not use regular tap water to mix with the saline solution. ??? Neti pot or nasal rinse bottle. These supplies release the saline solution into your nose and through your sinuses. Neti pots and nasal rinse bottles can be purchased at your local pharmacy, a health food store, or online. How to perform a sinus rinse 1. Wash your hands with soap and water for at least 20 seconds. If soap and water are not available, use hand film processing shift supervisor. 2. Wash your device according to the directions that came with the product and then dry it. 3. Use the solution that comes with your product or one that is sold separately in stores. Follow the mixing directions on the package to mix with sterile or distilled water. 4. Fill the device with the amount of saline solution noted in the device instructions. 5. Stand by a sink and tilt your head sideways over the sink. 6. Place the spout of the device in your upper nostril (the one closer to the ceiling). 7. Gently pour or squeeze the saline solution into your nasal cavity. The liquid should drain out from the lower nostril if you are not too congested. 8. While rinsing, breathe through your open mouth. 9. Gently blow your nose to clear any mucus and rinse solution. Blowing too hard may cause ear pain. 10. Turn your head in the other direction and repeat in your other nostril. 11. Clean and rinse your device with clean water and then air-dry it. Talk with your health care provider or pharmacist if you have questions about how to do a sinus rinse. Summary ??? A sinus rinse is a home treatment that is used to rinse your sinuses with a sterile mixture of salt and water (saline solution). ??? You may do a sinus rinse when you have a cold, a virus, nasal allergy symptoms, a sinus infection, or stuffiness in your nose or sinuses. ??? A sinus rinse is generally safe and effective. Follow all instructions carefully. This information is not intended to replace advice given to you by your health care provider. Make sure you discuss any questions you have with your health care provider. Document Revised: 09/08/2021 Document Reviewed: 09/08/2021 [employer] Patient Education ? 2023 [employer]. Infectious Disease Sinus Infection, Adult A sinus infection, also called sinusitis, is inflammation of your sinuses. Sinuses are hollow spaces in the bones around your face. Your sinuses are located: ??? Around your eyes. ??? In the middle of your forehead. ??? Behind your nose. ??? In your cheekbones. Mucus normally drains out of your sinuses. When your nasal tissues become inflamed or swollen, mucus can become trapped or blocked. This allows bacteria, viruses, and fungi to grow, which leads to infection. Most infections of the sinuses are caused by a virus. A sinus infection can develop quickly. It can last for up to 4 weeks (acute) or for more than 12 weeks (chronic). A sinus infection often develops after a cold. What are the causes? This condition is caused by anything that creates swelling in the sinuses or stops mucus from draining. This includes: ??? Allergies. ??? Asthma. ??? Infection from bacteria or viruses. ??? Deformities or blockages in your nose or sinuses. ??? Abnormal growths in the nose (nasal polyps). ??? Pollutants, such as chemicals or irritants in the air. ??? Infection from fungi. This is rare. What increases the risk? You are more likely to develop this condition if you: ??? Have a weak body defense system (immune system). ??? Do a lot of swimming or diving. (more content not included)... [facility] 05-10-2024 History of Presen t illness Narrative Subjective Patient ID: Kylie Cabrera is a 28 y.o. female. DAVIDSON Huynh presents to the office for a sick visit. She had wellness scheduled today but we will have to reschedule. Kylie reports that she began Wednesday night with fever, headache, body aches, chills, congestion, facial pressure, sore throat, and fatigue. She reports some chest discomfort with cough but denies shortness of breath. She has been taking pzmc-lae-isxpxpu DayQuil and NyQuil but symptoms persist. She reports that her symptoms have progressively worsened. Everyone at home is sick. The following portions of the patient's history were reviewed and updated as appropriate: allergies, current medications, past family history, past medical history, past social history, past surgical history, problem list, and medication reconciliation was completed including current medication and post discharge medication. Review of Systems Constitutional: Positive for chills, fatigue and fever. HENT: Positive for congestion, postnasal drip, rhinorrhea, sinus pressure and sore throat. Respiratory: Positive for cough. Negative for shortness of breath. Cardiovascular: Positive for chest pain (only with cough). Musculoskeletal: Positive for myalgias. Psychiatric/Behavioral: Negative for self-injury and suicidal ideas. Objective Physical Exam Constitutional: General: She is not in acute distress. Appearance: Normal appearance. She is not ill-appearing. HENT: Head: Normocephalic and atraumatic. Right Ear: Tympanic membrane, ear canal and external ear normal. Left Ear: Tympanic membrane, ear canal and external ear normal. Nose: Congestion and rhinorrhea present. Mouth/Throat: Pharynx: Posterior oropharyngeal erythema present. No oropharyngeal exudate. Eyes: Extraocular Movements: Extraocular movements intact. Conjunctiva/sclera: Conjunctivae normal. Pupils: Pupils are equal, round, and reactive to light. Neck: Vascular: No carotid bruit. Cardiovascular: Rate and Rhythm: Regular rhythm. Tachycardia present. Pulses: Normal pulses. Heart sounds: Normal heart sounds. Pulmonary: Effort: Pulmonary effort is normal. No respiratory distress. Breath sounds: Normal breath sounds. No stridor. No wheezing or rales. Chest: Chest wall: No tenderness. Lymphadenopathy: Cervical: Cervical adenopathy present. Skin: Findings: No erythema or rash. Neurological: General: No focal deficit present. Mental Status: She is alert and oriented to person, place, and time. Psychiatric: Mood and Affect: Mood normal. Behavior: Behavior normal. Assessment/Plan Discussed likely viral etiology. POCT COVID flu RSV ordered. We will call with results. Discussed if COVID or RSV she should continue symptomatic treatment. If it is the flu I can send in Tamiflu. We will reschedule wellness visit. Kylie was seen today for wellness. Diagnoses and all orders for this visit: Fever, unspecified fever cause - POCT Xpert, Xpress CoV-2, FLU, RSV Plus (Cepheid) Other orders - fluticasone propionate (FLONASE) 50 mcg/actuation nasal spray; Administer 1 spray into each nostril in the morning. - benzocaine-menthoL (CEPACOL SORE THROAT, CARMINE-MEN,) 15-2.6 mg lozenge; Dissolve 1 lozenge in the mouth every 2 (two) hours as needed (sore throat). SIXTO Basurto 05/10/24 [id number] documented in this encounter [facility] 01-31-2024 History of Presen t illness Narrative Subjective Patient ID: Kylie Cabrera is a 28 y.o. female. DAVIDSON Espinal presents to the office to establish care. Hx: Wears glasses, up to date on eye exam. Anxiety/depression- was on daily medication in the past, does not recall what it was. She would be agreeable to start medication. Headaches on occasions, since about the age of 21. The ibuprofen does not seem to help. Getting headaches about once weekly. They seem to effect the neck and goes around to the eyes. Forehead, throbbing. Pain gets up to a 10. Does cause her to cry d/t severe pain. Rotates tylenol and ibuprofen, but not effective. Warm compress, hot shower sometimes seems to help.Possible tension headache. Sometimes feels like her neck in tight then the headache will come. Not related to menstrual cycle. Worse the last few years. There is no problem list on file for this patient. Current Outpatient Medications on File Prior to Visit Medication Sig Dispense Refill ibuprofen (MOTRIN) 800 mg tablet Take 1 tablet (800 mg total) by mouth every 6 (six) hours as needed for pain. (Patient not taking: Reported on 10/04/2023) 30 tablet 0 ondansetron ODT (ZOFRAN ODT) 4 mg disintegrating tablet Dissolve 1 tablet (4 mg total) on tongue every 8 (eight) hours as needed for nausea or vomiting. (Patient not taking: Reported on 10/04/2023) PNV no.153/FA/om3/dha/epa/fish ( GUMMIES ORAL) Take by mouth. (Patient not taking: Reported on 10/04/2023) No current facility-administered medications on file prior to visit. Past Surgical History: Procedure Laterality Date CHOLECYSTECTOMY 04/14/2016 Family History Problem Relation Age of Onset Arthritis Mother Depression Mother Diabetes Father Hypertension Father Stroke Paternal Grandfather Alcohol abuse Paternal Grandfather The following portions of the patient's history were reviewed and updated as appropriate: allergies, current medications, past family history, past medical history, past social history, past surgical history, problem list, and medication reconciliation was completed including current medication and post discharge medication. Review of Systems Constitutional: Negative for chills, diaphoresis, fatigue, fever and unexpected weight change. HENT: Negative. Eyes: Negative. Respiratory: Negative for cough, chest tightness, shortness of breath and wheezing. Cardiovascular: Negative for chest pain, palpitations and leg swelling. Gastrointestinal: Negative for abdominal pain, blood in stool, constipation, diarrhea, nausea and vomiting. Endocrine: Negative for polydipsia, polyphagia and polyuria. Genitourinary: Negative for difficulty urinating, frequency, hematuria and urgency. Musculoskeletal: Negative. Negative for arthralgias, gait problem, joint swelling and neck pain. Skin: Negative. Neurological: Positive for headaches. Negative for dizziness, syncope, weakness, light-headedness and numbness. Psychiatric/Behavioral: Negative for self-injury, sleep disturbance and suicidal ideas. The patient is nervous/anxious. Objective Physical Exam Vitals and nursing note reviewed. Constitutional: General: She is not in acute distress. Appearance: Normal appearance. She is well-developed. She is not ill-appearing. HENT: Head: Normocephalic and atraumatic. Right Ear: Tympanic membrane, ear canal and external ear normal. Left Ear: Tympanic membrane, ear canal and external ear normal. Nose: Nose normal. Mouth/Throat: Mouth: Mucous membranes are moist. Pharynx: Oropharynx is clear. Eyes: Extraocular Movements: Extraocular movements intact. Pupils: Pupils are equal, round, and reactive to light. Neck: Vascular: No carotid bruit. Cardiovascular: Rate and Rhythm: Normal rate and regular rhythm. Pulses: Normal pulses. Heart sounds: Normal heart sounds. No murmur heard. Pulmonary: Effort: Pulmonary effort is normal. No respiratory distress. Breath sounds: Normal breath sounds. No wheezing, rhonchi or rales. Chest: Chest wall: No tenderness. Abdominal: General: Bowel sounds are normal. Palpations: Abdomen is soft. Tenderness: There is no abdominal tenderness. Musculoskeletal: General: Normal range of motion. Cervical back: Normal range of motion and neck supple. No rigidity or tenderness. Right lower leg: No edema. Left lower leg: No edema. Lymphadenopathy: Cervical: No cervical adenopathy. Skin: General: Skin is warm and dry. Capillary Refill: Capillary refill takes less than 2 seconds. Findings: No rash. Neurological: General: No focal deficit present. Mental Status: She is alert and oriented to person, place, and time. Motor: No weakness. Psychiatric: Mood and Affect: Mood normal. Behavior: Behavior normal. Assessment/Plan We will start zoloft for anxiety/depression. Possible tension headache. Discussed headache log. Ensure to stay hydrated. Discussed ensure good sleep. We will start magnesium for migraine prevention. She can continue tylenol/ibuprofen PRN for headache. FU 3 months for wellness and we will order labs to further evaluate migraine. Kylie was seen today for establish care. Diagnoses and all orders for this visit: Anxiety and depression Encounter to establish care Tension headache Other orders - sertraline (ZOLOFT) 25 mg tablet; Take 1 tablet (25 mg total) by mouth in the morning. - magnesium oxide (MAGOX) 400 mg tablet; Take 1 tablet (400 mg total) by mouth in the morning. SIXTO Basurto 02/01/24 0927 documented in this encounter [facility] 03-01-2023 Note Patient Education Ma terials Follows:Disease [...] health care provider. ? Take or apply hocq-yen-doculok and prescription medicines only as told by [...] discuss any questions (more content not included)... [facility] Evaluation + Plan note No data available for this section [facility] Care Evaluation note No assessment inform ation available [facility] Work Phone: Evaluation note Diagnosis Fever, unspecified fever cause- Primary documented in this encounter [facility] SystemEvaluation note* Diagnosis Anxiety and depression- Primary Encounter to establish care Tension headache documented in this encounter [facility] instructions Additional Instructions Take your Zofran at home for nausea for nausea vomiting Push fluids Follow-up with your MAIL DISTRIBUTOR call today for appointment Return here if you develop any abdominal pain, vaginal bleeding, chest pain, shortness of breath, dizziness or any other concernsSt. [facility] Work Phone: InstructionsNot on filedocumented in this encounter [facility] SystemInstructionsNot on filedocumented in this encounter [facility] SystemProgress note No data available for this section [facility] Chief Complaint and Reason for Visit Chief Complaint Lightheaded,dizzy Chief Complaint Lightheaded,dizzy n92.6 Chief Complaint Lightheaded,dizzy n92.6 z115.9 symptoms Advance Directives Advance Directive Response Recorded Date/ Time Advance Directives No June 09 5:57pm Summary Purpose Family History No Family History Records FoundNo Family History Records FoundNo Family History Records FoundNo Family History Records FoundNo Family History Records FoundNo Family History Records FoundNo Family History Records FoundNo Family History Records FoundNo Family History Records FoundNo Family History Records Found No data available for this section No Family History Records Found Additional Source Comments Care Teams (unrecognized sec tion and content) Team Status: Active Member Role Status Dates PHYSICIAN NO FAMILY Primary Care Provider Active Team Status: Inactive Member Role Status Dates PHYSICIAN NO FAMILY Primary Care Provider Active Linda Mortensen APRN Emergency Provider Active Team Status: Inactive Member Role Status Dates PHYSICIAN NO FAMILY Primary Care Provider Active Pipo Taylor Attending Provider Active Team Status: Inactive Member Role Status Dates PHYSICIAN NO FAMILY Primary Care Provider Active Odilon Daniels MD Attending Provider Active Healthcare Representative Relationship Specialty Start Date End Date Elzbieta Vanessa APRN-UTILITY WORKER [employer] [address] [place] [address], [place] [phone] PCP - General 01/31/24 Goals (unrecognized section and content) Goals may be documented in a n alternate sectionGoals may be documented in an alternate sectionGoals may be documented in an alternate sectionNot on filedocumented as of this encounterNot on filedocumented as of this encounter No data available for this section INFORMATION SOURCE (unrecogn ized section and content) DATE CREATED AUTHOR 09/11/2022 [facility] DATE CREATED AUTHOR AUTHOR'S ORGANIZ ATION 03/08/2023 [facility] DATE CREATED AUTHOR AUTHOR'S ORGANIZ ATION 05/19/2023 [facility] DATE CREATED AUTHOR AUTHOR'S ORGANIZ ATION 07/22/2023 [facility]IC DATE CREATED AUTHOR AUTHOR'S ORGANIZ ATION 10/05/2023 [facility] DATE CREATED AUTHOR AUTHOR'S ORGANIZ ATION 05/12/2024 [facility] DATE CREATED AUTHOR AUTHOR'S ORGANIZ ATION 08/31/2024 [facility] DATE CREATED AUTHOR AUTHOR'S ORGANIZ ATION 09/01/2024 [facility] DATE CREATED AUTHOR AUTHOR'S ORGANIZ ATION 01/11/2025 [facility] Reason for Visit (unrecogniz ed section and content) Reason Comments Wellness Reason Comments Establish Care FOR RECORDS PERTAINING TO PATIENTS WHO ARE [...] BE BASED ON THE PRIMARY CLINICAL RECORDS. [employer] provides no warranty or guarantee of the accuracy or completeness of information in this document.
== END 2025-01-22 20:17 | disposition home or self-care (01) ==
LOC: LAB 20:16
PROVIDERS: Visit Provider Obstetrics & Gynecology
DX: Z01.419 Encounter for gynecological examination (general) (routine) without abnormal findings (principal)
CPT/HCPCS: 88175

== ENCOUNTER 2025-01-26 15:32 | Outpatient (OUT) | payer OTHER, SELFPAY ==
--- OUTSIDE RECORDS SUMMARY | 2025-01-22 16:00 | XMS_ITS | Encounter Summary ---
Author Organization [facility] Address [address] [place] [address] Care Team Providers Care Air Conditioning Installer Supervisor Name Role Phone Unavailable Primary Care Provider Unavailabl e Reason for Visit * ReasonCommentsGynecologic Exam Encounter Details DateTypeDepartmentCare Team (Latest Contact Info)Pmwuuszzqxv09/20/2025 4:00 PM EDTOffice Visit [facility] [address] [place] [id number] Pipo aTylor, [address] [place] [address] Well woman exam with routine gynecological exam; Irregular periods/menstrual cycles; H/O bilateral salpingectomy; Pelvic pain in female Social History Tobacco UseTypesPacks/DayYears UsedDateSmoking Tobacco: NeverSmokeless Tobacco: NeverAlcohol UseStandard Drinks/WeekCommentsNever0 (1 standard drink = 0.6 oz pure alcohol)CommentsNoSex and Gender InformationValueDate RecordedSex Assigned at YjlleRygvml01/24/2023 9:02 AM EDTLegal ZxbPjrjwr23/15/2023 7:35 PM EDTGender WbcefuovGagegn18/24/2023 9:02 AM EDTSexual OrientationNot on file documented as of this encounter Last Filed Vital Signs Vital SignReadingTime TakenCommentsBlood Ssugnlfu338/7601/22/2025 4:21 PM EDT Pulse--Temperature--Respiratory Rate--Oxygen Saturation--Inhaled Oxygen Concentration--Fsczzd658 kg (238 lb)01/22/2025 4:21 PM XSPHivqgm925.6 cm (5' 4 ) 01/22/2025 4:21 PM EDTBody Mass Index40.8501/22/2025 4:21 PM EDTdocumented in this encounter Progress Notes * Lydia Coburn MA - 01/22/2025 4:00 PM EDT Reason for Appointment: Patient ID: Curtis Cabrera is a 29 y.o. female who presents for Gynecologic Exam Patient presents today for Annual Exam. 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[facility]) 2015 HISTORY PAST MEDICAL HISTORY SOCIAL HISTORY Past Medical History: Diagnosis Date Depression Gallstone pancreatitis ([facility]) 2015 [facility] Social History Tobacco Use Smoking status: Never Smokeless tobacco: Never Substance Use Topics Alcohol use: Never Drug use: Not on file FAMILY HISTORY Family History Problem Relation Name Age of Onset Migraines Mother Diabetes Father Hypertension Father No Known Problems Sister No Known Problems Sister No Known Problems Brother SURGICAL HISTORY Past Surgical History: Procedure Laterality Date CHOLECYSTECTOMY 04/2016 lap jad EGD 2016 ERCP 2016 x2 SALPINGECTOMY Bilateral 05/14/2023 REVIEW OF SYSTEMS Review of Systems: Review of Systems All other systems reviewed and are negative. OBJECTIVE Objective: Physical Exam Constitutional: Appearance: Normal appearance. She is well-developed. Genitourinary: Vulva normal. Cardiovascular: Rate and Rhythm: Normal rate and regular rhythm. Pulmonary: Effort: Pulmonary effort is normal. Breath sounds: Normal breath sounds. Abdominal: General: Bowel sounds are normal. There is no distension. Palpations: Abdomen is soft. Tenderness: There is no abdominal tenderness. There is no guarding or rebound. Musculoskeletal: General: No swelling. Normal range of motion. Right lower leg: No edema. Left lower leg: No edema. Neurological: Mental Status: She is alert and oriented to person, place, and time. Skin: General: Skin is warm and dry. Psychiatric: Mood and Affect: Mood normal. Behavior: Behavior normal. Vitals and nursing note reviewed. Exam conducted with a air value tester present. Vitals: Estimated body mass index is 40.85 kg/m?? as calculated from the following: Height as of this encounter: 5' 4 . Weight as of this encounter: 238 lb. BP: 122/76 Patient's last menstrual period was 11/12/2024 (approximate). Assessment/Plan ICD-10-CM 1. Well woman exam with routine gynecological exam Z01.419 Pap Smear 2. Irregular periods/menstrual cycles N92.6 3. H/O bilateral salpingectomy Z90.79 Annual Exam: Patient presents today for an annual exam. Patient states she is doing well however, having irregular menes since the salpingectomy surgery. Pap was obtained without difficulty. No orders of the defined types were placed in this encounter. Follow Up: Patient is to return in one year for annual unless needed otherwise. Documented by Lydia Coburn MA on behalf of: Pipo Taylor DO documented in this encounter Plan of Treatment DateTypeDepartmentCare Team (Latest Contact Info)Bqojwninrme65/05/2025 2:50 PM ESTOffice Visit MELVA TONG [address] [place] [address] [place] [phone] Pipo Taylor DO [address] [place] [address] 01/24/2026 8:30 AM EDTProcedure Visit MELVA TONG [address] [place] [address] [place] [phone] Pipo Taylor DO [address] [place] [address] NameTypePriorityAssociated DiagnosesOrder SchedulePap SmearPathology and CytologyRoutine Well woman exam with routine gynecological exam Ordered: 01/22/2025US Pelvis w/ TVImagingRoutine Pelvic pain in female Expected: 01/22/2025, Expires: 07/23/2025documented as of this encounter Goals GoalPatient Goal TypeAssociated ProblemsRecent ProgressPatient-Stated?Author Reminders Care PlanOB RemindersNoOpen Scheduling, Backgrounddocumented as of this encounter Visit Diagnoses Diagnosis Well woman exam with routine gynecological exam Routine gynecological examination Irregular periods/menstrual cycles H/O bilateral salpingectomy Pelvic pain in female Unspecified symptom associated with female genital organs documented in this encounter Additional Health Concerns Active ProblemsNoted DateDiagnosed DateOB Pqwuzxxeu09/12/2023 documented as of this encounter
--- NOTE | 2025-01-26 15:36 | US_ITS ---
The [address] [address] Patient Name: MELITON EVANS MRN: [id number] date: 1995 Sex: F Assigned Patient Location: Current Patient Location: Accession/Order Number: [id number] Exam Date: 01/26/2025 16:05 Report Date: 01/27/2025 09:19 At the request of: MARY ELLEN BLUM Procedure: US pelvis w/ transvaginal Pelvic ultrasound transabdominal and transvaginal. HISTORY: Amenorrhea for 2 months. Tubes removed. Uterus anteverted measuring 9.5 x 3.9 x 6.0 cm. No uterine mass. Endometrium has a total combined thickness of 9.7 mm. Right ovary measures 3.7 x 2.2 x 2.4 cm. The left ovary measures 3.1 x 2.2 x 3.6 cm. Color flow of both ovaries. No adnexal mass. No free fluid. US/US pelvis w/ transvaginal IMPRESSION: Anteverted uterus. No uterine mass. 9.7 mm total combined thickness of endometrial complex. Unremarkable ovaries. No adnexal mass or free fluid. Impression dictated by: Isacc Zamora M.D. 01/27/2025 9:19 AM Dictation Location[facility] Electronically authenticated by: [id number] Y Date: 01/27/2025 09:19
--- OUTSIDE RECORDS SUMMARY | 2025-01-26 15:36 | XMS_ITS | Clinical Summary ---
Author Organization [employer] Address [facility] [id number] [address] [place] [address] Care Team Providers Care Maintenance Analyst Name Role Phone Shira Orellana BAKARI-RETORT SETTER Primary Care Provider Allergies No known active allergies Medications MedicationSigDispense QuantityRefillsLast FilledStart DateEnd DateStatus PNV no.153/FA/om3/dha/epa/fish ( GUMMIES ORAL) Take by mouth.Active ondansetron ODT (ZOFRAN ODT) 4 mg disintegrating tablet Dissolve 1 tablet (4 mg total) on tongue every 8 (eight) hours as needed for nausea or vomiting.Active ibuprofen (MOTRIN) 800 mg tablet Take 1 tablet (800 mg total) by mouth every 6 (six) hours as needed for pain. 30 tablet 08/30/2023ctive Additional Information Patient not taking.Reported on 01/31/2024 sertraline (ZOLOFT) 25 mg tablet Take 1 tablet (25 mg total) by mouth in the morning. 30 tablet ctive magnesium oxide (MAGOX) 400 mg tablet Take 1 tablet (400 mg total) by mouth in the morning. 30 tablet ctive fluticasone propionate (FLONASE) 50 mcg/actuation nasal spray Administer 1 spray into each nostril in the morning. 16 mL 5Active benzocaine-menthoL (CEPACOL SORE THROAT, CARMINE-MEN,) 15-2.6 mg lozenge Dissolve 1 lozenge in the mouth every 2 (two) hours as needed (sore throat). 16 lozenge 5Active oseltamivir (TAMIFLU) 75 mg capsule Take 1 capsule (75 mg total) by mouth in the morning and 1 capsule (75 mg total) before bedtime. 10 capsule 5Active Active Problems No known active problems Immunizations ImmunizationAdministration DatesNext GgiNhjk8205/16/2019 Family History Medical HistoryRelationNameCommentsDiabetesFatherHypertensionFatherArthritis MotherCOPDMotherDepressionMotherAlcohol abusePaternal GrandfatherStrokePaternal GrandfatherRelationNameStatusCommentsFatherAliveMaternal GrandfatherDeceased Maternal GrandmotherDeceasedMotherAlivePaternal GrandfatherDeceasedPaternal GrandmotherDeceased Social History Tobacco UseTypesPacks/DayYears UsedDateSmoking Tobacco: NeverSmokeless Tobacco: Never Tobacco Cessation:Counseling Given: Not Answered Alcohol UseStandard Drinks/WeekCommentsNot Currently0 (1 standard drink = 0.6 oz pure alcohol)rarelyOverall Financial Resource Strain (CARDIA)AnswerDate Recorded How hard is it for you to pay for the very basics like food, housing, medical care, and heating?Not very hard01/31/2024HQ-2AnswerDate RecordedTotal Score0 05/10/2024PRAPARE - TransportationAnswerDate RecordedIn the past 12 months, has lack of transportation kept you from medical appointments or from getting medications?No01/31/2024In the past 12 months, has lack of transportation kept you from meetings, work, or from getting things needed for daily living?No 01/31/2024Housing InstabilityAnswerDate RecordedAre you worried or concerned that in the next two months you may not have stable housing that you own, rent or stay in as a part of a household?No01/31/2024hildcareAnswerDate Recorded DbwihnykcWtamrnk49/12/2019EmploymentAnswerDate RecordedEmploymentUnknown 09/14/2018Hunger ScreeningAnswerDate RecordedWithin the past 12 months we worried whether our food would run out before we got money to buy more.Never True05/10/2024Within the past 12 months the food we bought just didn't last and we didn't have money to get more.Never True05/10/2024Purpose - LifeAnswerDate RecordedPurpose and direction in jsqpApjkumd52/11/2021CommentsNoSex and Gender InformationValueDate RecordedSex Assigned at BirthNot on fileLegal Sex Kawjiw2211/08/2014 11:52 AM EDTGender IdentityNot on fileSexual OrientationNot on file Last Filed Vital Signs Vital SignReadingTime TakenCommentsBlood Tsxwuosz980/76005/10/2024 8:58 AM EST Troxo12798/05/2025 8:58 AM JSYVlzkfoegkuq01.8 ??C (100 ??F)05/10/2024 8:58 AM ESTRespiratory Pelv811410/04/2023 3:29 PM EDTOxygen Ygdhblncbu73%05/10/2024 8:58 AM ESTInhaled Oxygen Concentration--Klkqws27.8 kg (206 lb 12.8 oz)05/10/2024 8:58 AM BNPRnllmy405.6 cm (5' 4 )05/10/2024 8:58 AM ESTBody Mass Index35.5 05/10/2024 8:58 AM EST Plan of Treatment DateTypeDepartmentCare Team (Latest Contact Info)Sxdxhzsdwzc39/17/2025 7:40 AM ESTOffice Visit [facility] [address] [place] [phone] Shira Orellana APRN-[facility] [address] [place] [address], [place] [address] Health MaintenanceDue DateLast DoneCommentsAdult BMI Follow Up Plan2014 COVID-19 Vaccine ( season)/, 06/10/2021Influenza Jfdzktl15/, 05/27/2022dult BMI Mxeoqbqbm46 Depression Pyewdrcpc59Tobacco Hrelvhxjb68Pap Smear01/10/701839/10/2024DTaP,Tdap and Td Vaccines (7 - Td or Tdap)05/16/2029 05/16/2019, 05/25/2001, 06/20/1997, Additional history exists Medical Devices Not on file Insurance Care Teams Team MemberRelationshipSpecialtyStart DateEnd Date Shira Orellana APRN-[facility] [address] [place] [phone] PCP - Yifuqwk77/28/24
--- OUTSIDE RECORDS SUMMARY | 2025-01-26 15:36 | XMS_ITS | Encounter Summary ---
Author Organization [facility] Address [address] [place] [address] Care Team Providers Care Skiving Machine Operator Name Role Phone Unavailable Primary Care Provider Unavailabl e Encounter Details DateTypeDepartmentCare Team (Latest Contact Info)Pwekaxududx97/13/2025Travel Social History Tobacco UseTypesPacks/DayYears UsedDateSmoking Tobacco: NeverSmokeless Tobacco: NeverAlcohol UseStandard Drinks/WeekCommentsNever0 (1 standard drink = 0.6 oz pure alcohol)CommentsUnknownSex and Gender InformationValueDate Recorded Sex Assigned at OvonvLvmwom63/24/2023 9:02 AM EDTLegal TcqRzmfom91/15/2023 7:35 PM EDTGender XuaqzhbuSipcbn85/24/2023 9:02 AM EDTSexual OrientationNot on file documented as of this encounter Plan of Treatment DateTypeDepartmentCare Team (Latest Contact Info)Rbmtvfkxtjm18/05/2025 2:50 PM ESTOffice Visit [facility]EL[facility] TONG [address] [place] [address] [place] [address] Pipo Taylor, DO [address] [facility] [address] [place], [place] [address] 01/24/2026 8:30 AM EDTProcedure Visit [facility]ELVA TONG [address] [place] [address] [place] [address] Pipo Taylor, DO [address] [facility] [address] [place], [facility]11 documented as of this encounter Goals GoalPatient Goal TypeAssociated ProblemsRecent ProgressPatient-Stated?Author Reminders Care PlanOB RemindersNoOpen Scheduling, Backgrounddocumented as of this encounter Visit Diagnoses Not on filedocumented in this encounter Additional Health Concerns Active ProblemsNoted DateDiagnosed DateOB Kjxlvynar91/12/2023 documented as of this encounter
--- OUTSIDE RECORDS SUMMARY | 2025-01-26 15:36 | XMS_ITS | Encounter Summary ---
Author Organization [facility] Address [address] [place] [address] Care Team Providers Care Toolmaker Grade Three Name Role Phone Unavailable Primary Care Provider Unavailabl e Encounter Details DateTypeDepartmentCare Team (Latest Contact Info)Zzwfrkxatnu27/20/2025amboo flowsheet [facility]EL[facility] TONG [address] [facility] [place] [place] [address] Pipo Taylor DO [address] [place], [facility]11 Social History Tobacco UseTypesPacks/DayYears UsedDateSmoking Tobacco: NeverSmokeless Tobacco: NeverAlcohol UseStandard Drinks/WeekCommentsNever0 (1 standard drink = 0.6 oz pure alcohol)CommentsNoSex and Gender InformationValueDate RecordedSex Assigned at IacrgUrqhqa27/24/2023 9:02 AM EDTLegal EzoXtzzhm55/15/2023 7:35 PM EDTGender WkehkdfdVykmzv09/24/2023 9:02 AM EDTSexual OrientationNot on file documented as of this encounter Plan of Treatment DateTypeDepartmentCare Team (Latest Contact Info)Ytbgrmcpovh84/05/2025 2:50 PM ESTOffice Visit MELVA TONG [address] [place] [address] Pipo Taylor DO [address] [place], [facility]11 01/24/2026 8:30 AM EDTProcedure Visit [facility] [address] [facility] [place] [phone] Pipo Taylor DO [address] [facility] [place] [address] documented as of this encounter Goals GoalPatient Goal TypeAssociated ProblemsRecent ProgressPatient-Stated?Author Reminders Care PlanOB RemindersNoOpen Scheduling, Backgrounddocumented as of this encounter Visit Diagnoses Not on filedocumented in this encounter Additional Health Concerns Active ProblemsNoted DateDiagnosed DateOB Lgcfsvjkb06/12/2023 documented as of this encounter
--- OUTSIDE RECORDS SUMMARY | 2025-01-26 15:36 | XMS_ITS | Encounter Summary ---
Author Organization [facility] Address [address] [place] [address] Care Team Providers Care Machine Shop Inspector Name Role Phone Unavailable Primary Care Provider Unavailabl e Encounter Details DateTypeDepartmentCare Team (Latest Contact Info)Ukenutlllbi33/20/2025linisync Result Encounter [facility] Department Unsolicited Pipo Taylor DO [address] [place] [place], [facility]11 Social History Tobacco UseTypesPacks/DayYears UsedDateSmoking Tobacco: NeverSmokeless Tobacco: NeverAlcohol UseStandard Drinks/WeekCommentsNever0 (1 standard drink = 0.6 oz pure alcohol)CommentsNoSex and Gender InformationValueDate RecordedSex Assigned at CsynpLwrako51/24/2023 9:02 AM EDTLegal YipUtbzef21/15/2023 7:35 PM EDTGender RktjeifbEsuseh10/24/2023 9:02 AM EDTSexual OrientationNot on file documented as of this encounter Plan of Treatment DateTypeDearkansas methodist medical centerCare Team (Latest Contact Info)Fvoofufqxgs74/05/2025 2:50 PM ESTOffice Visit [facility] [address] [place] [phone] Pipo Taylor DO [address] [place], [place] [phone] 01/24/2026 8:30 AM EDTProcedure Visit [facility] [address] [place] [address] Pipo Taylor, DO [address] [place] [address] documented as of this encounter Goals GoalPatient Goal TypeAssociated ProblemsRecent ProgressPatient-Stated?Author Reminders Care PlanOB RemindersNoOpen Scheduling, Backgrounddocumented as of this encounter Procedures Procedure NamePriorityDate/TimeAssociated DiagnosisCommentsIGP,APTIMA HPV,AGE UZRMGzhkfrn95/20/2025 4:14 PM EDT documented in this encounter Results * IGP,APTIMA HPV,AGE GDLN (01/22/2025 4:14 PM EDT)ComponentValueRef RangeTest MethodAnalysis TimePerformed AtPathologist SignatureAGE GDLN ACOG TESTINGNote. TBHComment: ?? TESTS ? RESULT ??FLAG ??UNITS ?REF RANGE ??LAB ?? Clinician Provided Cytology Information ?? Source.............Cervix;Endocervix ?? No. of containers..01 ThinPrep Vial Age Algo ACOG [place]... ??21-29 ? 01 ?FLAG LEGEND: ?L-Low Normal,H-High Normal,LL-Alert Low,HH-Alert High <-Panic Low,>-Panic High,A-Abnormal,AA-Critical Abnormal Performed at: 01 =G ?[facility] [address] ?? [address] [place] ??[phone] ?? Sabine Abraham MD, IGP, RFX APTIMA HPV ASCUNote.TBHComment: ?? TESTS ? RESULT ??FLAG ??UNITS ?REF RANGE ??LAB DIAGNOSIS: ?02 ?? NEGATIVE FOR INTRAEPITHELIAL LESION OR MALIGNANCY. ?? FUNGAL ORGANISMS MORPHOLOGICALLY CONSISTENT WITH JANET SPECIES ARE ?? PRESENT. Specimen adequacy: ?02 ?? Satisfactory for evaluation. ??Endocervical and/or squamous metaplastic ?? cells (endocervical component) are present. Performed by: ? 02 ?? Bozena Vasques Manager Community Relations (ASCP) . ? 02 Note: ? Note ?02 ?? The Pap smear is a screening test designed to aid in the ?? detection of premalignant and malignant conditions of the ?? uterine cervix. ??It is not a diagnostic procedure and ?? should not be used as the sole means of detecting cervical ?? cancer. ??Both false-positive and false-negative reports do ?? occur. Test Methodology: ? Note ?02 ?? This liquid based ThinPrep(R) pap test was interpreted ?? using the TIDAL PETROLEUM(R) Zilyo(TM) Cervical Algorithm whole ?? slide imaging system. . ? 02 ?? The HPV DNA reflex criteria were not met with this specimen ?? result therefore, no HPV testing was performed. ?FLAG LEGEND: ?L-Low Normal,H-High Normal,LL-Alert Low,HH-Alert High <-Panic Low,>-Panic High,A-Abnormal,AA-Critical Abnormal Performed at: 02 WB ?[facility] ?? [address] [place], [place] ??[phone] ?? Sabine Abraham MD, Performed at: ??=G - [facility] [address] ??[id number] Paraprofessional Education Assistant: Sabine Abraham MD, Phone: ??[phone] Performed at: ??WB - [facility] [address] [place], [place] [id number] Paraprofessional Education Assistant: Sabine Abraham MD, Phone: ??[phone] Specimen (Source)Anatomical Location / LateralityCollection Method / Volume Collection TimeReceived Time01/22/2025 4:14 PM EDT1 8:46 PM EDT Narrative [facility] - 01/26/2025 2:09 PM EDT BRUSH-SPATULA CERVIX ENDOCERVIX Authorizing ProviderResult TypeResult StatusCorey Claudia DOLAB BLOOD ORDERABLES Final ResultPerforming OrganizationAddressCity/State/ZIP CodePhone Number [facility] documented in this encounter Visit Diagnoses Not on filedocumented in this encounter Additional Health Concerns Active ProblemsNoted DateDiagnosed DateOB Frfvxnwyr22/12/2023 documented as of this encounter
--- OUTSIDE RECORDS SUMMARY | 2025-01-26 15:36 | XMS_ITS | CCD ---
Author Organization [facility] Care Team Providers Care Risk Management Internship Name Role Phone NO FAMILY, PHYSICIAN Primary Care Provider Unava ilable BAKARI Mortensen Emergency Provider Pipo Taylor Attending Provider MD Odilon Daniels Attending Provider CLAUDIA ., DR BELLO Attending Unavailable MISC, DR LAWS Primary Care Unavailable [place], DR BRYAN Hutton Consulting Unavailable CLAUDIA ., DR BELLO Admitting Unavailable CLAUDIA ., DR BELLO Consulting Unavailable [...] Unavailable NO FAMILY, PHYSICIAN Primary Care Unavailable NO PCP, NO PCP Primary Care Unavailable NO PCP, NO PCP Primary Care Unavailable CHERELLE MILLAN Attending Unavailable Esteban DOMAIN ARCHITECT-Elzbieta VIEIRA Primary Care Provider ELZBIETA VANESSA Attending Unavailable ELZBIETA VANESSA Primary Care Unavailable ELZBIETA VANESSA Attending Unavailable ELZBIETA VANESSA Referring Unavailable ELZBIETA VANESSA Primary Care Unavailable Karrie DENNY Attending Unavailable NONE, XXXX Primary Care Physician Unavailab Cathy Romero Attending Unavailable PIPO TAYLOR Attending Unavailable Allergies Allergy ClassificationReported Allergen(s)Allergy TypeDate of OnsetReaction(s) Facility (2 sources)No Known Medication Allergies; Translations: [No Known Medication Allergies]Propensity to adverse reactions to drug (disorder)[facility] Repository Medications Current Medications MedicationDrug Class(es)DatesSig (Normalized)Sig (Original)amoxicillin 875 mg / clavulanate 125 mg oral tablet (1 source)Penicillin-class AntibacterialStart: 09-14-2024 End: 01-38-8608Sjmuybfzd 875 mg-125 mg Tab 1 tab(s), Oral, q12hr for 7 day(s), 14 tab(s), Refill(s) 0, [id number], 161, cm, 09/14/24 12:15:00 EDT, Height/Length Dosing, 101.3, kg, 09/14/24 12:15:00EDT, Weight Dosing Start Date: 09/14/24 Stop Date: 09/21/24 Status: Ordered Quantity: 14.0 Unit: tab(s) Repeat number: 1benzocaine 15 mg / menthol 2.6 mg oral lozenge (1 source)Standardized Chemical AllergenStart: 64-93-2324fqdiarivvo-menthoL (CEPACOL SORE THROAT, CARMINE-MEN,) 15-2.6 mg lozenge Dissolve 1 lozenge in the mouth every 2 (two) hours as needed (sore throat). 16 lozenge 1 05/10/2024 ActiveStart: 94-27-2213rgzwsmpnma-menthoL (CEPACOL SORE THROAT, CARMINE-MEN,) 15- 2.6 mg lozenge Dissolve 1 lozenge in the mouth every 2 (two) hours as needed (sore throat). 16 lozenge 1 05/10/2024 Activecitalopram 20 mg oral tablet (1 source)Serotonin Reuptake InhibitorStart: 03-15-2023 End: 25-29-0102blqz 1 tablet by mouth in the morningcitalopram (CeleXA) 20 MG tablet Indications: Anxiety, generalized (CMS/HCC) Take 1 tablet (20 mg) by mouth in the morning. 90 tablet 0 03/15/2023 06/13/2023 ActiveFLUoxetine 40 mg oral capsule (1 source)Serotonin Reuptake InhibitorStart: 96-41-8203aszu 1 capsule by mouth in the morningFLUoxetine (PROzac) 40 MG capsule Take 40 mg by mouth in the morning. 0 05/01/2022 Activefluticasone propionate 0.05 mg/actuat metered dose nasal spray (1 source)CorticosteroidStart: 66-47-4740ylzb 1 spray(s) nasal route in the morningfluticasone propionate (FLONASE) 50 mcg/actuation nasal spray Administer 1 spray into each nostril in the morning. 16 mL 2 05/10/2024 ActiveStart: 02-54-4392owcq 1 spray(s) nasal route in the morningfluticasone propionate (FLONASE) 50 mcg/actuation nasal spray Administer 1 spray into each nostril in the morning. 16 mL 2 05/10/2024 ActivehydrOXYzine hydrochloride 25 mg oral tablet (1 source)Antihistaminetake 1 tablet by mouth every twenty-four hours as needed for anxietyhydrOXYzine HCl (Atarax) 25 MG tablet Take 25 mg by mouth Daily as needed for anxiety 0 Activeibuprofen 800 mg oral tablet (2 sources)Nonsteroidal Anti-inflammatory DrugStart: 46-30-8253wsxd 1 tablet by mouth every six hours as needed for painibuprofen (MOTRIN) 800 mg tablet Take 1 tablet (800 mg total) by mouth every 6 (six) hours as needed for pain. 30 tablet 08/30/2023 Activemagnesium oxide 400 mg oral tablet (2 sources)Start: 48-96-6861lxdm 1 tablet by mouth in the morningmagnesium oxide (MAGOX) 400 mg tablet Take 1 tablet (400 mg total) by mouth in the morning. 30 tablet 2 01/31/2024 Activenitrofurantoin, macrocrystals 25 mg / nitrofurantoin, monohydrate 75 mg oral capsule (3 sources)Nitrofuran AntibacterialStart: 38-55-6114wmst 1 capsule by mouth twice daily at mealtimeNitrofurantoin Monohyd/M-Cryst (Macrobid) 100 mg capsule Active 100 MG PO Twice daily 14 7 June 26, 2022 12:00am must administer with a meal/foodondansetron 4 mg oral tablet (5 sources)Serotonin-3 Receptor AntagonistStart: 92-36-8300hudu 4 mg by mouth once dailyOndansetron Hcl Active 4 MG PO Daily June 26, 2022 12:00amtake 1 tablet by mouth every eight hours as needed for nausea and vomitingondansetron ODT (ZOFRAN ODT) 4 mg disintegrating tablet Dissolve 1 tablet (4 mg total) on tongue every 8 (eight) hours as needed for nausea or vomiting. Activeoseltamivir 75 mg oral capsule (1 source)Neuraminidase InhibitorStart: 64-13-0396ajxg 1 capsule by mouth in the morning, then take 1 capsule by mouth at bedtimeoseltamivir (TAMIFLU) 75 mg capsule Take 1 capsule (75 mg total) by mouth in the morning and 1 capsule (75 mg total) before bedtime. 10 capsule 05/10/2024 ActiveStart: 27-38-1720fwut 1 capsule by mouth in the morning, then take 1 capsule by mouth at bedtime oseltamivir (TAMIFLU) 75 mg capsule Take 1 capsule (75 mg total) by mouth in the morning and 1 capsule (75 mg total) before bedtime. 10 capsule 05/10/2024 Active PNV no.153/FA/om3/dha/epa/fish ( GUMMIES ORAL) (2 sources)PNV no.153/FA/om3/dha/epa/fish ( GUMMIES ORAL) Take by mouth. Activeprazosin 1 mg oral capsule (1 source)alpha-Adrenergic BlockerStart: 34-65-5590vhvw 1 capsule by mouth at bedtimeprazosin (Minipress) 1 MG capsule Take 1 mg by mouth at bedtime. 0 05/02/2022 Activesertraline 25 mg oral tablet (2 sources)Serotonin Reuptake InhibitorStart: 07-22-5650pouq 1 tablet by mouth in the morningsertraline (ZOLOFT) 25 mg tablet Take 1 tablet (25 mg total) by mouth in the morning. 30 tablet 2 01/31/2024 Active Problems Active Problems Problem ClassificationProblemDateDocumented DateEpisodic/ChronicAcute bronchitis (1 source)Acute bronchitis, unspecified; Translations: [Acute bronchitis, unspecified]Onset: 62-45-9065PaztpnbyPshtavu disorders (5 sources)Mixed anxiety and depressive disorder; Translations: [Other specified anxiety disorders]Onset: 361840-46-7513QsyhwcdHybtofuyn infection; unspecified site (1 source)Bacterial infectious disease; Translations: [Other specified bacterial agents as the cause of diseases classified elsewhere]Onset: 08-31-7946Acyqzpul Disorders of teeth and jaw (4 sources)Other specified disorders of teeth and supporting structures; Translations: [Dental caries, unspecified]Onset: 75-71-2394EqhdvzqlLilgb of unknown origin (3 sources)Fever; Translations: [Fever, unspecified]Onset: 057922-29-1320 EpisodicHeadache; including migraine (9 sources)Migraine; Translations: [Migraine, unspecified, not intractable, without status migrainosus]Onset: 755432-09-3309AjkvrrfVmncunxcs disorders (7 sources)Irregular menstruation, unspecified; Translations: [Irregular periods]Onset: 16-83-5664FhvikwrWufzm complications of (3 sources)Vomiting of ; Translations: [Vomiting of , unspecified]08-01-9590WhdbjpqoUvvvn complications of (3 sources)Urinary tract infection in ; Translations: [Unspecified infection of urinary tract in , unspecified trimester]06-26-2022 EpisodicOther female genital disorders (2 sources)Pain in female pelvis; Translations: [Pelvic pain in female] 67-81-1527ZetthslpWjzsd and delivery including normal (5 sources)Encounter for supervision of other normal , first trimester; Translations: [Encounter for supervision of normal , unspecified, first trimester]Onset: 71-23-7453VefqgnqoFdkvt upper respiratory infections (2 sources)Chronic sinusitis; Translations: [Chronic sinusitis, unspecified] Onset: 40-57-0681ZzjmvvwUjkwxdo (3 sources)Vasovagal symptom; Translations: [Syncope and collapse]06-26-2022 EpisodicUnclassified (4 sources)OB RemindersOnset: 925520-18-4307Khqcmjenbmjq (1 source)Contact with and (suspected) exposure to COVID-19; Translations: [Contact with and (suspected) exposure to COVID-19]Onset: 18-59-8027Oaemzleduxft (1 source)Generalized Body AchesOnset: 72-46-3912Djyqjtfawmgr (1 source)WellnessOnset: 87-74-1165Cniikpxhnigc (1 source)Establish CareOnset: 01-31-2024 Past or Other Problems Problem ClassificationProblemDateDocumented DateEpisodic/Chronic Administrative/social admission (1 source)First encounter by subject; Translations: [Persons encountering health services in other specified circumstances]22-58-1627JgutdawlCdavncyjpu associated with dizziness or vertigo (1 source)Dizziness and giddiness; Translations: [Dizziness and giddiness]Onset: 56-36-3907XtwburckRxhp disorders (2 sources)Mood disordersOnset: 01-31-2024 Resolved: 910892-13-6175Jvtoydcj codes; unclassified (1 source)Less than 8 weeks gestation of ; Translations: [< 8 WEEKS GESTATION ]Onset: 29-73-6040Zlouyddc Results Test NameValueInterpretationReference RangeFacilityAmbulatory Visit Summaryon 15-55-7664Dkmcmeqjhe Visit SummaryAmbulatory Visit Summary KYLIE CABRERA :1995 Visit Date:09/14/2024 Ambulatory Visit Instructions Your Diagnosis Bacterial sinusitis Other specified bacterial agents as the cause of diseases classified elsewhere Your Care Team Attending Physician - Cathy Walter Primary Care Physician - NONE, XXXX This Is Your Medications List amoxicillin-clavulanate (Augmentin 875 mg-125 mg Tab) Discharge Vitals [...] Medications What How Much When Instructions New amoxicillin-clavulanate (Augmentin 875 mg-125 mg Tab) 1 Tablets By Mouth Every 12 hours Duration: 7 Days Pickup at [id number] [address], [place] [id number] [phone] Allergies No Known Medication Allergies Problems Ongoing [...] a feeling of pressure around the affected sinuses.Other symptoms include: ??? Stuffy nose or congestion [...] ? Medicines that treat allergies (antihistamines). ? Dkhc-nqn-olegwbs pain relievers. ??? If caused by bacteria, your health care provider may recommend waiting to see if your symptoms improve. Most bacterial infections will get better without antibiotic medicine. You may be given antibiotics if you have: ? A severe infection. ? (more content not included)...[facility] Medicine Office/Clinic Noteon 32-18-2658Qolkvl Medicine Office/Clinic NoteFaboston [facility]ary Medicine Office/Clinic Note Chief Complaint Sinus pressure [...] right with slight opacity , no erythema, oralmucosa moist, no pharyngeal erythema or exudate, normal [...] the cause of diseases classified elsewhere) Orders: amoxicillin-clavulanate, 1 tab(s), Oral, q12hr for 7 day(s), 14 tab(s), Refill(s) [id number], 161, cm, 09/14/24 12:15:00 EDT, Height/Length Dosing, 101.3, kg, 09/14/24 12:15:00 EDT, Weight Dosing Total time spent preparing the chart, conducting of the encounter with the patient and family and time spent documenting, reviewing, and ordering tests was 20 minutes. Portions of this record may have been created with voice recognition artificial intelligence software, specifically [employer], [employer] and or [employer]. Substitutions may have occurred due to the inherent limitations of voice recognition and artificial intelligence software. Follow-up With When Contact Information Darshana Jaramillo Additional Instructions: NONE, XXXX Additional Instructions: Patient [...] influenza virus vaccine, inactivated 05/27/2022 Recorded SARSCoV2 mRNA(yegaoktpu-mftw-dnemki) vac 06/30/2021 Recorded SARSCoV2 mRNA(pbyhormav-tnbl-rzxges) vac 06/10/2021 Recorded diphtheria/pertussis, acel/tetanus adult 05/16/2019 Recorded measles/mumps/rubella virus vaccine 11/16/2001 Recorded poliovirus vaccine, inactivated 05/25/2001 Recorded DTaP, unspecified formulation 05/25/2001 Recorded Hib, unspecified formulation 06/20/1997 Recorded DTaP, unspecified formulation 06/20/1997 Recorded varicella virus vaccine 05/16/1997 Recorded measles/mumps/rubella virus vaccine 05/16/1997 Recorded hepatitis B pediatric vaccine 1996 Recorded Hib, unspecified formulation 1996 Recorded DTaP, unspecified formulation 1996 Recorded hepatitis B pediatric vaccine 1996 Recorded Hib, unspecified formulation 1996 Recorded DTaP, unspecified formulation 1996 Recorded Hib, unspecified formulation 1996 Recorded DTaP, unspecified formulation 1996 Recorded hepatitis B pediatric vaccine 1996 Recorded Hib, unspecified formulation 1996 Recorded DTaP, (more content not included)...NormalRegency Hospital Cleveland EastComment on above:Result Comment: Electronically Signed By: Cathy Walter\Date and Time Signed: 09/14/24 12:46 EDTQuantiferon-TB Plus (Client Incubated)on 31-47-6756Lytej interferon background IA Qn (Bld)0.12 International_Unit/mLInvalid Interpretation [facility] Comment on above:Performed By: #### [id number] #### [facility] [address] [place] [address]. tuberculosis stim IFN-g by CD4+ CD8+ T-cells corrected for background Qn (Bld)0.13 International_Unit/mLInvalid Interpretation [facility] NorthComment on above:Performed By: #### [id number] #### [facility] [address] tuberculosis stim IFN-g by CD4+ T-cells corrected for background Qn (Bld)0.12 International_Unit/mLInvalid Interpretation [facility] NorthComment on above:Performed By: #### [id number] #### [facility] [address] [place] [address]. tuberculosis stim IFN-g Ql (Bld) [Interp]NegativeInvalid Interpretation CodeNegativeRegency Hospital Cleveland EastComment on above:Result Comment: No response to M tuberculosis antigens detected. Infection with [...] interferon gamma. Chemiluminescence immunoassay methodology Performed at: [facility] [address] [place], [place] [id number] PhD Sydnie Jungformed By: #### [id number] #### [facility] [address] [place] [address]Ztgycsc stimulated gamma interferon corrected for background Qn (Bld)>10.00Invalid Interpretation [facility] NorthComment on above:Performed By: #### [id number] #### [facility] [address] [place] [address]15[address]Frqraam comment (Unsp spec) [Interp]CommentInvalid Interpretation [facility]Comment on above:Result Comment: QuantiFERON-TB Gold Plus is a qualitative indirect test for M tuberculosis infection (including disease) and is intended for use in conjunction with risk assessment, radiography, and other medical and diagnostic evaluations. The QuantiFERON-TB Gold Plus result is determined by subtracting the Nil value from either TB antigen (Ag) value. The Mitogen tube serves as a control for the test.Performed By: #### [id number] #### [facility] [address] [place] [address]Yso Bs Abon 29-05-5093RWY surface Ab Ql (S)Non-ReactiveInvalid Interpretation [facility] NorthComment on above:Result Comment: Non Reactive: Not immune to HBV infection. Equivocal: Unable to determine if anti-HBs is present at levels consistent with immunity. Reactive: Anti-HBs concentration detected at greater than 10 mIU/mL. Individual is considered to be immune to infection with HBV. Performed at: [facility] [address], [place] [id number] PhD Sydnie Jungformed By: #### [id number] #### [facility] [address] [place] [address]Saysybl/Mumps/Rubella Immunityon 03-00-6755KfR IgG IA Qn (S) 58.2 A unit/mLInvalid Interpretation CodeImmune >16.4FProtestant Deaconess Hospital Comment on above:Result Comment: Negative <13.5 Equivocal 13.5 - 16.4 Positive >16.4 Presence of antibodies to Rubeola is presumptive evidence of immunity except when acute infection is suspected.Performed By: #### [id number] #### [facility] [address] [place], [place] [address]WnB IgG IA Qn (S)<9.0LowImmune >10.9[facility] Comment on above:Result Comment: Negative <9.0 Equivocal 9.0 - 10.9 Positive >10.9 A positive result generally indicates past exposure to Mumps virus or previous vaccination. Performed at: [address] [id number] PhD Sydnie HartmanPerformed By: #### [id number] #### [facility] [address] [place], [place] [address]Musodeh virus IgG Qn (S)1.64 [IU]/mLInvalid Interpretation Code Immune >0.99[facility] EastComment on above:Result Comment: Non- immune <0.90 Equivocal 0.90 - 0.99 Immune >0.99Performed By: #### [id number] #### [facility] [address] [place], [place] [address]Tcseh IgGon 12-27-9554ITG IgG IA Ql (S)ReactiveInvalid Interpretation CodeNon ReactiveRegency Hospital Cleveland EastComment on above: Result Comment: Please note reference interval change A Reactive result is considered evidence of immunity to VZV. Reactive indicates that VZV IgG was detected consistent with previous infection and/or vaccination. A Non Reactive result indicates that VZV IgG was not detected suggesting that immunity has not been acquired. Performed at: [facility] [id number] PhD Sydnie HartmanPerformed By: #### [id number] #### [place] [address] [place], [place] [address]DEIT Xpert, Xpress CoV-2, FLU, RSV Plus (Cepheid)on 05-10-2024 External Poct Influenza A CepheidPositiveAbnormalNegativeK[facility] External Poct Influenza B CepheidNegativeNegativeKettering Health [facility] SystemExternal Poct Rsv CepheidNegativeNegativeJoint Township District Memorial HospitalInterpretation and review of laboratory resultsAbnoCritical access hospitalARS-CoV-2 (COVID-19) RNA DONNA+probe Ql (Unsp spec)NegativeNegativeProPaoli HospitalHCG ( test) Ql (U)on 39-66-6985Tkfk HCG ( test) Ql (U)NegativeNormalNEGAshtabula County Medical CenterComment on above:Performed By: #### [id number] #### [facility] ([id number]) [address] [place] [address] 71975GNOQW STREP SCR NURSINGon 10-04-2023S. pyogenes Ag EIA Ql (Throat)NegativeNocarolinaeast medical centerNEGAshtabula County Medical CenterComment on above:Performed By: #### [id number] #### [facility] ([id number]) [address] [place] [address]PDNJ/FLU A+B/RSV by NAAT/Molecularon 66-64-1334KFCX/FLU A+B/RSV by NAAT/MolecularFLU A PCR Negative (qualifier value) FLU B [...] operators who are performing tests using either [employer] DX or EndoSphere systems and is limited to laboratories that [...] specimen repeat. Fact Sheet for Healthcare Providers: https://www.fda.gov/media/942141/download Fact Sheet for Patients: https://www.fda.gov/media/508282/downloadNormalProTexas Health Presbyterian Hospital Flower MoundComment on above:Performed By: #### COVFLR #### [facility] ([id number]) [address] [place] [address]TWE MACROSCOPIC Raul 90-73-9857GSJPEUVLD NURSmallAbnormalNEG [facility]cla Medical CenterComment on above:Performed By: #### NUM #### [facility] ([id number]) [address] [place] [address] 04[address]QRMRW/HGB NURTraceAbnormalNEGProTexas Health Presbyterian Hospital Flower MoundComment on above:Performed By: #### NUM #### [facility] ([id number]) [address] [place] [address]NUUMKFA NURNegativeNormalNEGProTexas Health Presbyterian Hospital Flower MoundComment on above:Performed By: #### NUM #### [facility] ([id number]) [address] [place] [address] [place] [address]VQGLGFI NURNegativeNormalNEGProTexas Health Presbyterian Hospital Flower MoundComment on above:Performed By: #### NUM #### [facility] ([id number]) [address] [place] [address] [place] [address]EJFNKPWAQ ESTERASE NURTraceAbnormalNEGAshtabula County Medical CenterComment on above:Performed By: #### NUM #### [facility] ([id number]) [address] [place] [address], [place] [address]KONKZBH NURNegativeNormalNEGAshtabula County Medical CenterComment on above:Performed By: #### NUM #### [facility] ([id number]) [address] [place] [address] [place] [address]AM NUR5.1Iiqqus1.0-8.5PHenry County HospitalComment on above:Performed By: #### NUM #### [facility] ([id number]) [address] [place] [address] [place] [address]LGGIBFS NUR30 mg/dLAbnormalNEGAshtabula County Medical CenterComment on above:Performed By: #### NUM #### [facility] ([id number]) [address] [place] [address], [place] [address]KVXEXHHY GRAVITY NAE>=1.786Tvrdmq3.003-1.035ProTexas Health Presbyterian Hospital Flower MoundComment on above:Performed By: #### NUM #### [facility] ([id number]) [address] [place] [address], [place] [address]MOBTDVFSIIOW NUR0.2 eu/dLNormal<1.1PHenry County Hospital Comment on above:Performed By: #### NUM #### [facility] ([id number]) [address] [place] [address] [place] [address]EPU CBC WITH AUTO DIFFon [id number] ABSOLUTE AUTO0.1 NOM[facility] HealthcareBasophils/100 WBC (Bld)0.5 %0.2 - 2.0 %[facility] Eosinophils/100 WBC (Bld)2.4 %0.9 - 7.0 %[facility] HospitalErythrocyte distribution width (RBC) [Ratio]14.1 %11.0 - 15.0 %[facility] HospitalHematocrit (Bld) [Volume fraction]36.7 %36.0 - 48.0 %[facility] HospitalHemoglobin (Bld) [Mass/Vol]11.2 g/dL Low12.0 - 16.0 g/dLEastern Missouri State HospitalIMMATURE GRANULOCYTES ABS AUTO0.02NOExcelsior Springs Medical CenterImmature granulocytes/100 WBC (Bld)0.2 %0.0 - 0.5 %[facility] Interpretation and review of laboratory resultsAbnormalE[facility] LYMPHOCYTES ABSOLUTE AUTO4.4HighEastern Missouri State HospitalLymphocytes/100 WBC (Bld)43.9 % 20.5 - 60.0 %[facility] HospitalH (RBC) [Entitic mass]26.1 pgLow26.7 - 34.0 pgEastern Missouri State HospitalMCHC (RBC) [Mass/Vol]30.5 g/dL29.9 - 35.2 g/dLEastern Missouri State HospitalMCV (RBC) [Entitic vol]85.5 fL81.0 - 99.0 fLEastern Missouri State HospitalMONOCYTES ABSOLUTE AUTO0.5NOExcelsior Springs Medical CenterMonocytes/100 WBC (Bld)4.5 %1.7 - 12.0 %[facility] HospitalNEUTROPHILS ABSOLUTE AUTO4.9NOExcelsior Springs Medical CenterNeutrophils/100 WBC (Bld)48.5 %43.0 - 75.0 %[facility] HospitalPlatelet mean volume (Bld) [Entitic vol]9.0 fLLow9.5 - 13.5 fLEastern Missouri State HospitalTB EO #0.2NOMS [facility] Medical CenterTB DCO313JMCF [facility] RBC4.29NOMS [facility] WBC10.1NOMS HealthcareCLINISYNCNCedar County Memorial HospitalLon 05-14-2023L Specimen: [id number] Received: 05/14/23 Status: REJI Prado Num: [id number] Spec Type: Surgical Subm Dr: Pipo Taylor Tissues: A Fallopian Tube - Sterilization (KIMBERLEY FT) B Soft Tissue/Surgical Margin-Other than Tumor,Mass,Lip or Latasha (LT OVARIAN CYS Procedures: HE/3, Gross/Micro L4, Gross/Micro L2 Age/ Patient Sex Location Account Attending Physician DeborahKylie L 28/F LABELL [id number] Pipo Taylor SPEC NUM: [id number] RECD: 05/14/23 STATUS: REJI JET NUM: [id number] SHERLY: 05/14/[address]: Pipo Taylor ENTERED: 05/14/[address] [facility] DR: Rosa,Lab SPEC TYPE: Surgical DEPT: JOANNA [...] has a patent lumen on cut section. Recordist sections are submitted in two cassettes labeled A1-A2. B. Received in formalin labeled with the patient's name, date of and left ovarian cyst wall are two amezquita-guerrero membranous tissues measuring 1.0 x 0.5 x 0.4 cm and 1.5 x 0.5 x 0.5 cm. Entirely submitted in one cassette labeled B1. Specimen: [id number] Received: 05/14/23 Status: LARISSAEmili Prado Num: [id number] Spec Type: Surgical Subm Dr: Pipo Taylor Tissues: A Fallopian Tube - Sterilization (KIMBERLEY FT) B Soft Tissue/Surgical Margin-Other than Tumor,Mass,Lip or Latasha (LT OVARIAN CYS Procedures: HE/3, Gross/Micro L4, Gross/Micro L2 Patient: Kylie Cabrera [id number] (Continued) Specimen: [id number] Received: 05/14/23 (Continued) Signed (signature on file) Shannon Mahajan MD 05/17/23 2307 Specimen: [id number] Received: 05/14/23 Status: REJI Prado Num: [id number] Spec Type: Surgical Subm : Pipo Taylor Tissues: A Fallopian Tube - Sterilization (KIMBERLEY FT) B Soft Tissue/Surgical Margin-Other than Tumor,Mass,Lip or Latasha (LT OVARIAN CYS Procedures: HE/3, Gross/Micro L4, Gross/Micro L2 Patient: Kylie Cabrera [id number] (Continued) Specimen: [id number] Received: 05/14/23 (Continued) CPT Codes 82192, 84341 Specimen: [id number] Received: 05/14/23 Status: REJI Prado Num: [id number] Spec Type: Surgical Subm Dr: Pipo Taylor Tissues: A Fallopian Tube - Sterilization (KIMBERLEY FT) B Soft Tissue/Surgical Margin-Other than Tumor,Mass,Lip or Latasha (LT OVARIAN CYS Procedures: HE/3, Gross/Micro L4, Gross/Micro L2 Patient: Kylie Cabrera Courtney [id number] (Continued) Signed (signature on file) Shannon Mahajan MD 05/17/23 2307[facility] HospitalCoding Summaryon 03-05-2023 Coding SummaryHTMLBase 64 UulgeegvIId5bIw+PGhlYWQ+CA9ZGJKuL13ucTJulX5bT3HCFFuUDeueERPEAQmHGxWjheCjAA9vtSRc ZXJu [file] cHN (more content not included)...[facility] Clinical Summaryon [id number] Clinical [facility] ? Urgent Care [address] [place], [place] [id number] Clinical Summary PERSON INFORMATION Name: KYLIE CABRERA Age: 27 Years Sex: FEMALE : 1995 MRN: Acct#: Visit Reason: UC - Eye Pain; RIGHT EYE IRRITATION Arrival: 03/01/2023 13:29:41 Discharge: 03/01/2023 13:51:00 LOS: 000 00:22 Check In: 03/01/2023 13:29:41 Checkout: 03/01/2023 13:51:00 Address: [address] [place] [address] PCP: Provider, None PROVIDER INFORMATION Provider Role Assigned Unassigned Harpreet Gray COLLEGE AND CAREER COUNSELOR Nurse 03/01/2023 13:32:52 Geovanny Mac ED PA [...] before and after using eyedrops, as it canbe contagious as we discussed. Treat both eyes. [...] of right eye Patient Understands: Yes - Patient/family/caregiver verbalizes understanding of instructions given Comment:[facility] Patient Summary [id number] Patient Summary [facility] ? Urgent Care [address] [place], [place] [id number] PATIENT DISCHARGE INSTRUCTIONS Patient Information Name: KYLIE [...] before and after using eyedrops, as it canbe contagious as we discussed. Treat both eyes. [...] health care provider. ? Take or apply fnje-vny-nnvjwci and prescription medicines only as told by your health care provider. ? Be very careful to avoid touching the edge of your eyelid with the eye-drop bottle or the ointment tube when you apply medicines to the affected eye. This will keep you from spreading the infectionto your other eye or to other people. [...] or rubbing your eyes. (more content not included)...Normal [facility] HospitalUrge Care Recordon 95-98-1704Jfjhgn Care [facility] ? Urgent Care [address] [id number] PATIENT DISCHARGE INSTRUCTIONS Patient Information Name: KYLIE CABRERA Age: 27 Years Date of : 1995 [id number] Reason For Visit: UC - Eye Pain; RIGHT EYE IRRITATION Arrival Time: 03/01/2023 13:29:41 Primary Care Physician: Provider, None Attending Physician: Geovanny Mac Comment: Visit Diagnosis: Diagnoses This Visit Conjunctivitis of right eye (H10.9) UC - Eye Pain ([id number]) If you received any narcotics, sedation, or [...] before and after using eyedrops, as it canbe contagious as we discussed. Treat both eyes. [...] and treatment you received today in the [facility] were for an urgent problem and are not intended as complete care. It is important for you to follow up with a doctor, nurse practitioner, or physician?s assistant front end manager for ongoing care. If your symptoms become [...] so we can reach you if necessary. [facility] has provided you with a complete list of medications post discharge. Please inform your pci security consultant/provider of your visit and for further instruction on these medications. Any specific questions regarding your chronic medications and dosages should be discussed with your primary care physician(s) and/or pharmacist. New Medications [id number], [address], [place] [id number], [phone] ofloxacin ophthalmic (ofloxacin 0.3% ophthalmic solution) 2 [...] condition if: ? You (more content not included)...NormalDcgruder HospitalBOX TEST SENT OUTon 41-06-2487NURD TO REF LAB07/04/2022NoSelect [facility] Special[facility] Hospital - Cleveland-FairhillComment on above: Performed By: #### BOX #### [facility] [address] [address] [address] Reyes Pickard-19 Antigenon 85-43-3615GKQPR-19 AntigenHealthcare Worker?: N Reference Range: Negative Negative results, [...] developed and its performance characteristic determined by [facility] and validated at [facility]. This test has not been FDA cleared [...] for SARS Antigen by RONALD PERFORMED BY: [facility] [address] PATHOLOGIST CLERICAL WAREHOUSE WORKER ANGIE RILEY M.D.[facility] Osteopathic HospitalComment on above: Performed By: #### WILLIIANEG, COVID-19 RONNY #### [facility] [address] [place] [address] USACOVID-19 SOFIAOrdered By: Odilon Daniels on 07-03-2022 SARS-CoV+SARS-CoV-2 (COVID-19) Ag IA.rapid Ql (Resp)NegativeNegativeParkview HealthComment on above:This is a duplicate Ronny SARS Antigen (RONALD) result to be used for statistical tracking purpose only.No Panel InformationOrdered By: Odilon Daniels on 86-90-1614QHSN Antigen (LFIA)[facility] Medical Centerofia Ag Negativeon 75-67-2243Zndzs Ag NegativeNegative NormalNegSelect Medical TriHealth Rehabilitation HospitalComment on above:Result Comment: This is a duplicate Ronny SARS Antigen (RONALD) result to be used for statistical tracking purpose only. PERFORMED BY: [place] [address] PATHOLOGIST CLERICAL WAREHOUSE WORKER ANGIE RILEY M.D.Performed By: #### CAMI, COVID-19 RONNY #### [facility] [address] [place] [address] USAA1C with Estimated Average Gluon 88-17-7433Icksoyg [Mass/Vol]111 mg/dLNormalParkview HealthComment on above: Result Comment: PERFORMED BY: [place] [phone] PATHOLOGIST CLERICAL WAREHOUSE WORKER ANGIE RILEY M.D.Performed By: #### SOFIANEG, COVID-19 RONNY #### [facility] [address] [place] [address] HTCGiM1y (Bld) [Mass fraction]5.5 %Normal4.3-5.6FPeoples HospitalComment on above:Result Comment: Increased risk for diabetes: 5.7 - 6.4 diabetes: >6.4 glycemic control for adults with diabetes: <7.0Performed By: #### SOFIANEG, COVID-19 RONNY #### [facility] [address] [place] [address] USAABO/RH Typeon 48-11-2853AMY and Rh group Nom (Bld)Blood group O Rh(D) positiveNormalParkview HealthComment on above: Result Comment: PERFORMED BY: [place] [address] PATHOLOGIST CLERICAL WAREHOUSE WORKER ANGIE RILEY M.D.Basophils Auto (Bld) [#/Vol]Ordered By: Pipo Taylor on 94-05-6909Ostwgcuwq (Bld) [#/Vol]0.0 10*3/uL0.0-0.2FPeoples HospitalBasophils/100 WBC Auto (Bld)Ordered By: Pipo Taylor on 07-02-2022 Basophils/100 WBC (Bld)0.4 %.[facility] HealthComplete Blood Count Auto Diffon 69-44-4117Vazafzerp (Bld) [#/Vol]0.0 10*3/uLNormal0.0-0.2 [facility]view HealthComment on above:Result Comment: PERFORMED BY: [place] [address] PATHOLOGIST CLERICAL WAREHOUSE WORKER ANGIE RILEY M.D.Performed By: #### CAMI, COVID-19 RONNY #### [facility] [address] [place] [address] USABasophils/100 WBC (Bld)0.4 %Normal.[facility] HealthComment on above:Performed By: #### WILLIIANHESHAM, COVID-19 RONNY #### [facility] [address] [place] [address] USAEosinophils (Bld) [#/Vol]0.2 10*3/uLNormal0.0-0.45 [facility] HealthComment on above:Performed By: #### SOFIANEG, COVID-19 RONNY #### [facility] [address] [place] [address] USAEosinophils/100 WBC (Bld)2.6 %Normal.Parkview HealthComment on above:Performed By: #### CAMI COVID-19 RONNY #### [facility] [address] [place] [address] USAErythrocyte distribution width (RBC) [Ratio]14.6 %Normal 11.9-15.3FPeoples HospitalComment on above:Performed By: #### CAMI COVID-19 RONNY #### [facility] [address] [place] [address] USAHematocrit (Bld) [Volume fraction]38.0 %Rizceb00.0-46.4 [facility] HealthComment on above:Performed By: #### CAMI COVID-19 RONNY #### [place] [address] USAHemoglobin (Bld) [Mass/Vol]12.4 g/oZCoygsb83.8-15.4 [facility] HealthComment on above:Performed By: #### CAMI COVID-19 RONNY #### [place] [address] USALymphocytes (Bld) [#/Vol]2.8 10*3/uLNormal1.00-4.8 Parkview HealthComment on above:Performed By: #### CAMI COVID-19 RONNY #### [facility] [address] [place] [address] USALymphocytes/100 WBC (Bld)30.7 %Normal.[facility]view HealthComment on above:Performed By: #### CAMI COVID-19 RONNY #### [facility] [address] [place] [address] USAMCH (RBC) [Entitic mass]30.0 kjFenwql77.7-34.3FPeoples HospitalComment on above:Performed By: #### CAMI, COVID-19 RONNY #### [facility] [address] [place] [address] USAMCV (RBC) [Entitic vol]91.9 hDMpzghq32-030WytwvsehkParkview HealthComment on above:Performed By: #### CAMI COVID-19 RONNY #### [facility] [address] [place] [address] USAMean Corpuscular HGB Conc32.7 g/yZPtikvh29.0-35.0Parkview HealthComment on above:Performed By: #### CAMI COVID-19 RONNY #### [facility] [address] [place] [address] USAMonocytes (Bld) [#/Vol]0.5 10*3/uLNormal0.0-0.8Parkview HealthComment on above:Performed By: #### CAMI COVID-19 RONNY #### [facility] [address] [place] [address] USAMonocytes/100 WBC (Bld)5.2 %Normal.[facility]view HealthComment on above:Performed By: #### CAIM, COVID-19 RONNY #### [facility] [address] [place] [address] USANeutrophils (Bld) [#/Vol]5.6 10*3/uLNormal1.8-7.7FPeoples HospitalComment on above:Performed By: #### CAMI, COVID-19 RONNY #### [facility] [address] [place] [address] USANeutrophils/100 WBC (Bld)61.1 %Normal.[facility]view HealthComment on above:Performed By: #### SOFIANHESHAM, COVID-19 RONNY #### [facility] [address] [place] [address] USANRBC%0.2 /100{WBC}Normal0-0.5FPeoples HospitalComment on above:Performed By: #### SOFIANHESHAM, COVID-19 RONNY #### [facility] [address] [place] [address] USAPlatelet mean volume (Bld) [Entitic vol]7.5 fLNormal 6.3-10.7FPeoples HospitalComment on above:Performed By: #### DINESH ALMANZAID-19 RONNY #### [facility] [address] [place] [address] USAPlatelets (Bld) [#/Vol]322 10*3/wVYblfnf282-076VyenvcrhhParkview HealthComment on above:Performed By: #### DINESH ALMANZAID-19 RONNY #### [facility] [address] [place] [address] USARBC (Bld) [#/Vol]4.13 10*6/uLNormal3.60-5.00[facility] HealthComment on above:Performed By: #### DINESH ALMANZAID-19 RONNY #### [facility] [address] [place] [address] USAWBC (Bld) [#/Vol]9.1 10*3/uLNormal3.8-11.6FPeoples HospitalComment on above:Performed By: #### CAMI COVID-19 RONNY #### [facility] [address] [place] [address] USAEosinophils Auto (Bld) [#/Vol]Ordered By: Pipo Taylor on 52-02-9436Afkifrktgiy (Bld) [#/Vol]0.2 10*3/uL0.0-0.45Parkview HealthEosinophils/100 WBC Auto (Bld)Ordered By: Pipo Taylor on 07-02-2022 Eosinophils/100 WBC (Bld)2.6 %.[facility]view HealthErythrocyte distribution width Auto (RBC) [Ratio]Ordered By: Pipo Taylor on 07-02-2022 Erythrocyte distribution width (RBC) [Ratio]14.6 %11.9-15.3FPeoples HospitalGlucose mean value [Mass/volume] in Blood Estimated from glycated hemoglobinOrdered By: Pipo Taylor on 45-96-0967Kfoqvfs glucose Estimated from glycated hemoglobin (Bld) [Mass/Vol]111 mg/dLParkview Health Hematocrit Auto (Bld) [Volume fraction]Ordered By: Pipo Taylor on 07-02-2022 Hematocrit (Bld) [Volume fraction]38.0 %34.0-46.4FPeoples HospitalHemoglobin A1c percentageOrdered By: Pipo Claudia on 64-79-1307PnL0d (Bld) [Mass fraction]5.5 %4.3-5.6FPeoples HospitalComment on above: Increased risk for diabetes: 5.7 - 6.4diabetes: >6.4glycemic control for adults with diabetes: <7.0Hemoglobin [Mass/volume] in BloodOrdered By: Pipo Taylor on 20-52-3291Kinvsdfkwq (Bld) [Mass/Vol]12.4 g/dL11.8-15.4FPeoples HospitalHep C Ab wRfx to Qnt PCRon 99-66-1432Stzeazzfu C Virus Antibody Non-ReactiveNormalNon ReactiveParkview HealthComment on above: Performed By: #### SOFIANEG, COVID-19 RONNY #### [facility] [address] [place] [address] USAInterpretation Hepatitis CNormal.[facility] HealthComment on above:Result Comment: Not infected with HCV unless early or acute infection is suspected (which may be delayed in an immunocompromised individual), or other evidence exists to indicate HCV infection.Performed By: #### SOFIANEG, COVID-19 RONNY #### [facility] [address] [place] [address] USAHepatitis B Surface Antigenon 00-87-1061NQjSg Screen NegativeNormalNegativeParkview HealthComment on above:Result Comment: Performed at: - [facility] [id number] Building Illuminating Engineer: Devan Otoole PhD, Phone: [phone] PERFORMED BY: [place] [address] PATHOLOGIST CLERICAL WAREHOUSE WORKER ANGIE RILEY M.D.Performed By: #### SOFIANEG, COVID-19 RONNY #### [address] [place] [address] USAHepatitis B virus surface Ag [Presence] in Serum or Plasma by ImmunoassayOrdered By: Pipo Taylor on 43-55-3985ALV surface Ag IA QlNegative NegativeParkview HealthComment on above:Performed at: - [facility] [address] [id number] Director: Devan Otoole PhD, Phone: [phone] C virus IgG Ab [Presence] in Serum or Plasma by ImmunoassayOrdered By: Pipo Taylor on 39-02-3653JKX IgG IA Ql Non-ReactiveNon ReactiveParkview HealthLeukocytes [#/volume] corrected for nucleated erythrocytes in Blood by Automated counOrdered By: Pipo Taylor on 72-52-1105LXT corrected for nucl RBC Auto (Bld) [#/Vol]9.1 10*3/uL 3.8-11.6FPeoples HospitalLymphocytes Auto (Bld) [#/Vol]Ordered By: Pipo Taylor on 60-03-3693Lsvcszbyluq (Bld) [#/Vol]2.8 10*3/uL1.00-4.8 [facility]view HealthLymphocytes/100 WBC Auto (Bld)Ordered By: Pipo Taylor on 37-50-5692Viofgwjdphh/100 WBC (Bld)30.7 %.[facility] CenterH Auto (RBC) [Entitic mass]Ordered By: Pipo Taylor on 98-92-9069ZQF (RBC) [Entitic mass]30.0 pg24.7-34.3FPeoples HospitalMCHC Auto (RBC) [Mass/Vol]Ordered By: Pipo Taylor on 62-42-4321LWMB (RBC) [Mass/Vol]32.7 g/dL32.0-35.0[facility] HealthMCV Auto (RBC) [Entitic vol] Ordered By: Pipo Taylor on 44-73-4219DVD (RBC) [Entitic vol]91.9 jH77-248 [facility] HealthMonocytes Auto (Bld) [#/Vol]Ordered By: Pipo Taylor on 00-13-1534Xtljgwzhk (Bld) [#/Vol]0.5 10*3/uL0.0-0.8Parkview HealthMonocytes/100 WBC Auto (Bld)Ordered By: Pipo Taylor on 07-02-2022 Monocytes/100 WBC (Bld)5.2 %.[facility] HealthNeutrophils Auto (Bld) [#/Vol]Ordered By: Pipo Taylor on 29-88-9651Gtixkxgsiki (Bld) [#/Vol]5.6 10*3/uL1.8-7.7FPeoples HospitalNeutrophils/100 WBC Auto (Bld) Ordered By: Pipo Taylor on 10-52-1484Oenicrearth/100 WBC (Bld)61.1 %.[facility] HealthNo Panel InformationOrdered By: Pipo Taylor on 07-02-2022 Hepatitis C InterpretationSee comment.[facility] HealthComment on above:Not infected with HCV unless early or acute infection issuspected (which may be delayed in an immunocompromisedindividual), or other evidence exists to indicate HCVinfection.Hepatitis C RNA QuantitativeN/[facility] HospitalRubella IgG Antibody1.57 indexImmune >0.99Parkview HealthComment on above:Non-immune <0.90 Equivocal 0.90 - 0.99 Immune >0.99Performed at: [employer] [facility] [id number] Director: Devan Otoole PhD, Phone: [phone] erythrocytes [Presence] in Blood by Automated countOrdered By: Pipo Taylor on 84-31-4431Fratnemll RBC Auto Ql (Bld)0.2 /100{WBC}0-0.5FPeoples HospitalPlatelet mean volume Auto (Bld) [Entitic vol]Ordered By: Pipo Taylor on 79-67-7580Fyasijdv mean volume (Bld) [Entitic vol]7.5 fL6.3-10.7 [facility]view HealthPlatelets Auto (Bld) [#/Vol]Ordered By: Pipo Taylor on 02-19-5751Lebkgjebp (Bld) [#/Vol]322 10*3/mI631-172LoicelmjsParkview HealthRBC Auto (Bld) [#/Vol]Ordered By: Pipo Taylor on 58-71-4246XDA (Bld) [#/Vol]4.13 10*6/uL3.60-5.00Parkview HealthRPR w/rfx to Quant TP Abson 47-93-1526YEH, Rfx Quant RPRNon-ReactiveNormalNon Reactive [facility] HealthComment on above:Result Comment: Performed at: [facility] [address] [address] Building Illuminating Engineer: Devan Otoole PhD, Phone: [phone] PERFORMED BY: [place] [address] PATHOLOGIST CLERICAL WAREHOUSE WORKER ANGIE RILEY M.D.Performed By: #### CAMI COVID-19 RONNY #### [place] [address] USAReagin Ab [Presence] in Serum by RPROrdered By: Pipo Taylor on 47-15-2543Zydpfm Ab RPR Ql (S)Non-ReactiveNon ReactiveParkview HealthComment on above:Performed at: [employer] [id number] Director: Devan Otoole PhD, Phone: [phone] IgG Antibodyon 70-30-5964Xsmoyty IgG Antibody1.57NormalImmune >0.99Parkview HealthComment on above:Result Comment: Non- immune <0.90 Equivocal 0.90 - 0.99 Immune >0.99 Performed at: [facility] [address] [id number] Building Illuminating Engineer: Devan Otoole PhD, Phone: [phone] By: #### CAMI, COVID-19 RONNY #### [place] [address] USAThyroid Stimulating Hormoneon 40-16-9571VVJ Qn2.98 m[IU]/L Normal0.45-5.33Park[facility] HealthComment on above:Result Comment: PERFORMED BY: [place] [address] PATHOLOGIST CLERICAL WAREHOUSE WORKER ANGIE RILEY M.D.Performed By: #### CAMI COVID-19 RONNY #### [facility] [address] [place] [address] USAThyrotropin [Units/volume] in Serum or PlasmaOrdered By: Pipo Taylor on 27-19-4901ORG Qn2.98 m[IU]/L0.45-5.33Parkview HealthUrine Cultureon 18-58-9591Xdoyzpkl identified Cx Nom (U)No Growth 2 Days PERFORMED BY: [place] [address] PATHOLOGIST CLERICAL WAREHOUSE WORKER ANGIE RILEY M.D.[facility] Osteopathic HospitalComment on above: Performed By: #### CAMI, COVID-19 RONNY #### [facility] [address] [place] [address] USAWBC Auto (Bld) [#/Vol]Ordered By: Pipo Taylor on 09-09-6372XSH (Bld) [#/Vol]9.1 10*3/uL3.8-11.6FPeoples Hospital Alanine aminotransferase [Enzymatic activity/volume] in Serum or PlasmaOrdered By: Linda Mortensen on 01-94-0936TNZ [Catalytic activity/Vol]31 U/L7-52Parkview HealthAlbumin [Mass/volume] in Serum or Plasma by Bromocresol green (BCG) dye binding methoOrdered By: Linda Mortensen on 26-39-2940Guazenu BCG dye [Mass/Vol]3.8 g/dL3.5-5.7FPeoples HospitalAlkaline phosphatase [Enzymatic activity/volume] in Serum or PlasmaOrdered By: Linda Mortensen on 67-29-0339QJV [Catalytic activity/Vol]83 U/W93-975ZktfnptsqParkview HealthAspartate aminotransferase [Enzymatic activity/volume] in Serum or PlasmaOrdered By: Linda Mortensen on 32-70-7178OKB [Catalytic activity/Vol]15 U/B89-51KjfnzbjyrParkview HealthAutomated erythrocytes count in urine sediment (number/area)Ordered By: Linda Mortensen on 87-56-9894CWB Auto (Urine sed) [#/Area]1-2 [HPF]0-4FPeoples HospitalAutomated leukocytes count in urine sediment (number/area)Ordered By: Linda Mortensen on 06-26-2022 WBC Auto (Urine sed) [#/Area]10-19 [HPF]0-4FPeoples Hospital Basophils Auto (Bld) [#/Vol]Ordered By: Linda Mortensen on 84-30-0404Qjfnbdghm (Bld) [#/Vol]0.0 10*3/uL0.0-0.2FPeoples HospitalBasophils/100 WBC Auto (Bld)Ordered By: Linda Mortensen on 90-74-4862Nacxujvol/100 WBC (Bld) 0.4 %.[facility]view HealthBilirubin Test strip Ql (U)Ordered By: Linda Mortensen on 41-76-4151Xfmaxgbwr Ql (U)NegativeNegativeParkview HealthBilirubin.total [Mass/volume] in Serum or PlasmaOrdered By: Linda Mortensen on 48-48-5729Xqvhuyjfu [Mass/Vol]0.4 mg/dL0.3-1.0Parkview HealthCalcium [Mass/volume] in Serum or PlasmaOrdered By: Linda Mortensen on 71-09-0088Faptrud [Mass/Vol]9.1 mg/dL8.6-10.3FPeoples HospitalCarbon dioxide, total [Moles/volume] in Serum or Plasma Ordered By: Linda Mortensen on 84-18-5943NU7 [Moles/Vol]25.6 mmol/L21.0-31.0 [facility] HealthChloride [Moles/volume] in Serum or Plasma Ordered By: Linda Mortensen on 74-97-3151Rmfuzace [Moles/Vol]104 mmol/L98-107 [facility] HealthColor Auto (U)Ordered By: Linda Mortensen on 60-43-7618Biqbk (U)YellowYelMagruder HospitalComplete Blood Count Auto Diffon 44-27-8036Qpwcjllqk (Bld) [#/Vol]0.0 10*3/uLNormal0.0-0.2 [facility] HealthComment on above:Result Comment: PERFORMED BY: [place] [address] PATHOLOGIST CLERICAL WAREHOUSE WORKER ANGIE RILEY M.D.Performed By: #### CMP, CBC, HS TROP #### [place] [address] USABasophils/100 WBC (Bld)0.4 %Normal.Parkview HealthComment on above:Performed By: #### CMP, CBC, HS TROP #### [place] [address] USAEosinophils (Bld) [#/Vol]0.1 10*3/uLNormal0.0-0.45 [facility] HealthComment on above:Performed By: #### CMP, CBC, HS TROP #### [place] [address] USAEosinophils/100 WBC (Bld)1.2 %Normal.[facility]view HealthComment on above:Performed By: #### CMP, CBC, HS TROP #### [place] [address] USAErythrocyte distribution width (RBC) [Ratio]14.9 %Normal 11.9-15.3FPeoples HospitalComment on above:Performed By: #### CMP, CBC, HS TROP #### [place] [address] USAHematocrit (Bld) [Volume fraction]38.3 %Gususg15.0-46.4 [facility]view HealthComment on above:Performed By: #### CMP, CBC, HS TROP #### [place] [address] USAHemoglobin (Bld) [Mass/Vol]12.6 g/rGCoxhfm97.8-15.4 [facility] HealthComment on above:Performed By: #### CMP, CBC, HS TROP #### [place] [address] USALymphocytes (Bld) [#/Vol]3.0 10*3/uLNormal1.00-4.8 [facility] HealthComment on above:Performed By: #### CMP, CBC, HS TROP #### [place] [address] USALymphocytes/100 WBC (Bld)34.2 %Normal.[facility]view HealthComment on above:Performed By: #### CMP, CBC, HS TROP #### [place] [address] USAMCH (RBC) [Entitic mass]30.1 emIxgzks25.7-34.3FPeoples HospitalComment on above:Performed By: #### CMP, CBC, HS TROP #### [place] [address] USAMCV (RBC) [Entitic vol]91.5 pOTjvffg58-445VvgkdqagjParkview HealthComment on above:Performed By: #### CMP, CBC, HS TROP #### [place] [address] USAMean Corpuscular HGB Conc32.9 g/fNXzubfk78.0-35.0Parkview HealthComment on above:Performed By: #### CMP, CBC, HS TROP #### [place] [address] USAMonocytes (Bld) [#/Vol]0.5 10*3/uLNormal0.0-0.8Parkview HealthComment on above:Performed By: #### CMP, CBC, HS TROP #### [place] [address] USAMonocytes/100 WBC (Bld)19.04 %Normal0.00-20.00Parkview HealthComment on above:Performed By: #### CMP, CBC, HS TROP #### [facility] [address] [place] [address] USAMonocytes/100 WBC (Bld)5.7 %Normal.Parkview HealthComment on above:Performed By: #### CMP, CBC, HS TROP #### [facility] [address] [place] [address] USANeutrophils (Bld) [#/Vol]5.1 10*3/uLNormal1.8-7.7FPeoples HospitalComment on above:Performed By: #### CMP, CBC, HS TROP #### [place] [address] USANeutrophils/100 WBC (Bld)58.5 %Normal.[facility]view HealthComment on above:Performed By: #### CMP, CBC, HS TROP #### [facility] [address] [place] [address] USANRBC%0.1 /100{WBC}Normal0-0.5FPeoples HospitalComment on above:Performed By: #### CMP, CBC, HS TROP #### [facility] [address] [place] [address] USAPlatelet mean volume (Bld) [Entitic vol]7.6 fLNormal 6.3-10.7FPeoples HospitalComment on above:Performed By: #### CMP, CBC, HS TROP #### [place] [address] USAPlatelets (Bld) [#/Vol]332 10*3/hLDtcpgt403-687JpfdxnbtxParkview HealthComment on above:Performed By: #### CMP, CBC, HS TROP #### [place] [address] USARBC (Bld) [#/Vol]4.19 10*6/uLNormal3.60-5.00Parkview HealthComment on above:Performed By: #### CMP, CBC, HS TROP #### [facility] [address] [place] [address] USAWBC (Bld) [#/Vol]8.8 10*3/uLNormal3.8-11.6FPeoples HospitalComment on above:Performed By: #### CMP, CBC, HS TROP #### [facility] [address] [place] [address] USAComprehensive Metabolic Panelon 95-11-4649Mqyfzev [Mass/Vol]3.8 g/dLNormal3.5-5.7FPeoples HospitalComment on above:Performed By: #### CMP, CBC, HS TROP #### [facility] [address] [place] [address] USAAlbumin/Globulin [Mass ratio]1.1 {ratio}NormalParkview HealthComment on above:Performed By: #### CMP, CBC, HS TROP #### [facility] [address] [place] [address] USAALP [Catalytic activity/Vol]83 U/EGbbqoe10-658DddkdvajdParkview HealthComment on above:Performed By: #### CMP, CBC, HS TROP #### [facility] [address] [place] [address] USAALT [Catalytic activity/Vol]31 U/LNormal7-52Parkview HealthComment on above:Performed By: #### CMP, CBC, HS TROP #### [facility] [address] [place] [address] USAAnion gap [Moles/Vol]10.4 mmol/LNormal6.0-15.0Parkview HealthComment on above:Performed By: #### CMP, CBC, HS TROP #### [facility] [address] [place] [address] USAAST [Catalytic activity/Vol]15 U/HRfkqsx70-80NweseoifiParkview HealthComment on above:Performed By: #### CMP, CBC, HS TROP #### [facility] [address] [place] [address] USABilirubin [Mass/Vol]0.4 mg/dLNormal0.3-1.0Parkview HealthComment on above:Performed By: #### CMP, CBC, HS TROP #### [place] [address] USACalcium [Mass/Vol]9.1 mg/dLNormal8.6-10.3FPeoples HospitalComment on above:Performed By: #### CMP, CBC, HS TROP #### [facility] [address] [place] [address] USAChloride [Moles/Vol]104 mmol/AEaumui83-212SlqudacxrParkview HealthComment on above:Performed By: #### CMP, CBC, HS TROP #### [place] [address] USACO2 [Moles/Vol]25.6 mmol/YSkbpbw37.0-31.0Parkview HealthComment on above:Performed By: #### CMP, CBC, HS TROP #### [place] [address] USACreatinine [Mass/Vol]0.61 mg/dLNormal0.60-1.20Parkview HealthComment on above:Performed By: #### CMP, CBC, HS TROP #### [place] [address] USACreatinine Clr Calc Isjavwtm157.48NoalParkview HealthComment on above:Result Comment: PERFORMED BY: [place] [address] PATHOLOGIST CLERICAL WAREHOUSE WORKER ANGIE RILEY M.D.Performed By: #### CMP, CBC, HS TROP #### [facility] [address] [place] [address] USAGFR/1.73 sq M.predicted MDRD (S/P/Bld) [Vol rate/Area] mL/min/{1.73_m2}NormalParkview HealthComment on above: Performed By: #### CMP, CBC, HS TROP #### [place] [address] USAGlobulin (S) [Mass/Vol]3.5 g/dLNormalParkview HealthComment on above:Performed By: #### CMP, CBC, HS TROP #### [facility] [address] [place] [address] USAGlucose [Mass/Vol]81 mg/gTOujvbx86-129AjxghxzuuParkview HealthComment on above:Result Comment: Random Glucose Reference Range is dependent on time and content of last meal. Glucose of more than 200 mg/dL in a nonstressed, ambulatory subject supports the diagnosis of Diabetes Mellitus. ADA recommended reference rangePerformed By: #### CMP, CBC, HS TROP #### [facility] [address] [place] [address] USAPotassium [Moles/Vol]4.0 mmol/LNormal3.5-5.1FPeoples HospitalComment on above:Performed By: #### CMP, CBC, HS TROP #### [facility] [address] [place] [address] USAProtein [Mass/Vol]7.3 g/dLNormal6.4-8.9Parkview HealthComment on above:Performed By: #### CMP, CBC, HS TROP #### [facility] [address] [place] [address] USASodium [Moles/Vol]136 mmol/HGsjiux191-834OwnpotpeqParkview HealthComment on above:Performed By: #### CMP, CBC, HS TROP #### [facility] [address] [place] [address] USAUrea nitrogen [Mass/Vol]6 mg/dLLow7-25Parkview HealthComment on above:Performed By: #### CMP, CBC, HS TROP #### [facility] [address] [place] [address] USACreatinine [Mass/volume] in Serum or PlasmaOrdered By: Linda Mortensen on 39-21-3843Vkmsptiwbz [Mass/Vol]0.61 mg/dL0.60-1.20Parkview HealthDipstick and Microscopicon 15-14-0436Jijymlnhgu (U)Clear NormalCleKing's Daughters Medical Center OhioComment on above:Order Comment: Name Collection Type:: Clean-Voided MidstreamPerformed By: #### ADDONUAPLUS, CUU, UHCG #### [facility] [address] [place] [address] USABacteria,UrineRareHighNone SeenParkview HealthComment on above:Order Comment: Name Collection Type:: Clean-Voided MidstreamPerformed By: #### ADDONUAPLUS, CUU, UHCG #### [facility] [address] [place] [address] USABilirubin,UrineNegativeNormalNegSelect Medical TriHealth Rehabilitation HospitalComment on above:Order Comment: Name Collection Type:: Clean- Voided MidstreamPerformed By: #### ADDONUAPLUS, CUU, UHCG #### [facility] [address] [place] [address] USAColor (U)YellowNormalYellowParkview HealthComment on above:Order Comment: Name Collection Type:: Clean-Voided MidstreamPerformed By: #### ADDONUAPLUS, CUU, UHCG #### [facility] [address] [place] [address] USAGlucose Ql (U)NormalNormalNormalParkview HealthComment on above:Order Comment: Name Collection Type:: Clean-Voided MidstreamPerformed By: #### ADDONUAPLUS, CUU, UHCG #### [facility] [address] [place] [address] USAHyaline Casts,Avbcq6-9Dlirvk0-0GjaqcpfuvParkview HealthComment on above:Order Comment: Name Collection Type:: Clean-Voided MidstreamPerformed By: #### ADDONUAPLUS, CUU, UHCG #### [facility] [address] [place], [place] [address] USAKetones Ql (U)TraceHighNegSelect Medical TriHealth Rehabilitation HospitalComment on above:Order Comment: Name Collection Type:: Clean-Voided MidstreamPerformed By: #### ADDONUAPLUS, CUU, UHCG #### [facility] [address] [place] [address] USALeukocyte esterase Test strip Ql (U)3+HighNegative Parkview HealthComment on above:Order Comment: Name Collection Type:: Clean-Voided MidstreamPerformed By: #### ADDONUAPLUS, CUU, UHCG #### [place] [address] USANitrite,UrineNegativeNormalNegSelect Medical TriHealth Rehabilitation HospitalComment on above:Order Comment: Name Collection Type:: Clean- Voided MidstreamPerformed By: #### ADDONUAPLUS, CUU, UHCG #### [place] [address] USAOccult Blood,UrineNegativeNormalNegSelect Medical TriHealth Rehabilitation HospitalComment on above:Order Comment: Name Collection Type:: Clean- Voided MidstreamPerformed By: #### ADDONUAPLUS, CUU, UHCG #### [place] [address] USApH (U)6.0 [pH]Normal5.0-9.0Parkview HealthComment on above:Order Comment: Name Collection Type:: Clean-Voided MidstreamPerformed By: #### ADDONUAPLUS, CUU, UHCG #### [place] [address] USAProtein,UrineNegativeNormalNegSelect Medical TriHealth Rehabilitation HospitalComment on above:Order Comment: Name Collection Type:: Clean- Voided MidstreamPerformed By: #### ADDONUAPLUS, CUU, UHCG #### [place] [address] USARBC,Juvtc4-6Nssybj0-0XrhitjargPeoples Hospital Comment on above:Order Comment: Name Collection Type:: Clean-Voided Midstream Performed By: #### ADDONUAPLUS, CUU, UHCG #### [place] [address] USASpecificy Outing,Urine1.893Goqamq1.001-1.030Parkview HealthComment on above:Order Comment: Name Collection Type:: Clean-Voided MidstreamPerformed By: #### ADDONUAPLUS, CUU, UHCG #### [facility] [address] [place], [place] [address] USASquamous Epithelial Cell,Wjyqx2-7Aeuo5-0AgdynhflpPeoples HospitalComment on above:Order Comment: Name Collection Type:: Clean- Voided MidstreamPerformed By: #### ADDONUAPLUS, CUU, UHCG #### [facility] [address] [place] [address] USAUrobilinogen,UrineNormalNormalNormalParkview HealthComment on above:Order Comment: Name Collection Type:: Clean- Voided MidstreamPerformed By: #### ADDONUAPLUS, CUU, UHCG #### [facility] [address] [place] [address] USAWBC,Kbmzi31-55Cmbd2-5Jsh[address] [place] [address] Comment on above:Order Comment: Name Collection Type:: Clean-Voided Midstream Performed By: #### ADDONUAPLUS, CUU, UHCG #### [facility] [address] [place], [place] [address] USAYeast,UrineRareCritically abnormalNone SeenParkview HealthComment on above:Order Comment: Name Collection Type:: Clean-Voided MidstreamPerformed By: #### ADDONUAPLUS, CUU, UHCG #### [facility] [address] [place], [place] [address] USAECG 12 lead ECGon 78-22-8545FPW [address] [facility] [place] [address] [place] [address] Electrocardiograph Report Signed Patient: Kylie Cabrera MR#: [id number] : 1995 Acct:[id number] Age/Sex: 27 / F ADM Date: 06/26/22 Loc: ER Room: Type: [facility] ER Attending Dr: Ordering Provider: Linda Mortensen [...] sinus rhythm Confirmed by Eugene Boggs DO ([id number]) on 06/26/2022 5:16:19 PM Referred By: Electronically Signed By:Eugene Boggs DO Transcribed By: MUS Signed By Eugene Boggs DO [id number] HealthEosinophils Auto (Bld) [#/Vol] Ordered By: Linda Mortensen on 76-05-0288Bpropdkihzf (Bld) [#/Vol]0.1 10*3/uL 0.0-0.45Parkview HealthEosinophils/100 WBC Auto (Bld)Ordered By: Linda Mortensen on 80-76-7620Qujjorwkhun/100 WBC (Bld)1.2 %.Parkview HealthErythrocyte distribution width Auto (RBC) [Ratio]Ordered By: Linda Mortensen on 23-41-4400Dcalccuiqfs distribution width (RBC) [Ratio] 14.9 %11.9-15.3FPeoples HospitalGlobulin Calc (S) [Mass/Vol] Ordered By: Linda Mortensen on 31-91-2094Bnjnxbqa (S) [Mass/Vol]3.5 g/dL Parkview HealthGlucose [Mass/volume] in Serum or PlasmaOrdered By: Linda Mortensen on 96-31-9838Inajgsn [Mass/Vol]81 mg/lQ85-370JvesmqnleParkview HealthComment on above:ADA recommended reference rangeRandom Glucose Reference Range is dependent on time and content of last meal. Glucose of more than 200 mg/dL in a nonstressed, ambulatory subject supports the diagnosisof Diabetes Mellitus.HCG ( test) [place].rapid Ql (U)Ordered By: Linda Mortensen on 73-56-5016JDJ ( test) Ql (U)PositiveParkview HealthHCG,Urineon 75-44-1058Zdha HCG ( test) Ql (U) PositiveHighParkview HealthComment on above:Order Comment: Name Collection Type:: Clean-Voided MidstreamResult Comment: PERFORMED BY: [facility] [address] [place] [address] PATHOLOGIST CLERICAL WAREHOUSE WORKER ANGIE RILEY M.D.Performed By: #### AMIRA NICOLE, CG #### [facility] [address] [place] [address] USAHematocrit Auto (Bld) [Volume fraction]Ordered By: Linda Mortensen on 20-75-5731Uwgjkjgxvl (Bld) [Volume fraction]38.3 %34.0-46.4 Parkview HealthHemoglobin [Mass/volume] in BloodOrdered By: Linda Mortensen on 57-27-5972Dqdbzlckgn (Bld) [Mass/Vol]12.6 g/dL11.8-15.4 Parkview HealthKetones Auto test strip (U) [Mass/Vol]Ordered By: Linda Mortensen on 02-25-4445Kkwdlis (U) [Mass/Vol]TraceNegativeParkview HealthLaboratory - Chemistry and Chemistry - challengeOrdered By: Linda Mortensen on 88-18-3162UON/1.73 sq M.predicted MDRD (S/P/Bld) [Vol rate/Area]mL/min/{1.73_m2}Parkview HealthLaboratory - UrinalysisOrdered By: Linda Mortensen on 57-22-2606Fovntwn casts LM Ql (Urine sed)0-8 [LPF]0-8Parkview HealthLeukocytes [#/volume] corrected for nucleated erythrocytes in Blood by Automated counOrdered By: Linda Mortensen on 23-98-9161RIA corrected for nucl RBC Auto (Bld) [#/Vol]8.8 10*3/uL 3.8-11.6FPeoples HospitalLymphocytes Auto (Bld) [#/Vol]Ordered By: Linda Mortensen on 74-09-7485Sxrpiuqrihe (Bld) [#/Vol]3.0 10*3/uL1.00-4.8 Parkview HealthLymphocytes/100 WBC Auto (Bld)Ordered By: Linda Mortensen on 93-45-7157Egnuvqrbfxr/100 WBC (Bld)34.2 %.[facility] CenterH Auto (RBC) [Entitic mass]Ordered By: Linda Mortensen on 56-24-8900WWK (RBC) [Entitic mass]30.1 pg24.7-34.3FPeoples HospitalMCHC Auto (RBC) [Mass/Vol]Ordered By: Linda Mortensen on 55-01-1066ADTN (RBC) [Mass/Vol]32.9 g/dL32.0-35.0Parkview HealthMCV Auto (RBC) [Entitic vol]Ordered By: Linda Mortensen on 00-73-3263TKU (RBC) [Entitic vol]91.5 sS49-377DqvttojzqParkview HealthMonocyte distribution width [Entitic volume] in Blood by AutomatedOrdered By: Linda Mortensen on 06-26-2022 Monocyte distribution width Auto (Bld) [Entitic vol]19.04 %0.00-20.00Parkview HealthMonocytes Auto (Bld) [#/Vol]Ordered By: Linda Mortensen on 50-27-6439Uxpaoqfkp (Bld) [#/Vol]0.5 10*3/uL0.0-0.8Parkview HealthMonocytes/100 WBC Auto (Bld)Ordered By: Linad Mortensen on 06-26-2022 Monocytes/100 WBC (Bld)5.7 %.Parkview HealthNeutrophils Auto (Bld) [#/Vol]Ordered By: Linda Mortensen on 18-38-8868Jbwoaqslvcf (Bld) [#/Vol] 5.1 10*3/uL1.8-7.7FPeoples HospitalNeutrophils/100 WBC Auto (Bld)Ordered By: Linda Mortensen on 59-85-8994Omcpsxespjc/100 WBC (Bld)58.5 %. Parkview HealthNitrite Test strip Ql (U)Ordered By: Linda Mortensen on 20-70-1962Xhejycw Ql (U)NegativeNegativeParkview HealthNo Panel InformationOrdered By: Linda Mortensen on 01-20-6011Yfcimiku Creatinine Clearance (Lkgf929.48Parkview HealthNucleated erythrocytes [Presence] in Blood by Automated countOrdered By: Linda Mortensen on 79-75-7186Qafekqlzd RBC Auto Ql (Bld)0.1 /100{WBC}0-0.5FPeoples HospitalPlatelet mean volume Auto (Bld) [Entitic vol]Ordered By: Linda Mortensen on 91-65-6896Rizbixte mean volume (Bld) [Entitic vol]7.6 fL6.3-10.7 Parkview HealthPlatelets Auto (Bld) [#/Vol]Ordered By: Linda Mortensen on 32-00-1777Nswaikaws (Bld) [#/Vol]332 10*3/yQ906-128IatmtddgaParkview HealthPotassium [Moles/volume] in Serum or PlasmaOrdered By: Linda Mortensen on 57-65-6790Fxmgkyher [Moles/Vol]4.0 mmol/L3.5-5.1FPeoples HospitalProtein Auto test strip (U) [Mass/Vol]Ordered By: Linda Mortensen on 99-24-1858Jahwceb (U) [Mass/Vol]NegativeNegativeParkview HealthProtein [Mass/volume] in Serum or PlasmaOrdered By: Linda Mortensen on 51-56-8077Xfukbzh [Mass/Vol]7.3 g/dL6.4-8.9Parkview HealthRBC Auto (Bld) [#/Vol]Ordered By: Linda Mortensen on 06-26-2022 RBC (Bld) [#/Vol]4.19 10*6/uL3.60-5.00[facility] Medical Centererum or plasma albumin/globulin mass ratioOrdered By: Linda Mortensen on 06-26-2022 Albumin/Globulin [Mass ratio]1.1 {ratio}[facility] Medical Centererum or plasma anion gap determinationOrdered By: Linda [facility] Systemsis on 55-84-0848Fayaw gap [Moles/Vol]10.4 mmol/L6.0-15.0[facility] Medical Centerodium [Moles/volume] in Serum or PlasmaOrdered By: [facility] on 99-68-5731Tfukyt [Moles/Vol]136 mmol/G768-534EiizczdmbUniversity Hospitals TriPoint Medical Centerpecific gravity Auto test strip (U) [Rel density]Ordered By: [facility] on 06-26-2022 Specific gravity (U) [Rel density]1.0251.001-1.030[facility] Medical Centerquamous epithelial cells detection in urine sediment by light microscopy Ordered By: Linda [facility] on 37-22-0217Kkziqjvepi cells.squamous LM Ql (Urine sed)5-9 [HPF]0-2FPeoples HospitalTroponin I High Sensitivityon 28-93-7415Wbjqnjeg I High Sensitivity< 2.5Xldxyq8.0-15.0Parkview HealthComment on above:Result Comment: PERFORMED BY: [place] [address] PATHOLOGIST CLERICAL WAREHOUSE WORKER ANGIE RILEY M.D.Performed By: #### CMP, CBC, HS TROP #### [place] [address] USATroponin I.cardiac [Mass/volume] in Serum or Plasma by Detection limit <= 0.01 ng/Ordered By: Linda [facility] on 36-98-3606Ujpzisbp I.cardiac DL <= 0.01 ng/mL [Mass/Vol]< 2.3 pg/mL0.0-15.0Parkview HealthUrea nitrogen [Mass/volume] in Serum or PlasmaOrdered By: Linda [facility] Systemsis on 50-51-1385Icfi nitrogen [Mass/Vol]6 mg/dL7-25Parkview HealthUrine Cultureon 23-98-1092Bmccsotn identified Cx Nom (U)50,000 colonies/ml mixed bacterial skin contaminants 2 Days PERFORMED BY: [facility] [address] [place] [address] PATHOLOGIST CLERICAL WAREHOUSE WORKER ANGIE RILEY M.D.[facility] Osteopathic HospitalComment on above: Performed By: #### COREY, CUU, UHCG #### [facility] [address] [place] [address] USAUrine bacteria detection by automated methodOrdered By: Linda Mortensen on 62-02-8205Siippvnx Auto Ql (U)RareNone [facility] CenterUrine clarity by refractometry automatedOrdered By: Linda Mortensen on 73-50-6306Cifpffy Refractometry automated (U)ClearCleKing's Daughters Medical Center OhioUrine culture routineOrdered By: Linda Mortensen on 45-33-7812Znrvcesl identified Cx Nom (U)2 DaysParkview Health Urine glucose measurement by automated test strip (mass/volume)Ordered By: Linda Mortensen on 96-70-1417Lghpuzs Auto test strip (U) [Mass/Vol]Normal mg/dL [facility] HospitalUrine hemoglobin detection by automated test stripOrdered By: Linda Mortensen on 32-45-6852Qvecrusddp Auto test strip Ql (U)NegativeNegativeParkview HealthUrine leukocyte esterase detection by automated test stripOrdered By: Linda Mortensen on 06-26-2022 Leukocyte esterase Auto test strip Ql (U)3+NegativeParkview HealthUrobilinogen Auto test strip (U) [Mass/Vol]Ordered By: Linda Mortensen on 07-11-3770Scgqzehgnlad (U) [Mass/Vol]Normal mg/dLNormalParkview HealthWBC Auto (Bld) [#/Vol]Ordered By: Linda Mortensen on 57-98-2178WQH (Bld) [#/Vol]8.8 10*3/uL3.8-11.6FPeoples HospitalYeast detection in urine sediment by light microscopyOrdered By: Linda Mortensen on 47-02-0441Jzhme LM Ql (Urine sed)Rare [HPF]None [facility] Health CenterpH Auto test strip (U)Ordered By: Linda Mortensen on 70-40-7892uT (U)6.0 [pH]5.0-9.0Parkview HealthUS PREG TVon 46-22-4213AW PREG TV EXAMINATION: US PREG TV HISTORY: [...] authenticated by: BRYAN DE SOUZA Date: 2022-06-08 15:07[facility] Vital Signs Date TimeVital SignValuePerforming ZigxtitdsQitgytaw25-86-1774 16:21-0400Body csqexx725.6 cmCoreVigster Work Phone: [facility] Hlidjawagc35-90-2543 16:21-0400Body mass index (BMI) [Ratio]40.85 kg/y6NnqcoVigster Work Phone: [facility] Vlfpentdut44-22-2594 16:21-0400Body .96 kgParkwood HospitalVigster Work Phone: [facility] Isseexjzqq55-72-7033 16:21-0400Diastolic blood wgweltgv15 mm[Hg][employer] Work Phone: [facility] Thbhxtfeae55-37-4149 16:21-0400Systolic blood rdegyjxs496 mm[Hg][employer] Work Phone: [facility] Azmkszyhag51-85-9500 08:58-0500Body mjtfsy346.6 cmAmilagros Vanessa DOMAIN ARCHITECT-VULCANIZING MACHINE OPERATOR Work Phone: [facility] Lysanda Ohkfif87-72-5777 08:58-0500Body mass index (BMI) [Ratio]35.5 kg/z1Hberyqkcwlow Vanessa DOMAIN ARCHITECT-VULCANIZING MACHINE OPERATOR Work Phone: [facility]02-05-2025 08:58-0500Body rahocsidqqj497 [degF]Elzbieta Vanessa DOMAIN ARCHITECT-VULCANIZING MACHINE OPERATOR Work Phone: [facility]02-05-2025 08:58-0500Body .8 kgAlelow Vanessa DOMAIN ARCHITECT-VULCANIZING MACHINE OPERATOR Work Phone: [facility]02-05-2025 08:58-0500Diastolic blood wqmtytlb39 mm[Hg]Elzbieta Vanessa DOMAIN ARCHITECT-VULCANIZING MACHINE OPERATOR Work Phone: [facility]02-05-2025 08:58-0500Heart rate 116 /minAlelow Vanessa DOMAIN ARCHITECT-VULCANIZING MACHINE OPERATOR Work Phone: [facility]02-05-2025 08:58-9721VsQ6% (BldA) [Mass fraction]97 %Elzbieta Vanessa DOMAIN ARCHITECT-VULCANIZING MACHINE OPERATOR Work Phone: [facility]02-05-2025 08:58-0500Systolic blood bznpaels813 mm[Hg]Elzbieta Vanessa DOMAIN ARCHITECT-VULCANIZING MACHINE OPERATOR Work Phone: [facility]10-28-2024 10:07-0400Body mass index (BMI) [Ratio]36.01 kg/n1Fjexzdzlxlow Vanessa DOMAIN ARCHITECT-VULCANIZING MACHINE OPERATOR Work Phone: [facility]10-28-2024 10:07-0400Body laolhkzpkab46 [degF]Elzbieta Vanessa DOMAIN ARCHITECT-VULCANIZING MACHINE OPERATOR Work Phone: [facility]10-28-2024 10:07-0400Body utlqcj96.17 kgAlelow Vanessa DOMAIN ARCHITECT-VULCANIZING MACHINE OPERATOR Work Phone: [facility]10-28-2024 10:07-0400Diastolic blood mm[Hg]Elzbieta Vanessa DOMAIN ARCHITECT-VULCANIZING MACHINE OPERATOR Work Phone: [facility]10-28-2024 10:07-0400Heart rate 64 /minAlexagino Vanessa DOMAIN ARCHITECT-VULCANIZING MACHINE OPERATOR Work Phone: [facility]10-28-2024 10:07-8732AmT3% (BldA) [Mass fraction]99 %Elzbieta Vanessa DOMAIN ARCHITECT-VULCANIZING MACHINE OPERATOR Work Phone: [facility]10-28-2024 10:07-0400Systolic blood apbhvpgf874 mm[Hg]Elzbieta Vanessa DOMAIN ARCHITECT-VULCANIZING MACHINE OPERATOR Work Phone: [facility]03-24-2023 13:30-0400Diastolic blood yonnfajl01 mm[Hg]PHYSICIAN NO [facility] 06-26-2022 13:30-0400Heart rate80 /minPHYSICIAN [facility]03-24-2023 13:30-0400Respiratory rate18 /minPHYSICIAN [facility]03-24-2023 13:30-4036YyC5% (BldA) [Mass fraction]99 %PHYSICIAN NO [facility]03-24-2023 13:30-0400Systolic blood qgrpemdl964 mm[Hg]PHYSICIAN [facility]03-24-2023 11:13-0400Body qlryuf738.56 cmPHYSICIAN [facility]03-24-2023 11:13-0400Body utlalerxiax50.7 [degF]PHYSICIAN [facility]03-24-2023 11:13-0400 Body zlpsnu53.79 kgPHYSICIAN [facility] Encounters Encounter DateEncounter TypeCare ProviderFacilityStart: 01-22-2025 End: 37-34-5900Fipwfew encounter procedureCorey Needcheck Work Phone: NOPB HealthcareStart: 01-22-2025 End: 02-74-9709Fmusbfmt preventive med est patient 18-39 yrsCorey [employer] DO Work Phone: NOMS Rosa OBGYNComment on above:Well woman exam with routine gynecological exam; Irregular periods/menstrual cycles; H/O bilateral salpingectomy; Pelvic pain in femaleStart: 01-22-2025 End: 57-91-6546hsncjrocwxQOQTC FAZIONot AvailableStart: 01-22-2025 End: 03-78-9973Zciczt flowsheetCorey Claudia DO Work Phone: NOFM Rosa OBGYNStart: 01-22-2025 End: 32-34-6853Rytnbh flowsheetCorey Claudia DO Work Phone: NOZL [place] OBGYNStart: 01-09-2025 End: 67-83-7025izhzhpkwsvBtfnvgzqc ClarkFacility:FTP NorkStart: 09-14-2024 End: 63-16-6847bbxgconifcFgxhwtgbt L ClarkFacility:CC NorkStart: 09-14-2024 End: 08-30-0529Bktyhiq encounter procedureCathy King [phone]-ZmcviOhiohealth [facility] Start: 08-25-2024 End: 79-93-2180pqeuiejuucQipt T AMESFacility:FTMCStart: 05-10-2024 End: 48-41-6930wjyhfmackuIOHERGXHNPermian Regional Medical Center Ambulatory PPGStart: 05-10-2024 End: 50-50-8418Mrftsx outpatient visit 15 minutesAlelow Vanessa DOMAIN ARCHITECT-VULCANIZING MACHINE OPERATOR Work Phone: [facility] Family MedicineComment on above: Fever, unspecified fever cause (Primary Dx)Start: 01-31-2024 End: 77-58-6908Rznmfc outpatient new 45 minutesAlelow Vanessa DOMAIN ARCHITECT-VULCANIZING MACHINE OPERATOR Work Phone: ProC[facility] Luther[facility] Hospitalca Physicians Family MedicineComment on above: Anxiety and depression (Primary Dx); Encounter to establish care; Tension headacheStart: 01-31-2024 End: 54-00-5869nxvxbhvatnFTVVCCIKOPermian Regional Medical Center Ambulatory PPGStart: 10-04-2023 End: 14-88-9055Jmsbeklfp department patient visitNO PCP NO PCPProMediSaint Louis University [facility] Science Center HospitalStart: 08-30-2023 End: 41-05-3080Jfhpnrhrd department patient visitNO PCP NO PCPProMediSaint Louis University Health Science Center HospitalStart: 41-00-0073Hyubpnpjn Result EncounterCorey Claudia DO Work Phone: noms External Department UnsolicitedStart: 05-14-2023 Clinisync Result EncounterCorey Claudia DO Work Phone: noms External Department UnsolicitedStart: 05-14-2023 End: 64-93-6576waudoqsagxMelwk FazioFacility:[facility] Start: 03-01-2023 End: 58-65-5652wgdsytakqfVvec ProviderFacility:[facility] Hospitaltart: 09-02-2022 End: 72-30-4493grwrrnehbzMN PIPO CLAUDIA .Facility:Z9Gdbul: 07-04-2022 End: 73-51-4029kgkosglrabVV PIPO CLAUDIA .Facility:W0Ggpfm: 07-03-2022 End: 32-84-6879uwwtauwnucIQHDGYSRH NO FAMILYFacility:[facility] Centertart: 07-03-2022 End: 31-64-9188brziffdbqhFPYDDGIUL NO [facility] Work Phone: Start: 07-03-2022 End: 64-84-3773Knziwur encounter procedurePHYSICIAN NO [facility]-LA SwabStart: 07-02-2022 End: 05-18-1491bazkkzmjciBGBQYFEUQ NO FAMILYFacility:[facility]ertart: 07-02-2022 End: 96-32-9477ltizreycchBQAPTNNAY NO [facility] Work Phone: Start: 07-02-2022 End: 01-21-1262Gckwsze encounter procedurePHYSICIAN NO [facility]-Lab Main [place] Work Phone: Start: 06-26-2022 End: 02-79-3855Faxoyybtj department patient visitCoruma Mortensen Facility:[facility]: 06-26-2022 End: 92-30-0727Xtkfynizd department patient visitPHYSICIAN NO [facility] Work Phone: Start: 06-04-2022 End: 54-37-3098vhujmyjukbGH PIPO TAYLOR .Facility: Procedures DateProcedureProcedure DetailPerforming ClinicianStart: 62-72-5152XKMB XPERT, XPRESS COV-2, FLU, RSV PLUS (CEPHEID)Elzbieta Vanessa [facility] Work Phone: Start: 97-46-7652Koqpd depression screening assessment Elzbieta Vanessa [facility] Work Phone: Start: 95-56-5088Rhffj depression screening assessment Elzbietagino Vanessa [facility] Work Phone: Start: 77-40-1740GAB CBC WITH AUTO DIFFCorey Claudia DO Work Phone: Start: 07-83-6140Fjgqmbkrsta observation [Identifier] in Cervix by Cyto stainAlexagnio Vanessa [facility] Work Phone: Start: 16-60-9073QNPJ Antigen (LFIA)PHYSICIAN NO FAMILYStart: 77-76-6458Npyqbjpu screenCorey FazioComment on above:Result Comment: PERFORMED BY: [id number] [address] PATHOLOGIST CLERICAL WAREHOUSE WORKER ANGIE RILEY M.D.Start: 19-87-5382Ojtio culturePHYSICIAN NO FAMILYH/O: surgeryH/O bilateral salpingectomyCorey Claudia DO Work Phone: Plan of Treatment DateCare ActivityDetailAuthorStart: 32-09-6893XIkP,Tdap and Td Vaccines (7 - Td or Tdap)DTaP,Tdap and Td Vaccines (7 - Td or Tdap)[facility] SystemStart: 13-73-9124Snxwnqhpo for malignant neoplasm of cervixPap SmearProMedica Health SystemStart: 01-24-2026 End: 06-22-6297Qmrtihm encounter umqpfqujo07/22/2026 8:30 AM EDT Procedure Visit MELVA TONG [address] [facility] [place] [phone] Pipo Taylor, DO [address] [place] [address] NOMMuriel Lee OBGYNStart: 72-84-0055Evmjb BMI ScreeningAdult BMI ScreeningProMedica Health SystemStart: 05-10-2025 Depression ScreeningDepression ScreeningProMedica Health SystemStart: 05-10-2025 Tobacco ScreeningTobacco ScreeningProMedica Health SystemStart: 02-07-2025 End: 51-40-6412Aqcdirt encounter oxnnqlzmc67/05/2025 2:50 PM EST Office Visit MELVA TONG [address] [facility] [place] [phone] Pipo Taylor, DO [address] [place] [address] MELVA BLACKWELLNStart: 04-75-9279Ketgk BMI ScreeningAdult BMI ScreeningProMedica Health SystemStart: 01-30-2025 Depression ScreeningDepression ScreeningProMedica Health SystemStart: 01-30-2025 Tobacco ScreeningTobacco ScreeningProMedica Health SystemStart: 01-22-2025 End: 04-73-5383Gzkozvf encounter gmjjtaaxe48/20/2025 4:00 PM EDT Office Visit MELVA TONG [address] [place] [phone] Pipo Taylor, DO [address] [place] [address] ArrivedNOMS Rosa BLACKWELLNComment on above:ArrivedStart: 01-22-2025 End: 62-60-0542RA PelvisUS Pelvis w/ TV Imaging Routine Pelvic pain in female Expected: 01/22/2025, Expires: 07/23/2025[facility] Work Phone: comment on above:Expected: 01/22/2025, Expires: 07/23/2025Start: 62-55-1918Lgtonzmmf vaccinationInfluenza Vaccine (#1)[facility] HealthcareStart: 06-22-2024 End: 77-11-3252Mveggon encounter brtescdbk41/20/2025 8:40 AM EDT [facility] [address] [place] [address], [place] [address] Elzbieta Vanessa [facility] [address] [place] [phone] [facility]edic[facility] MedicineStart: 05-10-2024 End: 80-45-3561Uwpanvg encounter rmngezmta50/05/2025 8:40 AM EST [facility] [address] [place] [address], [place] [address] Elzbieta Vanessa [facility] [address] [place] [address], [place] [phone] [facility] MedicineStart: 04-25-2024 End: 84-41-7820Yeaijzm encounter arjxdpyfr94/21/2025 2:00 PM EST Office Visit [facility] [address] [place] [address] Pipo Taylor, [address] [place], [place] [id number] [facility] BCP OBStart: 43-83-7548TPDKV-19 Vaccine ( season)COVID-19 Vaccine ( season)[facility] SystemStart: 78-53-7273Mdlcyxxax vaccinationInfluenza VaccineProCleveland Clinictart: 87-72-0651Unkattbjb vaccinationInfluenza Vaccine (#1)[facility] HealthcareStart: 93-76-9898Bcsmnsaw identified in Urine by CultureUrine CultureUniversity Hospitals TriPoint Medical Centertart: 02-81-5361Dvrpp cultureUrine CultureUniversity Hospitals TriPoint Medical Centertart: 94-35-7882Xttfbeq IgG measurementUniversity Hospitals TriPoint Medical Centertart: 98-23-2154SybzzrvrcUniversity Hospitals TriPoint Medical Centertart: 06-26-2022 Bacteria identified in Urine by CultureUniversity Hospitals TriPoint Medical Centertart: 72-30-3462Vtzkt BMI Follow Up PlanAdult BMI Follow Up PlanJoint Township District Memorial HospitalCytology Cervical or vaginal smear or scraping studyPap Smear Pathology and Cytology Routine Well woman exam with routine gynecological exam Ordered: [facility] Work Phone: comment on above:Ordered: 01/22/2025Patient Education Urinary Tract Infections in [facility]regnancySum[facility] Work Phone: Patient referralSumma Health [facility]tr Work Phone: Immunizations Immunization DateImmunizationNotesCare ZwsueynvQsybuvfi87-54-3551gkqajcdck virus vaccine, unspecified formulationCorey Claudia DO Work Phone: [facility] HospitalGxfodzwnlf07-58-5780rpihammco virus vaccine, unspecified formulationEliitzel King [phone]-SmnbuOhiohealth [facility] Wlpx22-96-0312 varicella virus vaccineElizajameson King [phone]-FhrgsOhiohealth [facility] Ffmu35-81-0307 influenza virus vaccine, unspecified formulationCorey Claudia DO Work Phone: [phone]-NgjkiOhiohealth [facility] Bjax78-77-1919 SARS-CoV-2 mRNA (awcrzsmszkq-nmnt-ekbeeyu) vaccineCathy King [phone]-JykdpOhiohealth [facility] Jjgs38-80-4574 SARS-CoV-2 mRNA (ihezwasvoss-pvsh-ydrwqdk) vaccineCathy King [phone]-XhvilOhiohealth [facility] Rqyx47-79-7831 tetanus toxoid, reduced diphtheria toxoid, and acellular pertussis vaccine, adsorbedAlexandra Vanessa DOMAIN ARCHITECT-VULCANIZING MACHINE OPERATOR Work Phone: [facility]08-14-2002measles, mumps and rubella virus vaccineEliitzel King [phone]-VxjgjOhiohealth [facility] Stqi09-30-2593 DTaP, unspecified formulationCathy King 366-9196Lvqojf-GhammOhiohealth [facility] Ssmp71-88-5339 poliovirus vaccine, unspecified formulationCathy King [phone]-BmtwaOhiohealth [facility] Clkh24-21-4317 DTaP, unspecified formulationCathy King [phone]-LjxhiOhiohealth [facility] Uznu19-02-4046 Hib, unspecified formulationCathy King 326-2343Zlrtiz-IidosOhiohealth [facility] Vgvi74-40-8814 measles, mumps and rubella virus vaccineEliitzel King [phone]-QjllbOhiohealth [facility] Eiuj46-39-2261 varicella virus vaccineCathy King [phone]-CrvjcOhiohealth [facility] Nigc69-00-1227 DTaP, unspecified formulationCathy King [phone]-OvmifOhiohealth [facility] Wdce14-87-2800 hepatitis B vaccine, pediatric or pediatric/adolescent dosageElizajameson King [phone]-DbpcbOhiohealth [facility] Ixlu61-65-5074 Hib, unspecified formulationCathy King [phone]-TnoxoOhiohealth [facility] Kbcx25-32-3579 DTaP, unspecified formulationCathy King [phone]-KdblyOhiohealth [facility] Aull05-24-8829 hepatitis B vaccine, pediatric or pediatric/adolescent dosageElizabedivya King [phone]-TskyzOhiohealth [facility] Ndtw12-11-8512 Hib, unspecified formulationElizabeth Fernando [phone]-XumgzOhiohealth [facility] Hpnz64-51-9676 DTaP, unspecified formulationElizabeth Fernando [phone]-FynsgOhiohealth [facility] Teqb99-81-3225 Hib, unspecified formulationElizabeth Fernando 133-5604Qtrtdr-LhqjlOhiohealth [facility] Stlg04-79-5681 DTaP, unspecified formulationElizabeth Fernando [phone]-UmmxuOhiohealth [facility] Fbub71-01-2679 hepatitis B vaccine, pediatric or pediatric/adolescent dosageElizabeth Fernando [phone]-BwsxeOhiohealth [facility] Uhba58-22-5105 Hib, unspecified formulationElizabeth Fernando [phone]-JegvbOhiohealth [facility] Qllk19-09-4267 hepatitis B vaccine, pediatric or pediatric/adolescent dosageElizabeth Fernando [phone]-XdumwOhiohealth Dublin [facility] Care Payers DatePayer CategoryPayerPolicy ID2023Medicaid .[id number] 2023Medicaid (Managed Care)[employer] Member Subscriber Plan / Payer (Effective 2022- Present) Name: Kylie Cabrera Relation to Subscriber: Self Name: Kylie Cabrera Payer ID: Not on file Group ID: Not on file Type: Not on file Address: [address] [id number] 20-98-3244Befv-pay2020Medicaid [place] [employer] [id number] 2.160.1.132843.3.57[id number] 2.160.1.406815.3.57[id number] 2.0.1.582115.3.57[id number] 2.160.1.160110.3.57[id number] 2.160.1.249430.3.57[id number] 2.160.1.623506.3.57[id number] 2.160.1.074238.3.57[id number] 2.160.1.372496.3.57[id number] 2.16840.1.996158.3.57[id number] 2.16840.1.917316.3.579.2.1259 [id number] [id number] 2.16.840.1.4[id number] 2.16.840.1.363462.3.579.2.531 [id number] 2.16.840.1.4[id number] 2.16.840.1.839277.3.579.2.531 Social History DateTypeDetailFacilityStart: 06-26-2022 End: 29-23-2260Objxpkw smoking status NHISNever smoked tobacco (finding) [facility]ertart: 01-22-2688Qms Assigned At BirthFeOhioHealth Mansfield Hospitaltart: 09-22-2022 End: 65-85-1583Qvdbopp use and exposureSmokeless tobacco non-userNOMS Healthcare Start: 04-14-2023 End: 63-23-9932Piepsby intakeLifetime non-drinker (finding)[facility] HealthcareStart: 09-30-2022 End: 98-04-9200Hegujcg of Social functionKettering Health Hamilton SystemStart: 09-30-2022 End: 64-24-3294Wpjvbxk use panelKettering Health Hamilton SystemStart: 86-60-2244Gljaxa identityIdentifies as female gender (finding)[facility] HealthcareStart: 01-31-2024 End: 06-61-4209Izoopvwsf beverage intakeEx-drinker (finding)[facility] SystemHow hard is it for you to pay for the very basics like food, housing, medical care, and heatingNot very hardKettering Health Hamilton SystemStart: 06-17-2022 Adolescent depression screening fhrluekrjp4PjhIuajms Health SystemStart: 78-70-3803Oqoxfvf CommentrarelyPOhioHealth Shelby Hospital SystemStart: 79-08-1994Tpo assigned at birthNot on fileCape Fear/Harnett Healthtart: 11-08-2014 End: 39-97-1138QvxZqyjfl (finding)[facility]anda SystemSexual Orientation [facility] Goals DatePatient GoalDesired Activity/StatePersonal health goal Clinical Notes 03-01-2023 to 01-22-2025 Note Date & ZvqiWbumZkopuivt17-21-1114 History of Present illness Narrative* Lydia CoburnFRIEDA - 01/22/2025 4:00 PM EDT Reason for [...] Medical History: Diagnosis Date Depression Gallstone pancreatitis ([facility]) 2015 HISTORY PAST MEDICAL HISTORY SOCIAL HISTORY Past Medical History: Diagnosis Date Depression Gallstone pancreatitis ([facility]) 2015 [facility] Social History Tobacco Use Smoking status: Never [...] nursing note reviewed. Exam conducted with a mining technician present. Vitals: Estimated body mass index is 40.85 kg/m as calculated from the following: Height as [...] of: Pipo Taylor DO documented in this encounterEastern Missouri State HospitalGppzxumeyx28-71-6415 Hospital Discharge instructions Patient Education 09/14/2024 12:46:08 Sinus Infection, [...] a feeling of pressure around the affected sinuses.Other symptoms include: Stuffy nose or congestion that [...] saline washes). ?Medicines that treat allergies (antihistamines). ?Hnow-gud-tcmajlu pain relievers. If caused by bacteria, your [...] at home: Medicines Take, use, or apply rriv-rtt-ydbfhij and prescription medicines only as told by your health care provider. These may include nasal sprays. If you were prescribed an antibiotic medicine, take it as told by your health care provider. Do notstop taking the antibiotic even if you start [...] or as told by your health care provider.This will help with discomfort. Use nasal saline washes as often as told by your health care provider. Wash your hands often with soap and water to reduce your exposure to germs. If soap and water are not available, use hand motion picture camera operator. Do not smoke. Avoid being around people [...] told by your health care provider. Do notstop taking the antibiotic even if you start to feel better. Keep all follow-up visits. This is important. This information is not intended to replace advice given to you by your health care provider. Make sure you discuss any questions you have with your health care provider. Document Revised: 02/24/2022 Document Reviewed: 02/24/2022 [employer] Patient Education 2023 [employer]. 09/14/2024 12:46:07 How to Perform a Sinus [...] be purchased at your local pharmacy, a [employer] store, or online. How to perform a sinus rinse 1.Wash your hands with soap and water for at least 20 seconds. If soap and water are not available,use hand motion picture camera operator. 2.Wash your device according to the directions [...] your sinuses with a sterile mixture of saltand water (saline solution). You may do a [...] provider. Document Revised: 09/08/2021 Document Reviewed: 09/08/2021 [employer] [facility] Patient Education 2023 [employer]. Follow Up Care 09/14/2024 12:03:16 With:Darshana Jaramillo Address: When: Unknown With:NONE, XXXX Address:Unknown When: Unknown [facility] 06-12-2025 NotePatient Education ENT How to Perform a Sinus [...] for 5 minutes; cool until it is lukewarm.Use within 24 hours. ? Do not use regular tap water to mix with the saline solution. ??? Neti pot or nasal rinse bottle. These supplies release the saline solution into your nose and through your sinuses. Neti pots and nasal rinse bottles can be purchased at your local pharmacy, a [employer] store, or online. How to perform a sinus rinse 1. Wash your hands with soap and water for at least 20 seconds. If soap and water are not available, use hand motion picture camera operator. 2. Wash your device according to the [...] provider. Document Revised: 09/08/2021 Document Reviewed: 09/08/2021 [employer] [facility] Patient Education ? 2023 [employer]. Infectious Disease Sinus Infection, Adult A sinus [...] of swimming or diving. (more content not included)...[facility]02-05-2025 History of Present illness Narrative* Elzbieta Vanessa, DOMAIN ARCHITECT-VULCANIZING MACHINE OPERATOR - 05/10/2024 8:40 AM EST Subjective Patient ID: Kylie Cabrera is a 28 y.o. female. DAVIDSON Huynh presents to the office for a sick visit. She had wellness scheduled today but we will have toreschedule. Kylie reports that she began Wednesday night with fever, headache, body aches, chills, congestion, facial pressure, sore throat, and fatigue. She reports some chest discomfort with cough but denies shortness of breath. She has been taking zwkf-dmy-ezwgcxz DayQuil and NyQuil but symptoms persist. She reports that her symptoms have progressively worsened. Everyone at home is sick. The following portions of the patient's history were reviewed and updated as appropriate: allergies, current medications, past family history, past medical history, past social history, past surgicalhistory, problem list, and medication reconciliation was completed including current medication andpost discharge medication. Review of Systems Constitutional: Positive [...] SIXTO Basurto 05/10/24 0957 documented in [facility] encounterJoint [facility]20[facility] History of Present illness Narrative* SIXTO Basurto - 01/31/2024 10:00 AM EDT Subjective Patient ID: Kylie Cabrera is a 28 y.o. female. HPI Kylie presents to the office to establish care. [...] tension headache. Sometimes feels like her neck intight then the headache will come. Not related [...] ORAL) Take by mouth. (Patient not taking: Reportedon 10/04/2023) No current facility-administered medications on file [...] past medical history, past social history, past surgicalhistory, problem list, and medication reconciliation was completed including current medication andpost discharge medication. Review of Systems Constitutional: Negative [...] self-injury, sleep disturbance and suicidal ideas. The patientis nervous/anxious. Objective Physical Exam Vitals and nursing [...] SIXTO Basurto 02/01/24 0927 documented in this encounterJoint Township District Memorial Hospital11-27-2023 NotePatient Education Materials Follows:Disease Bacterial Conjunctivitis, Adult Bacterial conjunctivitis is [...] health care provider. ? Take or apply fxjv-psm-aksvhqt and prescription medicines only as told by your health care provider. ? Be very careful to avoid touching the edge of your eyelid with the eye-drop bottle or the ointment tube when you apply medicines to the affected eye. This will keep you from spreading the infectionto your other eye or to other people. [...] your symptoms do not get better after 10days. Get help right away if you have a sudden loss of vision. This information is not intended to replace advice given to you by your health care provider. Make sure you discuss any questions (more content not included)...[facility] note No data available for this section [facility] Evaluation noteNo assessment information available [facility] Work Phone: Evaluation note* Diagnosis Fever, unspecified fever cause- Primary documented in this encounter [facility] SystemEvaluation note* Diagnosis Anxiety and depression- Primary Encounter to establish care Tension headache documented in this encounter [facility] SystemEvaluation note* Diagnosis Well woman exam with routine gynecological exam Routine gynecological examination Irregular periods/menstrual cycles H/O bilateral salpingectomy Pelvic pain in female Unspecified symptom associated with female genital organs documented in this encounter [facility] Discharge instructions Additional Instructions Take your Zofran at home for nausea for nausea vomiting Push fluids Follow-up with your STOCK HOLDER call today for appointment Return here if you develop any abdominal pain, vaginal bleeding, chest pain, shortness of breath, dizziness or any other concernsSumma Health [facility]tr Work Phone: InstructionsNot on filedocumented in this encounter [facility]MChildren[facility] SystemInstructionsNot on filedocumented in this encounter [facility] SystemProgress note No data available for this section [facility] Chief Complaint and Reason for [...] for this section No Family History Records FoundNo Family History Records Found Additional Source Comments Care Teams (unrecognized sec tion and content) Team Status: Active Member Role Status Dates PHYSICIAN NO FAMILY Primary Care Provider Active Team Status: Inactive Member Role Status Dates PHYSICIAN NO FAMILY Primary Care Provider Active Josie Jean ProviderActive Team Status: Inactive Member Role Status Dates PHYSICIAN NO FAMILY Primary Care Provider Active Pipo Castrejonttcaron ProviderActive Team Status: Inactive Member Role Status Dates PHYSICIAN NO FAMILY Primary Care Provider Active Birdie Hunt ProviderActiveTeam MemberRelationshipSpecialty Start DateEnd Date Elzbieta Vanessa APRN-ISHA [address] [place] [phone] PCP - Djoumko47/28/24 Goals (unrecognized section and content) Goals may be documented in a n alternate sectionGoals may be documented in an alternate sectionGoals may be documented in an alternate sectionNot on filedocumented as of this encounterNot on filedocumented as of this encounter No data available for this section INFORMATION SOURCE (unrecogn ized section and content) DATE CREATED AUTHOR 09/11/2022 [facility] DATE CREATED AUTHOR AUTHOR'S ORGANIZ ATION 03/08/2023 [facility] DATE CREATED AUTHOR AUTHOR'S ORGANIZ ATION 05/19/2023 [facility] DATE CREATED AUTHOR AUTHOR'S ORGANIZ ATION 10/05/2023 [facility] DATE CREATED AUTHOR AUTHOR'S ORGANIZ ATION 05/12/2024 [facility] DATE CREATED AUTHOR AUTHOR'S ORGANIZ ATION 08/31/2024 [facility] DATE CREATED AUTHOR AUTHOR'S ORGANIZ ATION 09/01/2024 [facility] DATE CREATED AUTHOR AUTHOR'S ORGANIZ ATION 01/11/2025 [facility] DATE CREATED AUTHOR AUTHOR'S ORGANIZ ATION 01/23/[address] [facility] EPIC Reason for Visit (unrecogniz ed section and content) ReasonCommentsWellnessReasonCommentsEstablish CareReasonCommentsGynecologic Exam FOR RECORDS PERTAINING TO PATIENTS WHO ARE [...] BE BASED ON THE PRIMARY CLINICAL RECORDS. [facility] [employer] [facility]. provides no warranty or guarantee of the accuracy or completeness of information in this document.
--- OUTSIDE RECORDS SUMMARY | 2025-01-26 15:36 | XMS_ITS | Clinical Summary ---
Author Organization [facility] Address [address] [place] [address] Care Team Providers Care Principal Technical Architect Name Role Phone Unavailable Primary Care Provider Unavailabl e Allergies No known active allergies Medications No known medications Active Problems ProblemNoted DateDiagnosed DateDepression with smaldsz1211/04/2022Migraine 11/04/2022Tension /02/2023 Encounters DateTypeDepartmentCare BssgDkvqpwljdyc64/20/2025 4:00 PM EDTOffice Visit [facility] [address] [address] Pipo Taylor, Well woman exam with routine gynecological exam; Irregular periods/menstrual cycles; H/O bilateral salpingectomy; Pelvic pain in hahozw6801/22/2025linisync Result Encounter [facility] Unsolicited Pipo Taylor DO 01/22/2025amboo flowsheet [facility] [address] [place] [address] Pipo Taylor, 01/15/2025Travelfrom Last 3 Months Family History Medical HistoryRelationNameCommentsNo Known ProblemsBrotherDiabetesFather HypertensionFatherMigrainesMotherNo Known ProblemsSister 1No Known Problems Sister 2RelationNameStatusCommentsBrotherAliveDaughter 1MercedesAliveDaughter 2 AriaAliveFatherAliveMotherAliveSister 1AliveSister 2AliveSonJonathanAlive Social History Tobacco UseTypesPacks/DayYears UsedDateSmoking Tobacco: NeverSmokeless Tobacco: Never Tobacco Cessation:Counseling Given: Not Answered Alcohol UseStandard Drinks/WeekCommentsNever0 (1 standard drink = 0.6 oz pure alcohol)CommentsNoSex and Gender InformationValueDate RecordedSex Assigned at TdubfTzrsru24/24/2023 9:02 AM EDTLegal ZlzQzwiud43/15/2023 7:35 PM EDTGender XgfunudzYuabll39/24/2023 9:02 AM EDTSexual OrientationNot on file Last Filed Vital Signs Vital SignReadingTime TakenCommentsBlood Cjwvwldn469/7601/22/2025 4:21 PM EDT Pulse--Temperature--Respiratory Rate--Oxygen Saturation--Inhaled Oxygen Concentration--Rngyif166 kg (238 lb)01/22/2025 4:21 PM CZVSkcyhx049.6 cm (5' 4 ) 01/22/2025 4:21 PM EDTBody Mass Index40.8501/22/2025 4:21 PM EDT Plan of Treatment DateTypeDepartmentCare Team (Latest Contact Info)Mmgxfbewszo98/05/2025 2:50 PM ESTOffice Visit [facility]EL[facility] [address] [place] [address] [place] [id number] Pipo Taylor, [address] [place] [address] 01/24/2026 8:30 AM EDTProcedure Visit [facility] [address] [place] [address] [place] [phone] Pipo Taylor, [address] [place], [place] [id number] Health MaintenanceDue DateLast DoneCommentsInfluenza VfevulfVquexnsrm96/07/2025, 01/31/2024, 05/27/2022 Goals GoalPatient Goal TypeAssociated ProblemsRecent ProgressPatient-Stated?Author Reminders Care PlanOB RemindersNoOpen Scheduling, Background Procedures Procedure NamePriorityDate/TimeAssociated DiagnosisCommentsIGP,APTIMA HPV,AGE HEJTQcncyks14/20/2025 4:14 PM EDT from Last 3 Months Results * IGP,APTIMA HPV,AGE GDLN (01/22/2025 4:14 [...] at: 01 =G ?[facility] ?? [address] [place] ??[phone] ?? Sabine Abraham MD, IGP, RFX APTIMA HPV ASCUNote.TBHComment: ?? TESTS ? RESULT ??FLAG ??UNITS ?REF RANGE ??LAB DIAGNOSIS: ?02 ?? NEGATIVE FOR INTRAEPITHELIAL LESION OR MALIGNANCY. ?? FUNGAL ORGANISMS MORPHOLOGICALLY CONSISTENT WITH JANET SPECIES ARE ?? PRESENT. Specimen adequacy: ?02 ?? Satisfactory for evaluation. ??Endocervical and/or squamous metaplastic ?? cells (endocervical component) are present. Performed by: ? 02 ?? Bozena Vasques Record Cutter (ASCP) . ? 02 Note: ? Note [...] pap test was interpreted ?? using the [employer](R) Genius(TM) Cervical Algorithm whole ?? slide imaging system. . ? 02 ?? The HPV DNA reflex criteria were not met with this specimen ?? result therefore, no HPV testing was performed. ?FLAG LEGEND: ?L-Low Normal,H-High Normal,LL-Alert Low,HH-Alert High <-Panic Low,>-Panic High,A-Abnormal,AA-Critical Abnormal Performed at: 02 WB ?[facility] ?? [address] [place], [place] ??[phone] ?? Sabine Abraham MD, Performed at: ??=G - [facility] [address], [place] ??[id number] Civil Engineering Drafter: Sabine Abraham MD, Phone: ??[phone] Performed at: ??WB - [facility] ??[id number] Civil Engineering Drafter: Sabine Abraham MD, Phone: ??[phone] Specimen (Source)Anatomical Location / LateralityCollection Method / Volume Collection TimeReceived Time01/22/2025 4:14 PM EDT1 8:46 PM EDT Narrative [facility] - 01/26/2025 2:09 PM EDT BRUSH-SPATULA CERVIX ENDOCERVIX Authorizing ProviderResult TypeResult StatusCorey Claudia DOLAB BLOOD ORDERABLES Final ResultPerforming OrganizationAddressCity/State/ZIP CodePhone Number [facility] from Last 3 Months Additional Health Concerns Active ProblemsNoted DateDiagnosed DateOB Atkowzrxl12/12/2023 Insurance
== END 2025-01-26 15:33 | disposition home or self-care (01) ==
LOC: US 15:32
PROVIDERS: Visit Provider Nurse Practitioner Family
DX: N85.4 Malposition of uterus (principal); R10.30 Lower abdominal pain, unspecified
CPT/HCPCS: 76830; 76856